=== PATIENT | male | born 1940 | race Caucasian/White ===

== ENCOUNTER 2020-03-27 07:40 | Outpatient (CLI) | payer MEDICARE, OTHER, SELFPAY ==
[2020-03-27 08:42] LABS: Alanine Aminotransferase 20 U/L (4-50); Alkaline Phosphatase 71 U/L (38-126); Aspartate Amino Transferase 24 U/L (17-59); Blood Urea Nitrogen 19 mg/dL (9-20); Carbon Dioxide 30 mmol/L (22-30); Chloride 104 mmol/L (98-107); Cholesterol 170 mg/dL (0-200); Estimated Glomerular Filt Rate 58; Glucose 99 mg/dL (75-110); HDL Direct 52 mg/dL; Potassium 4.2 mmol/L (3.4-5.0); Sodium 138 mmol/L (137-145); Triglycerides 97 mg/dL (<150)
[2020-03-27 08:53] LABS: LDL Cholesterol Direct 88 mg/dL
[2020-03-27 09:03] LABS: Hemoglobin A1C 5.7 % (<5.7)
[2020-03-27 09:16] LABS: Creatinine Urine 223.4 mg/dL
[2020-03-27 09:20] LABS: MALB Creatinine Ratio 19.2 mg/g (0-30)
== END 2020-03-27 07:41 | disposition home or self-care (01) ==
LOC: ANHLAB 07:43
PROVIDERS: PCP Internal Medicine; Visit Provider Nurse Practitioner
DX: R73.03 Prediabetes (principal); E78.2 Mixed hyperlipidemia
CPT/HCPCS: 36415; 80053; 80061; 82043; 83036

== ENCOUNTER 2020-06-24 08:48 | Outpatient (CLI) | payer MEDICARE, OTHER, SELFPAY ==
--- NOTE | ~2020-06-24 | XR_ITS ---
XR abdomen/kub 1V 06/24/2020 09:15 INDICATION: Flank pain TECHNIQUE: KUB COMPARISON: None FINDINGS: Bowel gas pattern is normal. There are cholecystectomy clips. There is no evidence of free air, mass, organomegaly, ascites or obstruction. No abnormal calculi are seen. The bones appear int act. Moderate lumbar spondylosis. Moderate osteoarthritis of the hips. Calcifications in the pelvis a re believed to be phleboliths. IMPRESSION: 1: No acute abdominal abnormality identified. Reviewed, dictated and finalized at location A.
== END 2020-06-24 08:49 | disposition home or self-care (01) ==
LOC: ANHIMG 08:58
PROVIDERS: Visit Provider Urology
DX: N20.0 Calculus of kidney (principal)
CPT/HCPCS: 74018

== ENCOUNTER 2020-07-25 12:23 | Outpatient (CLI) | payer MEDICARE, OTHER, SELFPAY ==
[2020-07-25 12:56] LABS: Hemoglobin A1C 5.7 % (<5.7)
[2020-07-25 12:57] LABS: Alanine Aminotransferase 23 U/L (4-50); Albumin Level 3.9 g/dL (3.5-5.1); Alkaline Phosphatase 62 U/L (38-126); Anion Gap 7 mmol/L (8-16); Aspartate Amino Transferase 23 U/L (17-59); Bilirubin,Total 0.8 mg/dL (0.2-1.3); Blood Urea Nitrogen 26 mg/dL (9-20); Calcium 9.5 mg/dL (8.4-10.2); Carbon Dioxide 35 mmol/L (22-30); Chloride 100 mmol/L (98-107); Cholesterol 148 mg/dL (0-200); Estimated Glomerular Filt Rate 49; Glucose 107 mg/dL (75-110); HDL Direct 46 mg/dL; Potassium 3.8 mmol/L (3.4-5.0); Sodium 142 mmol/L (137-145); Triglycerides 136 mg/dL (<150)
[2020-07-25 13:08] LABS: LDL Cholesterol Direct 73 mg/dL
== END 2020-07-25 12:24 | disposition home or self-care (01) ==
PROVIDERS: PCP Internal Medicine; Visit Provider Nurse Practitioner
DX: R73.03 Prediabetes (principal); E78.2 Mixed hyperlipidemia
CPT/HCPCS: 36415; 80053; 80061; 83036

== ENCOUNTER 2020-07-30 12:44 | Outpatient (CLI) | payer MEDICARE, OTHER, SELFPAY ==
--- NOTE | ~2020-07-30 | US_ITS ---
EXAMINATION: US retroperitoneal comp DATE: 07/30/2020 13:35 INDICATION: Uncontrolled hypertension TECHNIQUE: Multiple ultrasound grayscale images of the kidneys were obtained. COMPARISON: 09/07/2018 FINDINGS: The right kidney measures 9.2 x 5.4 x 5.3 cm. The left kidney measures 10.1 x 5.3 x 4.9 cm. The kidne ys demonstrate normal echogenicity. Again seen are persistent lobulations at both kidneys more prominent on the left. There is no hydronephrosis in either kidney. No stones identified. The bladde r is normal. IMPRESSION: 1. Normal variant persistent lobulations of both kidneys. No hydronephrosis. Reviewed, dictated and finalized at location B. IMPRESSION: 1. Normal variant persistent lobulations of both kidneys. No hydronephro sis.
== END 2020-07-30 12:45 | disposition home or self-care (01) ==
PROVIDERS: Referring Provider Urology
DX: I10 Essential (primary) hypertension (principal)
CPT/HCPCS: 76770

== ENCOUNTER 2020-09-12 10:31 | Outpatient (CLI) | payer MEDICARE, OTHER, SELFPAY ==
[2020-09-18 11:28] LABS: PRA 8.43 ng/mL/h (0.25-5.82)
== END 2020-09-12 10:32 | disposition home or self-care (01) ==
DX: I12.9 Hypertensive chronic kidney disease with stage 1 through stage 4 chronic kidney disease, or unspecified chronic kidney disease (principal); N18.2 Chronic kidney disease, stage 2 (mild)
CPT/HCPCS: 36415; 82088; 83970; 84244

== ENCOUNTER 2020-09-14 10:05 | Outpatient (CLI) | payer MEDICARE, OTHER, SELFPAY ==
[2020-09-18 19:50] LABS: Calculated Total (E+NE) 64 mcg/24 h (26-121); Dopamine, 24hr Urine 189 mcg/24 h (52-480); Norepinephrine, 24hr Urine 64 mcg/24 h (15-100)
== END 2020-09-14 10:06 | disposition home or self-care (01) ==
DX: I12.9 Hypertensive chronic kidney disease with stage 1 through stage 4 chronic kidney disease, or unspecified chronic kidney disease (principal); N18.2 Chronic kidney disease, stage 2 (mild)
CPT/HCPCS: 82384

== ENCOUNTER 2020-09-24 15:51 | Outpatient (CLI) | payer MEDICARE, OTHER, SELFPAY ==
--- NOTE | ~2020-09-24 | XR_ITS ---
EXAMINATION: XR chest 2V 09/24/2020 16:22 INDICATION: Cough for 3 weeks PROCEDURE: PA and lateral views of the chest COMPARISON: Comparison to multiple prior studies sequentially, with oldest reviewed study dated 09/04. FINDINGS: The lungs are clear. The cardiomediastinal silhouette is within normal limits. There are no pleural effusions. There is no pneumothorax suspected. IMPRESSION: 1: NO ACUTE CARDIOPULMONARY DISEASE. Reviewed, dictated and finalized at location A. ER'S ASSISTANT
[2020-09-24 16:57] LABS: Anion Gap 8 mmol/L (8-16); Blood Urea Nitrogen 21 mg/dL (9-20); Calcium 9.9 mg/dL (8.4-10.2); Carbon Dioxide 29 mmol/L (22-30); Chloride 101 mmol/L (98-107); Estimated Glomerular Filt Rate 58; Glucose 113 mg/dL (75-110); Potassium 4.1 mmol/L (3.4-5.0); Sodium 138 mmol/L (137-145)
== END 2020-09-24 15:52 | disposition home or self-care (01) ==
DX: R05 Cough (principal)
CPT/HCPCS: 36415; 71046; 80048

== ENCOUNTER 2020-12-23 08:48 | Outpatient (CLI) | payer MEDICARE, OTHER, SELFPAY ==
--- NOTE | ~2020-12-23 | XR_ITS ---
XR abdomen/kub 1V 12/23/2020 09:06 INDICATION: Renal stone TECHNIQUE: KUB COMPARISON: Comparison to multiple prior studies sequentially, with oldest reviewed study dated 10/21. FINDINGS: Bowel gas pattern is normal. There are cholecystectomy clips. There is no evidence of free air, mass, organomegaly, ascites or obstruction. No abnormal calculi are seen. The bones appear int act. Moderate lumbar spondylosis. IMPRESSION: 1: No acute abdominal abnormality identified. Reviewed, dictated and finalized at location A.
== END 2020-12-23 08:49 | disposition home or self-care (01) ==
LOC: ANHIMG 08:53
PROVIDERS: Visit Provider Urology
DX: N20.0 Calculus of kidney (principal)
CPT/HCPCS: 74018

== ENCOUNTER 2021-04-22 23:50 | Inpatient (IN) | payer MEDICARE, OTHER, SELFPAY ==
--- NOTE | ~2021-04-22 | XR_ITS ---
EXAMINATION: XR chest 1V portable INDICATION: Chest pain TECHNIQUE: Portable AP chest at 0006 hours COMPARISON: 09/24/2020 FINDINGS: The lungs are free of acute opacities. There is no pleural effusion or pneumothorax. The ca rdiomediastinal silhouette is normal. Mild to moderate osteoarthritis is noted in the shoulders. IMPRESSION: 1. No acute cardiopulmonary abnormality. Reviewed, dictated and finalized at location B.
[2021-04-22 23:50] VITALS: BP 137/94; PULSE 67; RESP 14; TEMP 36.6; O2SAT 99
[2021-04-22 23:59] VITALS: O2SAT 100
[2021-04-23] VITALS (25 sets, daily range): BP systolic 103–150; BP diastolic 54–97; PULSE 56–81; RESP 10–20; TEMP 36.4–36.8; O2SAT 94–100; BMI 33.2
--- NOTE | 2021-04-23 | ECG_ITS ---
Measurements Intervals [place] Rate: 78 P: 193 DC: 321 QRS: -59 QRSD: 151 T: 20 QT: 422 QTc: 482 Interpretive Statements SINUS RHYTHM WITH FIRST DEGREE AV BLOCK LEFT AXIS DEVIATION RIGHT BUNDLE BRANCH BLOCK BASELINE ARTIFACT- I, AVL, V1-V2 ABNORMAL ECG Electronically Signed On 04-23-2021 6:27:17 CDT by Chacho Preston D.O.
[2021-04-23 00:30] LABS: Basophils Absolute Auto 0.1 K/mm3 (0.0-0.1); Basophils Percent Auto 0.7 % (0.2-1.2); Eosinophils Absolute Auto 0.2 K/mm3 (0-0.3); Hematocrit 48.7 % (42.0-52.0); Hemoglobin 16.1 g/dL (14.0-18.0); Immature Granulocyte Absolute 0.04 K/mm3 (0.00-0.031); Immature Granulocyte Percent A 0.4 % (0-0.5); Lymphocytes Absolute Auto 1.53 K/mm3 (0.9-3.2); Lymphocytes Percent Auto 14.1 % (18.3-44.2); Mean Corpuscular HGB Conc 33.1 g/dl (32-36); Mean Corpuscular Hemoglobin 30.3 pg (26-34); Mean Corpuscular Volume 91.5 fl (80-100); Mean Platelet Volume 10.1 fl (7.4-10.4); Monocytes Absolute Auto 1.2 K/mm3 (0.1-0.6); Monocytes Percent Auto 11.1 % (2.6-8.5); Neutrophils Absolute Auto 7.8 K/mm3 (1.3-6.7); Neutrophils Percent Auto 71.7 % (45.5-73.1); Platelet Count Result 201 k/mm3 (150-375); Red Blood Count 5.32 M/mm3 (4.6-6.20); Red Cell Distribution Width 14.2 % (11.5-14.5); White Blood Count 10.8 K/mm3 (4.5-10.0)
[2021-04-23 00:47] LABS: Alanine Aminotransferase 25 U/L (4-50); Albumin Level 4.4 g/dL (3.5-5.1); Alkaline Phosphatase 63 U/L (38-126); Anion Gap 11 mmol/L (8-16); Aspartate Amino Transferase 33 U/L (17-59); Blood Urea Nitrogen 26 mg/dL (9-20); Calcium 9.8 mg/dL (8.4-10.2); Carbon Dioxide 24 mmol/L (22-30); Chloride 104 mmol/L (98-107); Estimated CRCL calculation 43 ml/min; Estimated Glomerular Filt Rate 45; Glucose 120 mg/dL (65-110); Potassium 3.7 mmol/L (3.4-5.0); Sodium 139 mmol/L (137-145)
[2021-04-23 00:54] LABS: NT Pro B Type Natriuretic Pept 1410 pg/mL (5-100)
[2021-04-23 00:57] LABS: Prothrombin Time 12.7 Seconds (11.1-14.7)
--- NOTE | 2021-04-23 01:01 | ED.CHESTPAIN ---
HPI - Chest Pain General Chief Complaint: Chest Pain Stated Complaint: Chest pain Time Seen by Provider: 04/22/21 23:50 Source: patient and family Mode of arrival: EMS Limitations: no limitations History of Present Illness HPI narrative: 80-year-old here with complaints of chest pain started prior to coming to the ER. Patient states that he mowed lawn for 3 hours came home with profuse sweating with some nausea and soon after he developed midsternal chest pain. He states he called 911 upon their arrival they gave him aspirin and nitro which eased the pain . He denies any previous history of coronary artery disease. He states that he never had stress test. complaint: chest pain Onset (ago): hour(s) (1) Timing of current episode: now resolved Onset: during exertion Pain location: substernal and epigastric Pain radiation: none Severity: severe Quality: tightness and heaviness Relieving factors: nitroglycerin Exacerbating factors: nothing Associated symptoms: nausea and vomiting Risk Factors Coronary artery disease risk factors: hyperlipidemia and hypertension Related Data Home Medications Medication Instructions Recorded Confirmed hydrocodone 5 mg-acetaminophen 325 1 tablet PO BID PRN tablet 04/22/20 mg tablet aspirin 81 mg tablet,delayed 81 mg PO DAILY 05/02/20 release fluticasone furoate 50 INHALATION 05/02/20 mcg/actuation blister powder for inhalation Allergies Allergy/AdvReac Type Severity Reaction Status Date / Time metformin Allergy Rash Verified 04/23/21 00:24 Review of Systems Review of Systems: All systems reviewed & are unremarkable except as noted in HPI and below Constitutional: Constitutional: Reports no additional constitutional complaints Cardiovascular: Cardiovascular: Reports as per HPI Respiratory: Respiratory: Reports no additional respiratory complaints Gastrointestinal: Gastrointestinal: Reports as per HPI Musculoskeletal: Musculoskeletal: Reports no additional musculoskeletal complaints [facility] Past Medical History Medical History (Updated 04/23/21 @ 01:16 by Zohaib Marcano MD) Prediabetes Family History Family History Mother Family history of cardiovascular disease Family history of diabetes mellitus in first degree relative Father Cerebrovascular accident Family history of heart disease in male family member before age 55 Other Diabetes mellitus Family history of malignant neoplasm Hypertension Social History Social History Smoking status: Never smoker Alcohol intake: never Gender identity (if verbalized by the patient): Male Exam Narrative: Exam Narrative: GENERAL: Well-appearing, well-nourished, and in no acute distress.very HEAD: Normocephalic, atraumatic. EYES: PERRLA and EOMI. NECK: Supple. CHEST: Clear to auscultation. No respiratory distress. HEART: Regular rate and rhythm. No murmur heard. Normal peripheral pulses. ABDOMEN: Soft, nontender, nondistended, normal active bowel sounds. EXTREMITIES: Normal range of motion. No edema. SKIN: Warm, dry, no rash. NEURO: No focal deficits. Alert and oriented x3. PSYCH: Normal mood and affect. Course Course Emergency Course: Still asymptomatic at this time. I informed him about his lab work, EKG. Agreed for admission. Discussed with Dr. Berumen with agreed to admit the patient. Vital Signs Vital signs: Vital Signs Temperature 36.6 C 04/22/21 23:50 Pulse Rate 67 04/22/21 23:50 Respiratory Rate 14 04/22/21 23:50 Blood Pressure 137/94 H 04/22/21 23:50 Pulse Oximetry 99 04/22/21 23:50 Temperature 36.6 C 04/22/21 23:50 Pulse Rate 67 04/22/21 23:50 Respiratory Rate 14 04/22/21 23:50 Blood Pressure 137/94 H 04/22/21 23:50 Pulse Oximetry 100 04/22/21 23:59 MDM - Chest Pain Lab Data Result diagrams: 04/23/21 00:24 04/23
[2021-04-23 01:07] LABS: Troponin I 0.164 ng/mL (0.000-0.034)
[2021-04-23] MEDS: NITROGLYCERIN SL 0.4 MG TABLET SUBLINGUAL (01:29)
[2021-04-23] MEDS: ENOXAPARIN 120 MG/0.8 ML SYRINGE 105 MG SUB-Q (01:29)
[2021-04-23] MEDS: NITROGLYCERIN OINTMENT 1 INCH DOSE TRANSDERM ×3 (02:14→12:17)
[2021-04-23] MEDS: SODIUM CHLORIDE 0.9% IV 1,000 ML 100 ML IV CONT (02:14)
--- NOTE | 2021-04-23 02:46 | PM.IMHP ---
H&P: HPI History of Present Illness Date/Time: 04/23/21 02:46 Chief Complaint: CHEST PAIN Narrative: THIS IS AN 80-YEAR-OLD MALE WITH PAST MEDICAL HISTORY SIGNIFICANT FOR HYPERTENSION. PATIENT PRESENTED TO THE EMERGENCY ROOM AFTER HE WAS OUT IN HIS YD MOWING THE LAWN AND HE EXPERIMENTED DIAPHORESIS CHEST PAIN SHORTNESS OF BREATH CHEST PAIN IS LOCALIZED TO THE RETROSTERNAL AREA NO NAUSEA NO VOMITING HAD A SOME LIGHTHEADEDNESS WELL. HE HAS BEEN IN HIS USUAL STATE OF HEALTH PRIOR TO THESE DENIES ANY FEVERS CHILLS RIGORS COUGH NO PND NO ORTHOPNEA NO LEG SWELLING NO CLAUDICATION. PRELIMINARY WORKUP WAS SIGNIFICANT FOR ELEVATED TROPONIN. HE RECEIVED A NITROGLYCERIN PATCH IN THE EMERGENCY ROOM AT THE TIME OF MY VISIT HE RATED HIS PAIN AT 3-4. Review of Systems Review of Systems: Narrative: CHEST PAIN Constitutional: Constitutional: Denies chills, Denies fatigue, Denies fever(s) and Denies weakness Eyes: Eyes: Denies change in vision ENT: Denies dysphagia, Denies nasal congestion, Denies nasal discharge, Denies nasal obstruction and Denies odynophagia Cardiovascular: Cardiovascular: Reports chest pain, Denies chest pain at rest, Denies chest pain with activity, Denies radiating jaw, neck or arm pain and Denies palpitations Respiratory: Respiratory: Denies cough Gastrointestinal: Gastrointestinal: Denies abdominal pain, Denies nausea and Denies vomiting Genitourinary: Genitourinary: Reports no additional male genitourinary complaints Musculoskeletal: Musculoskeletal: Reports no additional musculoskeletal complaints Integumentary/Breasts: Skin/Breast: Reports system reviewed and no additional complaints, except as docu Neurologic: Reports system reviewed and no additional complaints, except as documented Psychiatric: Psychiatric: Reports no additional psychiatric complaints Endocrine: Endocrine: Reports no additional endocrine complaints Hematologic/Lymphatic: Hematologic/Lymphatic: Reports no additional hematologic/lymphatic complaints Allergic/Immunologic: Allergic/Immunologic: Reports no additional allergic/immunologic complaints [facility] Past Medical History Medical History (Updated 04/23/21 @ 01:16 by Zohaib Marcano MD) Prediabetes Family History Family History Mother Family history of cardiovascular disease Family history of diabetes mellitus in first degree relative Father Cerebrovascular accident Family history of heart disease in male family member before age 55 Other Diabetes mellitus Family history of malignant neoplasm Hypertension Social History Social History Smoking status: Never smoker Alcohol intake: never Gender identity (if verbalized by the patient): Male Meds Home Medications and Allergies Home Medications Medication Instructions Recorded Confirmed Type hydrocodone 5 mg-acetaminophen 325 1 tablet PO BID PRN tablet 04/22/20 History mg tablet aspirin 81 mg tablet,delayed 81 mg PO DAILY 05/02/20 History release fluticasone furoate 50 INHALATION 05/02/20 History mcg/actuation blister powder for inhalation [id number] 3.5 4 drop EACH EAR Q8H #10 ml 05/02/20 Rx mg-10,000 unit/mL-1 % ear drops,susp hydralazine 50 mg tablet 50 mg PO TID #90 tablet 05/06/20 Rx Allergies Allergy/AdvReac Type Severity Reaction Status Date / Time metformin Allergy Rash Verified 04/23/21 00:24 Vital Signs Vital Signs - 24 hr 04/22/21 23:50 04/22/21 23:59 Temperature 97.9 F Pulse Rate 67 Respiratory Rate 14 Blood Pressure 137/94 H Pulse Oximetry 99 100 Exam Const: General: comfortable, no acute distress, well developed, alert and awake Nutritional Appearance: average body habitus Orientation/consciousness: patient oriented x3 HENMT: Head: normal to inspection, normocephalic and atraumatic Ears: hearing grossly norm
[2021-04-23] MEDS: HEPARIN SODIUM 5,000 UNITS/ML VIAL 4000 UNITS IV PUSH (04:04)
[2021-04-23] MEDS: HEPARIN SOD/D5W 100 UNITS/ML 25,000 UNITS/250 ML BAG 10 UNITS IV CONT (04:08)
--- NOTE | 2021-04-23 05:21 | ADMGEN ---
This patient, Enmanuel Vila, was admitted to IMU Room 205-02. Patient/family oriented to hospital policies and general routines including ID bracelet, bed and alarms, visiting hours, pain management, procedures, bathroom and other care routines, personal items, smoking policy, room service/diet, and visiting hours. Information on how to activate the Rapid Response Team has been discussed. Patient/Family are encouraged to report perceived risks to care and to ask questions if they do not understand what they are told or what they should do. Alfonzo MARTI approx [phone]
[2021-04-23] MEDS: ASPIRIN 81 MG ENTERIC TABLET PO (08:35)
--- NOTE | 2021-04-23 09:19 | PM.CNCAR ---
Assessment and Plan Additional Plan this is an 80-year-old gentleman with: No previous history of overt coronary artery disease presenting after an episode of chest pain as I described last evening. There is obvious troponin evidence of non ST elevation TN. In this setting angiography is of course indicated has been recommended. The patient is as I mentioned above going to discuss this with his when she arrives later in the day and come to some decision as to whether not they will be agreeable to this. In the meantime I am going to add a modest dose of metoprolol to the regimen that he is currently on. He should also be started on statin therapy. If he becomes agreeable to angiography earlier in the day we can get this on the schedule if he takes most of the day to make this decision it will likely happen tomorrow. Alternatively if they decline then obviously medical therapy will be undertaken Saroj Bernal MD LOCATED [facility]IN [facility] History of Present Illness History of Present Illness Consult date/time: 04/23/21 09:19 Consult reason: chest pain Reason For Visit: ACS Narrative: This is a pleasant 80-year-old man I am seeing at the request of the hospitalist because of chest pain and biomarker evidence that acute TN occurred yesterday. The patient has no prior history of heart problems and states he was having a very pleasant 80 yesterday felt very well and was doing some yd work. Earlier the day he played a round of golf and had no difficulty doing that. He decided to spent several hours in the evening after the heat of the day was subsided to get some yd work done. He did this tell about 9:00 p.m. he came in the house and started to clean up. As he was taking a shower he started to experience chest pain. He describes it as a dull retrosternal pressure-like pain that was associated with some diaphoresis. He recognized the symptoms as potentially serious so he took aspirin tablet and chewed it and laid down to rest for a while. He and his discussed the symptoms they were waxing and waning but after a couple of hours of this they decided to call 911 he was brought to the hospital by ambulance where he was evaluated in the emergency room. He was given some additional Nitrolingual tablets in the ambulance and least another 1 in the emergency room he says then with ultimate resolution of his symptoms. He has not had any of this pain since about 11:00 p.m. last evening. In the emergency room his ECG shows a sinus mechanism with first-degree AV block and bifascicular block including right bundle branch block and left posterior fascicular block. There was no acute current of injury that was obvious. Troponin levels were negative initially but have risen obviously up to over 11 indicating obvious evidence of a non ST elevation TN. He was treated with aspirin, anticoagulation and topical nitrates he has not been given a beta-tiffani. He is comfortable this morning and has no complaints otherwise. Had a long discussion with the patient about the obvious diagnosis of coronary artery disease this is a new diagnosis for this gentleman. I of course recommended arranging for proceeding with coronary angiography. The patient has a strong desire to discuss this with his was unfortunately not here yet today to see him. She will be here later this morning. The patient made it clear that his is generally against or looks very unfavorable E at aggressive procedures such as this and he is not sure that he will be agreeable after discussing this with his but I told him I would be happy to discuss it with him when she does arrive. Once again he is currently asymptomatic. Review of Systems Constitutional: Constitutional: Reports no additional constitutional complaints Eyes: Eyes: Reports no additional eye complaints ENT: Reports system reviewed and no additional complaints, except as documented Cardiovascular: Cardiovascular: Reports as per HPI
[2021-04-23] MEDS: METOPROLOL SUCCINATE EXT REL 25 MG TABCR PO (10:57)
[2021-04-23 10:58] LABS: Partial Thromboplastin Time 71.1 SECONDS (22.3-36.8)
[2021-04-23] MEDS: ROSUVASTATIN 10 MG TABLET PO (10:59)
--- NOTE | 2021-04-23 13:34 | WPDMODSED ---
Moderate Sedation Note-Pt Data Patient Data Diagnosis: non ST-elevation RI first-degree AV block bifascicular block Present Complaint: this is an 80-year-old man with hypertension but no previous known history of cardiac problems. He has had some ischemic chest pain yesterday following significant physical exertion. Troponin following admission has risen significantly indicative of non ST elevation RI. In the setting angiography has been recommended. As detailed above his ECG does demonstrate evidence conduction system disease. Procedure to be performed/Plan: Left heart catheterization Allergies Allergy/AdvReac Type Severity Reaction Status Date / Time metformin Allergy Rash Verified 04/23/21 00:24 Home Medications Medication Instructions Recorded Confirmed Type aspirin 81 mg tablet,delayed 81 mg PO DAILY 05/02/20 04/23/21 History release spironolacton-hydrochlorothiaz 25 tablet PO DAILY 04/23/21 04/23/21 History Current Medications: Active Medications Acetaminophen (Acetaminophen 325 Mg Tablet) 650 mg PO Q4H PRN PRN Reason: Mild Pain (1-3) or Fever Aspirin (Aspirin 81 Mg Enteric Tablet) 81 mg PO DAILY [facility] Last Admin: 04/23/21 08:35 Dose: 81 mg Documented by: Heparin Sodium (Porcine) (Heparin Sodium 5,000 Units/Ml Vial) 4,000 units IV PUSH PRN PRN PRN Reason: aPTT less than 55 seconds Heparin Sodium (Porcine) (Heparin Sodium 5,000 Units/Ml Vial) 3,500 units IV PUSH PRN PRN PRN Reason: aPTT 55 - 70 seconds Hydrochlorothiazide (Hydrochlorothiazide 25 Mg Tablet) [facility] Heparin Sodium/Dextrose (Heparin Sodium/D5w 100 Units/Ml) 25,000 units in 250 mls @ 10 mls/hr IV CONT .Q24H [facility]; Protocol Last Titration: 04/23/21 11:04 Dose: 1,000 units/hr, 10 mls/hr Documented by: Metoprolol Succinate (Metoprolol Succinate Ext Rel 25 Mg Tabcr) 25 mg PO QAM [facility] Last Admin: 04/23/21 10:57 Dose: 25 mg Documented by: Morphine Sulfate (Morphine Sulfate (*Crx) 4 Mg/Ml Inj) 4 mg IV PUSH Q2H PRN PRN Reason: Pain Rated 7-10 Nitroglycerin (Nitroglycerin Ointment 1 Inch Dose) 1 inch TRANSDERM Q6HR [facility] Last Admin: 04/23/21 12:17 Dose: 1 inch Documented by: Nitroglycerin (Nitroglycerin Sl 0.4 Mg Tablet) 0.4 mg SUBLINGUAL Q5MIN PRN PRN Reason: Chest Pain Last Admin: 04/23/21 01:29 Dose: 0.4 mg Documented by: Ondansetron HCl (Ondansetron Inj 4 Mg/2 Ml Vial) 4 mg IV PUSH Q4H PRN PRN Reason: Nausea Rosuvastatin Calcium (Rosuvastatin 10 Mg Tablet) 10 mg PO QAM [facility] Last Admin: 04/23/21 10:59 Dose: 10 mg Documented by: Spironolactone (Spironolactone 25 Mg Tablet) 25 mg PO QAM [facility] Sedation/Anesthesia: No previous sedation/anesthesia problems (including family history). [facility] Past Medical History Medical History (Updated 04/23/21 @ 01:16 by Zohaib Marcano MD) Prediabetes Family History Family History Mother Family history of cardiovascular disease Family history of diabetes mellitus in first degree relative Father Cerebrovascular accident Family history of heart disease in male family member before age 55 Other Diabetes mellitus Family history of malignant neoplasm Hypertension Social History Social History Smoking status: Never smoker Alcohol intake: never Substance use: never Gender identity (if verbalized by the patient): Male Spiritual care concerns: No Mod Sed Physical Exam Physical Exam Pre Procedural Exam: Normal: Neck, Throat, Airway, Lungs, Heart Size, Heart Rate, Heart Rhythm and Neuro Exam and Variation: Appearance ( pleasant obese man in no distress) and Extremities ( no edema pulses are diminished below the popliteals bilaterally) Hours since solid foods: 14 Hours since liquid intake: 14 Mallampati Classification: class II Internal Medicine - PN: Obj Da Vital Signs Vital Signs: Vital Signs - 24 hr 04/22/21 23:50 04/22/21 23:59
--- NOTE | 2021-04-23 13:40 | PC.NURSE ---
Pt to cath lab tech via stretcher.
--- NOTE | 2021-04-23 15:09 | ECG_ITS ---
Measurements Intervals [place] Rate: 52 P: MS: 0 QRS: 100 QRSD: 158 T: 114 QT: 510 QTc: 477 Interpretive Statements SINUS OR ECTOPIC ATRIAL BRADYCARDIA WITH FIRST DEGREE AV BLOCK RIGHT BUNDLE BRANCH BLOCK CANNOT RULE OUT SEPTAL INFARCT, AGE INDETERMINATE BASELINE ARTIFACT- V2-V3 ABNORMAL ECG Electronically Signed On 04-23-2021 19:40:47 CDT by Chacho Preston D.O.
--- NOTE | 2021-04-23 15:13 | WPDCARDPROC ---
Cardiac Cath Procedure Note Date of procedure:: 04/23/21 Performing physician:: Saroj Bernal MD Indication:: non ST-elevation GA Brief clinical history:: this is an 80-year-old man without previous history of overt coronary artery disease. He has longstanding hypertension and yesterday experienced significant chest pain following performing yd work and golfing earlier in the day. Came into the emergency room where his ECG shows a bifascicular block but no acute ST elevation. Troponin levels however have risen to 11 and this setting angiography has been recommended. Procedure Procedure performed:: Left ventriculography coronary angiography PCI(EMMIE) to proximal LAD Sedation/Medication given:: fentanyl 50 mg Versed 2 mg case start time 2:15 p.m. case end time 3:05 p.m. sedation provided by Rosalva Parisi RN, trained observer Access site:: right femoral artery Estimated blood loss:: 20-30 cc Procedure note:: patient was brought to the cardiac catheterization lab in the postabsorptive state where the right femoral triangle was prepared and draped in the usual fashion. Anesthesia was provided with 1% lidocaine infiltrated locally. Using the modified Seldinger technique the femoral artery was punctured and a 5 [place] vascular sheath was placed. After this left heart catheterization was carried out. a 5 [place] angled pigtail catheter was used to measure left-sided hemodynamics, pullback pressures across the aortic valve and inject the left ventriculogram in the QUINONES projection. Following this a 5 [place] FL4 catheter was used to engage inject the left coronary artery in multiple projections. After this a 5 [place] JR4 catheter was used to engage and inject the right coronary artery. Cineangiograms were then reviewed after which PCI of the proximal LAD was recommended and carried out as detailed below. Prior to PCI the 5 [place] sheath was changed out over a guidewire for a 6 [place] sheath and the patient was then systemically anticoagulated with bolus and infusion of Angiomax. He also received 180 mg of oral Brilinta prior to PCI. He has been receiving aspirin and did not receive any additional aspirin in the cardiac catheterization lab. Following PCI as described above in the procedure was terminated the sheath was sutured into position the patient was taken to the holding area for post PCI recovery and sheath removal. 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 Findings:: Hemodynamics: The central aortic pressure is 1 0 8 over 58 left ventricle 108 over 5 end-diastolic pressure 16 there is no gradient on pullback across the aortic valve. Left ventricle: The LV is of normal size. The mid anterior wall is moderately hypodynamic the remainder of the LV contracts well the global ejection fraction is 50-55%. Left main coronary artery is nicely patent the left anterior descending is a moderate caliber artery extending down to but not around the apex. The LAD has a high-grade 99% stenosis prior to the 1st septal perforating complex and after this there is a long area of 80-90% stenosis into the mid LAD. Distal to this the vessel is medium in caliber and free of significant lesions. The circumflex is a moderate caliber artery giving rise to the marginal branches the circumflex system has mild luminal irregularities but no flow-limiting disease is identified. Right coronary artery is large in caliber and dominant to the posterior circulation. The trunk of the right coronary artery has minimal luminal irregularities but no flow-limiting disease is seen. The midportion of the RPDA has a 50-60% stenosis. Intervention: The left coronary artery was engaged using a 6 [place] CLS 3.5 guiding catheter. I used a 0.014 dispatcher ship pilot 150 coronary guidewire to cross the very high-grade stenosis in the LAD and advance the wire into the distal portion of the artery. The vessel was
--- NOTE | 2021-04-23 15:54 | PM.IMPN ---
Progress Note: A&P Assessment and Plan (1) ACS (acute coronary syndrome): Code(s): I24.9 - Acute ischemic heart disease, unspecified Status: Acute Assessment and Plan: Trop climbed to 11 today. EKG showing Rt BBB, LAD and 1st degree AVB. LHC showing severe CAD with subtotal 99% stenosis of the proximal LAD followed by a longer area of 80-90% stenosis in the trunk of the LAD distal to this that was treated successfully using the 2 overlapping EMMIE with excellent results. EF 50-55%. Plan for medical management with Toprol XL, Cozaar, ASA, Brilinta, Crestor. Stop NTP. Appreciate Cardiology input. (2) NIKOLAY (acute kidney injury): Code(s): N17.9 - Acute kidney failure, unspecified Status: Acute Assessment and Plan: Cr 1.5 on admission. Patient to receive contrast today so will hold HCTZ and Spironolactone. IV fluids started. Follow closely (3) Type 2 diabetes mellitus without complication, without long-term current use of insulin: Code(s): E11.9 - Type 2 diabetes mellitus without complications Status: Acute Assessment and Plan: Diet controlled. The patient's blood glucose was reviewed on 04/23 Glucose remains well controlled. Start AccuCheks covering with sliding scale. Hypoglycemia protocol to be available as needed. (4) Essential (primary) hypertension: Code(s): I10 - Essential (primary) hypertension Status: Acute Assessment and Plan: BP reviewed on 04/23. Blood pressure remains well controlled. We stopped the HCTZ/Spirono due to NIKOLAY. Cozaar and Metoprolol added. Will continue current medications. (5) DVT prophylaxis: Code(s): Z29.9 - Encounter for prophylactic measures, unspecified Status: Acute Assessment and Plan: SCDs Subjective Date/time seen: 04/23/21 15:54 Interval history: 80yo male with DM and HTN here for chest pain. Patient was out mowing the lawn yesterday morning. he came in and showered. About 15 minutes after coming in while sitting, he developed diaphoresis and substernal, 6/10 chest pain. No radiation, sob but had nausea. EMS called and he received ASA and NTG SL. CP went down to 1-2/10. No further CP. Feels well. Exam Narrative: Exam Narrative: AF 98.3 126/74 58 17 99% 3L Gen - NARD Chest - CTA bilaterally, nml RR CV - RRR with distant S1/S2 Abd - Soft, NT/ND, Positive BS Ext - No pedal edema. Chronic right ankle surgical changes. 1+ DP bilateral Psych - Nml mood and affect Skin - Warm and dry Objective Data Vital Signs Vital Signs: Vital Signs - 24 hr 04/22/21 23:50 04/22/21 23:59 04/23/21 03:10 Temperature 97.9 F Pulse Rate 67 72 Respiratory Rate 14 14 Blood Pressure 137/94 H 111/54 L Pulse Oximetry 99 100 95 04/23/21 04:42 04/23/21 05:20 04/23/21 05:51 Temperature 97.8 F Pulse Rate 75 70 62 Respiratory Rate 12 12 Blood Pressure 120/66 122/68 Pulse Oximetry 98 98 04/23/21 06:00 04/23/21 08:00 04/23/21 10:00 Temperature 97.6 F Pulse Rate 59 L 62 64 Respiratory Rate 18 Blood Pressure 118/61 Pulse Oximetry 98 04/23/21 10:57 04/23/21 12:00 04/23/21 15:30 Temperature 98.3 F Pulse Rate 72 62 68 Respiratory Rate 18 14 Blood Pressure 103/58 L 121/70 Pulse Oximetry 98 100 04/23/21 15:45 Temperature Pulse Rate 58 L Respiratory Rate 17 Blood Pressure 126/74 Pulse Oximetry 99 Intake/Output Intake/Output: Intake & Output 04/20/21 04/21/21 04/22/21 04/23/21 23:59 23:59 23:59 23:59 Output Total 400 Balance -400 Meds/Results Medications: Active Medications Generic Name Dose Route Start Last Admin Trade Name Freq PRN Reason Stop Dose Admin Acetaminophen 650 mg 04/23/21 01:17 Acetaminophen 325 Mg Tablet PO Q4H PRN Mild Pain (1-3) or Fever Aspirin 81 mg 04/24/21 08:00 Aspirin 81 Mg Chewable Tablet PO DAILY@0800 [facility] Heparin Sodium (Porcine) 4,000 units 04/23/21 03:47
[2021-04-23] MEDS: ACETAMINOPHEN 325 MG TABLET 650 MG PO ×2 (18:06→22:28)
--- NOTE | 2021-04-23 19:00 | PC.NURSE ---
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
[2021-04-23] MEDS: SODIUM CHLORIDE 0.9% IV 1,000 ML 125 ML IV CONT (19:19)
--- NOTE | 2021-04-23 19:24 | SUR.PHASEII ---
182 Patient called to come off bed carter, Hematoma found and firm manual pressure applied, pressure held for 25 minutes. Femostop applied, Patient transported to IMU room 205-2, Balbina RN and manager shift RN at bedside.
[2021-04-23] MEDS: TICAGRELOR 90 MG TABLET PO (20:23)
[2021-04-24] VITALS (12 sets, daily range): BP systolic 119–132; BP diastolic 66–76; PULSE 56–88; RESP 15–20; TEMP 36.4–36.9; O2SAT 97–100
--- NOTE | 2021-04-24 05:11 | ECG_ITS ---
Measurements Intervals [place] Rate: 70 P: -71 MO: 300 QRS: 105 QRSD: 156 T: 123 QT: 456 QTc: 495 Interpretive Statements ECTOPIC ATRIAL RHYTHM WITH FIRST DEGREE AV BLOCK RIGHT AXIS DEVIATION RIGHT BUNDLE BRANCH BLOCK CANNOT RULE OUT SEPTAL INFARCT, AGE INDETERMINATE BASELINE WANDER- I, III, AVL, AVF ABNORMAL ECG Electronically Signed On 04-24-2021 8:21:58 CDT by Chacho Preston D.O.
[2021-04-24 05:34] LABS: Carbon Dioxide 25 mmol/L (22-30); Estimated CRCL calculation 53 ml/min; Estimated Glomerular Filt Rate 58; Glucose 94 mg/dL (65-110)
[2021-04-24 06:10] LABS: Albumin Level 3.6 g/dL (3.5-5.1); Anion Gap 9 mmol/L (8-16); Blood Urea Nitrogen 21 mg/dL (9-20); Calcium 8.7 mg/dL (8.4-10.2); Chloride 105 mmol/L (98-107); Phosphorus 2.9 mg/dL (2.5-4.5); Sodium 139 mmol/L (137-145)
[2021-04-24 08:17] LABS: Magnesium 1.9 mg/dL (1.6-2.3)
[2021-04-24 09:11] LABS: Hematocrit 44.9 % (42.0-52.0); Hemoglobin 14.8 g/dL (14.0-18.0); Mean Corpuscular Hemoglobin 30.3 pg (26-34); Mean Platelet Volume 10.1 fl (7.4-10.4); Platelet Count Result 186 k/mm3 (150-375); Red Blood Count 4.88 M/mm3 (4.6-6.20); White Blood Count 9.2 K/mm3 (4.5-10.0)
[2021-04-24] MEDS: ASPIRIN 81 MG CHEWABLE TABLET PO (09:36)
[2021-04-24] MEDS: TICAGRELOR 90 MG TABLET PO (09:36)
[2021-04-24] MEDS: ROSUVASTATIN 10 MG TABLET PO (09:36)
[2021-04-24] MEDS: LOSARTAN POTASSIUM 25 MG TABLET PO (09:36)
[2021-04-24] MEDS: METOPROLOL SUCCINATE EXT REL 25 MG TABCR PO (09:37)
[2021-04-24] MEDS: CLOPIDOGREL BISULFATE 300 MG TABLET PO (11:27)
--- NOTE | 2021-04-24 12:28 | PM.DS ---
DS: Admitting Diagnosis Admitting Diagnosis Admitting Diagnosis: Chest pain DS: Discharge Diagnosis Discharge Diagnosis (1) ACS (acute coronary syndrome): Code(s): I24.9 - Acute ischemic heart disease, unspecified Status: Acute Assessment and Plan: Patient presents with chest pain after working in the yard. Trop climbed to 11. EKG showing Rt BBB, LAD and 1st degree AVB. Consistent with NSTEMI. Patient given aspirin and other appropriate medications. Cardiology consulted. LHC showing severe CAD with subtotal 99% stenosis of the proximal LAD followed by a longer area of 80-90% stenosis in the trunk of the LAD distal to this that was treated successfully using the 2 overlapping EMMIE with excellent results. EF 50-55%. Plan for medical management with Toprol XL, Cozaar, ASA, Plavix and Crestor. (2) NIKOLAY (acute kidney injury): Code(s): N17.9 - Acute kidney failure, unspecified Status: Acute Assessment and Plan: Cr 1.5 on admission. We held HCTZ and Spironolactone. IV fluids started. he received contrast with the [facility]. Cr today better at 1.2. No plans to continue these diuretics at discharge. (3) Type 2 diabetes mellitus without complication, without long-term current use of insulin: Code(s): E11.9 - Type 2 diabetes mellitus without complications Status: Acute Assessment and Plan: Diet controlled. The patient's blood glucose was monitored with AccuCheks covering with sliding scale. Hypoglycemia protocol was available as needed. (4) Essential (primary) hypertension: Code(s): I10 - Essential (primary) hypertension Status: Acute Assessment and Plan: We stopped the HCTZ/Spironolactone due to NIKOLAY. Cozaar and Metoprolol added. BP monitored closely and remained well controlled. (5) CAD (coronary artery disease): Code(s): I25.10 - Atherosclerotic heart disease of [place] coronary artery without angina pectoris Status: Acute Assessment and Plan: As above. DS: Summary Hospital Course Reason for hospitalization: 80yo male with DM and HTN who presents with c/o chest pain. Please see H&P for details. Hospital Course: Please se above for details of hospital course. Status at Discharge Cognitive/behavioral status at discharge: stable Time Spent with Patient Time attestation: Total time spent providing and/or coordinating discharge services: 32 minutes Time spent: Greater than 30 minutes Exam Narrative: Exam Narrative: AF 97.6 121/71 61 20 97% ra Gen - NARD Chest - CTA bilaterally, nml RR CV - RRR, S1/S2. Abd - Soft, NT/ND, Positive BS Ext - No pedal edema. Right femoral groin site without hematoma or bruising. Psych - Nml mood and affect Skin - Warm and dry DS: Data Data Completed and Pending Labs on day of discharge: Labs from last 24 hours 04/24/21 04/24/21 04/24/21 08:53 04:29 04:29 WBC 9.2 RBC 4.88 Hgb 14.8 Hct 44.9 MCV 92.0 MCH 30.3 MCHC 33.0 RDW 14.0 Plt Count 186 MPV 10.1 Sodium 139 Potassium 4.0 Chloride 105 Carbon Dioxide 25 Anion Gap 9 BUN 21 H Creatinine 1.20 Estim Creat Clear Calc 53 Estimated GFR 58 L Glucose 94 Calcium 8.7 Phosphorus 2.9 Magnesium 1.9 Albumin 3.6 Discharge Plan Discharge Attending physician on discharge: Irbahima Mcmullen Consulting providers: Thiago Hummel Discharging Clinician: Ibrahima Mcmullen Anticipated Discharge Date/Time: 04/24/21 12:36 Patient Disposition: Home, Self-Care Activity: other - see discharge instructions Diet: heart healthy Wound Care Instructions: other - see discharge instructions Discharge Instructions: [facility] [address] [facility]
--- NOTE | 2021-04-24 13:25 | PM.PNCARD ---
Progress Note: A&P Assessment and Plan (1) CAD (coronary artery disease): Code(s): I25.10 - Atherosclerotic heart disease of [place] coronary artery without angina pectoris <SOTERO De La Paz - Last Filed: 04/24/21 13:37> Status: Acute <SOTERO De La Paz - Last Filed: 04/24/21 13:37> Assessment and Plan: No previous history of overt coronary artery disease presenting after an episode of chest pain as I described last evening. There is obvious troponin evidence of non ST elevation OR. In this setting angiography is of course indicated has been recommended. Coronary angiogram performed and revealed: 1) Severe coronary artery disease with subtotal 99% stenosis of the proximal LAD followed by a longer area of 80-90% stenosis in the trunk of the LAD distal to this. 2) [id number] stenosis in the midportion of the RPDA for which I would recommend medical treatment 3) mild LV systolic dysfunction with mid anterior hypokinesia resulting from the high-grade subtotal LAD stenosis and the non ST-elevation OR with which the patient has presented. Proximal LAD was treated successfully using the 2 overlapping Orsiro drug-eluting stents with an excellent anatomical result and no evidence of any angiographic complications. Today, he is free from chest pain. His R groin cath insertion site is free from bleeding, drainage, pain, hematoma. Does have some ecchymosis - apparently he developed some late bleeding last evening and required use of a fem stop. He has been started on medical therapy including ASA, Plavix (Brilinta not covered by insurance - cost prohibitive), metoprolol, losartan, statin. He was loaded with Plavix today and has been instructed to start his plavix at home tomorrow. <SOTERO De La Paz - Last Filed: 04/24/21 13:37> (2) Mixed hyperlipidemia: Code(s): E78.2 - Mixed hyperlipidemia <SOTERO De La Paz - Last Filed: 04/24/21 13:37> Status: Acute <SOTERO De La Paz - Last Filed: 04/24/21 13:37> Assessment and Plan: On statin <SOTERO De La Paz - Last Filed: 04/24/21 13:37> (3) Essential (primary) hypertension: Code(s): I10 - Essential (primary) hypertension <SOTERO De La Paz - Last Filed: 04/24/21 13:37> Status: Acute <SOTERO De La Paz - Last Filed: 04/24/21 13:37> Assessment and Plan: At goal. Continue BB, ARB <SOTERO De La Paz - Last Filed: 04/24/21 13:37> Additional Plan I HAVE SEEN AND EXAMINED THE PATIENT AND AGREE WITH THE ASSESSMENT AND PLAN OF THE NURSE PRACTITIONER. BRILINTA IS EXPENSIVE FOR THE PATIENT. WILL LOAD PATIENT WITH 300MG OF PLAVIX AND THEN STARTING TOMORROW TAKE PLAVIX 75 MG DAILY. CONTINUE ASA 81 MG DAILY. COUNSELLING DONE TO PATIENT REGARDING IMPORTANCE OF COMPLIANCE WITH DAPTY. <Hina Bean MD - Last Filed: 04/24/21 23:01> Subjective Date/time seen: 04/24/21 13:25 <SOTERO De La Paz - Last Filed: 04/24/21 13:37> Interval history: Cardiology follow up for chest pain Date of service 04/24/2021: Patient feels well today. Denies any chest pain. He's eager to go home. Reviewed new medications and importance of medication adherence. Instructed patient to monitor cath site and instructed him and his on checking site for increased bruising, drainage, bleeding, pain. They verbalized understanding of everything discussed. All questions answered to their satisfaction <SOTERO De La Paz - Last Filed: 04/24/21 13:37> Review of Systems Constitutional: Constitutional: Reports no additional constitutional complaints <SOTERO De La Paz - Last Filed: 04/24/21 13:37> Eyes: Eyes: Reports no additional eye complaints <SOTERO De La Paz - Last Filed: 04/24/21 13:37> ENT: Reports system reviewed and no additional complaints, except as documented <SOTERO De La Paz - Last Filed: 04/24/21 13:37> Cardiovascular: Cardiovas
== END 2021-04-24 14:15 | disposition home or self-care (01) | DRG 247 ==
LOC: ANHED 04-23 01:16 → ANHIMU 04-23 10:23
PROVIDERS: Nurse Practitioner; Specialist; Admitting Provider Internal Medicine; Emergency Provider Family Medicine; Visit Provider Internal Medicine
PROC: 4A023N7 Measurement of Cardiac Sampling and Pressure, Left Heart, Percutaneous Approach (ICD-10-PCS; CPT 93452; principal; 2021-04-23 13:00)
PROC: 027035Z Dilation of Coronary Artery, One Artery with Two Drug-eluting Intraluminal Devices, Percutaneous Approach (ICD-10-PCS; 2021-04-23 13:00)
DX: I21.4 Non-ST elevation (NSTEMI) myocardial infarction (principal); N17.9 Acute kidney failure, unspecified; E11.9 Type 2 diabetes mellitus without complications; I25.10 Atherosclerotic heart disease of native coronary artery without angina pectoris; I10 Essential (primary) hypertension; I44.0 Atrioventricular block, first degree; E66.9 Obesity, unspecified; Z68.33 Body mass index [BMI] 33.0-33.9, adult; E78.2 Mixed hyperlipidemia
CPT/HCPCS: 36415; 71045; 80053; 80069; 83735; 83880; 84484; 85025; 85027; 85610; 85730; 93005; 93458; 99285; A9270; C1725; C1769; C1874; C1887; C1894; C9600; J0461; J0583; J1644; J1650; J2250; J3010; J7030; J7040

== ENCOUNTER 2021-05-16 07:08 | Outpatient (CLI) | payer MEDICARE, OTHER, SELFPAY ==
[2021-05-16 08:25] LABS: Basophils Absolute Auto 0.1 K/mm3 (0.0-0.1); Basophils Percent Auto 1.1 % (0.2-1.2); Eosinophils Absolute Auto 0.3 K/mm3 (0-0.3); Eosinophils Percent Auto 4.4 % (0-4.4); Hematocrit 46.6 % (42.0-52.0); Hemoglobin 14.8 g/dL (14.0-18.0); Immature Granulocyte Absolute 0.03 K/mm3 (0.00-0.031); Immature Granulocyte Percent A 0.5 % (0-0.5); Lymphocytes Absolute Auto 1.17 K/mm3 (0.9-3.2); Lymphocytes Percent Auto 18.3 % (18.3-44.2); Mean Corpuscular HGB Conc 31.8 g/dl (32-36); Mean Corpuscular Hemoglobin 29.8 pg (26-34); Mean Platelet Volume 10.1 fl (7.4-10.4); Monocytes Absolute Auto 0.9 K/mm3 (0.1-0.6); Monocytes Percent Auto 14.5 % (2.6-8.5); Neutrophils Absolute Auto 3.9 K/mm3 (1.3-6.7); Neutrophils Percent Auto 61.2 % (45.5-73.1); Platelet Count Result 190 k/mm3 (150-375); Red Blood Count 4.96 M/mm3 (4.6-6.20); Red Cell Distribution Width 13.8 % (11.5-14.5); White Blood Count 6.4 K/mm3 (4.5-10.0)
[2021-05-16 09:40] LABS: Hemoglobin A1C 5.7 % (<5.7)
[2021-05-16 09:50] LABS: Alanine Aminotransferase 21 U/L (4-50); Alkaline Phosphatase 56 U/L (38-126); Anion Gap 6 mmol/L (8-16); Aspartate Amino Transferase 29 U/L (17-59); Bilirubin,Total 0.9 mg/dL (0.2-1.3); Blood Urea Nitrogen 17 mg/dL (9-20); Calcium 9.3 mg/dL (8.4-10.2); Carbon Dioxide 29 mmol/L (22-30); Chloride 108 mmol/L (98-107); Cholesterol 129 mg/dL (0-200); Estimated Glomerular Filt Rate 53; Glucose 84 mg/dL (65-110); HDL Direct 49 mg/dL; Potassium 3.8 mmol/L (3.4-5.0); Sodium 143 mmol/L (137-145); Triglycerides 99 mg/dL (<150)
[2021-05-16 10:02] LABS: LDL Cholesterol Direct 44 mg/dL
== END 2021-05-16 07:09 | disposition home or self-care (01) ==
PROVIDERS: Visit Provider Nurse Practitioner
DX: R73.01 Impaired fasting glucose (principal); Z79.02 Long term (current) use of antithrombotics/antiplatelets
CPT/HCPCS: 36415; 80053; 80061; 83036; 85025

== ENCOUNTER → 2021-07-09 13:42 | Outpatient (CLI) | payer SELFPAY ==
--- NOTE | ~2021-07-09 | XR_ITS ---
XR thoracic spine 3V DATE: 07/09/2021 14:19 INDICATION: Mid back pain TECHNIQUE: AP, lateral and swimmer views COMPARISON: None FINDINGS: There is diffuse osteopenia. There is dextroscoliosis of the thoracic spine. There is diffuse idiopathic skeletal hyperostosis of the thoracic spine. No fracture or dislocation or bone destruction of the thoracic spine is evident. The thoracic pedicle s are intact. No paraspinal soft tissue thickening. IMPRESSION: Diffuse osteopenia Diffuse idiopathic skeletal hyperostosis Dextroscoliosis of the thoracic spine Reviewed, dictated and finalized at location A.
== END ==
PROVIDERS: Visit Provider Chiropractor Rehabilitation
DX: M48.14 Ankylosing hyperostosis [Forestier], thoracic region (principal); M41.9 Scoliosis, unspecified
CPT/HCPCS: 72072

== ENCOUNTER 2021-08-20 07:15 | Outpatient (RCR) | payer MEDICARE, OTHER, SELFPAY ==
[2021-06-06 08:50] VITALS: BP 140/68; PULSE 57; RESP 16; TEMP 36.8; O2SAT 97
[2021-06-06 09:01] VITALS: PULSE 57
--- NOTE | 2021-07-11 14:15 | PCCPR ---
Addendum entered by Hayley Su RN 07/15/21 13:26: Ray called with update he is still in pain from his fall. He is under the care of a Chiropractor and believes it is helping. He will remain out through the rest of week and reevaluate on Wednesday if he can return. States his MD retired and does not have a PCP at this time. Original Note: pt cxl due to falling and hurting ankle and back; pt may return 07/16, but not likely.
--- NOTE | 2021-08-14 08:35 | PCCPR ---
Absent Ray left message not feeling well today.
== END 2021-09-01 13:44 | disposition home or self-care (01) ==
LOC: ANHCPREHAB 07:15
PROVIDERS: Visit Provider Nurse Practitioner
DX: Z95.5 Presence of coronary angioplasty implant and graft (principal); I25.2 Old myocardial infarction
CPT/HCPCS: 93798

== ENCOUNTER 2021-09-12 09:28 | Outpatient (CLI) | payer MEDICARE, OTHER, SELFPAY ==
--- NOTE | ~2021-09-12 | XR_ITS ---
EXAMINATION: XR abdomen/kub 1V INDICATION: Calculus of the kidney TECHNIQUE: Supine views of the abdomen were obtained on 2 radiographs. COMPARISON: 12/23/2020 FINDINGS: No definite urolithiasis is identified. There are phleboliths of the pelvis. A moderate vol ume of colonic stool is present. Surgical clips in the right upper quadrant are likely from prior cho lecystectomy. There is severe lumbar spondylosis. IMPRESSION: 1. No urolithiasis identified. Reviewed, dictated and finalized at location A. BUILDER
== END 2021-09-12 09:29 | disposition home or self-care (01) ==
PROVIDERS: Visit Provider Urology
DX: N20.0 Calculus of kidney (principal)
CPT/HCPCS: 74018

== ENCOUNTER 2022-02-12 07:13 | Outpatient (CLI) | payer MEDICARE, OTHER, SELFPAY ==
[2022-02-12 08:18] LABS: Alanine Aminotransferase 18 U/L (6-50); Albumin Level 3.9 g/dL (3.5-5.1); Alkaline Phosphatase 61 U/L (38-126); Anion Gap 4 mmol/L (8-16); Aspartate Amino Transferase 26 U/L (17-59); Bilirubin,Total 0.8 mg/dL (0.2-1.3); Blood Urea Nitrogen 23 mg/dL (9-20); Calcium 9.3 mg/dL (8.4-10.2); Carbon Dioxide 31 mmol/L (22-30); Chloride 108 mmol/L (98-107); Cholesterol 133 mg/dL (0-200); Estimated Glomerular Filt Rate 58; Glucose 91 mg/dL (65-110); HDL Direct 53 mg/dL; Potassium 4.3 mmol/L (3.4-5.0); Sodium 143 mmol/L (137-145); Triglycerides 70 mg/dL (<150)
[2022-02-12 08:23] LABS: Basophils Absolute Auto 0.1 K/mm3 (0.0-0.1); Basophils Percent Auto 1.2 % (0.2-1.2); Eosinophils Absolute Auto 0.2 K/mm3 (0-0.3); Eosinophils Percent Auto 2.3 % (0-4.4); Hematocrit 47.4 % (42.0-52.0); Hemoglobin 15.1 g/dL (14.0-18.0); Immature Granulocyte Absolute 0.03 K/mm3 (0.00-0.031); Immature Granulocyte Percent A 0.4 % (0-0.5); Lymphocytes Absolute Auto 1.34 K/mm3 (0.9-3.2); Lymphocytes Percent Auto 17.2 % (18.3-44.2); Mean Corpuscular HGB Conc 31.9 g/dl (32-36); Mean Corpuscular Hemoglobin 29.8 pg (26-34); Mean Corpuscular Volume 93.7 fl (80-100); Mean Platelet Volume 10.6 fl (7.4-10.4); Monocytes Absolute Auto 1.1 K/mm3 (0.1-0.6); Neutrophils Absolute Auto 5.1 K/mm3 (1.3-6.7); Neutrophils Percent Auto 64.9 % (45.5-73.1); Platelet Count Result 203 k/mm3 (150-375); Red Blood Count 5.06 M/mm3 (4.6-6.20); Red Cell Distribution Width 14.4 % (11.5-14.5); White Blood Count 7.8 K/mm3 (4.5-10.0)
[2022-02-12 08:29] LABS: LDL Cholesterol Direct 49 mg/dL
[2022-02-16 21:55] LABS: PSA, Free 0.33 ng/mL; PSA, Total 0.8 ng/mL (<=4.0)
== END 2022-02-12 07:14 | disposition home or self-care (01) ==
LOC: ANHLAB 07:20
PROVIDERS: Visit Provider Nurse Practitioner
DX: E78.5 Hyperlipidemia, unspecified (principal); Z13.9 Encounter for screening, unspecified; R97.20 Elevated prostate specific antigen [PSA]; I10 Essential (primary) hypertension; I25.10 Atherosclerotic heart disease of native coronary artery without angina pectoris; Z87.898 Personal history of other specified conditions; R73.01 Impaired fasting glucose
CPT/HCPCS: 36415; 80053; 80061; 84153; 84154; 84443; 85025

== ENCOUNTER → 2022-10-19 08:47 | Outpatient (CLI) | payer MEDICARE, SELFPAY ==
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
== END ==
PROVIDERS: PCP Family Medicine; Visit Provider Family Medicine
DX: I67.2 Cerebral atherosclerosis (principal); V89.2XXA Person injured in unspecified motor-vehicle accident, traffic, initial encounter
CPT/HCPCS: 70450

== ENCOUNTER 2022-12-05 18:44 | Emergency (ER) | payer MEDICARE, SELFPAY ==
--- NOTE | 2022-12-05 18:51 | ED.GENADULT ---
HPI - General Adult General Chief complaint: Upper Respiratory Infection Stated complaint: cough,chest congestion Time Seen by Provider: 12/05/22 18:53 Source: patient Mode of arrival: ambulatory Limitations: no limitations History of Present Illness HPI narrative: 82-year-old male patient presents to the [facility] with complaints of cold symptoms. Patient states his symptoms started on with diarrhea and some vomiting. Patient states that he called his doctor on Wednesday and his doctor prescribed him some amoxicillin but did not actually see him. Patient states he has been having a sore throat, coughing with phlegm production. Patient states he does have some chest pain but only when he coughs. Denies any shortness of breath at this time. Related Data Home Medications Medication Instructions Recorded Confirmed losartan 50 mg tablet 50 mg PO DAILY 09/09/22 12/05/22 aspirin 81 mg chewable tablet 81 mg PO DAILY 12/05/22 12/05/22 Allergies Allergy/AdvReac Type Severity Reaction Status Date / Time pantoprazole AdvReac Intermediate itching Verified 12/05/22 19:03 Review of Systems Review of Systems: CONSTITUTIONAL: Denies fever, chills, or sweats. EYES: Denies visual changes, redness, or discharge. ENT: Positive rhinorrhea, congestion, sore throat, denies otalgia. CARDIOVASCULAR: Denies chest pain, palpitations, or edema. RESPIRATORY: positive cough , deniesdyspnea. GASTROINTESTINAL: Denies abdominal pain, nausea, vomiting, or diarrhea. GENITOURINARY: Denies dysuria or hematuria. SKIN: Denies rash or itching. MUSCULOSKELETAL: Denies back pain, joint pain, or myalgia. NEUROLOGIC: Denies headache, numbness, or weakness. PSYCHIATRIC: Denies anxiety or depression. [facility] Past Medical History Medical History Essential (primary) hypertension Mixed hyperlipidemia Prediabetes Subarachnoid hemorrhage following injury with brief loss of consciousness but without open intracranial wound Type 2 diabetes mellitus without complication, without long-term current use of insulin Family History Family History Mother Family history of cardiovascular disease Family history of diabetes mellitus in first degree relative Diabetes mellitus Father Family history of heart disease in male family member before age 55 Cerebrovascular accident Other Family history of malignant neoplasm Hypertension Social History Social History Smoking status: Never smoker Second hand tobacco smoke exposure: No Alcohol intake: never Substance use: never Lack of Transportation: No Lack of Food: Never True Current Housing: I Have Housing Concerned About Future Housing: No Difficulty Paying Gas/Electric Bills: No Difficulty Paying for Meds: No Currently Unemployed: No Education: Trade/Vocational Certificate Gender identity (if verbalized by the patient): Male Spiritual care concerns: No Comments At the time of my signature I agree with nursing past medical history, surgical, social, and family history. There is no relevant family history pertinent to the presenting complaint. Exam Narrative: GENERAL: Well-appearing, well-nourished, and in no acute distress. HEAD: Normocephalic, atraumatic. EYES: PERRLA and EOMI. ENT: Nares with erythema and edema noted bilaterally, no rhinorrhea or epistaxis. Mucous membranes moist. posterior pharynx with no erythema, tonsillar drink, exudates or Or lesions present. NECK: Supple. No lymphadenopathy CHEST: Clear to auscultation. No respiratory stress. Patient able talk in clear complete sentences. HEART: Regular rate and rhythm. No murmur heard. Normal peripheral pulses. ABDOMEN: Soft, nontender, nondistended, normal active bowel sounds. EXTREMITIES: Normal range of motion. No edema. SKIN: Warm, dry, no rash. NEUR
[2022-12-05 19:06] VITALS: BP 146/76; PULSE 73; RESP 19; TEMP 36.4; O2SAT 100
--- NOTE | 2022-12-05 19:18 | ECG_ITS ---
Measurements Intervals [place] Rate: 71 P: -68 NM: 329 QRS: 60 QRSD: 168 T: -15 QT: 422 QTc: 459 Interpretive Statements ECTOPIC ATRIAL RHYTHM WITH FIRST DEGREE AV BLOCK RIGHT BUNDLE BRANCH BLOCK CANNOT RULE OUT SEPTAL INFARCT, AGE INDETERMINATE ABNORMAL ECG COMPARED TO ECG 04/24/2021 08:07:36 NO SIGNIFICANT CHANGES Electronically Signed On 12-06-2022 6:43:48 SECURITY SYSTEM ANALYST by Chacho Preston D.O.
== END 2022-12-05 19:30 | disposition home or self-care (01) ==
PROVIDERS: Emergency Provider Nurse Practitioner Family; PCP Family Medicine
DX: J06.9 Acute upper respiratory infection, unspecified (principal); E78.2 Mixed hyperlipidemia; I10 Essential (primary) hypertension; E11.9 Type 2 diabetes mellitus without complications; Z79.82 Long term (current) use of aspirin
CPT/HCPCS: 93005; 99213; G0463

== ENCOUNTER 2023-07-19 13:19 | Emergency (ER) | payer MEDICARE, SELFPAY ==
[2023-07-19 13:27] VITALS: BP 171/70; PULSE 63; RESP 20; TEMP 36.2; O2SAT 99
--- NOTE | 2023-07-19 13:42 | ED.SKABFB ---
HPI - Skin/Abscess/Foreign Bdy General Chief complaint: Skin/Abscess/Foreign Body Stated complaint: skin irritation (lt arm) Time Seen by Provider: 07/19/23 13:42 Source: patient, RN notes reviewed and old records reviewed Mode of arrival: ambulatory Limitations: no limitations History of Present Illness HPI narrative: 83 year old male presents to express care with complaints of redness swelling and some pustules to the dorsal aspect of his left forearm since Wednesday. Patient reports that he has been using imiquimod cream as ordered by his medical researcher and was on second series of use 10 days in when the left forearm became so irritated, red and itchy and with some discomfort and pustules noted with some yellowish fluid that he stopped using the medication. Patient reports that he is not able to get ahold of his medical researcher today and so he came her for treatment.. complaint: other (cellulitis) Onset (ago): day(s) (2) Location: LUE (forarm) Treatments prior to arrival: other (had been using Imiquimod 5% ointment) Related Data Home Medications Medication Instructions Recorded Confirmed losartan 50 mg tablet 50 mg PO DAILY 09/09/22 07/19/23 aspirin 81 mg chewable tablet 81 mg PO DAILY 12/05/22 07/19/23 imiquimod 5 % topical cream packet 1 applic topical DAILY 07/19/23 07/19/23 rosuvastatin 10 mg tablet 10 mg PO DAILY 07/19/23 07/19/23 Allergies Allergy/AdvReac Type Severity Reaction Status Date / Time pantoprazole AdvReac Mild itching Verified 07/19/23 13:22 Review of Systems Review of Systems: CONSTITUTIONAL: Denies fever, chills, or sweats. CARDIOVASCULAR: Denies chest pain, palpitations, or edema. RESPIRATORY: Denies cough or dyspnea. GASTROINTESTINAL: Denies abdominal pain, nausea, vomiting SKIN: Reports redness and swelling pain and itching left dorsal forearm Reports some pustules with some drainage on distal forearm area, MUSCULOSKELETAL: Denies myalgia. NEUROLOGIC: Denies headache, numbness All systems reviewed & are unremarkable except as noted in HPI and below PMFSH Past Medical History Medical History Essential (primary) hypertension Mixed hyperlipidemia Prediabetes Subarachnoid hemorrhage following injury with brief loss of consciousness but without open intracranial wound Type 2 diabetes mellitus without complication, without long-term current use of insulin Surgical History Surgical History (Updated 07/19/23 @ 14:49 by Tavia Navarrete NP) H/O shoulder surgery right History of ankle surgery right History of back surgery History of carpal tunnel surgery Hx of inguinal hernia surgery Family History Family History Mother Family history of cardiovascular disease Family history of diabetes mellitus in first degree relative Diabetes mellitus Father Family history of heart disease in male family member before age 55 Cerebrovascular accident Other Family history of malignant neoplasm Hypertension Social History Social History Smoking status: Never smoker Second hand tobacco smoke exposure: No Alcohol intake: never Substance use: never Lack of Transportation: No Lack of Food: Never True Current Housing: I Have Housing Concerned About Future Housing: No Difficulty Paying Gas/Electric Bills: No Difficulty Paying for Meds: No Currently Unemployed: No Education: Trade/Vocational Certificate Gender identity (if verbalized by the patient): Male Spiritual care concerns: No Comments At time of signature, agree with nursing past medical, surgical, social and family history. There is no relevant family history pertinent to the presenting complaint Exam Narrative: GENERAL: Well-appearing, well-nourished, and in no acute distress. HEAD: Normocephalic, atraumatic. EYES: PERRLA and EOMI. ENT
== END 2023-07-19 14:01 | disposition home or self-care (01) ==
PROVIDERS: Emergency Provider Registered Nurse; PCP Family Medicine
DX: L03.114 Cellulitis of left upper limb (principal); I10 Essential (primary) hypertension; E78.2 Mixed hyperlipidemia; E11.9 Type 2 diabetes mellitus without complications; Z79.82 Long term (current) use of aspirin
CPT/HCPCS: 99213; G0463

== ENCOUNTER 2023-07-26 12:17 | Outpatient (CLI) | payer MEDICARE, SELFPAY ==
--- NOTE | ~2023-07-26 | XR_ITS ---
Supine and upright views of the abdomen Clinical history: Abdominal pain Findings: Bowel gas pattern is nonspecific. No evidence for obstruction or free air. No abnormal mass lesion or calcification is seen. Cholecystectomy clips noted. There is degenerative change of the tal mbar spine with mild dextroscoliosis. Impression: Nonspecific bowel gas pattern. Reviewed, dictated and finalized at [facility]. Impression: Nonspecific bowel gas pattern.
== END 2023-07-26 12:18 | disposition home or self-care (01) ==
PROVIDERS: PCP Family Medicine; Visit Provider Urology
DX: N20.0 Calculus of kidney (principal)
CPT/HCPCS: 74018

== ENCOUNTER 2023-08-21 06:56 | Inpatient (IN) | payer MEDICARE, SELFPAY ==
[2023-08-21] VITALS (37 sets, daily range): BP systolic 127–185; BP diastolic 63–104; PULSE 44–77; RESP 12–18; TEMP 36.3–36.6; O2SAT 95–100; BMI 27.2
--- NOTE | ~2023-08-21 | US_ITS ---
EXAMINATION: US retroperitoneal duplex ltd DATE: 08/22/2023 17:16 INDICATION: Uncontrolled hypertension. TECHNIQUE: Multiple grayscale, color Doppler, and pulsed Doppler images of the kidneys and renal isacc katty were obtained. COMPARISON: CT abdomen and pelvis 08/11/2018 FINDINGS: The aorta peak systolic velocity is 92 cm/s. The right renal artery peak systolic velocity is 128 cm/ s in the proximal segment, 137 cm/s in the mid segment, and 106 cm/s in the distal segment. The left renal artery peak systolic velocity is 67 cm/s in the proximal segment, 64 cm/s in the mid segment, a nd 87 cm/s in the distal segment. IMPRESSION: 1. No Doppler evidence of renal artery stenosis. Reviewed, dictated and finalized at location E. R BUILDER LOADER
--- NOTE | ~2023-08-21 | MR_ITS ---
EXAMINATION: MR brain/brain stem wo/w con DATE: 08/21/2023 15:24 INDICATION: altered mental status TECHNIQUE: Magnetic resonance imaging (MRI) of the brain and brainstem was performed with and without intravenous contrast. Sequences included sagittal and axial T1-weighted SE, axial diffusion-weighted FS EPI ASSET, axial T2*-weighted GRE, axial T2-weighted FLAIR Propeller, and axial T2-weighted Prope ller. Postcontrast axial and coronal T1-weighted SE was obtained. Apparent diffusion coefficient (ADC ) maps were created. COMPARISON: MR brain 10/28/2012, CT brain 08/21/2023. FINDINGS: No abnormal restricted diffusion to suggest acute ischemic infarct. No MRI evidence of hemorrhage or extra-axial collection. No suspicious foci of susceptibility to suggest prior intraparenchymal hemorr shayna. Moderate patchy white matter hyperintensity, likely representing moderate small vessel ischemic disease. Mild generalized parenchymal volume loss. The basilar cisterns are patent. Flow voids are p reserved. Paranasal sinuses are within normal limits. Bilateral lens replacements. Globes and orbital contents are otherwise within normal limits. IMPRESSION: No acute intracranial process. Reviewed, dictated and finalized at location K. CIATE PROFESSOR OF GEOGRAPHY
--- NOTE | ~2023-08-21 | XR_ITS ---
EXAMINATION: XR chest 2V DATE: 08/21/2023 07:38 INDICATION: Chest pain. TECHNIQUE: Frontal and lateral views of the chest were obtained. COMPARISON: Chest single view 04/23/2021, CT abdomen and pelvis 08/27/2018 FINDINGS: There are mild airspace opacities in the mid and lower lung zones. No pleural effusion or p neumothorax. The heart size is normal. IMPRESSION: 1. Mild airspace opacities in the mid and lower lung zones, consistent with atelectasis versus pneumo magdy. Reviewed, dictated and finalized at location A. CHARGER IMPRESSION: 1. Mild airspace opacities in the mid and lower lung zones, consistent with ate lectasis versus pneumonia.
--- NOTE | ~2023-08-21 | CT_ITS ---
EXAMINATION: CT brain wo con DATE: 08/21/2023 10:52 INDICATION: Altered mental status. TECHNIQUE: Computed tomography (CT) of the head was performed without intravenous contrast. The mA wa s adjusted according to patient size. Iterative reconstruction technique was employed. The dose-lengt h product was 681.00 mGy-cm. COMPARISON: Head CT 10/19/2022 FINDINGS: There are scattered areas of low attenuation in the cerebral white matter. There is no intr acranial hemorrhage, acute infarction, or abnormal intracranial mass lesion. The ventricles are delilah l in size. There are likely changes of ocular lens replacement surgeries. The paranasal sinuses are c lear. The mastoid air cells are normal. IMPRESSION: 1. Stable extensive nonspecific cerebral white matter disease, which likely represents chronic small vessel ischemic disease. Reviewed, dictated and finalized at location A. INSTALLER IMPRESSION: 1. Stable extensive nonspecific cerebral white matter disease, which likely rep resents chronic small vessel ischemic disease.
--- NOTE | 2023-08-21 07:00 | ECG_ITS ---
Measurements Intervals [place] Rate: 81 P: OR: 0 QRS: 86 QRSD: 153 T: 11 QT: 457 QTc: 532 Interpretive Statements ECTOPIC ATRIAL RHYTHM WITH FRIST DEGREE AV BLOCK ATRIAL AND VENTRICULAR PREMATURE COMPLEXES VENTRICULAR PREMATURE COMPLEX RIGHT BUNDLE BRANCH BLOCK MINIMAL Q WAVES- INFERIOR LEADS BASELINE ARTIFACT- I, III, AVR, AVL, AVF, V2, V6 ABNORMAL ECG COMPARED TO ECG 12/05/2022 19:20:38 ATRIAL AND VENTRICULAR PREMATURE COMPLEXES NOW PRESENT Electronically Signed On 08-21-2023 7:47:39 MANAGER INFORMATION by Chacho Preston D.O.
--- NOTE | 2023-08-21 07:29 | ED.GENADULT ---
HPI - General Adult General Chief complaint: Altered Mental Status Stated complaint: AMS Time Seen by Provider: 08/21/23 06:59 History of Present Illness HPI narrative: Patient is an 83-year-old male who presents ER with reports of being disoriented this morning when he woke up. He was trying to the bathroom is feeling ?off.? reports he is flushed in the face when he is lying on the bed. He thinks he potentially had some chest discomfort but is unsure. He feels well at this time. He is unsure if he had dizziness. Currently he knows he is at a hospital in the month is August but he believes it is 2021 apparently is in no distress. Related Data Home Medications Medication Instructions Recorded Confirmed losartan 50 mg tablet 50 mg PO DAILY 09/09/22 08/21/23 aspirin 81 mg chewable tablet 81 mg PO DAILY 12/05/22 08/21/23 rosuvastatin 10 mg tablet 10 mg PO DAILY 07/19/23 08/21/23 multivitamin 1 tablet PO DAILY 08/21/23 08/21/23 Allergies Allergy/AdvReac Type Severity Reaction Status Date / Time pantoprazole AdvReac Mild itching Verified 07/21/23 09:43 Review of Systems Review of Systems: All systems reviewed & are unremarkable except as noted in HPI and below Constitutional: Constitutional: Denies chills and Denies fever(s) ENT: Reports dizziness, Denies nasal congestion and Denies sore throat Cardiovascular: Cardiovascular: Reports chest pain, Denies rapid heart rate and Denies radiating jaw, neck or arm pain Respiratory: Respiratory: Denies cough, Denies dyspnea and Denies wheezing Gastrointestinal: Gastrointestinal: Denies abdominal pain, Denies nausea and Denies vomiting Genitourinary: Genitourinary: Reports no additional male genitourinary complaints Musculoskeletal: Musculoskeletal: Reports no additional musculoskeletal complaints PMFSH Past Medical History Medical History (Updated 08/21/23 @ 17:55 by Andrzej Lund MD) Essential (primary) hypertension Mixed hyperlipidemia Subarachnoid hemorrhage following injury with brief loss of consciousness but without open intracranial wound Surgical History Surgical History (Updated 08/21/23 @ 14:17 by Shelley Arteaga APRN) H/O shoulder surgery right History of ankle surgery right History of back surgery History of carpal tunnel surgery Hx of inguinal hernia surgery S/P cholecystectomy Family History Family History Mother Family history of cardiovascular disease Family history of diabetes mellitus in first degree relative Diabetes mellitus Father Family history of heart disease in male family member before age 55 Cerebrovascular accident Other Family history of malignant neoplasm Hypertension Social History Social History Smoking status: Never smoker Second hand tobacco smoke exposure: No Alcohol intake: never Substance use: never Lack of Transportation: No Lack of Food: Never True Current Housing: I Have Housing Concerned About Future Housing: No Difficulty Paying Gas/Electric Bills: No Difficulty Paying for Meds: No Currently Unemployed: No Education: Trade/Vocational Certificate Difficulty w/ Childcare or Family Care: No Gender identity (if verbalized by the patient): Male Spiritual care concerns: No Exam Narrative: GENERAL: Well-appearing, well-nourished, and in no acute distress. HEAD: Normocephalic, atraumatic. ENT: Mucous membranes moist. TMs normal bilaterally. NECK: Supple. CHEST: Clear to auscultation. No respiratory distress. HEART: Regular rate and rhythm. Normal peripheral pulses. ABDOMEN: Soft, nontender, nondistended. EXTREMITIES: Normal range of motion. No edema. SKIN: Warm, dry, no rash. NEURO: Alert and oriented x3. PSYCH: Normal mood and affect. Course Vital Signs Vital signs: Vital Signs Temperature 97.8 F 08/21/23 06:56 Pulse Rate
[2023-08-21 07:31] LABS: Basophils Absolute Auto 0.1 K/mm3 (0.0-0.1); Basophils Percent Auto 1.1 % (0.2-1.2); Eosinophils Absolute Auto 0.2 K/mm3 (0-0.3); Eosinophils Percent Auto 3.7 % (0-4.4); Hematocrit 49.9 % (42.0-52.0); Immature Granulocyte Absolute 0.02 K/mm3 (0.00-0.031); Immature Granulocyte Percent A 0.3 % (0-0.5); Lymphocytes Absolute Auto 1.65 K/mm3 (0.9-3.2); Lymphocytes Percent Auto 26.6 % (18.3-44.2); Mean Corpuscular HGB Conc 32.1 g/dl (32-36); Mean Corpuscular Hemoglobin 30.4 pg (26-34); Mean Corpuscular Volume 94.9 fl (80-100); Mean Platelet Volume 11.1 fl (7.4-10.4); Monocytes Absolute Auto 0.9 K/mm3 (0.1-0.6); Monocytes Percent Auto 14.7 % (2.6-8.5); Neutrophils Absolute Auto 3.3 K/mm3 (1.3-6.7); Neutrophils Percent Auto 53.6 % (45.5-73.1); Platelet Count Result 164 k/mm3 (150-375); Red Blood Count 5.26 M/mm3 (4.6-6.20); Red Cell Distribution Width 14.2 % (11.5-14.5); White Blood Count 6.2 K/mm3 (4.5-10.0)
[2023-08-21 07:40] LABS: Alanine Aminotransferase 24 U/L (6-50); Albumin Level 4.1 g/dL (3.5-5.1); Alkaline Phosphatase 58 U/L (38-126); Anion Gap 7 mmol/L (8-16); Aspartate Amino Transferase 27 U/L (17-59); Bilirubin,Total 1.3 mg/dL (0.2-1.3); Blood Urea Nitrogen 18 mg/dL (9-20); Carbon Dioxide 28 mmol/L (22-30); Chloride 107 mmol/L (98-107); Estimated CRCL calculation 47 ml/min; Estimated Glomerular Filt Rate > 60; Glucose 95 mg/dL (65-110); Potassium 3.9 mmol/L (3.4-5.0); Sodium 142 mmol/L (137-145)
[2023-08-21 07:44] LABS: Prothrombin Time 13.7 Seconds (11.1-14.7)
[2023-08-21 07:45] LABS: Partial Thromboplastin Time 27.2 SECONDS (22.3-36.8)
[2023-08-21 07:51] LABS: Troponin I < 0.012 ng/mL (0.000-0.034)
[2023-08-21 08:06] LABS: Appearance Urine Clear (Clear); Bilirubin Urine Negative (Negative); Blood Urine Negative (Negative); Color Urine Yellow (Yellow); Glucose Urine UA Negative (Negative); Ketones Urine Negative (Negative); Leukocyte Esterase Ur Negative LEU/UL (Negative); Nitrate Urine Negative (Negative); Protein Urine Negative (Negative); Specific Grav Ur 1.007 (1.001-1.035); Urobilinogen Urine 0.2 mg/dL (<2.0); pH Urine 6.5 (5.0-9.0)
[2023-08-21 08:14] LABS: Add Urine Microscopic? NO
[2023-08-21] MEDS: MECLIZINE HCL 25 MG TABLET PO (08:58)
[2023-08-21 10:47] LABS: Troponin I < 0.012 ng/mL (0.000-0.034)
--- NOTE | 2023-08-21 13:04 | PM.IMHP ---
H&P: HPI History of Present Illness Date/Time: 08/21/23 13:04 Chief Complaint: This is an 83 year old male with significant past medical history of hypertension, hyperlipidemia, [place] with stent placement x2 who presented to the ED with reports of being disoriented and feeling off this morning when he woke up. states that he did not know where he was at and was very confused when he woke up, she noticed he was also unsteady on his feet. Patient did say he had a little chest discomfort this morning but has since went away. He does state that his blood pressure has not been well controlled. He states that he sleeps in a recliner at home and has never been worked up for sleep apnea. Workup in the hospital included a chest x-ray which showed mild airspace opacities in the mid and lower lung lungs sounds, consistent with atelectasis versus pneumonia. He also had a CT of the brain which showed stable extensive nonspecific cerebral white matter disease, which likely represents chronic small vessel ischemic disease. EKG shown first-degree AV block, right bundle branch block with multiple PACs and PVCs. Labs today revealed a white blood cell count of 6.2, hemoglobin 16.0, hematocrit 49.9, platelet count 164, PT 13.7, INR 1.0, sodium 142, potassium 3.9, chloride 107, carbon dioxide 28, BUN 18, creatinine 1.1, liver enzymes were normal, troponin negative x2. He also had a urinalysis done which was negative for any bacteria. While in ER he was given a dose of meclizine. On examination today patient is alert and oriented x4 sitting in a wheelchair with family at the bedside. He denies any fever, chills, lightheadedness, dizziness, visual changes, nausea, vomiting, diarrhea, abdominal pain/distention, shortness of breath or chest pain at this time. He does endorse a headache. I did a full neuro check on him and EOMI, PERRLA, speech is normal, facial features are normal, cranial nerves in tact, coordination is intact, he was able to do F-N-F test without any issues. He does not appear to have any neuro deficits at this time. He states that he has not been around any sick contacts or been ill recently. 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 Blood pressures are ranging 147/88-184/104, he is afebrile, he is currently on room air. He normally only takes Metoprolol and Losartan for his blood pressure. We will hold for now and allow for permissive hypertension for today. Plan is to get an MRI of the brain today to rule out any neurological component. I will also check an apnea link tonight and a renal US due to his uncontrolled hypertension. Review of Systems Review of Systems: All systems reviewed & are unremarkable except as noted in HPI and below Constitutional: Constitutional: Reports as per HPI and Reports no additional constitutional complaints Eyes: Eyes: Reports as per HPI and Reports no additional eye complaints ENT: Reports system reviewed and no additional complaints, except as documented and Reports as per HPI Comments: wears hearing aids Cardiovascular: Cardiovascular: Reports as per HPI, Reports no additional cardiovascular complaints, Denies pedal edema and Denies leg edema Respiratory: Respiratory: Reports as per HPI and Reports no additional respiratory complaints Gastrointestinal: Gastrointestinal: Reports as per HPI and Reports no additional gastrointestinal complaints Genitourinary: Genitourinary: Reports no additional male genitourinary complaints and Reports as per HPI Musculoskeletal: Musculoskeletal: Reports no additional musculoskeletal complaints and Reports as per HPI Integumentary/Breasts: Skin/Breast: Reports system reviewed and no additional complaints, except as docu and Reports as per HPI Neurologic: Reports system reviewed and no additional complaints, except as documented and Reports as per HPI Psychiatric: Psychiatric: Reports no additional psychiatric complaints and Reports as per H
--- NOTE | 2023-08-21 15:30 | ADMGEN ---
This patient, Enmanuel Vila, was admitted to 3 [facility] Surg Room 301-01. Patient/family oriented to hospital policies and general routines including ID bracelet, bed and alarms, visiting hours, pain management, procedures, bathroom and other care routines, personal items, smoking policy, room service/diet, and visiting hours. Information on how to activate the Rapid Response Team has been discussed. Patient/Family are encouraged to report perceived risks to care and to ask questions if they do not understand what they are told or what they should do.
[2023-08-21 17:37] LABS: Magnesium 2.1 mg/dL (1.6-2.3)
[2023-08-22] VITALS (9 sets, daily range): BP systolic 116–127; BP diastolic 49–92; PULSE 44–93; RESP 16–20; TEMP 36–36.7; O2SAT 95–99
[2023-08-22] MEDS: HYDROcodone/acetaminophen (*CRX) 5-325 MG TABLET 1 TAB PO ×2 (05:49→20:22)
[2023-08-22 08:22] LABS: Hematocrit 48.4 % (42.0-52.0); Hemoglobin 15.8 g/dL (14.0-18.0); Mean Corpuscular HGB Conc 32.6 g/dl (32-36); Mean Corpuscular Hemoglobin 30.6 pg (26-34); Mean Corpuscular Volume 93.6 fl (80-100); Mean Platelet Volume 10.6 fl (7.4-10.4); Platelet Count Result 172 k/mm3 (150-375); Red Blood Count 5.17 M/mm3 (4.6-6.20); White Blood Count 7.4 K/mm3 (4.5-10.0)
[2023-08-22 08:26] LABS: Alanine Aminotransferase 23 U/L (6-50); Albumin Level 3.9 g/dL (3.5-5.1); Alkaline Phosphatase 60 U/L (38-126); Anion Gap 11 mmol/L (8-16); Aspartate Amino Transferase 25 U/L (17-59); Bilirubin,Total 1.5 mg/dL (0.2-1.3); Blood Urea Nitrogen 18 mg/dL (9-20); Calcium 8.7 mg/dL (8.4-10.2); Carbon Dioxide 25 mmol/L (22-30); Chloride 104 mmol/L (98-107); Estimated CRCL calculation 47 ml/min; Estimated Glomerular Filt Rate > 60; Glucose 147 mg/dL (65-110); Potassium 3.8 mmol/L (3.4-5.0); Sodium 140 mmol/L (137-145)
--- NOTE | 2023-08-22 08:32 | P.PNIM_ITS ---
Progress Note: A&P Assessment and Plan (1) AMS (altered mental status): Code(s): R41.82 - Altered mental status, unspecified Status: Acute Assessment and Plan: 08/21/2023: * Patient woke up with confusion and disorientation this morning with some dizziness, lightheadedness, and unsteadiness * Currently alert oriented x4 and denies any lightheadedness only reporting a headache. * CT of the head revealed stable extensive nonspecific cerebral white matter disease, which likely represents chronic small vessel ischemic disease * Plan for an MRI of the brain today * Continue neuro checks * Patient was given 1 dose of meclizine while in the ED for the dizziness * Labs essentially unremarkable * Will check an ApneaLink tonight to assess for CHAGO, we will also get an ABG in the morning to assess for CO2 retention 08/22/23: * MRI of brain negative for any acute intracranial process * Apnea Link completed last night, however results are still pending. (2) Chest pain: Code(s): R07.9 - Chest pain, unspecified Status: Acute Assessment and Plan: 08/21/23: * EKG revealing 1st degree AV block, right bundle-branch block, with PACs and PVCs. No ischemia noted. * Troponin x2 negative * Patient denies chest pain at this time, we will continue to monitor. * Continuous telemetry monitoring * Will check a magnesium level, potassium 3.9 today 08/22/23: * Magnesium level 2.1, K+ 3.8 * Continue telemetry monitoring * HR 44 this morning with 1st degree AV block and RBB. Patient has not received his home medications. We will continue to hold his home blood pressure medications and obtain an Echo. (3) Essential (primary) hypertension: Code(s): I10 - Essential (primary) hypertension Status: Acute Assessment and Plan: 08/21/2023: * Blood pressure is currently ranging 149/68 to 184/104 * Patient normally takes losartan 50 mg and metoprolol extended release 50 mg daily, however he does state that his blood pressures have been more out of control lately. * We will check an ApneaLink on him tonight to check for CHAGO. * We will also get a renal ultrasound to rule out any stenosis. * Allow for permissive hypertension until after the MRI, will reassess tomorrow if blood pressure meds can be restarted 08/22/23: * Continue to hold blood pressure medications until after echo is obtained as blood pressure is well controlled and HR down to 44 this a.m. * Awaiting Apnea link results * Will get echo and renal US (4) Mixed hyperlipidemia: Code(s): E78.2 - Mixed hyperlipidemia Status: Acute Assessment and Plan: 08/21/2023: * Patient normally takes rosuvastatin 10 mg tab, we will restart this tonight 08/22/23: * No change to current treatment plan Time Spent With Patient Time with patient: Greater than 35 minutes Subjective Date/time seen: 08/22/23 08:32 Interval history: 08/21/23: This is an 83 year old male with significant past medical history of hypertension, hyperlipidemia, [place] with stent placement x2 who presented to the ED with reports of being disoriented and feeling off this morning when he woke up. states that he did not know where he was at and was very confused when he woke up, she noticed he was also unsteady on his feet. Patient did say he had a little chest discomfort this morning but has since went away. He does state that his blood pressure has not been well controlled. He states that he sleeps in a recliner at home and has never been worked up for sleep apnea. Workup in the hospital included a chest x-ray which sh
--- NOTE | 2023-08-22 08:32 | PM.IMPN ---
Progress Note: A&P Assessment and Plan (1) AMS (altered mental status): Code(s): R41.82 - Altered mental status, unspecified Status: Acute Assessment and Plan: 08/21/2023: Patient woke up with confusion and disorientation this morning with some dizziness, lightheadedness, and unsteadiness Currently alert oriented x4 and denies any lightheadedness only reporting a headache. CT of the head revealed stable extensive nonspecific cerebral white matter disease, which likely represents chronic small vessel ischemic disease Plan for an MRI of the brain today Continue neuro checks Patient was given 1 dose of meclizine while in the ED for the dizziness Labs essentially unremarkable Will check an ApneaLink tonight to assess for CHAGO, we will also get an ABG in the morning to assess for CO2 retention 08/22/23: MRI of brain negative for any acute intracranial process Apnea Link completed last night, however results are still pending. (2) Chest pain: Code(s): R07.9 - Chest pain, unspecified Status: Acute Assessment and Plan: 08/21/23: EKG revealing 1st degree AV block, right bundle-branch block, with PACs and PVCs. No ischemia noted. Troponin x2 negative Patient denies chest pain at this time, we will continue to monitor. Continuous telemetry monitoring Will check a magnesium level, potassium 3.9 today 08/22/23: Magnesium level 2.1, K+ 3.8 Continue telemetry monitoring HR 44 this morning with 1st degree AV block and RBB. Patient has not received his home medications. We will continue to hold his home blood pressure medications and obtain an Echo. (3) Essential (primary) hypertension: Code(s): I10 - Essential (primary) hypertension Status: Acute Assessment and Plan: 08/21/2023: Blood pressure is currently ranging 149/68 to 184/104 Patient normally takes losartan 50 mg and metoprolol extended release 50 mg daily, however he does state that his blood pressures have been more out of control lately. We will check an ApneaLink on him tonight to check for CHAGO. We will also get a renal ultrasound to rule out any stenosis. Allow for permissive hypertension until after the MRI, will reassess tomorrow if blood pressure meds can be restarted 08/22/23: Continue to hold blood pressure medications until after echo is obtained as blood pressure is well controlled and HR down to 44 this a.m. Awaiting Apnea link results Will get echo and renal US (4) Mixed hyperlipidemia: Code(s): E78.2 - Mixed hyperlipidemia Status: Acute Assessment and Plan: 08/21/2023: Patient normally takes rosuvastatin 10 mg tab, we will restart this tonight 08/22/23: No change to current treatment plan Time Spent With Patient Time with patient: Greater than 35 minutes Subjective Date/time seen: 08/22/23 08:32 Interval history: 08/21/23: This is an 83 year old male with significant past medical history of hypertension, hyperlipidemia, [place] with stent placement x2 who presented to the ED with reports of being disoriented and feeling off this morning when he woke up. states that he did not know where he was at and was very confused when he woke up, she noticed he was also unsteady on his feet. Patient did say he had a little chest discomfort this morning but has since went away. He does state that his blood pressure has not been well controlled. He states that he sleeps in a recliner at home and has never been worked up for sleep apnea. Workup in the hospital included a chest x-ray which showed mild airspace opacities in the mid and lower lung lungs sounds, consistent with atelectasis versus pneumonia.? He also had a CT of the brain which showed stable extensive nonspecific cerebral white matter disease, which likely represents chronic small vessel ischemic disease. EKG shown first-degree AV block, right bundle branch block with multiple PACs and PVCs.? Labs today revealed a white blood
--- NOTE | 2023-08-22 14:17 | PC.NURSE ---
Shelley Arteaga DYNAMITE PACKING MACHINE OPERATOR notified of patients heart rate on tele 44 at 1200 with long pr interval.
[2023-08-22 20:25] LABS: Troponin I < 0.012 ng/mL (0.000-0.034)
[2023-08-22 20:40] LABS: Hemoglobin A1C 5.4 % (<5.7)
[2023-08-23] VITALS (10 sets, daily range): BP systolic 127–167; BP diastolic 61–88; PULSE 51–90; RESP 16–18; TEMP 36.3; O2SAT 97–99
--- NOTE | 2023-08-23 | ECHO_ITS ---
Patient Info Name: Enmanuel Vila Age: 83 years : 1940 Gender: Male Ht: 70 in Wt: 189 lbs BSA: 2.07 m2 HR: 90 bpm BP: 127 / 88 mmHg Heart Rhythm: Sinus Rhythm Technical Quality: Fair Exam Date: 08/23/2023 12:07 PM Exam Location: Echo Lab Exam Room: 301 Patient Status: Inpatient Admit Date: 08/22/2023 Staff Ordering Physician: Shelley Arteaga APRN Net Front End Developer: Megan Magallanes RDCS Attending Provider: Bethany Espana DO Referring Physician: Chandler THOMPSON; Exam Type: CA echo dop color flow w con Study Info Indications - bradycardia Complete two-dimensional, color flow and Doppler transthoracic echocardiogram is performed with contrast to opacify the left ventricle and to improve the deliniation of the left ventricle endocardial borders. Contrast/Agitated Saline Contrast/Ag. Saline: Definity Amount: 2.00 ml Administered By: Megan Magallanes [facility] Existing IV Access: Yes IV Access Condition: patent with no signs of infiltration Summary 1. Definity contrast injected to improve study quality. 2. Left ventricular hypertrophy with preserved systolic function and grade 1 diastolic noncompliance. 3. Aortic valve sclerosis. 4. Abnormal septal motion related to left bundle branch block. 5. Mild mitral and tricuspid valve regurgitation. Left Ventricle Left ventricular systolic function is normal, estimated at 55-60%. There is moderate concentric increased left ventricular wall thickness. Left ventricular septal wall motion is abnormal with septal motion related to bundle branch block. The left ventricular diastolic function is grade I diastolic dysfunction. Right Ventricle Right ventricular chamber dimension is normal. Left Atria Left atrial chamber dimension is mildly enlarged. Right Atria Right atrial chamber dimension is not well visualized. Aortic Valve The aortic valve is trileaflet. There is mild aortic valve sclerosis. There is no aortic valve stenosis. Pulmonic Valve The pulmonic valve is not well visualized. Mitral Valve The mitral valve has normal leaflets. Tricuspid Valve The tricuspid valve leaflets are normal. Pericardium/Pleural The pericardium appears normal. Aorta The aortic root size at the sinus of Valsalva is normal. Left Ventricular Outflow Tract Name Value Normal LVOT 2D LVOT Diameter 2.11 cm LVOT Doppler LVOT Peak Gradient 4 mmHg LVOT Mean Gradient 2 mmHg LVOT VTI 23.33 cm LVOT VTI/AV VTI Ratio 0.97 LVOT Stroke Volume 81.74 ml LVOT CO 15.62 l/min LVOT CI 7.54 L/min/m2 Pulmonic Valve Name Value Normal RVOT Doppler RVOT Peak Gradient 2 mmHg PV Doppler
[2023-08-23 07:13] LABS: Hematocrit 48.4 % (42.0-52.0); Hemoglobin 15.5 g/dL (14.0-18.0); Mean Corpuscular Hemoglobin 29.9 pg (26-34); Mean Corpuscular Volume 93.3 fl (80-100); Mean Platelet Volume 11.1 fl (7.4-10.4); Platelet Count Result 182 k/mm3 (150-375); Red Blood Count 5.19 M/mm3 (4.6-6.20); Red Cell Distribution Width 14.3 % (11.5-14.5); White Blood Count 7.7 K/mm3 (4.5-10.0)
[2023-08-23 07:31] LABS: Alanine Aminotransferase 22 U/L (6-50); Alkaline Phosphatase 63 U/L (38-126); Anion Gap 9 mmol/L (8-16); Aspartate Amino Transferase 25 U/L (17-59); Bilirubin,Total 1.7 mg/dL (0.2-1.3); Blood Urea Nitrogen 16 mg/dL (9-20); Calcium 8.9 mg/dL (8.4-10.2); Carbon Dioxide 23 mmol/L (22-30); Chloride 105 mmol/L (98-107); Estimated CRCL calculation 51 ml/min; Estimated Glomerular Filt Rate > 60; Glucose 93 mg/dL (65-110); Potassium 3.8 mmol/L (3.4-5.0); Sodium 137 mmol/L (137-145)
--- NOTE | 2023-08-23 08:01 | P.PNIM_ITS ---
Progress Note: A&P Assessment and Plan (1) AMS (altered mental status): Code(s): R41.82 - Altered mental status, unspecified Status: Acute Assessment and Plan: 08/21/2023: * Patient woke up with confusion and disorientation this morning with some dizziness, lightheadedness, and unsteadiness * Currently alert oriented x4 and denies any lightheadedness only reporting a headache. * CT of the head revealed stable extensive nonspecific cerebral white matter disease, which likely represents chronic small vessel ischemic disease * Plan for an MRI of the brain today * Continue neuro checks * Patient was given 1 dose of meclizine while in the ED for the dizziness * Labs essentially unremarkable * Will check an ApneaLink tonight to assess for CHAGO, we will also get an ABG in the morning to assess for CO2 retention 08/22/23: * MRI of brain negative for any acute intracranial process * Apnea Link completed last night, however results are still pending. 08/23/23: * Still awaiting results of his apnea link * Patient is alert oriented x4 and denies any lightheadedness or dizziness or headache. * Will continue to monitor (2) Chest pain: Code(s): R07.9 - Chest pain, unspecified Status: Acute Assessment and Plan: 08/21/23: * EKG revealing 1st degree AV block, right bundle-branch block, with PACs and PVCs. No ischemia noted. * Troponin x2 negative * Patient denies chest pain at this time, we will continue to monitor. * Continuous telemetry monitoring * Will check a magnesium level, potassium 3.9 today 08/22/23: * Magnesium level 2.1, K+ 3.8 * Continue telemetry monitoring * HR 44 this morning with 1st degree AV block and RBB. Patient has not received his home medications. We will continue to hold his home blood pressure medications and obtain an Echo. 08/23/23: * Patient denies any chest pain * Heart rate now in the 80s to 90s. We have not restarted his home medication as of yet plan is for an echo today and a renal ultrasound (3) Essential (primary) hypertension: Code(s): I10 - Essential (primary) hypertension Status: Acute Assessment and Plan: 08/21/2023: * Blood pressure is currently ranging 149/68 to 184/104 * Patient normally takes losartan 50 mg and metoprolol extended release 50 mg daily, however he does state that his blood pressures have been more out of control lately. * We will check an ApneaLink on him tonight to check for CHAGO. * We will also get a renal ultrasound to rule out any stenosis. * Allow for permissive hypertension until after the MRI, will reassess tomorrow if blood pressure meds can be restarted 08/22/23: * Continue to hold blood pressure medications until after echo is obtained as blood pressure is well controlled and HR down to 44 this a.m. * Awaiting Apnea link results * Will get echo and renal US 08/23/23: * Continue to hold blood pressure medication until after the echo * Awaiting ApneaLink results * Plan for an echo and a renal ultrasound today (4) Mixed hyperlipidemia: Code(s): E78.2 - Mixed hyperlipidemia Status: Acute Assessment and Plan: 08/21/2023: * Patient normally takes rosuvastatin 10 mg tab, we will restart this tonight 08/22/23: * No change to current treatment plan Time Spent With Patient Time with patient: Greater than 35 minutes Subjective Date/time seen: 08/23/23 08:01 Interval history: 08/21/23: This is an 83 year old male with significant past medical history of hypertension, hyperlipidemia, [place] with s
--- NOTE | 2023-08-23 08:01 | PM.IMPN ---
Progress Note: A&P Assessment and Plan (1) AMS (altered mental status): Code(s): R41.82 - Altered mental status, unspecified Status: Acute Assessment and Plan: 08/21/2023: Patient woke up with confusion and disorientation this morning with some dizziness, lightheadedness, and unsteadiness Currently alert oriented x4 and denies any lightheadedness only reporting a headache. CT of the head revealed stable extensive nonspecific cerebral white matter disease, which likely represents chronic small vessel ischemic disease Plan for an MRI of the brain today Continue neuro checks Patient was given 1 dose of meclizine while in the ED for the dizziness Labs essentially unremarkable Will check an ApneaLink tonight to assess for CHAGO, we will also get an ABG in the morning to assess for CO2 retention 08/22/23: MRI of brain negative for any acute intracranial process Apnea Link completed last night, however results are still pending. 08/23/23: Still awaiting results of his apnea link Patient is alert oriented x4 and denies any lightheadedness or dizziness or headache. Will continue to monitor (2) Chest pain: Code(s): R07.9 - Chest pain, unspecified Status: Acute Assessment and Plan: 08/21/23: EKG revealing 1st degree AV block, right bundle-branch block, with PACs and PVCs. No ischemia noted. Troponin x2 negative Patient denies chest pain at this time, we will continue to monitor. Continuous telemetry monitoring Will check a magnesium level, potassium 3.9 today 08/22/23: Magnesium level 2.1, K+ 3.8 Continue telemetry monitoring HR 44 this morning with 1st degree AV block and RBB. Patient has not received his home medications. We will continue to hold his home blood pressure medications and obtain an Echo. 08/23/23: Patient denies any chest pain Heart rate now in the 80s to 90s. We have not restarted his home medication as of yet plan is for an echo today and a renal ultrasound (3) Essential (primary) hypertension: Code(s): I10 - Essential (primary) hypertension Status: Acute Assessment and Plan: 08/21/2023: Blood pressure is currently ranging 149/68 to 184/104 Patient normally takes losartan 50 mg and metoprolol extended release 50 mg daily, however he does state that his blood pressures have been more out of control lately. We will check an ApneaLink on him tonight to check for CHAGO. We will also get a renal ultrasound to rule out any stenosis. Allow for permissive hypertension until after the MRI, will reassess tomorrow if blood pressure meds can be restarted 08/22/23: Continue to hold blood pressure medications until after echo is obtained as blood pressure is well controlled and HR down to 44 this a.m. Awaiting Apnea link results Will get echo and renal US 08/23/23: Continue to hold blood pressure medication until after the echo Awaiting ApneaLink results Plan for an echo and a renal ultrasound today (4) Mixed hyperlipidemia: Code(s): E78.2 - Mixed hyperlipidemia Status: Acute Assessment and Plan: 08/21/2023: Patient normally takes rosuvastatin 10 mg tab, we will restart this tonight 08/22/23: No change to current treatment plan Time Spent With Patient Time with patient: Greater than 35 minutes Subjective Date/time seen: 08/23/23 08:01 Interval history: 08/21/23: This is an 83 year old male with significant past medical history of hypertension, hyperlipidemia, [place] with stent placement x2 who presented to the ED with reports of being disoriented and feeling off this morning when he woke up. states that he did not know where he was at and was very confused when he woke up, she noticed he was also unsteady on his feet. Patient did say he had a little chest discomfort this morning but has since went away. He does state that his blood pressure has not been well controlled. He states that he sleeps in a recliner at [facility]
[2023-08-23] MEDS: PERFLUTREN LIPID MICROSPHERES 1.5 ML VIAL DILUTED TO 10 ML TOTAL VOLUME IV PUSH (12:40)
--- NOTE | 2023-08-23 13:08 | IVDEFINITY ---
Prior to administration of IV Definity the patient was educated on the risks and benefits of the imaging enhancing agent including potential adverse side effects. The patient verbalized understanding. Allergies were verified. No exclusion criteria were identified and at least one of the following inclusion criteria were met: 1) physician request, 2) patient technically difficult to image (per the [place] [employer] guidelines of two or more segments not discernable within the apical view), or 3) questionable left ventricular function. ?
[2023-08-23] MEDS: HYDROcodone/acetaminophen (*CRX) 5-325 MG TABLET 1 TAB PO (20:29)
[2023-08-24] VITALS (8 sets, daily range): BP systolic 138–139; BP diastolic 78–83; PULSE 54–73; RESP 14–18; TEMP 35.8–35.9; O2SAT 98–100
--- NOTE | 2023-08-24 00:48 | PCRCNOTE ---
Apnea link ordered for tonight (08/23) not done. Found apnea link report from night of 08/21 screening for CHAGO. NO changes were made for the duplicate order. This RT assumes previous report did not make into patient's chart. Will scan in previous report.
[2023-08-24 06:38] LABS: Hematocrit 44.9 % (42.0-52.0); Hemoglobin 14.7 g/dL (14.0-18.0); Mean Corpuscular HGB Conc 32.7 g/dl (32-36); Mean Corpuscular Hemoglobin 30.5 pg (26-34); Mean Corpuscular Volume 93.2 fl (80-100); Mean Platelet Volume 10.6 fl (7.4-10.4); Platelet Count Result 161 k/mm3 (150-375); Red Blood Count 4.82 M/mm3 (4.6-6.20); Red Cell Distribution Width 13.9 % (11.5-14.5); White Blood Count 6.5 K/mm3 (4.5-10.0)
[2023-08-24 06:50] LABS: Alanine Aminotransferase 19 U/L (6-50); Albumin Level 3.4 g/dL (3.5-5.1); Alkaline Phosphatase 65 U/L (38-126); Anion Gap 8 mmol/L (8-16); Aspartate Amino Transferase 24 U/L (17-59); Bilirubin,Total 1.5 mg/dL (0.2-1.3); Blood Urea Nitrogen 16 mg/dL (9-20); Calcium 8.9 mg/dL (8.4-10.2); Carbon Dioxide 25 mmol/L (22-30); Chloride 105 mmol/L (98-107); Estimated CRCL calculation 51 ml/min; Estimated Glomerular Filt Rate > 60; Glucose 87 mg/dL (65-110); Potassium 3.9 mmol/L (3.4-5.0); Sodium 138 mmol/L (137-145)
[2023-08-24] MEDS: ENOXAPARIN 40 MG/0.4 ML SYRINGE SUB-Q (08:51)
--- NOTE | 2023-08-24 09:27 | PM.DS ---
DS: Admitting Diagnosis Discharge Date 08/24/23 Admitting Diagnosis AMS Chest pain Essential hypertension Mixed hyperlipidemia DS: Discharge Diagnosis Discharge Diagnosis (1) AMS (altered mental status): Code(s): R41.82 - Altered mental status, unspecified Status: Acute (2) Chest pain: Code(s): R07.9 - Chest pain, unspecified Status: Acute (3) Essential (primary) hypertension: Code(s): I10 - Essential (primary) hypertension Status: Acute (4) Mixed hyperlipidemia: Code(s): E78.2 - Mixed hyperlipidemia Status: Acute DS: Summary Hospital Course Reason for hospitalization: AMS Hospital Course: This is an 83 year old male who presented to the hospital on 08/21/23 with significant past medical history of hypertension, hyperlipidemia, [place] with stent placement x2 who presented to the ED with reports of being disoriented and feeling off this morning when he woke up. states that he did not know where he was at and was very confused when he woke up, she noticed he was also unsteady on his feet. Patient did say he had a little chest discomfort this morning but has since went away. He does state that his blood pressure has not been well controlled. He states that he sleeps in a recliner at home and has never been worked up for sleep apnea. Workup in the hospital included a chest x-ray which showed mild airspace opacities in the mid and lower lung lungs sounds, consistent with atelectasis versus pneumonia.? He also had a CT of the brain which showed stable extensive nonspecific cerebral white matter disease, which likely represents chronic small vessel ischemic disease. MRI of the brain was negative for any acute intracranial process. EKG shown first-degree AV block, right bundle branch block with multiple PACs and PVCs.? While in the hospital was ranging in the 40s to low 50s. We held all of his blood pressure medication including his metoprolol. Patient states that his primary recently increased his metoprolol to 50 mg daily about a month ago, however his shell trim tool setter is the 1 that prescribed this medication. We went ahead and got an echo on him which showed grade 1 diastolic dysfunction with normal RV function, ejection fraction 55-60%. He also had an ApneaLink done this admission which showed and AHI of 17.6, RI of 21.4, in [place] of 21.2 consistent with sleep apnea. He also had a renal ultrasound which was negative for any renal artery stenosis. Patient was restarted on his medication today with the exception of his metoprolol which I decreased back down to 25 mg considering his heart rate was in the 40s. Labs today essentially normal with normal liver and kidney function. Total bili was 1.5 today which is down from 1.7.Patient is stable for discharge. He will need to follow up with his primary care physician in 1 week to set up an outpatient sleep study for sleep apnea. He will also need to follow-up with his cardiology doctor about his metoprolol and to talk to him about his CHAGO that was diagnosed here in the hospital. Status at Discharge Cognitive/behavioral status at discharge: Alert and oriented x3 Functional status at discharge: independent ambulation Overall status at discharge: patient is progressing back to baseline Time Spent with Patient Time attestation: Total time spent providing and/or coordinating discharge services: Time spent: Greater than 30 minutes Exam Narrative: General: In no acute distress, well nourished Head: atraumatic, no encephalopathy Eyes: EOMI, PERRLA, sclera clear, wears glasses ENT: moist mucous membranes, nasal passages clear, wears hearing aids Neck: supple, no JVD, no adenopathy, trachea midline Cardiac: Normal S1 and S2. Irregular heart rate, No murmur, gallops or friction rubs, peripheral pulses intact. Respiratory: Lungs clear to auscultation, no adventitious lung sounds Gastrointestinal: soft, non-distended, non-tender, normoactive bowel sounds. G
[2023-08-24] MEDS: HYDROcodone/acetaminophen (*CRX) 5-325 MG TABLET 1 TAB PO (11:15)
[2023-08-24] MEDS: METOPROLOL SUCCINATE EXT REL 25 MG TABCR PO (11:16)
== END 2023-08-24 15:06 | disposition home or self-care (01) | DRG 69 ==
LOC: ANHED 07:19 → ANH3MEDSUR 11:21
PROVIDERS: Admitting Provider Student in an Organized Health Care Education/Training Program; Emergency Provider Emergency Medicine; PCP Family Medicine; Visit Provider Nurse Practitioner Acute Care
DX: I67.89 Other cerebrovascular disease (principal); I73.89 Other specified peripheral vascular diseases; I44.0 Atrioventricular block, first degree; E78.2 Mixed hyperlipidemia; G47.33 Obstructive sleep apnea (adult) (pediatric); I10 Essential (primary) hypertension; I25.2 Old myocardial infarction; R91.8 Other nonspecific abnormal finding of lung field; Z95.5 Presence of coronary angioplasty implant and graft; Z79.82 Long term (current) use of aspirin; Z90.49 Acquired absence of other specified parts of digestive tract
CPT/HCPCS: 36415; 70450; 70553; 71046; 80053; 81003; 83036; 83735; 84484; 85025; 85027; 85610; 85730; 93005; 93976; 94762; 97161; 97165; 99285; A9270; A9577; C8929; G0378; J1650; Q9957

== ENCOUNTER 2023-09-06 08:37 | Outpatient (CLI) | payer MEDICARE, SELFPAY ==
--- NOTE | 2023-09-16 10:26 | WPDSLEEPSTUD ---
Sleep Study Date of Study: 09/06/23 Ordering Provider: JUDE Gramajo Interpreting Physician: Tiffani Gallegos MD Sleep Study Type: Split Polysomnogram Height: 1.78 m Weight: 99.79 kg Body Mass Index: 31.5 Neck Circumference (inches): 16.5 [place]: 2 Reason for Sleep Study Excessive daytime sleepiness, waking during the night Sleep History Enmanuel Vila is an 83 -year-old man with longstanding history of waking up during the night and feeling sleepy during the day. He rarely awakens from sleep feeling short of breath. He rarely wakes at night with heartburn, belching or coughing.??He frequently snores, occasionally snores loudly enough that others complain. He never has trouble sleeping when he has a cold. He rarely wakes up gasping for breath during the night. He rarely has breathing problems at night. He never sweats excessively at night. He never notices his heart pounding or beating irregularly during the night. He frequently falls asleep during the day. He rarely falls asleep involuntarily, never falls asleep while driving. He never experiences loss of muscle tone with strong emotion. He never has daytime difficulty at work due to excessive sleepiness. He never feels paralyzed on waking or falling asleep. He occasionally experiences vivid dreams upon waking or falling asleep. He never feels afraid of going to sleep. He occasionally has nightmares. He frequently recalls his dreams. He occasionally has thoughts racing through his mind. He never feels sad or depressed. He never feels anxiety. He never notices parts of his body jerk. He never kicks during the night. He never feels crawling or aching feelings in his legs. He frequently feels leg pain at night. He never has morning jaw pain, never grinds his teeth at night. He frequently feels bothered by pain during the day, rarely awakened by pain during the night. He frequently wakes up feeling stiff in the morning, and he occasionally wakes feeling sore or achy. He frequently awakens with pain in his neck, spine, or joints. He has fatigue, memory problems and headaches. Normal bedtime is Between 10:30 p.m. and 11:30 p.m., falling asleep within 15-20 minutes, typically waking up 1-2 times at night for 10 minutes, goes to the bathroom and returns to sleep. These awakenings occur between 1:00 a.m. and 2:00 a.m.. Suleman returns to bed, wakes a few hours later, reports getting an average of 6 hours of sleep at night. He keeps the same schedule on weekends. He takes naps in the day, And a short nap lasting 10-15 minutes may be refreshing. he is drowsy for 1 hour after waking, feels better in the afternoon compared to other times a day. Habits:??Tobacco: Never smoked Caffeine: 3 cups of caffeine per day. Alcohol: none Recreational substances: none PMFSH Past Medical History Medical History BPH associated with nocturia CAD (coronary artery disease) Dyshidrotic eczema Essential (primary) hypertension Mixed hyperlipidemia Subarachnoid hemorrhage following injury with brief loss of consciousness but without open intracranial wound Surgical History Surgical History H/O shoulder surgery right History of ankle surgery right History of back surgery History of carpal tunnel surgery Hx of inguinal hernia surgery S/P cholecystectomy Family History Family History Mother Family history of cardiovascular disease Family history of diabetes mellitus in first degree relative Diabetes mellitus Father Family history of heart disease in male family member before age 55 Cerebrovascular accident Other Family history of malignant neoplasm Hypertension Social History Social History Smoking status: Never smoker Second hand tobacco smoke exposure: Ye
[2023-09-16 10:28] VITALS: BMI 31.5
== END 2023-09-07 05:52 | disposition home or self-care (01) ==
LOC: ANHCSM 08:40
PROVIDERS: PCP Family Medicine; Visit Provider Nurse Practitioner Family
DX: G47.33 Obstructive sleep apnea (adult) (pediatric) (principal); G47.9 Sleep disorder, unspecified; Z68.31 Body mass index [BMI] 31.0-31.9, adult
CPT/HCPCS: 95811

== ENCOUNTER 2023-09-10 10:30 | Observation (INO) | payer MEDICARE, SELFPAY ==
[2023-09-10] VITALS (21 sets, daily range): BP systolic 120–160; BP diastolic 46–100; PULSE 32–67; RESP 10–20; TEMP 36.1–36.5; O2SAT 96–100; BMI 31.1
--- NOTE | ~2023-09-10 | XR_ITS ---
XR chest 1V portable 09/10/2023 11:27 Indication: Chest pain. Hypotension. Procedure: AP portable chest Comparison: Comparison to multiple prior studies sequentially, with oldest reviewed study dated 04/15. Findings: Bilateral perihilar and basilar airspace disease. No pleural effusion or pneumothorax. No a cute osseous abnormality. Heart size normal. Impression: 1: Bilateral airspace disease of the mid and lower lungs which may represent mild edema or pneumonia. Reviewed, dictated and finalized at location B. R VEHICLE FIELD REPRESENTATIVE Impression: 1: Bilateral airspace disease of the mid and lower lungs which may represent mi ld edema or pneumonia.
--- NOTE | 2023-09-10 10:31 | ECG_ITS ---
Measurements Intervals [place] Rate: 41 P: [place]: 0 QRS: 79 QRSD: 145 T: 45 QT: 485 QTc: 403 Interpretive Statements SINUS RHYTHM WITH PROBABLE SECOND-DEGREE TYPE 1 AV BLOCK RIGHT BUNDLE BRANCH BLOCK Electronically Signed On 09-11-2023 13:00:52 VARIETY SAW OPERATOR by Manny Crooks M.D.
[2023-09-10 11:05] LABS: Basophils Absolute Auto 0.1 K/mm3 (0.0-0.1); Basophils Percent Auto 0.9 % (0.2-1.2); Eosinophils Absolute Auto 0.2 K/mm3 (0-0.3); Eosinophils Percent Auto 3.2 % (0-4.4); Hematocrit 48.2 % (42.0-52.0); Hemoglobin 15.7 g/dL (14.0-18.0); Immature Granulocyte Absolute 0.02 K/mm3 (0.00-0.031); Immature Granulocyte Percent A 0.3 % (0-0.5); Lymphocytes Absolute Auto 1.26 K/mm3 (0.9-3.2); Lymphocytes Percent Auto 18.4 % (18.3-44.2); Mean Corpuscular HGB Conc 32.6 g/dl (32-36); Mean Corpuscular Hemoglobin 30.3 pg (26-34); Mean Corpuscular Volume 92.9 fl (80-100); Mean Platelet Volume 10.5 fl (7.4-10.4); Monocytes Percent Auto 14.5 % (2.6-8.5); Neutrophils Absolute Auto 4.3 K/mm3 (1.3-6.7); Neutrophils Percent Auto 62.7 % (45.5-73.1); Platelet Count Result 194 k/mm3 (150-375); Red Blood Count 5.19 M/mm3 (4.6-6.20); Red Cell Distribution Width 14.1 % (11.5-14.5); White Blood Count 6.8 K/mm3 (4.5-10.0)
[2023-09-10 11:16] LABS: Prothrombin Time 13.3 Seconds (11.1-14.7)
[2023-09-10 11:17] LABS: Alanine Aminotransferase 26 U/L (6-50); Albumin Level 4.2 g/dL (3.5-5.1); Alkaline Phosphatase 57 U/L (38-126); Anion Gap 6 mmol/L (8-16); Aspartate Amino Transferase 39 U/L (17-59); Bilirubin,Total 1.3 mg/dL (0.2-1.3); Blood Urea Nitrogen 24 mg/dL (9-20); Calcium 9.3 mg/dL (8.4-10.2); Carbon Dioxide 27 mmol/L (22-30); Chloride 106 mmol/L (98-107); Estimated Glomerular Filt Rate > 60; Glucose 89 mg/dL (65-110); Lipase 174 U/L (23-300); Partial Thromboplastin Time 29.6 SECONDS (22.3-36.8); Potassium 4.5 mmol/L (3.4-5.0); Sodium 139 mmol/L (137-145)
[2023-09-10 11:28] LABS: Troponin I < 0.012 ng/mL (0.000-0.034)
[2023-09-10] MEDS: ASPIRIN 81 MG CHEWABLE TABLET 324 MG PO (12:01)
--- NOTE | 2023-09-10 12:06 | ED.ARRPALP ---
HPI - Arrhythmia/Palpitations General Chief Complaint: Arrhythmia/Palpitations Stated Complaint: low hr/cp Time Seen by Provider: 09/10/23 12:04 History of Present Illness HPI narrative: Patient is an 83-year-old male with history of HTN, subarachnoid hemorrhage, HLD here with low heart rate and bradycardia. patient notes he was recently hospitalized for low heart rates and some confusion. During that hospitalization he was told that he was overmedicated with metoprolol and decreased from 50 mg to 25 mg at discharge. He notes that he checks his heart rate every day, it it runs between the 50s and 60s recently. This morning he checked his heart rate and it was 33. He checked it again later and it was in the high 30s. He denied any lightheadedness or confusion at that time. Patient does note that this morning he was additionally experiencing some mild midsternal chest pain. The chest pain was nonradiating and not associated with any lightheadedness, diaphoresis, nausea. The chest pain is completely resolved at this time. He did receive aspirin prior to my evaluation per chest pain nursing protocol. He denies any cough, congestion, fever, chills, shortness of breath. Related Data Home Medications Medication Instructions Recorded Confirmed losartan 50 mg tablet 50 mg PO DAILY 09/09/22 08/31/23 aspirin 81 mg chewable tablet 81 mg PO DAILY 12/05/22 08/31/23 rosuvastatin 10 mg tablet 10 mg PO DAILY 07/19/23 08/31/23 multivitamin 1 tablet PO DAILY 08/21/23 08/31/23 Allergies Allergy/AdvReac Type Severity Reaction Status Date / Time pantoprazole AdvReac Mild itching Verified 09/08/23 09:55 Review of Systems Review of Systems: All systems reviewed & are unremarkable except as noted in HPI and below PMFSH Past Medical History Medical History Essential (primary) hypertension Mixed hyperlipidemia Subarachnoid hemorrhage following injury with brief loss of consciousness but without open intracranial wound Surgical History Surgical History H/O shoulder surgery right History of ankle surgery right History of back surgery History of carpal tunnel surgery Hx of inguinal hernia surgery S/P cholecystectomy Family History Family History (Reviewed 08/31/23 @ 14:34 by Jhon Patterson [facility]) Mother Family history of cardiovascular disease Family history of diabetes mellitus in first degree relative Diabetes mellitus Father Family history of heart disease in male family member before age 55 Cerebrovascular accident Other Family history of malignant neoplasm Hypertension Social History Social History (Reviewed 08/31/23 @ 14:34 by Jhon Patterson [facility]) Smoking status: Never smoker Second hand tobacco smoke exposure: No Alcohol intake: never Substance use: never Lack of Transportation: No Lack of Food: Never True Current Housing: I Have Housing Concerned About Future Housing: No Difficulty Paying Gas/Electric Bills: No Difficulty Paying for Meds: No Currently Unemployed: No Education: Trade/Vocational Certificate Difficulty w/ Childcare or Family Care: No Gender identity (if verbalized by the patient): Male Spiritual care concerns: No Exam Narrative: GENERAL: Well-appearing, well-nourished, and in no acute distress. HEAD: Normocephalic, atraumatic. EYES: PERRLA and EOMI. ENT: Nares clear. Mucous membranes moist. NECK: Supple. CHEST: Clear to auscultation. No respiratory distress. HEART: Bradycardia. Normal peripheral pulses. ABDOMEN: Soft, nontender, nondistended. EXTREMITIES: Normal range of motion. No edema. SKIN: Warm, dry, no rash. NEURO: No focal deficits. Alert and oriented x3. PSYCH: Normal mood and affect. Course Course Emergency Course: Chart review performed. Patient here with bradycardia. Appears to have had an office visit with his fami
[2023-09-10 12:56] LABS: Magnesium 2.2 mg/dL (1.6-2.3)
[2023-09-10 14:10] LABS: Troponin I < 0.012 ng/mL (0.000-0.034)
--- NOTE | 2023-09-10 14:25 | ECG_ITS ---
Measurements Intervals [place] Rate: 50 P: 266 [place]: 337 QRS: 76 QRSD: 149 T: 9 QT: 475 QTc: 436 Interpretive Statements SINUS bRADYCARDIA WITH FIRST DEGREE AV BLOCK RIGHT BUNDLE BRANCH BLOCK Electronically Signed On 09-11-2023 13:08:01 BAG SHAKER by Manny Crooks M.D.
[2023-09-10 14:53] LABS: Influenza A QL RT-PCR Negative (Negative); Influenza B QL RT-PCR Negative (Negative); RSV RNA, RT-PCR Negative (Negative); SARS-CoV-2 RNA PCR Negative (Negative)
[2023-09-10 17:06] LABS: Troponin I < 0.012 ng/mL (0.000-0.034)
--- NOTE | 2023-09-10 19:54 | PM.IMHP ---
H&P: HPI History of Present Illness Date/Time: 09/10/23 19:54 Chief Complaint: Chest Discomfort, Bradycardia Narrative: 83-year-old male presented here for chest pressure and bradycardia with past medical history of HTN, HLD, [place], CAD, cardiac stent placement x2, and sleep apnea. Patient presented here today due to chest discomfort that occurred sometime after he woke up this morning. Estimates that pain began around 7:30-8:00 a.m. initially on concerned, however he assessed his blood pressure and heart rate shortly after pain began. Heart rate 33, BP a baseline. Pain continued and patient recheck heart rate 40 minutes later, 33-37. Decided to seek treatment at the emergency department, took 81 mg of aspirin prior to leaving his home. Shortly after he took the aspirin the pain partially resolved. By the time he arrived to the emergency department at 10:30 a.m., pain completely resolved. He described the pain as midsternal and more of a discomfort verses sharp/stabbing. Pain was nonradiating and no associated shortness of breath, diaphoresis, nausea, vomiting, dizziness, or lightheadedness. Patient had recent admission for bradycardia on 08/21, metoprolol dose reduced. No other complaints at this time. Review of Systems Review of Systems: All systems reviewed & are unremarkable except as noted in HPI and below PMFSH Past Medical History Medical History (Updated 09/11/23 @ 00:59 by Ashley Dominguez APRN) BPH associated with nocturia CAD (coronary artery disease) Dyshidrotic eczema Essential (primary) hypertension Mixed hyperlipidemia Subarachnoid hemorrhage following injury with brief loss of consciousness but without open intracranial wound Surgical History Surgical History H/O shoulder surgery right History of ankle surgery right History of back surgery History of carpal tunnel surgery Hx of inguinal hernia surgery S/P cholecystectomy Family History Family History Mother Family history of cardiovascular disease Family history of diabetes mellitus in first degree relative Diabetes mellitus Father Family history of heart disease in male family member before age 55 Cerebrovascular accident Other Family history of malignant neoplasm Hypertension Social History Social History Smoking status: Never smoker Second hand tobacco smoke exposure: Yes Alcohol intake: former Substance use: never Lack of Transportation: No Lack of Food: Never True Current Housing: I Have Housing Concerned About Future Housing: No Difficulty Paying Gas/Electric Bills: No Difficulty Paying for Meds: No Currently Unemployed: No Education: Trade/Vocational Certificate Difficulty w/ Childcare or Family Care: No Gender identity (if verbalized by the patient): Male Spiritual care concerns: No Meds Home Medications and Allergies Home Medications Medication Instructions Recorded Confirmed Type losartan 50 mg tablet 50 mg PO DAILY 09/09/22 09/10/23 History aspirin 81 mg chewable tablet 81 mg PO DAILY 12/05/22 09/10/23 History rosuvastatin 10 mg tablet 10 mg PO DAILY 07/19/23 09/10/23 History multivitamin 1 tablet PO DAILY 08/21/23 09/10/23 History metoprolol succinate 25 mg 25 mg PO DAILY hypertension #30 08/24/23 09/10/23 Rx tablet,extended release 24 hr tabs triamcinolone acetonide 0.1 % 1 applic topical BID #80 grams 08/31/23 09/10/23 Rx topical cream Allergies Allergy/AdvReac Type Severity Reaction Status Date / Time pantoprazole AdvReac Mild itching Verified 09/08/23 09:55 Vital Signs Vital Signs - 24 hr 09/10/23 10:44 09/10/23 10:48 09/10/23 11:02 Temperature 97.7 F Pulse Rate 43 L 43 L 39 L Respiratory Rate 18 10 L 12 Blood Pressure 150/72 H 150/72 H 134/70 Pulse Oximetry 100 97 Oxygen Delivery Ro
[2023-09-11] VITALS (11 sets, daily range): BP systolic 137–151; BP diastolic 67–77; PULSE 50–71; RESP 15–20; TEMP 35.9–36.7; O2SAT 95–100
[2023-09-11 05:04] LABS: Hematocrit 45.2 % (42.0-52.0); Hemoglobin 14.7 g/dL (14.0-18.0); Mean Corpuscular HGB Conc 32.5 g/dl (32-36); Mean Corpuscular Hemoglobin 30.5 pg (26-34); Mean Corpuscular Volume 93.8 fl (80-100); Mean Platelet Volume 10.7 fl (7.4-10.4); Platelet Count Result 176 k/mm3 (150-375); Red Blood Count 4.82 M/mm3 (4.6-6.20); Red Cell Distribution Width 13.8 % (11.5-14.5); White Blood Count 6.8 K/mm3 (4.5-10.0)
[2023-09-11 05:20] LABS: Alanine Aminotransferase 23 U/L (6-50); Albumin Level 3.6 g/dL (3.5-5.1); Alkaline Phosphatase 65 U/L (38-126); Anion Gap 5 mmol/L (8-16); Aspartate Amino Transferase 25 U/L (17-59); Bilirubin,Total 1.1 mg/dL (0.2-1.3); Blood Urea Nitrogen 23 mg/dL (9-20); Calcium 8.6 mg/dL (8.4-10.2); Carbon Dioxide 25 mmol/L (22-30); Chloride 108 mmol/L (98-107); Estimated CRCL calculation 58 ml/min; Estimated Glomerular Filt Rate > 60; Glucose 90 mg/dL (65-110); Magnesium 2.1 mg/dL (1.6-2.3); Potassium 3.8 mmol/L (3.4-5.0); Sodium 138 mmol/L (137-145)
[2023-09-11] MEDS: ROSUVASTATIN 10 MG TABLET PO (08:59)
[2023-09-11] MEDS: ENOXAPARIN 40 MG/0.4 ML SYRINGE SUB-Q (08:59)
[2023-09-11] MEDS: LOSARTAN POTASSIUM 50 MG TABLET PO (08:59)
[2023-09-11] MEDS: MULTIVITAMINS THERAPEUTIC TAB (*BKC) 1 TABLET PO (09:00)
[2023-09-11] MEDS: ASPIRIN 81 MG CHEWABLE TABLET PO (09:00)
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
--- NOTE | 2023-09-11 10:55 | PM.IMPN ---
Progress Note: A&P Assessment and Plan (1) Chest pain: Qualifiers: Chest pain type: unspecified Qualified Code(s): R07.9 - Chest pain, unspecified Code(s): R07.9 - Chest pain, unspecified Status: Acute Assessment and Plan: No chest pain at present time. Patient troponin is negative. Cardiology consult noted. Will continue monitor patient (2) Bradycardia: Code(s): R00.1 - Bradycardia, unspecified Status: Acute Assessment and Plan: Cardiology consult noted. Will continue monitor heart rate closely. Metoprolol for. (3) Essential (primary) hypertension: Code(s): I10 - Essential (primary) hypertension Status: Acute Assessment and Plan: Will continue home losartan. Monitor blood pressure. Plan Home Meds/Chronic Conditions - eczema: Continue triamcinolone cream Diet: Regular GI Prophylaxis: Not indicated DVT Prophylaxis: SCDs, Enoxaparin Lines: pIV Code Status: Full Code Subjective Date/time seen: 09/11/23 10:55 Interval history: Patient was seen during the morning rounds today. Patient heart rate is slightly better. No chest pain or shortness of breath. No abdominal pain, nausea, no vomiting. Mood stable. Review of Systems Review of Systems: All systems reviewed & are unremarkable except as noted in HPI and below Exam Narrative: PHYSICAL EXAMINATION: GENERAL:? Alert, oriented, no acute distress MENTAL STATUS:?? affect appropriate to mood EYES:? Extraocular movements intact, no pallor EARS:? External ears appear normal, hearing grossly normal NOSE:? Normal and patent, no discharge MOUTH:? Mucous membranes moist, tongue normal NECK:? Supple, no JVD CHEST:? Good respiratory effort, clear to auscultation HEART:? Normal rate, regular rhythm, normal S1 and S2, no audible murmurs ABDOMEN:? Soft, nontender NEUROLOGICAL:? Alert, oriented, normal speech, no gross motor deficits MUSCULOSKELETAL:??No major deformity, no amputation EXTREMITIES:? No pedal edema, no clubbing, no cyanosis SKIN:?no rash on the exposed area, no? cyanosis PSYCHIATRIC:? Normal mood, appropriate affect Const: General: comfortable and no acute distress HENMT: Ears: TM's normal bilaterally Face/Nose/Sinus: Normal nares present Mouth: Yes moist mucous membranes Eyes: General: appearance normal, both eyes and all related structures Sclera: sclerae normal Pupils: Equal, round and reactive pupils present EOM: EOMs intact bilaterally Resp: Effort & Inspection: normal respiratory effort Auscultation: clear to auscultation bilaterally Cardio: Rate: bradycardic Rhythm: regular rhythm Other: S1-S2 present without murmur, rub, ectopy GI: Auscultation: normal bowel sounds Skin: General skin exam: normal color and no rashes or lesions noted Wounds: no wounds Neuro: Cranial nerves: Yes Equal, round and reactive pupils present Speech: normal speech Motor exam (neuro): 5/5 motor strength present throughout Sensory Exam: normal sensation Other: a/Ox4 Extrem: Other: Trace edema to bilateral lower extremities. Psych: Mental Status: mental status grossly normal Affect: normal affect Other: Good insight and judgment, pleasant. Objective Data Vital Signs Vital Signs: Vital Signs - 24 hr 09/10/23 11:02 09/10/23 12:04 09/10/23 12:17 Temperature Pulse Rate 39 L 36 L 35 L Respiratory Rate 12 12 16 Blood Pressure 134/70 122/64 133/58 L Pulse Oximetry 97 98 99 Oxygen Delivery 09/10/23 12:30 09/10/23 12:32 09/10/23 12:45 Temperature Pulse Rate 43 L 46 L 32 L Respiratory Rate 18 13 10 L Blood Pressure 147/74 H Pulse Oximetry 99 99 Oxygen Delivery 09/10/23 12:47 09/10/23 13:02 09/10/23 13:16 Temperature Pulse Rate 45 L 44 L 47 L Respiratory Rate 13 13 11 L Blood Pressure 120/46 L 121/52 L 123/76 Pulse Oximetry Oxygen Delivery 09/10/23 13:46 09/10/23 14:01 09/10/23 14:16 Erwin
--- NOTE | 2023-09-11 14:00 | PM.DS ---
DS: Admitting Diagnosis Discharge Date 09/11/2023 Admitting Diagnosis Chest pain DS: Discharge Diagnosis Discharge Diagnosis (1) Chest pain: Qualifiers: Chest pain type: unspecified Qualified Code(s): R07.9 - Chest pain, unspecified Code(s): R07.9 - Chest pain, unspecified Status: Acute Assessment and Plan: No chest pain at present time. Patient troponin is negative. Cardiology consult noted. Will continue monitor patient (2) Bradycardia: Code(s): R00.1 - Bradycardia, unspecified Status: Acute Assessment and Plan: Cardiology consult noted. Will continue monitor heart rate closely. Metoprolol for. (3) Essential (primary) hypertension: Code(s): I10 - Essential (primary) hypertension Status: Acute Assessment and Plan: Will continue home losartan. Monitor blood pressure. Plan Home Meds/Chronic Conditions - eczema: Continue triamcinolone cream Diet: Regular GI Prophylaxis: Not indicated DVT Prophylaxis: SCDs, Enoxaparin Lines: pIV Code Status: Full Code DS: Summary Hospital Course Reason for hospitalization: Chest pain Hospital Course: 83 years old male was admitted complained of any chest pain and having low pulse rate at home. Patient metoprolol was put on hold. Cardiology was consulted. Cardiology recommended patient to stay in the hospital for 1 more day. Patient refused to stay. Patient was discharged at his request. Patient will follow-up as an outpatient for event recorder. Patient advised not to take metoprolol at home. Patient advised to come back if he is not feeling better at home. Time Spent with Patient Time attestation: Total time spent providing and/or coordinating discharge services: Exam Narrative: PHYSICAL EXAMINATION: GENERAL:? Alert, oriented, no acute distress MENTAL STATUS:?? affect appropriate to mood EYES:? Extraocular movements intact, no pallor EARS:? External ears appear normal, hearing grossly normal NOSE:? Normal and patent, no discharge MOUTH:? Mucous membranes moist, tongue normal NECK:? Supple, no JVD CHEST:? Good respiratory effort, clear to auscultation HEART:? Normal rate, regular rhythm, normal S1 and S2, no audible murmurs ABDOMEN:? Soft, nontender NEUROLOGICAL:? Alert, oriented, normal speech, no gross motor deficits MUSCULOSKELETAL:??No major deformity, no amputation EXTREMITIES:? No pedal edema, no clubbing, no cyanosis SKIN:?no rash on the exposed area, no? cyanosis PSYCHIATRIC:? Normal mood, appropriate affect Const: General: comfortable and no acute distress HENMT: Ears: TM's normal bilaterally Face/Nose/Sinus: Normal nares present Mouth: Yes moist mucous membranes Eyes: General: appearance normal, both eyes and all related structures Sclera: sclerae normal Pupils: Equal, round and reactive pupils present EOM: EOMs intact bilaterally Resp: Effort & Inspection: normal respiratory effort Auscultation: clear to auscultation bilaterally Cardio: Rate: bradycardic Rhythm: regular rhythm Other: S1-S2 present without murmur, rub, ectopy GI: Auscultation: normal bowel sounds Skin: General skin exam: normal color and no rashes or lesions noted Wounds: no wounds Neuro: Cranial nerves: Yes Equal, round and reactive pupils present Speech: normal speech Motor exam (neuro): 5/5 motor strength present throughout Sensory Exam: normal sensation Other: a/Ox4 Extrem: Other: Trace edema to bilateral lower extremities. Psych: Mental Status: mental status grossly normal Affect: normal affect Other: Good insight and judgment, pleasant. DS: Data Data Completed and Pending Labs on day of discharge: Labs from last 24 hours 09/11/23 09/10/23 09/10/23 04:19 16:39 14:04 WBC 6.8 RBC 4.82 Hgb 14.7 Hct 45.2 MCV 93.8 MCH 30.5 MCHC 32.5 RDW 13.8 Plt Count 176 MPV 10.7 H Sodium 138 Potassium 3.8 Chlori
== END 2023-09-11 14:45 | disposition home or self-care (01) ==
LOC: ANHED 12:18 → ANHIMU 15:30
PROVIDERS: Emergency Medicine; Student in an Organized Health Care Education/Training Program; Admitting Provider Internal Medicine; Emergency Provider Student in an Organized Health Care Education/Training Program; PCP Family Medicine; Visit Provider Internal Medicine
DX: R07.9 Chest pain, unspecified (principal); R00.1 Bradycardia, unspecified; I10 Essential (primary) hypertension; R41.82 Altered mental status, unspecified; I44.0 Atrioventricular block, first degree; I45.10 Unspecified right bundle-branch block; I25.10 Atherosclerotic heart disease of native coronary artery without angina pectoris; Z95.5 Presence of coronary angioplasty implant and graft; Z20.822 Contact with and (suspected) exposure to COVID-19; L30.1 Dyshidrosis [pompholyx]; G47.30 Sleep apnea, unspecified; I25.2 Old myocardial infarction; N40.0 Benign prostatic hyperplasia without lower urinary tract symptoms; E78.2 Mixed hyperlipidemia; Z86.79 Personal history of other diseases of the circulatory system; Z79.82 Long term (current) use of aspirin; Z79.899 Other long term (current) drug therapy; Z82.49 Family history of ischemic heart disease and other diseases of the circulatory system
CPT/HCPCS: 36415; 71045; 80053; 83690; 83735; 84443; 84484; 85025; 85027; 85610; 85730; 87637; 93005; 94660; 96372; 99285; A9270; G0378; J1650

== ENCOUNTER 2023-09-12 15:13 | Emergency (ER) | payer MEDICARE, SELFPAY ==
--- NOTE | 2023-09-12 15:27 | ED.GENADULT ---
HPI - General Adult General Chief complaint: Wound/Laceration Stated complaint: blister on rt ankle Time Seen by Provider: 09/12/23 15:27 Source: patient Mode of arrival: ambulatory Limitations: no limitations History of Present Illness HPI narrative: 83-year-old male patient presents to the [facility] with complaints of wound on the right ankle for the past 2-3 days. Patient states he recently just got out of the hospital yesterday due to having issues with his pulse and his heart rate. Patient states they did take him off his metoprolol which is why his blood pressure is elevated today. Patient states he is not taking his blood pressure medicine yet today and was instructed to take it before bed. Patient states he noticed a blister to the right ankle on Wednesday did show them at the ER but they state that they did not think it looked bad and continue to monitor and follow up with his primary doctor. Patient states it is more painful today than it was couple of days ago. Patient does have issues with circulation to the lower extremities. Patient denies fevers, body aches or chills. Denies chest pain shortness of breath at this time. Related Data Home Medications Medication Instructions Recorded Confirmed losartan 50 mg tablet 50 mg PO DAILY 09/09/22 09/12/23 aspirin 81 mg chewable tablet 81 mg PO DAILY 12/05/22 09/12/23 rosuvastatin 10 mg tablet 10 mg PO DAILY 07/19/23 09/12/23 multivitamin 1 tablet PO DAILY 08/21/23 09/12/23 Allergies Allergy/AdvReac Type Severity Reaction Status Date / Time pantoprazole AdvReac Mild itching Verified 09/12/23 15:34 Review of Systems Review of Systems: CONSTITUTIONAL: Denies fever, chills, or sweats. EYES: Denies visual changes, redness, or discharge. ENT: Denies rhinorrhea, congestion, sore throat, or otalgia. CARDIOVASCULAR: Denies chest pain, palpitations, or edema. RESPIRATORY: denies cough or dyspnea. GASTROINTESTINAL: Denies abdominal pain, nausea, vomiting, or diarrhea. GENITOURINARY: Denies dysuria or hematuria. SKIN: Denies rash or itching. positive wound to right lower extremity around the ankle with blister. MUSCULOSKELETAL: Denies back pain, joint pain, or myalgia. NEUROLOGIC: Denies headache, numbness, or weakness. PSYCHIATRIC: Denies anxiety or depression. [facility] Past Medical History Medical History BPH associated with nocturia CAD (coronary artery disease) Dyshidrotic eczema Essential (primary) hypertension Mixed hyperlipidemia Subarachnoid hemorrhage following injury with brief loss of consciousness but without open intracranial wound Surgical History Surgical History H/O shoulder surgery right History of ankle surgery right History of back surgery History of carpal tunnel surgery Hx of inguinal hernia surgery S/P cholecystectomy Family History Family History Mother Family history of cardiovascular disease Family history of diabetes mellitus in first degree relative Diabetes mellitus Father Family history of heart disease in male family member before age 55 Cerebrovascular accident Other Family history of malignant neoplasm Hypertension Social History Social History Smoking status: Never smoker Second hand tobacco smoke exposure: Yes Alcohol intake: former Substance use: never Lack of Transportation: No Lack of Food: Never True Current Housing: I Have Housing Concerned About Future Housing: No Difficulty Paying Gas/Electric Bills: No Difficulty Paying for Meds: No Currently Unemployed: No Education: Trade/Vocational Certificate Difficulty w/ Childcare or Family Care: No Gender identity (if verbalized by the patient): Male Spiritual care concerns: No Comments At the time of my signatur
[2023-09-12 15:32] VITALS: BP 187/94; PULSE 60; RESP 18; TEMP 35.9; O2SAT 99
== END 2023-09-12 16:11 | disposition home or self-care (01) ==
PROVIDERS: Emergency Provider Nurse Practitioner Family; PCP Family Medicine
DX: L03.115 Cellulitis of right lower limb (principal); I25.10 Atherosclerotic heart disease of native coronary artery without angina pectoris; I10 Essential (primary) hypertension; E78.2 Mixed hyperlipidemia; N40.0 Benign prostatic hyperplasia without lower urinary tract symptoms; Z79.82 Long term (current) use of aspirin
CPT/HCPCS: 87070; 87205; 99213; G0463

== ENCOUNTER 2024-01-02 10:57 | Emergency (ER) | payer MEDICARE, SELFPAY ==
--- NOTE | 2024-01-02 11:08 | ED.SKABFB ---
HPI - Skin/Abscess/Foreign Bdy General Chief complaint: Skin/Abscess/Foreign Body Stated complaint: rt ankle redness and swelling Time Seen by Provider: 01/02/24 10:58 Source: patient Mode of arrival: ambulatory Limitations: no limitations History of Present Illness HPI narrative: Enmanuel is an 83-year-old male patient presenting to the clinic today with complaints of right medial ankle swelling, erythema, and redness. He reports that this started on Wednesday night. Has had history of cellulitis to the right ankle back in September and was treated with 2 rounds of cephalexin. He reports that this did take care the infection. Wound culture was obtained at his initial visit but did not have any growth of bacteria at that time. Patient also has history of venous stasis dermatitis/venous insufficiency. Yellow/clear fluid draining from the bottom of area of cellulitis near his new scar. He denies any fever, chills, or body aches. No recent injury to the right ankle. Related Data Home Medications Medication Instructions Recorded Confirmed losartan 50 mg tablet 50 mg PO DAILY 09/09/22 11/23/23 aspirin 81 mg chewable tablet 81 mg PO DAILY 12/05/22 11/23/23 rosuvastatin 10 mg tablet 10 mg PO DAILY 07/19/23 11/23/23 multivitamin 1 tablet PO DAILY 08/21/23 11/23/23 apixaban 5 mg tablet (Eliquis) mg PO 12/23/23 Allergies Allergy/AdvReac Type Severity Reaction Status Date / Time adhesive AdvReac Mild Itching Verified 12/23/23 08:43 pantoprazole AdvReac Mild itching Verified 12/23/23 08:43 Review of Systems Review of Systems: Pertinent positives per HPI. Patient denies any fever, chills, rash, headache, visual changes, dizziness, cough, runny nose, sore throat, shortness of breath, chest pain, palpitations, nausea, vomiting, diarrhea, constipation, abdominal pain, or any urinary issues. COUNT INCLUDES THE [facility] Past Medical History Medical History BPH associated with nocturia CAD (coronary artery disease) Dyshidrotic eczema Essential (primary) hypertension Mixed hyperlipidemia Subarachnoid hemorrhage following injury with brief loss of consciousness but without open intracranial wound Surgical History Surgical History H/O shoulder surgery right History of ankle surgery right History of back surgery History of carpal tunnel surgery Hx of inguinal hernia surgery S/P cholecystectomy Family History Family History Mother Family history of cardiovascular disease Family history of diabetes mellitus in first degree relative Diabetes mellitus Father Family history of heart disease in male family member before age 55 Cerebrovascular accident Other Family history of malignant neoplasm Hypertension Social History Social History Smoking status: Never smoker Second hand tobacco smoke exposure: Yes Alcohol intake: former Substance use: never Do You Feel Safe in your Home?: Yes Lack of Transportation: No Lack of Food: Never True Current Housing: I Have Housing Concerned About Future Housing: No Difficulty Paying Gas/Electric Bills: No Difficulty Paying for Meds: No Currently Unemployed: No Education: Trade/Vocational Certificate Difficulty w/ Childcare or Family Care: No Gender identity (if verbalized by the patient): Male Spiritual care concerns: No Comments At the time of my signature, I reviewed and agree with the nursing past medical, surgical, social, and family history. There is no relevant family history pertinent to the patient complaint. Exam Narrative: General: Well-developed, well nourished, in no apparent distress Head: Normocephalic, atraumatic. Cardio: Regular rate and rhythm, s1 and s2 normal, no murmur appreciated. Resp: Clear to auscultation bilat
[2024-01-02 11:09] VITALS: BP 152/68; PULSE 66; RESP 18; TEMP 36.4; O2SAT 100
== END 2024-01-02 11:35 | disposition home or self-care (01) ==
PROVIDERS: Emergency Provider Nurse Practitioner Family; PCP Family Medicine
DX: L03.115 Cellulitis of right lower limb (principal); N40.0 Benign prostatic hyperplasia without lower urinary tract symptoms; I25.10 Atherosclerotic heart disease of native coronary artery without angina pectoris; I10 Essential (primary) hypertension; E78.2 Mixed hyperlipidemia; Z79.82 Long term (current) use of aspirin
CPT/HCPCS: 87070; 87075; 87205; 99213; G0463

== ENCOUNTER 2024-02-03 07:14 | Outpatient (RCR) | payer MEDICARE, SELFPAY ==
[2023-11-23 10:48] VITALS: BMI 33.9
== END 2024-02-21 23:59 | disposition home or self-care (01) ==
LOC: ANHWOC 07:14
PROVIDERS: PCP Family Medicine; Visit Provider Family Medicine
DX: I87.2 Venous insufficiency (chronic) (peripheral) (principal); L03.90 Cellulitis, unspecified
CPT/HCPCS: 99212; 99213; A9270; G0463

== ENCOUNTER 2024-07-31 08:44 | Outpatient (CLI) | payer MEDICARE, SELFPAY ==
--- NOTE | ~2024-07-31 | XR_ITS ---
EXAMINATION: XR abdomen/kub 1V DATE: 07/31/2024 09:12 INDICATION: Calculus of kidney. TECHNIQUE: A supine view of the abdomen on 2 radiographs was obtained. COMPARISON: Abdomen radiographs 07/26/2023, CT abdomen and pelvis 08/27/2018 FINDINGS: There are no dilated loops of bowel. Surgical clips in the right upper quadrant are likely from cholecystectomy. There are two 4 mm stones in left kidney. There are phleboliths in the pelvis. IMPRESSION: 1. Left kidney stones. Reviewed, dictated and finalized at location B. IMPRESSION: 1. Left kidney stones.
== END 2024-07-31 08:45 | disposition home or self-care (01) ==
LOC: ANHIMG 08:53
PROVIDERS: PCP Family Medicine; Visit Provider Urology
DX: N20.0 Calculus of kidney (principal)
CPT/HCPCS: 74018

== ENCOUNTER 2024-08-17 07:27 | Outpatient (CLI) | payer MEDICARE, SELFPAY ==
[2024-08-17 08:14] LABS: Basophils Absolute Auto 0.1 K/mm3 (0.0-0.1); Basophils Percent Auto 1.5 % (0.2-1.2); Eosinophils Absolute Auto 0.3 K/mm3 (0-0.3); Eosinophils Percent Auto 4.7 % (0-4.4); Hematocrit 46.7 % (42.0-52.0); Immature Granulocyte Absolute 0.01 K/mm3 (0.00-0.031); Immature Granulocyte Percent A 0.2 % (0-0.5); Lymphocytes Percent Auto 21.8 % (18.3-44.2); Mean Corpuscular HGB Conc 32.1 g/dl (32-36); Mean Corpuscular Hemoglobin 30.9 pg (26-34); Mean Corpuscular Volume 96.1 fl (80-100); Mean Platelet Volume 10.8 fl (7.4-10.4); Monocytes Absolute Auto 0.9 K/mm3 (0.1-0.6); Monocytes Percent Auto 16.2 % (2.6-8.5); Neutrophils Absolute Auto 3.1 K/mm3 (1.3-6.7); Neutrophils Percent Auto 55.6 % (45.5-73.1); Platelet Count Result 170 k/mm3 (150-375); Red Blood Count 4.86 M/mm3 (4.6-6.20); Red Cell Distribution Width 13.5 % (11.5-14.5); White Blood Count 5.5 K/mm3 (4.5-10.0)
[2024-08-17 08:56] LABS: Alanine Aminotransferase 20 U/L (6-50); Albumin Level 4.1 g/dL (3.5-5.1); Alkaline Phosphatase 57 U/L (38-126); Anion Gap 6 mmol/L (4-12); Aspartate Amino Transferase 34 U/L (17-59); Bilirubin,Total 0.9 mg/dL (0.2-1.3); Blood Urea Nitrogen 26 mg/dL (9-20); Calcium 9.2 mg/dL (8.4-10.2); Carbon Dioxide 29 mmol/L (22-30); Chloride 106 mmol/L (98-107); Cholesterol 119 mg/dL (0-200); Estimated Glomerular Filt Rate > 60; Glucose 91 mg/dL (65-110); HDL Direct 62 mg/dL; Potassium 4.3 mmol/L (3.4-5.0); Sodium 141 mmol/L (137-145); Triglycerides 63 mg/dL (<150)
[2024-08-17 09:07] LABS: LDL Cholesterol Direct 35 mg/dL
[2024-08-17 13:26] LABS: Hemoglobin A1C 5.6 % (<5.7)
== END 2024-08-17 07:28 | disposition home or self-care (01) ==
PROVIDERS: PCP Family Medicine; Visit Provider Family Medicine
DX: E78.5 Hyperlipidemia, unspecified (principal); E11.9 Type 2 diabetes mellitus without complications
CPT/HCPCS: 36415; 80053; 80061; 83036; 85025

== ENCOUNTER 2024-11-28 09:12 | Outpatient (RCR) | payer MEDICARE, SELFPAY ==
[2024-11-28 10:08] VITALS: BMI 31.6
== END 2025-02-12 10:18 | disposition home or self-care (01) ==
LOC: ANHWOC 09:12
PROVIDERS: PCP Family Medicine; Visit Provider Nurse Practitioner Family
DX: S81.801A Unspecified open wound, right lower leg, initial encounter (principal)
CPT/HCPCS: 99213; G0463

== ENCOUNTER 2024-12-27 05:26 | Inpatient (IN) | payer MEDICARE, SELFPAY ==
[2024-12-27] VITALS (30 sets, daily range): BP systolic 102–173; BP diastolic 48–97; PULSE 56–119; RESP 12–20; TEMP 36.6; O2SAT 94–100
--- NOTE | 2024-12-27 | ECHO_ITS ---
Patient Info Name: Enmanuel Vila Age: 84 years : 1940 Gender: Male Ht: 70 in Wt: 224 lbs BSA: 2.27 m2 HR: 56 bpm BP: 119 / 55 mmHg Heart Rhythm: Sinus Rhythm Technical Quality: Fair Exam Date: 12/27/2024 3:10 PM Exam Location: Echo Lab Patient Status: Inpatient Admit Date: 12/27/2024 Staff Ordering Physician: Jaden Hassan MD (rex/gopi) Clerk Manager: Toyin Tello RDCS Attending Provider: Diego Rodarte MD Referring Physician: Mo POOL; Exam Type: CA echo doppler color flow Study Info Indications - Syncope Complete two-dimensional, color flow and Doppler transthoracic echocardiogram is performed. Summary 1. Complete two-dimensional, color flow and Doppler transthoracic echocardiogram is performed. 2. There is normal biventricular size and systolic function. 3. There are no significant valvular abnormalities. Left Ventricle The left ventricle is normal in size and systolic function. The left ventricular ejection fraction is visually estimated to be 60-65%. Grade 1 diastolic dysfunction is present suggestive of abnormal left ventricular relaxation. Right Ventricle The right ventricle is normal in size and systolic function. Left Atria The left atrium is moderately dilated. Right Atria The right atrium is mildly dilated. Atrial Septum The atrial septum is normal. Aortic Valve The aortic valve is trileaflet and sclerotic but opens well. There is mild aortic regurgitation. Pulmonic Valve The pulmonic valve is grossly normal. There is no color Doppler evidence of pulmonic valve regurgitation. Mitral Valve The mitral valve opens well. There is trace mitral regurgitation. Tricuspid Valve The tricuspid valve is grossly normal. There is trace tricuspid regurgitation. Pericardium/Pleural Pericardium is normal in appearance with no evidence for significant pericardial effusion. Inferior Vena Cava Normal inferior vena cava with >50% collapse upon inspiration consistent with normal right atrial pressure, 3 mmHg. Aorta The aortic root at the level of the sinus of Valsalva measures 3.6 cm in diameter. Left Ventricular Outflow Tract Name Value Normal LVOT 2D LVOT Diameter 2.4 cm LVOT Doppler LVOT Peak Gradient 3 mmHg LVOT Mean Gradient 2 mmHg LVOT VTI 23 cm LVOT VTI/AV VTI Ratio 0.8 LVOT Stroke Volume 106 ml LVOT CO 5.9 l/min LVOT CI 2.6 l/min/m2 Pulmonic Valve Name Value Normal RVOT Doppler RVOT Peak Gradient 2 mmHg PV Doppler PV Peak Gradient 3 mmHg Mitral Valve Name Value Normal MV Doppler MV [place] 261 cm/s2 MV PHT 77 ms MV Area (PHT) 2.9 cm2 4.0-5.0 MV Diastolic Function MV E Peak Velocity 69 cm/s MV A Peak Velocity 76 cm/s MV E/A 0.9 MV Decel Time 265 ms MV Annular TDI MV E/e' (Septal) 11.0 <=8.0 MV E/e' (Lateral) 8.9 <=8.0 MV E/e' (Average) 10.0 Tricuspid Valve Name Value Normal TV Regurgitation Doppler TR Peak Velocity 212 cm/s TR Peak Gradient 18 mmHg Estimated PAP/RSVP RA Pressure 3 mmHg <=5 PA Systolic Pressure 21 mmHg <36 RV Systolic Pressure 21 mmHg <36 Aortic Valve Name Value Normal AV Doppler AV Peak Velocity 120 cm/s AV Peak Gradient 6 mmHg AV Mean Gradient 3 mmHg AV VTI 29 cm AV Area (Cont Eq VTI) 3.7 cm2 >=3.0 AV Area (Cont Eq Jero) 3.6 cm2 AV Regurgitation 2D LVOT Area 4.7 cm2 Ventricles Name Value Normal LV Dimensions 2D/MM IVS Diastolic Thickness (2D) 1.2 cm 0.6-1.0 LVID Diastole (2D) 5.6 cm 4.2-5.8 LVIW Diastolic Thickness (2D) 0.8 cm 0.6-1.0 LVID Systole (2D) 3.6 cm 2.5-4.0 LVOT Diameter 2.4 cm LV Mass (2D Cubed) 223.11 g 88.00-224.00 LV Mass Index (2D Cubed) 98 g/m2 49-115 Relative Wall Thickness (2D) 0.29 LV Fractional Shortening/Ejection Fraction 2D/MM LV Fractional Shortening (2D) 36 % 25-43 LV EF (2D Teicholz) 64 % 52-72 LV Diastolic Volume (4C MOD) 184 ml LV EF (4C MOD) 51 % LV Diastolic Volume (2C MOD) 180 ml LV EF (2C MOD) 62 % LV Diastolic Volume (BP MOD) 186 ml 62-150 LV Diastolic Volume Index (BP MOD) 82 ml/m2 34-74 LV Systolic Volume (BP MOD) 81 ml 21-61 LV Systolic Volume Index (BP MOD) 36 ml/m2 11-31 LV EF (BP MOD) 57 % 52-72 LV Diastolic Length (4C) 10.0 cm LV Systolic Length (4C) 9.2 cm LV Stroke Volume (4C MOD) 94 ml Atria Name Value Normal LA Dimensions LA Volume (4C A-L) 90 ml LA Volume (BP A-L) 93 ml RA Dimensions RA Area (4C) 22.0 cm2 <=18.0 Report Signatures
--- NOTE | ~2024-12-27 | CT_ITS ---
EXAMINATION: CT cervical spine wo con DATE: 12/27/2024 06:07 INDICATION: Neck injury. TECHNIQUE: Computed tomography (CT) of the cervical spine was performed without intravenous contrast. Automated exposure control and iterative reconstruction technique were employed. The dose-length pro duct was 462.81 mGy-cm. COMPARISON: None FINDINGS: Alignment is normal. There is mild chronic anterior wedging of T3 vertebral body. There is severely decreased disc height from C2-C3 through T2-T3 with interbody fusion at C6-C7. The following disc levels are specifically discussed: C2-C3: There is moderate bilateral uncovertebral joint osteoarthritis. There is severe bilateral face t joint osteoarthritis. There is mild left neural foraminal stenosis. There is mild central canal tommy nosis. C3-C4: There is severe bilateral uncovertebral joint osteoarthritis. There is severe bilateral facet joint osteoarthritis. There is mild right and moderate left neural foraminal stenosis. There is mild central canal stenosis. C4-C5: There is severe bilateral uncovertebral joint osteoarthritis. There is severe bilateral facet joint osteoarthritis. There is mild bilateral neural foraminal stenosis. There is mild central canal stenosis. C5-C6: There is severe bilateral uncovertebral joint osteoarthritis. There is mild right and moderate left facet joint osteoarthritis. There is mild bilateral neural foraminal stenosis. There is mild ce ntral canal stenosis. C6-C7: There is moderate bilateral uncovertebral joint hypertrophy. There is severe right and mild le ft facet joint osteoarthritis. There is mild bilateral neural foraminal stenosis. There is mild centr al canal stenosis. C7-T1: There is severe bilateral uncovertebral joint osteoarthritis. There is severe bilateral facet joint osteoarthritis. There is mild left neural foraminal stenosis. There is mild central canal steno sis. IMPRESSION: 1. No fracture. 2. Severe cervical spondylosis. Reviewed, dictated and finalized at location A.
--- NOTE | ~2024-12-27 | CT_ITS ---
EXAMINATION: CT brain wo con DATE: 12/27/2024 06:06 INDICATION: Head injury. Fall. TECHNIQUE: Computed tomography (CT) of the head was performed without intravenous contrast. The mA wa s adjusted according to patient size. Iterative reconstruction technique was employed. The dose-lengt h product was 756.67 mGy-cm. COMPARISON: Head CT 08/21/2023 FINDINGS: There are scattered areas of low attenuation in the cerebral white matter. There is old lac unar infarct in the right caudate nucleus. There is an old infarct in the left occipital lobe. There is no intracranial hemorrhage, acute infarction, or abnormal intracranial mass lesion. The ventricles are normal in size. There are likely changes of ocular lens replacement surgeries. There is mild muc osal thickening in the paranasal sinuses. The mastoid air cells are normal. IMPRESSION: 1. 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 2. Stable extensive nonspecific cerebral white matter disease, which likely represents chronic small vessel ischemic disease. Reviewed, dictated and finalized at location A. IMPRESSION: 1. 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 2. Stable extensive nonspecific cerebral white matter disease, which likely rep resents chronic small vessel ischemic disease.
--- NOTE | ~2024-12-27 | CT_ITS ---
EXAMINATION: CT chest abdomen pelvis w con DATE: 12/27/2024 07:25 INDICATION: Leukocytosis. TECHNIQUE: Computed tomography (CT) of the chest, abdomen, and pelvis was performed with 100 mL Omnip aque 350 intravenous contrast. Automated exposure control and iterative reconstruction technique were employed. The dose-length product was 981.29 mGy-cm. COMPARISON: CT abdomen and pelvis 08/27/2018 FINDINGS: CHEST CT: The lungs demonstrate mild atelectasis. A calcified left lung nodule and calcified left hilar lymph n odes are consistent with old granulomatous disease. No pleural effusion. Cardiomegaly is noted. No pe ricardial effusion. There are coronary artery calcifications. There is a small sliding hiatal hernia. There is mild chronic anterior wedging of multiple thoracic vertebral bodies. There are bridging end plate osteophytes at multiple levels in the spine, consistent with diffuse idiopathic skeletal hypero stosis (DISH). ABDOMEN/PELVIS CT: The liver is normal. There are changes of cholecystectomy. The spleen, pancreas, and adrenal glands a re normal. There is cortical thinning of the kidneys. There are 2 stones in left kidney measuring up to 5 mm. The prostate is mildly enlarged. There is diverticulosis of the colon without evidence of di verticulitis. The appendix is normal. There are no pathologically enlarged lymph nodes. There is an u mbilical hernia containing fat. There is no free intraperitoneal fluid. There is severe lumbar spondy losis. IMPRESSION: 1. Small sliding hiatal hernia. 2. Umbilical hernia containing fat. Reviewed, dictated and finalized at location A.
--- NOTE | ~2024-12-27 | XR_ITS ---
EXAMINATION: XR chest 1V portable DATE: 12/27/2024 05:58 INDICATION: Chest pain. Fall. TECHNIQUE: A single frontal view of the chest was obtained. COMPARISON: Chest single view 09/10/2023, CT abdomen and pelvis 08/27/2018 FINDINGS: There are mild airspace opacities in the lower lung zones. No pleural effusion or pneumotho rax. Cardiomegaly is noted. Calcified left hilar lymph nodes are consistent with old granulomatous di sease. There is an old healed right rib fracture. IMPRESSION: 1. Mild airspace opacities in the lower lung zones, consistent with atelectasis versus pneumonia. 2. Cardiomegaly. Reviewed, dictated and finalized at location A.
--- NOTE | ~2024-12-27 | US_ITS ---
EXAMINATION: US venous doppler LE RT DATE: 12/28/2024 14:26 INDICATION: Right lower limb swelling TECHNIQUE: Grayscale ultrasound images without and with compression and Doppler ultrasound images of the right lower extremity veins were obtained. COMPARISON: None. FINDINGS: The visualized portions of right common femoral vein, profunda (deep) femoral vein, femoral vein, pop liteal vein, peroneal trunk, posterior tibial veins, peroneal veins and greater saphenous vein outflo w are patent. IMPRESSION: 1. No deep venous thrombosis in the right lower limb. Reviewed, dictated and finalized at location B.
--- NOTE | 2024-12-27 05:33 | ECG_ITS ---
Test Date: 2024-12-27 05:33:39 Measurements Intervals [place] Rate: 71 P: -68 NE: 337 QRS: 64 QRSD: 142 T: 11 QT: 412 QTc: 450 Interpretive Statements SINUS RHYTHM WITH FIRST DEGREE AV BLOCK RIGHT BUNDLE BRANCH BLOCK [120+ ms QRS DURATION, UPRIGHT V1, 40+ ms S IN I/aVL/V4/V5/V6] No previous ECG available for comparison Electronically Signed On 12-27-2024 12:55:56 CDT by Jaden Hasasn M.D.
--- NOTE | 2024-12-27 05:36 | ED_ITS ---
HPI - Chest Pain General Chief Complaint: Chest Pain Stated Complaint: chest pain Time Seen by Provider: 12/27/24 05:39 Source: patient, family and RN notes reviewed Mode of arrival: EMS Limitations: other (Hard of hearing but can understand when spoken to slowly) History of Present Illness HPI narrative: Patient presents after sustaining a fall. He states that he remembers the fall but believes he lost consciousness after that. Unknown how long he laid on the ground as there was initial report that he fell at 0100 but reports that he called out at 0100. Patient did not hit his head. It was also intially reported that he laid on the ground for awhile and EMS had to be called to help him up but they state he was able to get himself up. He takes Elliquis for history of 2 stents (AL 3 years ago) placed by drugless doctor Dr Coles who has told him he may need a pacemaker in the future. EMS reported that during transport he didn't go unresponsive but he did stare off and not respond briefly and during these episodes he was noted to be bradycardic in the 40s. Patient does believe he lost consciousness during these episodes. . He has had a touch of a dry cough lately for which she has been taking Robitussin and Nina-[place]. He was short of breath earlier but not now. He does wear CPAP at night. Reports fevers and chills with shaking (rigors?) last night. Recently had cellulitis. It was intiially reported that patient had complained of chest pain. Not related to the fall but patient states pain currently 2/10 in severity. No nausea or vomiting. Cardiac risk factors HTN: + HLD: No DM: No Obese: Yes Smoker: No Personal history AL/TIA/CVA: Yes Fam Hx AL in first degree relative <65yo: No Related Data Home Medications ?Medication ?Instructions ?Recorded ?Confirmed ?Last Taken ?Type losartan 50 mg tablet 50 mg PO DAILY 09/09/22 12/27/24 12/26/24 History aspirin 81 mg chewable tablet 81 mg PO DAILY 12/05/22 12/27/24 12/26/24 History rosuvastatin 10 mg tablet 10 mg PO DAILY 07/19/23 12/27/24 12/26/24 History multivitamin 1 tablet PO DAILY 08/21/23 12/27/24 12/26/24 History apixaban 5 mg tablet (Eliquis) 5 mg PO HS 12/23/23 12/27/24 12/26/24 History Allergies Allergy/AdvReac Type Severity Reaction Status Date / Time adhesive AdvReac Mild Itching Verified 11/21/24 13:20 pantoprazole AdvReac Mild itching Verified 11/21/24 13:20 [facility] Past Medical History Medical History (Updated 12/27/24 @ 08:18 by Martina Hinkle MD) Hard of hearing 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 CHAGO on CPAP Subarachnoid hemorrhage following injury with brief loss of consciousness but without open intracranial wound CAD (coronary artery disease) Dyshidrotic eczema Essential (primary) hypertension Mixed hyperlipidemia BPH associated with nocturia Surgical History Surgical History H/O heart artery stent x2, Dr Coles History of back surgery Hx of inguinal hernia surgery History of ankle surgery right History of carpal tunnel surgery H/O shoulder surgery right S/P cholecystectomy Family History Family History Mother Family history of cardiovascular disease Family history of diabetes mellitus in first degree relative Diabetes mellitus Father Family history of heart disease in male family member before age 55 Cerebrovascular accident Other Family history of malignant neoplasm Hypertension Social History Social History (Updated 12/27/24 @ 10:14 by Martina Hinkle MD) Smoking status: Never smoker Second hand tobacco smoke exposure: Yes Alcohol intake: former Substance use: never Do You Feel Safe in your Home?: Yes Lack of Transportation: No Lack of Food: Never True Current Housing: I Have Housing Concerned About Future Housing: No Difficulty Paying Gas/Electric Bills: No Difficulty Paying for Meds: No Currently Unemployed: No Education: Trade/Vocational Certificate Difficulty w/ Childcare or Family Care: No Living arrangements: with family Gender identity (if verbalized by the patient): Male Spiritual care concerns: No Exam 2 Narrative: GENERAL: Well-appearing, well-nourished, and in no acute distress. HEAD: Normocephalic, atraumatic. EYES: Non injected, non icteric ENT: Nares clear, no rhinorrhea or epistaxis. NECK: Supple. CHEST: Speaking in full sentences. No respiratory distress. HEART: Regular rate and rhythm. . ABDOMEN: Soft, nondistended. EXTREMITIES: Normal range of motion. 1+ bilateral lower extremity edema. SKIN: Warm, dry, no rash. NEURO: No focal deficits. Alert and oriented x3. PSYCH: Normal mood and affect. Course Vital Signs Vital signs: Vital Signs Temperature 98 F 12/27/24 05:27 Pulse Rate 78 12/27/24 05:27 Respiratory Rate 15 12/27/24 05:27 Pulse Oximetry 100 12/27/24 05:27 Temperature 98 F 12/27/24 05:27 Pulse Rate 68 12/27/24 08:46 Respiratory Rate 15 12/27/24 08:46 Blood Pressure 115/62 12/27/24 08:46 Pulse Oximetry 99 12/27/24 08:46 MDM - Chest Pain MDM Narrative Medical decision making narrative: Patient presents after a fall. Details unclear but patient denies losing consciousness preceding the fall but possibly after. Reportedly bradycardic intermittently en route with EMS during which he also lost consciousness. In the emergency department they are afebrile with vital signs within normal limits. HEART SCORE History 2 highly suspicious 1 moderately suspicious 0 slightly suspicious History score [address] depression/elevation not due to LBBB, LVH, or digoxin [address] depression but LBBB, LVH, nonspecific repolarization changes 0 normal ECG score 0 Age 2 >/= 65 1 45-64 0 <45 Age score 2 Risk factors (HTN, hypercholesterolemia, DM, obesity with BMI >30, current smoker or cessation </=3mo), positive fam hx with parent or sibling with CVD before age 65, atherosclerotic disease (prior AL, PCI/CABG, CVA/TIA, or peripheral arterial disease) 2 >/= 3 risk factors or history of atherosclerotic dz 1 - 1-2 risk factors 0 no known risk factors Risk factor score 2 (HTN, obese, personal history AL ) Initial Troponin 2 >3 times normal limit 1 1-3 times normal limit 0 less than or equal to normal limit Troponin score 1 (1.88x upper limit of normal) . Patient has an elevated troponin, previously markedly higher but then with interval normal troponins. Total HEART Score 5. Creatinine slightly elevated from previous. 500cc bolus ordered for NIKOLAY. 3 hour troponin and aspirin already ordered. Patient has a marked leukocytosis as well as a thrombocytopenia. Given the degree of leukocytosis greater than 20 of unclear etiology, will proceed with obtaining CT imaging. Given the cardiomegaly and elevated BNP, there is concern for heart failure. Viral swab negative. Patient to be admitted for NSTEMI. No identifiable source of infection thus far. DIscussed with production finisher hospitalist Dr Rodarte. IMU. Full code status per discussion with patient and . Differential Diagnosis Differential diagnosis: Likely stable angina, unstable angina pectoris, atypical chest pain, st elevation myocardial infarction, chest pain, biliary colic and other (considered fracture; intracranial hemorrhage; infection (PNA, UTI, acute viral syndrome); rhabdomyolysis; heart failure) Lab Data Attestation: I reviewed the patient's lab results. 12/27/24 05:37 12/27/24 05:37 Labs: Lab Results 12/27/24 12/27/24 12/27/24 Range/Units 05:37 06:27 07:47 WBC 23.2 H (4.5-10.0) K/mm3 RBC 5.11 (4.6-6.20) M/mm3 Hgb 15.9 (14.0-18.0) g/dL Hct 47.5 (42.0-52.0) % MCV 93.0 (80-100) fl MCH 31.1 (26-34) pg MCHC 33.5 (32-36) g/dl RDW 14.0 (11.5-14.5) % Plt Count 137 L (150-375) k/mm3 MPV 10.6 H (7.4-10.4) fl Immature Gran % (Auto) Cylindrical Mixer Neut % (Auto) Cylindrical Mixer Lymph % (Auto) Cylindrical Mixer [place] % (Auto) Cylindrical Mixer Eos % (Auto) Cylindrical Mixer Baso % (Auto) Cylindrical Mixer Lymph # (Auto) Cylindrical Mixer [place] # (Auto) Cylindrical Mixer Eos # (Auto) Cylindrical Mixer Baso # (Auto) Cylindrical Mixer Abs Immat Gran (auto) Cylindrical Mixer Absolute Neuts (auto) Cylindrical Mixer Absolute Nucleated RBC Cylindrical Mixer Total Counted 100 Neutrophils % (Manual) 87 H (46-73) % Band Neutrophils % 8 H (0-6) % Lymphocytes % (Manual) 0 L (18-44) % Monocytes % (Manual) 5 (3-9) % Nucleated RBC % Cylindrical Mixer Abs Neuts (Manual) 22.04 H (1.3-6.7) K/mm3 Abs Lymphs (Manual) 0.00 L (1.1-4.5) K/mm3 Abs Monocytes (Manual) 1.16 H (0.1-0.90) K/mm3 Platelet Estimate Decreased (Adequate) Schistocytes None seen PT 15.9 H (11.1-14.7) Seconds INR 1.2 APTT 28.1 (22.3-36.8) Seconds Sodium 136 L (137-145) mmol/L Potassium 4.4 (3.4-5.0) mmol/L Chloride 105 (98-107) mmol/L Carbon Dioxide 25 (22-30) mmol/L Anion Gap 6 (4-12) mmol/L BUN 33 H (9-20) mg/dL Creatinine 1.36 H (0.7-1.3) mg/dL Estim Creat Clear Calc 43 ml/min Estimated GFR 50 L (59 - ) Glucose 122 H (65-110) mg/dL Lactic Acid (0.7-2.0) mmol/L Calcium 8.8 (8.4-10.2) mg/dL Magnesium 1.9 (1.6-2.3) mg/dL Total Bilirubin 2.2 H (0.2-1.3) mg/dL AST 24 (17-59) U/L ALT 40 (6-50) U/L Alkaline Phosphatase 62 (38-126) U/L Total Creatine Kinase 57 (55-170) U/L Troponin I 0.064 H* (0.000-0.034) ng/mL NT-Pro-B Natriuret Pep 3560 H (19.9-100) pg/mL Total Protein 6.0 L (6.3-8.2) g/dL Albumin 3.5 (3.5-5.1) g/dL Lipase 107 (23-300) U/L Urine Color Dark yellow (Yellow) Urine Appearance Clear (Clear) Urine pH 6.5 (5.0-9.0) Ur Specific [place] > 1.045 H (1.001-1.035) Urine Protein 1+ H (Negative) mg/dL Urine Glucose (UA) Negative (Negative) mg/dL Urine Ketones Trace H (Negative) mg/dL Ur Blood (Man) Negative (Negative) Urine Nitrate Negative (Negative) Urine Bilirubin Negative (Negative) Urine Urobilinogen 1.0 (<2.0) mg/dL Leukocyte Esterase Rfl Negative (Negative) CRISTOPHER/UL Urine RBC 3-5 H (0-2) /hpf Urine WBC 0-5 (0-3) /hpf Ur Squamous Epith Cells None seen (Few) /hpf Urine Bacteria None seen /hpf Urine Casts 0-2 Influenza A (RT-PCR) Negative (Negative) Influenza B (RT-PCR) Negative (Negative) RSV (RT-PCR) Negative (Negative) SARS-CoV-2 RNA (RT-PCR) Negative (Negative) 12/27/24 Range/Units 08:08 WBC (4.5-10.0) K/mm3 RBC (4.6-6.20) M/mm3 Hgb (14.0-18.0) g/dL Hct (42.0-52.0) % MCV (80-100) fl MCH (26-34) pg MCHC (32-36) g/dl RDW (11.5-14.5) % Plt Count (150-375) k/mm3 MPV (7.4-10.4) fl Immature Gran % (Auto) Neut % (Auto) Lymph % (Auto) [place] % (Auto) Eos % (Auto) Baso % (Auto) Lymph # (Auto) [place] # (Auto) Eos # (Auto) Baso # (Auto) Abs Immat Gran (auto) Absolute Neuts (auto) Absolute Nucleated RBC Total Counted Neutrophils % (Manual) (46-73) % Band Neutrophils % (0-6) % Lymphocytes % (Manual) (18-44) % Monocytes % (Manual) (3-9) % Nucleated RBC % Abs Neuts (Manual) (1.3-6.7) K/mm3 Abs Lymphs (Manual) (1.1-4.5) K/mm3 Abs Monocytes (Manual) (0.1-0.90) K/mm3 Platelet Estimate (Adequate) Schistocytes PT (11.1-14.7) Seconds INR APTT (22.3-36.8) Seconds Sodium (137-145) mmol/L Potassium (3.4-5.0) mmol/L Chloride (98-107) mmol/L Carbon Dioxide (22-30) mmol/L Anion Gap (4-12) mmol/L BUN (9-20) mg/dL Creatinine (0.7-1.3) mg/dL Estim Creat Clear Calc ml/min Estimated GFR (59 - ) Glucose (65-110) mg/dL Lactic Acid 1.2 (0.7-2.0) mmol/L Calcium (8.4-10.2) mg/dL Magnesium (1.6-2.3) mg/dL Total Bilirubin (0.2-1.3) mg/dL AST (17-59) U/L ALT (6-50) U/L Alkaline Phosphatase (38-126) U/L Total Creatine Kinase (55-170) U/L Troponin I 0.060 H* (0.000-0.034) ng/mL NT-Pro-B Natriuret Pep (19.9-100) pg/mL Total Protein (6.3-8.2) g/dL Albumin (3.5-5.1) g/dL Lipase (23-300) U/L Urine Color (Yellow) Urine Appearance (Clear) Urine pH (5.0-9.0) Ur Specific [place] (1.001-1.035) Urine Protein (Negative) mg/dL Urine Glucose (UA) (Negative) mg/dL Urine Ketones (Negative) mg/dL Ur Blood (Man) (Negative) Urine Nitrate (Negative) Urine Bilirubin (Negative) Urine Urobilinogen (<2.0) mg/dL Leukocyte Esterase Rfl (Negative) CRISTOPHER/UL Urine RBC (0-2) /hpf Urine WBC (0-3) /hpf Ur Squamous Epith Cells (Few) /hpf Urine Bacteria /hpf Urine Casts Influenza A (RT-PCR) (Negative) Influenza B (RT-PCR) (Negative) RSV (RT-PCR) (Negative) SARS-CoV-2 RNA (RT-PCR) (Negative) Imaging Data Attestation: I personally reviewed and interpreted this imaging study as follows: My impression: Cardiomegaly on my independent interpretation of chest x-ray Radiologist's impression: Impressions Chest X-Ray 12/27/24 06:00 IMPRESSION: 1. Mild airspace opacities in the lower lung zones, consistent with atelectasis versus pneumonia. 2. Cardiomegaly. Head CT 12/27/24 06:11 IMPRESSION: 1. 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 2. Stable extensive nonspecific cerebral white matter disease, which likely represents chronic small vessel ischemic disease. Cervical Spine CT 12/27/24 06:16 IMPRESSION: 1. No fracture. 2. Severe cervical spondylosis. Chest/Abdomen/Pelvis CT 12/27/24 07:30 IMPRESSION: 1. Small sliding hiatal hernia. 2. Umbilical hernia containing fat. ECG Data EKG #1: Attestation: I personally reviewed and interpreted this ECG as follows: ECG completion date: 12/27/24 ECG completion time: 05:33 Prior ECG tracings: available for review (EKG from 08/21/2023 showed atrial fibrillation; EKG from 09/10/2023 was atrial fibrillation with slow ventricular response; RBBB present in both) Interpretation: Sinus rhythm at a rate of 71 beats per minute. There are P-waves that preceded QRS complexes with regularity but with significant [place] interval, 337 milliseconds. Consistent with first-degree AV block. QRS 142. QT/QTC 412/435. RBBB given QRS greater [id number]; RSR' M-shaped pattern in V1-V3; wide, slurred S wave in lateral leads (I, aVL, V5-6). QRS complexes are also regular. NOT afib. Discharge Plan Discharge Clinical Impression: Fall, Chest pain, NIKOLAY (acute kidney injury), Non-ST elevation AL (NSTEMI), RBBB, Leukocytosis, Thrombocytopenia, Cervical spondylosis, Heart failure, Sliding hiatal hernia, Umbilical hernia, Microscopic hematuria Patient Disposition: Still a Patient Condition: Stable
[2024-12-27 05:46] LABS: Hematocrit 47.5 % (42.0-52.0); Hemoglobin 15.9 g/dL (14.0-18.0); Mean Corpuscular HGB Conc 33.5 g/dl (32-36); Mean Corpuscular Hemoglobin 31.1 pg (26-34); Mean Platelet Volume 10.6 fl (7.4-10.4); Platelet Count Result 137 k/mm3 (150-375); Red Blood Count 5.11 M/mm3 (4.6-6.20); White Blood Count 23.2 K/mm3 (4.5-10.0)
[2024-12-27 05:55] LABS: Lipase 107 U/L (23-300)
[2024-12-27 05:57] LABS: INR 1.2; Prothrombin Time 15.9 Seconds (11.1-14.7)
[2024-12-27 05:58] LABS: Partial Thromboplastin Time 28.1 Seconds (22.3-36.8)
[2024-12-27 06:05] LABS: Creatine Kinase 57 U/L (55-170)
[2024-12-27 06:09] LABS: Troponin I 0.064 ng/mL (0.000-0.034)
[2024-12-27 06:14] LABS: NT Pro B Type Natriuretic Pept 3560 pg/mL (19.9-100)
--- OUTSIDE RECORDS SUMMARY | 2024-12-27 06:15 | XMS_ITS | Clinical Summary ---
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 Gender Identity Not on file Sexual Orientation Not on file Plan of Treatment Health Maintenance Due Date Last Done Comments Hepatitis C Virus (HCV) Screening 1940 T[birth year]P Immunization 1940 Zoster Immunization (2 of 3) 12/05/2014 10/10/2014 Respiratory Syncytial Virus (RSV) Immunization (Adult) (1 - 1-dose 75+ series) 2015 Influenza Immunization (#1) 06/04/202401/2020, 08/02/2019, 07/28/2018, Additional history exists SARS-COV-2 Immunization ( season) 2024 DTaP/Tdap/Td Immunization Discontinued 07/18/2001 Pneumococcal Immunization (50+ years) Completed 09/04/2015, 08/17/2014 Hepatitis B Immunization Aged Out No longer eligible based on patient's age to complete this topic Meningococcal Immunization (ACWY) Aged Out No longer eligible based on patient's age to complete this topic Rotavirus Immunization Aged Out No lo nger eligible based on patient's age to complete this topic
--- OUTSIDE RECORDS SUMMARY | 2024-12-27 06:15 | XMS_ITS | Clinical Summary ---
Author Organization [email or web address] Address [address] [place] [address] Care Team Providers Care Bull Wheel Worker Name Role Phone Rafi Montes MD Primary Care Provider [phone] Source Comments [email or web address],non-owned Affiliates and Associated Physician Practices is amultiple site organization consisting of ambulatory clinics and hospital sitesin [place], [place], [place] and [place]. This disclosure is being madepursuant to the Care Everywhere program and may not contain all information available regarding this patient. Last updated 18.[email or web address] Allergies Active Allergy Reactions Criticality Noted Date Comments Povidone Iodine Rash Medium 09/01/2022 Medications * Be aware that medications may not be up to date on this document. Alwaysverify current medications with the patient. Medication Sig Dispensed Refills Start Date End Date Status acetaminophen (Tylenol) 500 MG capsule Take 1 (one) capsule by mouth every 4 hours as needed for Fever or Pain 100 capsule 09/02/2022 Active metoprolol succinate XL 24hr (Toprol XL) 25 MG tablet Take 1 (one) tablet by mouth daily before breakfast 30 tablet 09/03/2022 Active Active Problems Problem Noted Date Diagnosed Date Subarachnoid bleed 09/01/2022 Dislocation of ulnohumeral joint 06/21/2012 Other fracture of unspecifie d lower leg, initial encounter for open fracture type I or II 06/21/2012 Immunizations Name Administration Dates Next Due TDAP (7yrs+) 09/01/2022 Family History Relation Name Status Comments Father Mother Social History Tobacco Use Types Packs/Day Years Used Date Smoking Tobacco: Never Smokeless Tobacco: Never Alcohol Use Standard Drinks/Week Comments Yes 0.8 (1 standard drink = 0.6 oz p ure alcohol) AUDIT-C Answer Date Recorded Q1: How often do you have a drink containing alcohol? Never 09/02/2022 Q2: How many drinks containi ng alcohol do you have on a typical day when you are drinking? Patient does not drink Q3: How often do you have si x or more drinks on one occasion? Never 09/02/2022 Sex and Gender Information Value Date Recorded Sex Assigned at Not on file Gender Identity Not on file Sexual Orientation Not on file Last Filed Vital Signs Vital Sign Reading Time Taken Comments Blood Pressure 183/87 09/02/2022 3:00 PM JAVA WEB USER INTERFACE DEVELOPER Pulse 58 09/02/2022 4:00 PM JAVA WEB USER INTERFACE DEVELOPER Temperature 37.1 C (98.8 F) 09/02/2022 8:00 AM JAVA WEB USER INTERFACE DEVELOPER Respiratory Rate 16 09/02/2022 4:00 PM JAVA WEB USER INTERFACE DEVELOPER Oxygen Saturation 95% 09/02/2022 4:00 PM JAVA WEB USER INTERFACE DEVELOPER Inhaled Oxygen Concentration - - Weight 93 kg (205 lb) 09/01/2022 4:44 PM JAVA WEB USER INTERFACE DEVELOPER Height 177.8 cm (5' 10 ) 09/01/2022 4:44 PM JAVA WEB USER INTERFACE DEVELOPER Body Mass Index 29.41 09/01/2022 4:44 PM JAVA WEB USER INTERFACE DEVELOPER Plan of Treatment Health Maintenance Due Date Last Done Comments MEDICARE AWV 12 MONTHS 1940 PNEUMOCOCCAL VACCINE 50+ (1 of 1 - PCV) 1990 ZOSTER VACCINE (1 of 2) 1990 Respiratory Syncytial Virus (RSV) Vaccine Pt: or over 60 yrs (1 - 1-dose 75+ series) 2015 COVID-19 VACCINE ( season) 2024 07/24/2021, 12/03/2020, 11/05/2020 INFLUENZA VACCINE (#1) 2024 2, 08/22/2021, 06/07/2020, Additional history exists DEPRESSION SCREENING 10/04/2024 DTAP/TDAP/TD VACCINES (2 - Td or Tdap) 09/01/2032 09/01/2022 HEPATITIS B VACCINE Aged Out No longe r eligible based on patient's age to complete this topic HIB VACCINE Aged Out No longer eligi ble based on patient's age to complete this topic HPV VACCINE Aged Out No longer eligi ble based on patient's age to complete this topic MENINGOCOCCAL (Group B) VACCINE SHARED DECISION-MAKING Aged Out No longer eligible based on patient's age to complete this topic MENINGOCOCCAL GROUPS A/C/Y/W VACCINE Aged Out No longer eligible based on patient's age to complete this topic Advance Directives * Full Code (Latest Code Status on File) Date Activated Date Inactivated Comments 09/01/2022 7:41 PM 09/02/2022 5:36 PM Care Teams Bull Wheel Worker Relationship Specialty Start Date End Date Rafi Montes MD [address] [place] [id number] PCP - General 08/31/12
--- OUTSIDE RECORDS SUMMARY | 2024-12-27 06:15 | XMS_ITS | Referral Summary ---
Author Organization [place] [address] Address [address] [facility] [address] [place] [address] Care Team Providers Care Supervisor Home Restoration Service Name Role Phone Saroj Cunningham MD Primary Care Provider [phone] Encounters Date Type Department Care Team Description 11/30/2024 Telephone [facility] Cardiology [address] [place] [address] [address] [place] [address] Saroj Bernal MD pacemaker implantation 11/27/[address] [place] [address] Saroj Bernal MD Med Refill 10/16/2024 9:30 AM LIFE MANAGEMENT TEACHER Office Visit [address] [place] [address] Saroj Bernal MD History of coronary artery stent placement (Primary Dx); 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; Second degree AV block, Mobitz type I; Paroxysmal atrial fibrillation (HCC) 10/10/2024 Telephone [facility] Cardiology [address] [place] [address] [address] [place] [address] Saroj Bernal MD Med Refill from Last 3 Months Allergies Active Allergy Reactions Criticality Noted Date Comments Povidone-Iodine Rash Medium 09/01/2022 Thimerosal Rash Medium 11/11/2022 Medications aspirin 81 mg chewable tablet Take 1 tablet (81 mg total) by mouth daily 07/26/[address] (PROTONIX) 20 mg EC tablet Take 1 tablet (20 mg total) by mouth daily 1 Active HYDROcodone-jeramy taminophen (NORCO) 7.5-325 mg per tablet Indications: Chronic Pain 1 tablet daily as needed for pain 0 Active metoprolol XL (TOPROL-XL) 25 mg extended release tablet Take 2 tablets (50 mg total) by mouth daily 180 tablet 3 3 Active Additional Information Patient not taking.Reported on 10/16/2024 imiquimod (ALDARA) 5 % cream Apply 1 packet topically nightly 3 Active cephalexin (KEFLEX) 500 mg capsule Take 1 capsule (500 mg total) by mouth daily 3 Active apixaban (ELIQUIS) 5 mg tablet Take 1 tablet (5 mg total) by mouth 2 (two) times a day 180 tablet 1 5 Active losartan (COZAAR) 50 mg tablet Take 1 tablet (50 mg total) by mouth daily 90 tablet 3 5 Active rosuvastatin (CRESTOR) 10 mg tablet Take 1 tablet (10 mg total) by mouth daily 90 tablet 3 5 Active Active Problems Problem Noted Date Diagnosed Date Paroxysmal atrial fibrillation 02/17/2024 Other thrombophilia 02/17/2024 Second degree AV block, Mobitz type I 11/18/2023 Coronary artery disease invo lving hughes coronary artery of hughes heart without angina pectoris 08/12/2021 History of coronary artery stent placement 08/12 Social History Tobacco Use Types Packs/Day Years Used Date Smoking Tobacco: Never Smokeless Tobacco: Never Tobacco Cessation:Counseling Given: Not Answered Sex and Gender Information Value Date Recorded Sex Assigned at Not on file Legal Sex Male 3:21 AM LIFE MANAGEMENT TEACHER Gender Identity Not on file Sexual Orientation Not on file Last Filed Vital Signs Vital Sign Reading Time Taken Comments Blood Pressure 144/66 10/16/2024 9:19 AM LIFE MANAGEMENT TEACHER Pulse 60 10/16/2024 9:19 AM LIFE MANAGEMENT TEACHER Temperature - - Respiratory Rate - - Oxygen Saturation 94% 02/17/2024 8:25 AM CDT Inhaled Oxygen Concentration - - Weight 102.3 kg (225 lb 9.6 oz) 10/16/2024 9:19 AM LIFE MANAGEMENT TEACHER Height 177.8 cm (5' 10 ) 10/16/2024 9:19 AM LIFE MANAGEMENT TEACHER Body Mass Index 32.37 10/16/2024 9:19 AM LIFE MANAGEMENT TEACHER Plan of Treatment Not on file Insurance MEDICARE MEDICARE [facility] MEDICARE SUPPLEMENT Care Teams Supervisor Home Restoration Service Relationship Specialty Start Date End Date Saroj Cunningham MD PCP - General Family Medicine 02/11/23
--- OUTSIDE RECORDS SUMMARY | 2024-12-27 06:15 | XMS_ITS | Clinical Summary ---
Author Organization [facility] Address [address] [place] [address] Care Team Providers Care Offset Machine Operator Name Role Phone Saroj Cunningham MD Primary Care Provider [phone] Allergies Active Allergy Reactions Criticality Noted Date Comments Thimerosal (Thiomersal) Rash Low 11/11/2022 Thimerosal Rash Medium 11/11/2022 Medications metoprolol succinate ER 25 MG 24 hr tabletIndications: Hypertension, unspecified type,Hx of non-ST elevation myocardial infarction (NSTEMI) Take 1 tablet (25 mg total) by mouth every morning. 90 tablet 1 04/28/20 21 Active Additional Information Patient not taking.Reported on 11/12/2023 rosuvastatin 10 MG tabletIndications: Coronary artery disease due to calcified coronary lesion Take 1 tablet (10 mg total) by mouth every morning. 90 tablet 1 04/28/20 21 Active clopidogrel 75 MG tabletIndications: Antiplatelet or antithrombotic long-term use,Hx of non-ST elevation myocardial infarction (NSTEMI) Take 1 tablet (75 mg total) by mouth daily. 90 tablet 1 04/28/20 21 Active Additional Information Patient not taking.Reported on 11/11/2022 acetaminophen (TYLENOL) 500 MG tablet Take 1 tablet (500 mg total) by mouth every 6 (six) hours as needed for Pain. Active pantoprazole EC (PROTONIX) 20 MG tabletIndications: Antiplatelet or antithrombotic long-term use,Gastroesophage al reflux disease, unspecified whether esophagitis present TAKE 1 TABLET BY MOUTH EVERY DAY 90 tablet 1 07/27/20 22 Active losartan (COZAAR) 50 MG tabletIndications: Hypertension, unspecified type,Hx of non-ST elevation myocardial infarction (NSTEMI) TAKE 1 TABLET BY MOUTH EVERY DAY 90 tablet 07/21/20 Active cephALEXin (KEFLEX) 500 MG capsule take 1 capsule by mouth every 12 hours for 7 days 09/12/20 Active doxycycline monohydrate 100 MG capsule Take 1 capsule (100 mg total) by mouth 2 (two) times daily. 10/26/19 Active imiquimod (ALDARA) 5 % cream 07/05/20 Active triamcinolone (KENALOG) 0.1 % cream Apply topically 2 (two) times daily. 09/30/20 Active zolpidem (AMBIEN) 10 MG tablet 09/03/20 Active metoprolol succinate ER (TOPROL-XL) 50 MG 24 hr tablet Take 1 tablet (50 mg total) by mouth daily. 06/18/20 Active rivaroxaban (XARELTO) 20 MG Tab tablet Take 1 tablet (20 mg total) by mouth daily. 02/17/20 Active Active Problems Problem Noted Date Diagnosed Date Stage 3b chronic kidney disease 01/26/2022 Coronary artery disease invo lving nikolai coronary artery of nikolai heart without angina pectoris 08/12/2021 Hx of non-ST elevation myocardial infarction (NS [place]ARDO) 04/28/2021 History of coronary artery stent placement 04/28 Antiplatelet or antithrombotic long-term use Arthritis of left knee 08/26/2020 Inflamed seborrheic keratosis 08/26/2020 Elevated PSA 07/30/2020 Stage 2 chronic kidney disease 07/30/2020 Medial meniscus, posterior horn derangement, lef t 07/15/2020 Primary osteoarthritis of left knee 07/15/2020 Gastroesophageal reflux disease without esophagi tis 07/01/2020 Chronic pain syndrome 05/22/2020 BMI 34.0-34.9,adult 05/22/2020 Irregular heart beat 05/22/2020 1st degree AV block 05/22/2020 Noise-induced hearing loss of both ears 05/08/20 Essential hypertension Resolved Problems Problem Noted Date Diagnosed Date Resolved Date Hospital discharge follow-up 04/28/2021 05/05/2021 Pes anserine bursitis 07/15/20202019 Heart palpitations 07/08/2020 0 Severe uncontrolled hypertension 07/08/2020 01/26/2022 Atrial fibrillation, unspeci fied type ([facility]) 07/08/2020 08/22/2020 Need for zoster vaccine 05/22/202006/04 HTN (hypertension) 05/08/2020 0 Other acute kidney failure 05/08/2020 0 05/22/2020 Non-recurrent acute suppurat harry otitis media of right ear 05/08/2020 05/22/2020 Dislocation of ulnohumeral joint 06/21/2012 07/30/2020 Other fracture of unspecifie d lower leg, initial encounter for open fracture type I or II 06/21/2012 07/30/2020 Atrial fibrillation ([facility]) 01/26/2022 Immunizations Name Administration Dates Next Due Fluzone High Dose - >Age 65 (Prefilled Syringe) 07/29/2022,08/22/2021,08/02/2019,2017,07/28/2017,06/04/2017,07/07/2016,1 11/05/2014,07/04/2014 Influenza Adult (Generic) 06/07/2020 PFIZER COVID-19 (ORIGINAL FORMULATION, PURPLE CAP) mRNA, LNP-S, PF, 30 MCG/0.3 ML DOSE 07/24/2021 Pneumococcal (Pneumovax 23) 08/17/2014 Pneumococcal (Prevnar 13) 09/04/2015 Td 07/18/2001 Tdap (Generic) 09/01/2022 Zoster (Zostavax) 24422 Unt/0.65Ml 10/10/2014 Family History Medical History Relation Comments Cancer Brother 1 Artery block Father Heart failure Mother Breast Cancer Neg Hx Colon Cancer Neg Hx Prostate Cancer Neg Hx Relation Status Comments Brother 1 (Age 83) Brother 2 Alive Father (Age 73) Mother (Age 83) Social History Tobacco Use Types Packs/Day Years Used Date Smoking Tobacco: Never Smokeless Tobacco: Never Tobacco Cessation:Counseling Given: No Comments:Never Smoked Alcohol Use Standard Drinks/Week Comments Yes 0 (1 standard drink = 0.6 oz pur e alcohol) 1-2 drinks a week AUDIT-C Answer Date Recorded Q1: How often do you have a drink containing alc ohol? 2-4 times a month 07/23/2020 Average Number of Drinks Not on file 020 Frequency of Binge Drinking Not on file 07/05 PHQ-2 Answer Date Recorded Patient Health Questionnaire-2 Score 0 11/12/2023 Sex and Gender Information Value Date Recorded Sex Assigned at Male 11/13/2024 12:28 PM ADULT MINISTRIES DIRECTOR Legal Sex Male 4:21 PM CDT Gender Identity Not on file Sexual Orientation Not on file Last Filed Vital Signs Vital Sign Reading Time Taken Comments Blood Pressure 105/63 05/15/2024 8:51 AM CDT Pulse 64 05/15/2024 8:51 AM CDT Temperature 36.6 C (97.8 F) 11/12/2023 8:04 AM ADULT MINISTRIES DIRECTOR Respiratory Rate 22 07/29/2022 9:16 AM CDT Oxygen Saturation 98% 07/29/2022 9:16 AM CDT Inhaled Oxygen Concentration - - Weight 100.7 kg (222 lb) 05/15/2024 8:51 AM CDT Height 177.8 cm (5' 10 ) 05/15/2024 8:51 AM CDT Body Mass Index 31.85 05/15/2024 8:51 AM CDT Plan of Treatment Health Maintenance Due Date Last Done Comments ASCVD LDL 1940 ASCVD Statin 1940 Annual Medicare Wellness Visit 2005 Zoster Vaccines (1 of 2) 12/05/2014 10/10/2014 RSV Immunization or 60+ Years (1 - 1-dose 75+ series) 2015 COVID-19 Vaccine ( season) 2024 07/24/2021, 12/03/2020, 11/05/2020 Influenza Adult (#1) 2024 07/29/2022, 08/22/2021, 06/07/2020, Additional history exists PHQ-2 (Physician [place]) 10/04/2024 11/12/2023 DTaP, Tdap and Td Vaccines (2 - Td or Tdap) 09/01/2032 09/01/2022, 07/18/2001 Pneumococcal Vaccine: 65+ Years Completed 09/04/2015, 08/17/2014 Meningococcal B Vaccine Aged Out No l onger eligible based on patient's age to complete this topic Meningococcal Vaccine Aged Out No marilu arlene eligible based on patient's age to complete this topic RSV Immunizations Under 20 Months Aged Out No longer eligible based on patient's age to complete this topic Insurance MEDICARE [facility] Care Teams Offset Machine Operator Relationship Specialty Start Date End Date Saroj Cunningham MD [address] [facility] [address] [address] PCP - General FAMILY PRACTICE 06/30/23
--- OUTSIDE RECORDS SUMMARY | 2024-12-27 06:15 | XMS_ITS | Clinical Summary ---
Author Organization [facility] [address] [place] [address] Care Team Providers Care Information Technology Officer Name Role Phone Saroj Cunningham MD Primary Care Provider [phone] Allergies Active Allergy Reactions Criticality Noted Date Comments Povidone-Iodine Rash Medium 09/01/2022 Thimerosal Rash Medium 11/11/2022 Medications aspirin 81 mg chewable tablet Take 1 tablet (81 mg total) by mouth daily [address] (PROTONIX) 20 mg [...] total) by mouth daily 90 tablet 3 Active Active Problems Problem Noted Date Diagnosed Date Paroxysmal atrial fibrillation 02/17/2024 Other thrombophilia 02/17/2024 Second degree AV block, Mobitz type I 11/18/2023 Coronary artery disease invo lving council coronary artery of council heart without angina pectoris 08/12/2021 History of coronary artery stent placement 08/12 Encounters Date Type Department Care Team Description 11/30/2024 Telephone [facility] Cardiology [address] [place] [address] [address] [place] [phone] Saroj Bernal MD pacemaker implantation 11/27/[address] [place] [phone] Saroj Bernal MD Med Refill 10/16/2024 9:30 AM BRICK LAYER Office Visit [address] [place] [phone] Saroj Bernal MD History of coronary artery stent placement (Primary Dx); Coronary artery disease involving council coronary artery of council heart without angina pectoris; Second degree AV block, Mobitz type I; Paroxysmal atrial fibrillation (HCC) 10/10/[address] [place] [phone] Saroj Bernal MD Med Refill from Last 3 Months Surgical History Surgery Date Site/Laterality Comments CHOLECYSTECTOMY 10/04/2017 - 10/03/2018 BACK SURGERY CORONARY ANGIOPLASTY Medical History Medical History Date Comments Chronic kidney disease Enlarged prostate Bladder infection Cataract Heart attack (HCC) Hypertension Hyperlipidemia Family History Medical History Relation Name Comments Heart disease Father Diabetes Mother Heart attack Mother Relation Name Status Comments Father (Age 73) Mother (Age 83) Social History Tobacco Use Types Packs/Day Years Used Date Smoking Tobacco: Never Smokeless Tobacco: Never Tobacco Cessation:Counseling Given: Not Answered Sex and Gender Information Value Date Recorded Sex Assigned at Not on file Legal Sex Male 3:21 AM BRICK LAYER Gender Identity Not on file Sexual Orientation Not on file Obstetrics History Last Filed Vital Signs Vital Sign Reading Time Taken Comments Blood Pressure 144/66 10/16/2024 9:19 AM BRICK LAYER Pulse 60 10/16/2024 9:19 AM BRICK LAYER Temperature - - Respiratory Rate - - Oxygen Saturation 94% 02/17/2024 8:25 AM CDT Inhaled Oxygen Concentration - - Weight 102.3 kg (225 lb 9.6 oz) 10/16/2024 9:19 AM BRICK LAYER Height 177.8 cm (5' 10 ) 10/16/2024 9:19 AM BRICK LAYER Body Mass Index 32.37 10/16/2024 9:19 AM BRICK LAYER Plan of Treatment Health Maintenance Due Date Last Done Comments Depression Screening 1940 Fall Risk Assessment 1940 Hepatitis B Screening 1958 Well Visit 65+ 2005 Zoster Vaccine (2 of 3) 12/05/2014 10/10/2014 Covid-19 Vaccine (2023-2 5 season) 2024 07/24/2021, 12/03/2020, 11/05/2020 Influenza Vaccine (#1) 2024 , 08/02/2019, 07/28/2018, Additional history exists DTaP/Tdap/Td Vaccine (2 - Td or Tdap) 09/01/2032 09/01/2022, 07/18/2001 Pneumococcal vaccine 65+ Completed 09/04/2015, 08/04 Insurance MEDICARE MEDICARE [facility] MEDICARE SUPPLEMENT Care Teams Information Technology Officer Relationship Specialty Start Date End Date Saroj Cunningham MD PCP - General Family Medicine 02/11/23
[2024-12-27] MEDS: ASPIRIN 81 MG CHEWABLE TABLET 324 MG PO (06:22)
[2024-12-27] MEDS: SODIUM CHLORIDE 0.9% IV 500 ML 999 ML IV CONT (06:23)
[2024-12-27 06:55] LABS: Band Neutrophils Percent 8 % (0-6); Lymphocytes Percent Manual 0 % (18-44); Monocytes Absolute Manual 1.16 K/mm3 (0.1-0.90); Monocytes Percent Manual 5 % (3-9); Neutrophils Absolute Manual 22.04 K/mm3 (1.3-6.7); Neutrophils Percent Manual 87 % (46-73); Platelet Estimate Decreased (Adequate); Schistocytes None Seen; Total Cells Counted 100
[2024-12-27 07:08] LABS: Influenza A QL RT-PCR Negative (Negative); Influenza B QL RT-PCR Negative (Negative); RSV RNA, RT-PCR Negative (Negative); SARS-CoV-2 RNA PCR Negative (Negative)
[2024-12-27 08:01] LABS: Add Urine Microscopic? YES; Appearance Urine Clear (Clear); Bacteria Urine None Seen /hpf; Bilirubin Urine Negative (Negative); Blood Urine Negative (Negative); Color Urine Dark Yellow (Yellow); Glucose Urine UA Negative (Negative); Ketones Urine Trace mg/dL (Negative); Leukocyte Esterase Ur Negative LEU/UL (Negative); Nitrate Urine Negative (Negative); Non Pathogenic Casts 0-2; Protein Urine 1+ mg/dL (Negative); Specific Grav Ur > 1.045 (1.001-1.035); Squamous Epithelial Cell Urine None Seen /hpf (Few); WBC Urine 0-5 /hpf (0-3); pH Urine 6.5 (5.0-9.0)
--- NOTE | 2024-12-27 08:03 | ECG_ITS ---
Test Date: 2024-12-27 08:08:07 Measurements Intervals [place] Rate: 59 P: 0 [place]: 0 QRS: 67 QRSD: 149 T: 8 QT: 429 QTc: 426 Interpretive Statements SINUS BRADYCARDIA WITH FIRST DEGREE AV BLOCK RIGHT BUNDLE BRANCH BLOCK [120+ ms QRS DURATION, UPRIGHT V1, 40+ ms S IN I/aVL/V4/V5/V6] Compared to ECG 12/27/2024 05:33:39 NO SIGNIFICANT CHANGES Electronically Signed On 12-27-2024 12:59:10 CDT by Jaden Hassan M.D.
[2024-12-27 08:27] LABS: Lactic Acid Reflex 1.2 mmol/L (0.7-2.0)
--- NOTE | 2024-12-27 08:34 | PC.NURSE ---
pt left a message for this RN wanting to let know the pt took his prescribed prednisone this AM
--- NOTE | 2024-12-27 08:42 | PC.NURSE ---
breakfast tray ordered at this time
--- NOTE | 2024-12-27 11:35 | ECG_ITS ---
Test Date: 2024-12-27 11:43:28 Measurements Intervals [place] Rate: 64 P: 266 [place]: 305 QRS: 63 QRSD: 159 T: 14 QT: 442 QTc: 456 Interpretive Statements SINUS RHYTHM WITH FIRST DEGREE AV BLOCK RIGHT BUNDLE BRANCH BLOCK [120+ ms QRS DURATION, UPRIGHT V1, 40+ ms S IN I/aVL/V4/V5/V6] Compared to ECG 12/27/2024 08:08:07 NO SIGNIFICANT CHANGES Electronically Signed On 12-27-2024 13:03:50 CDT by Jaden Hassan M.D.
[2024-12-27 13:33] LABS: Alanine Aminotransferase 19 U/L (6-50); Albumin Level 3.7 g/dL (3.5-5.1); Alkaline Phosphatase 31 U/L (38-126); Anion Gap 11 mmol/L (4-12); Aspartate Amino Transferase 23 U/L (17-59); Bilirubin,Total 0.6 mg/dL (0.2-1.3); Blood Urea Nitrogen 27 mg/dL (9-20); Calcium 9.3 mg/dL (8.4-10.2); Carbon Dioxide 22 mmol/L (22-30); Chloride 109 mmol/L (98-107); Estimated CRCL calculation 54 ml/min; Estimated Glomerular Filt Rate > 60; Glucose 93 mg/dL (65-110); Magnesium 2.3 mg/dL (1.6-2.3); Potassium 5.1 mmol/L (3.4-5.0); Sodium 142 mmol/L (137-145)
--- NOTE | 2024-12-27 14:01 | PM.CNCAR ---
Assessment and Plan Assessment and plan (1) Elevated troponin level: Code(s): R79.89 - Other specified abnormal findings of blood chemistry Status: Acute Plan 1. Possibly syncopal episode 2. Elevated troponins. Flat, not in a pattern consistent with an ACS 3. Leukocytosis with WBC of 23 4. CAD s/p prior PCI 5. Paroxysmal atrial fibrillation 6. Intermittent Wenckebach PLAN: -EKGs and telemetry with first-degree AV block, but no high grade blocks noted thus far. Follows with Dr. Bernal and was found to have Mobitz Type 1 in the past, and discussions were had about possibly needing a pacemaker in the future. At this time, please continue to monitor on telemetry. If no significant arrhythmias found during hospitalization, likely will need event monitor at time of discharge. Would hold his Eliquis for the time being in case he is found with any significant bradyarrhythmias necessitating inpatient pacemaker. -Avoid AV yevgeniy blocking agents. -Obtain echocardiogram. -His leukocytosis of 23 needs to be further worked up and infection needs to be ruled out. -Continue ASA and statin. History of Present Illness History of Present Illness Consult date/time: 12/27/24 14:01 Requesting physician: Martina Hinkle MD Consult reason: Other (Elevated troponin) Reason For Visit: CP; NSTEMI; reported episodes bradychardia and Narrative: Enmanuel is an 84 year old male with CAD s/p prior PCI, paroxysmal atrial fibrillation, intermittent Wenckebach who presented to [facility] after a fall, possible syncopal episode. Patient is extremely hard of hearing, which makes it difficult to obtain history. at bedside who provides additional history. Had a fall early this morning and patient thinks he may have lost consciousness. EMS reported that during transport, he didn't go unresponsive but did stare off and not respond briefly, noted to be bradycardic in the 40s. Reports he had some mild chest pain during these episode. reports he is unsteady on his feet today, which is new. Workup shows EKGs with RBBB, first-degree AV block. WBC 23. Troponins are flat at 0.064, 0.060, 0.060. NT pro BNP elevated at 3560. TSH level normal. Review of Systems Review of Systems: All systems reviewed & are unremarkable except as noted in HPI and below (HPI) PMFSH Past Medical History Medical History Hard of hearing 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 CHAGO on CPAP Subarachnoid hemorrhage following injury with brief loss of consciousness but without open intracranial wound CAD (coronary artery disease) Dyshidrotic eczema Essential (primary) hypertension Mixed hyperlipidemia BPH associated with nocturia Surgical History Surgical History H/O heart artery stent x2, Dr Coles History of back surgery Hx of inguinal hernia surgery History of ankle surgery right History of carpal tunnel surgery H/O shoulder surgery right S/P cholecystectomy Family History Family History Mother Family history of cardiovascular disease Family history of diabetes mellitus in first degree relative Diabetes mellitus Father Family history of heart disease in male family member before age 55 Cerebrovascular accident Other Family history of malignant neoplasm Hypertension Social History Social History Smoking status: Never smoker Second hand tobacco smoke exposure: Yes Alcohol intake: former Substance use: never Do You Feel Safe in your Home?: Yes Lack of Transportation: No Lack of Food: Never True Current Housing: I Have Housing Concerned About Future Housing: No Difficulty Paying Gas/Electric Bills: No Difficulty Paying for Meds: No Currently Unemployed: No Education: Trade/Vocational Certificate Difficulty w/ Childcare or Family Care: No Living arrangements: with family Gender identity (if verbalized by the patient): Male Spiritual care concerns: No Meds Home Medications and Allergies Home Medications ?Medication ?Instructions ?Recorded ?Confirmed ?Type losartan 50 mg tablet 50 mg PO DAILY 09/09/22 12/27/24 History aspirin 81 mg chewable tablet 81 mg PO DAILY 12/05/22 12/27/24 History rosuvastatin 10 mg tablet 10 mg PO DAILY 07/19/23 12/27/24 History multivitamin 1 tablet PO DAILY 08/21/23 12/27/24 History CPAP #1 ea 09/20/23 12/27/24 Rx apixaban 5 mg tablet (Eliquis) 5 mg PO HS 12/23/23 12/27/24 History ketoconazole 2 % topical cream 1 applic topical BID #60 grams 08/23/24 12/27/24 Rx mupirocin 2 % topical ointment 1 applic topical BID #50 grams 11/21/24 12/27/24 Rx Allergies Allergy/AdvReac Type Severity Reaction Status Date / Time adhesive AdvReac Mild Itching Verified 11/21/24 13:20 pantoprazole AdvReac Mild itching Verified 11/21/24 13:20 Vital Signs Vital Signs - 24 hr 12/27/24 05:27 12/27/24 05:33 12/27/24 05:34 Temperature 36.6 C Pulse Rate 78 71 75 Respiratory Rate 15 18 12 Blood Pressure 132/72 131/72 Pulse Oximetry 100 100 12/27/24 05:46 12/27/24 06:18 12/27/24 06:31 Temperature Pulse Rate 77 76 68 Respiratory Rate 14 16 12 Blood Pressure 130/67 112/60 125/69 Pulse Oximetry 98 97 12/27/24 06:36 12/27/24 06:36 12/27/24 06:38 Temperature Pulse Rate 65 66 75 Respiratory Rate 19 Blood Pressure 128/64 127/64 122/64 Pulse Oximetry 12/27/24 06:38 12/27/24 06:46 12/27/24 07:01 Temperature Pulse Rate 73 69 71 Respiratory Rate 15 18 18 Blood Pressure 122/86 121/50 L 112/51 L Pulse Oximetry 96 97 12/27/24 07:43 12/27/24 07:46 12/27/24 08:00 Temperature Pulse Rate 71 76 65 Respiratory Rate 12 20 Blood Pressure 128/55 L 108/97 H Pulse Oximetry 97 98 12/27/24 08:01 12/27/24 08:16 12/27/24 08:31 Temperature Pulse Rate 63 63 63 Respiratory Rate 15 17 19 Blood Pressure 104/57 L 117/58 L 119/61 Pulse Oximetry 95 98 96 12/27/24 08:46 12/27/24 09:16 12/27/24 09:31 Temperature Pulse Rate 68 70 65 Respiratory Rate 15 14 17 Blood Pressure 115/62 102/55 L 104/48 L Pulse Oximetry 99 95 12/27/24 09:46 12/27/24 10:01 12/27/24 10:46 Temperature Pulse Rate 73 65 64 Respiratory Rate 12 14 16 Blood Pressure 117/73 118/67 114/53 L Pulse Oximetry 97 95 95 03/26/25 11:01 12/27/24 11:31 12/27/24 12:01 Temperature Pulse Rate 64 67 60 Respiratory Rate 16 16 17 Blood Pressure 113/59 L 110/64 105/55 L Pulse Oximetry 94 97 12/27/24 13:56 Temperature Pulse Rate 56 L Respiratory Rate 18 Blood Pressure 119/55 L Pulse Oximetry 96 Exam Const: General: no acute distress Eyes: General: appearance normal, both eyes and all related structures Sclera: sclerae normal Resp: Effort & Inspection: normal respiratory effort Auscultation: clear to auscultation bilaterally Cardio: Rate: regular rate Rhythm: regular rhythm Heart sounds: no murmurs Skin: General skin exam: normal color Neuro: Speech: normal speech Psych: Mental Status: mental status grossly normal Affect: normal affect Results Labs and Meds 12/27/24 05:37 12/27/24 05:37 Lab results: Cardiac Enzymes 12/27/24 12/27/24 12/27/24 Range/Units 05:37 08:08 11:14 AST 23 (17-59) U/L Troponin I 0.064 H* 0.060 H* 0.060 H* (0.000-0.034) ng/mL Coagulation 12/27/24 Range/Units 05:37 PT 15.9 H (11.1-14.7) Seconds APTT 28.1 (22.3-36.8) Seconds CBC 12/27/24 Range/Units 05:37 WBC 23.2 H (4.5-10.0) K/mm3 RBC 5.11 (4.6-6.20) M/mm3 Hgb 15.9 (14.0-18.0) g/dL Hct 47.5 (42.0-52.0) % Plt Count 137 L (150-375) k/mm3 Lymph # (Auto) Director Of Anesthesia Services Pickett # (Auto) Director Of Anesthesia Services Eos # (Auto) Director Of Anesthesia Services Baso # (Auto) Director Of Anesthesia Services Comprehensive Metabolic Panel 12/27/24 Range/Units 05:37 Sodium 142 (137-145) mmol/L Potassium 5.1 H (3.4-5.0) mmol/L Chloride 109 H (98-107) mmol/L Carbon Dioxide 22 (22-30) mmol/L BUN 27 H (9-20) mg/dL Creatinine 1.08 (0.7-1.3) mg/dL Glucose 93 (65-110) mg/dL Calcium 9.3 (8.4-10.2) mg/dL AST 23 (17-59) U/L ALT 19 (6-50) U/L Alkaline Phosphatase 31 L (38-126) U/L Total Protein 6.0 L (6.3-8.2) g/dL Albumin 3.7 (3.5-5.1) g/dL Intake and Output 12/26/24 12/27/24 12/27/24 23:59 07:59 15:59 Intake Total 500 Balance 500 Intake: IV 500 Sodium Chloride 0.9% IV 500 ml 500 @ 999 mls/hr IV CONT .Q31M [facility] Rx#:[id number] Patient Weight 12/27/24 23:59 Weight 102 kg
--- NOTE | 2024-12-27 16:41 | ADMGEN ---
This patient, Enmanuel Vila, was admitted to IMU Room 202-. Patient/family oriented to hospital policies and general routines including ID bracelet, bed and alarms, visiting hours, pain management, procedures, bathroom and other care routines, personal items, smoking policy, room service/diet, and visiting hours. Information on how to activate the Rapid Response Team has been discussed. Patient/Family are encouraged to report perceived risks to care and to ask questions if they do not understand what they are told or what they should do.
--- NOTE | 2024-12-27 23:08 | PM.IMHP ---
H&P: HPI History of Present Illness Date/Time: 12/27/24 23:08 Chief Complaint: Fall, Bradycardia, Syncope Narrative: 84-year-old male with a past medical history of coronary artery disease, eczema, HTN, HLD, BPH, myocardial infarction, hard of hearing, CHAGO on CPAP, subarachnoid hemorrhage following injury presents here for further evaluation after a syncopal event leading to a ground level fall with bradycardia discovered. The patient presents here from home via EMS for further evaluation after he sustained a ground level fall around 1:00 a.m. last night. HPI obtained through chart review, patient report, and the patient's 's report. He reports he was getting up in the middle night to move to his chair. He was nearly seated when he had a syncopal episode. He denies any presyncopal prodrome. The patient does not believe he hit his head but he does report a loss of consciousness of an unknown duration. Post fall he denies neck pain, dizziness, palpitations, chest pain, shortness a breath, or lightheadedness. He does report he had subjective fever, chills, and shaking (suspected to be rigors?) that developed last night. He reports intermittent dry cough recently which he has treated with Robitussin and Nina-Spring. The patient was able to call out to his after the fall and he was able to get himself into his chair. Initial concern the patient was lying on the floor through the night. He currently follows with Gabe CASTELLANOS for his cardiac care. He has previously been told he will likely need a pacemaker in the future. Of note, EMS reported that the patient would stare off and briefly not respond when he be came bradycardic in the 40s. He did not lose consciousness or go unresponsive with the bradycardia. Initial VS at presentation: 98? F, HR 78, R 15, 132/72, and 100% on RA. ED workup showed: WBC 23.2, no anemia, INR 1.2, potassium 5.1, creatinine 1.08 and GFR >60, lactic 1.2, initial troponin 0.064, BNP 3560, TSH 1.610, UA showed no indicators of infection, viral PCR negative. CXR showed mild airspace opacities in the lower lung zones consistent with atelectasis versus pneumonia, cardiomegaly. 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 C-spine CT showed no fracture and severe cervical spondylosis. CT of the chest/abdomen/pelvis showed a small sliding hiatal hernia and umbilical hernia containing fat. Review of Systems Review of Systems: All systems reviewed & are unremarkable except as noted in HPI and below PMFSH Past Medical History Medical History Essential (primary) hypertension Mixed hyperlipidemia 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 Gastroesophageal reflux disease Hard of hearing 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 CHAGO on CPAP Subarachnoid hemorrhage following injury with brief loss of consciousness but without open intracranial wound CAD (coronary artery disease) Dyshidrotic eczema BPH associated with nocturia Surgical History Surgical History History of appendectomy H/O heart artery stent x2, Dr Coles History of back surgery Hx of inguinal hernia surgery History of ankle surgery right History of carpal tunnel surgery H/O shoulder surgery right S/P cholecystectomy Family History Family History Mother Family history of cardiovascular disease Family history of diabetes mellitus in first degree relative Diabetes mellitus Father Family history of heart disease in male family member before age 55 Cerebrovascular accident Other Family history of malignant neoplasm Hypertension Social History Social History Smoking status: Never smoker Second hand tobacco smoke exposure: Yes Alcohol intake: never Substance use: never Substance use type: does not use Do You Feel Safe in your Home?: Yes Lack of Transportation: No Lack of Food: Never True Current Housing: I Have Housing Concerned About Future Housing: No Difficulty Paying Gas/Electric Bills: No Difficulty Paying for Meds: No Currently Unemployed: No Education: Trade/Vocational Certificate Difficulty w/ Childcare or Family Care: No Living arrangements: with family Gender identity (if verbalized by the patient): Male Spiritual care concerns: No Meds Home Medications and Allergies Home Medications ?Medication ?Instructions ?Recorded ?Confirmed ?Type losartan 50 mg tablet 50 mg PO DAILY 09/09/22 12/27/24 History aspirin 81 mg chewable tablet 81 mg PO DAILY 12/05/22 12/27/24 History rosuvastatin 10 mg tablet 10 mg PO DAILY 07/19/23 12/27/24 History multivitamin 1 tablet PO DAILY 08/21/23 12/27/24 History CPAP #1 ea 09/20/23 12/27/24 Rx apixaban 5 mg tablet (Eliquis) 5 mg PO HS 12/23/23 12/27/24 History ketoconazole 2 % topical cream 1 applic topical BID #60 grams 08/23/24 12/27/24 Rx mupirocin 2 % topical ointment 1 applic topical BID #50 grams 11/21/24 12/27/24 Rx Allergies Allergy/AdvReac Type Severity Reaction Status Date / Time adhesive AdvReac Mild Itching Verified 12/27/24 16:50 pantoprazole AdvReac Mild itching Verified 12/27/24 16:50 Vital Signs Vital Signs - 24 hr 12/27/24 05:27 12/27/24 05:33 12/27/24 05:34 Temperature 98 F Pulse Rate 78 71 75 Respiratory Rate 15 18 12 Blood Pressure 132/72 131/72 Pulse Oximetry 100 100 Oxygen Delivery 12/27/24 05:46 12/27/24 06:18 12/27/24 06:31 Temperature Pulse Rate 77 76 68 Respiratory Rate 14 16 12 Blood Pressure 130/67 112/60 125/69 Pulse Oximetry 98 97 Oxygen Delivery 12/27/24 06:36 12/27/24 06:36 12/27/24 06:38 Temperature Pulse Rate 65 66 75 Respiratory Rate 19 Blood Pressure 128/64 127/64 122/64 Pulse Oximetry Oxygen Delivery 12/27/24 06:38 12/27/24 06:46 12/27/24 07:01 Temperature Pulse Rate 73 69 71 Respiratory Rate 15 18 18 Blood Pressure 122/86 121/50 L 112/51 L Pulse Oximetry 96 97 Oxygen Delivery 12/27/24 07:43 12/27/24 07:46 12/27/24 08:00 Temperature Pulse Rate 71 76 65 Respiratory Rate 12 20 Blood Pressure 128/55 L 108/97 H Pulse Oximetry 97 98 Oxygen Delivery 12/27/24 08:01 12/27/24 08:16 12/27/24 08:31 Temperature Pulse Rate 63 63 63 Respiratory Rate 15 17 19 Blood Pressure 104/57 L 117/58 L 119/61 Pulse Oximetry 95 98 96 Oxygen Delivery 12/27/24 08:46 12/27/24 09:16 12/27/24 09:31 Temperature Pulse Rate 68 70 65 Respiratory Rate 15 14 17 Blood Pressure 115/62 102/55 L 104/48 L Pulse Oximetry 99 95 Oxygen Delivery 12/27/24 09:46 12/27/24 10:01 12/27/24 10:46 Temperature Pulse Rate 73 65 64 Respiratory Rate 12 14 16 Blood Pressure 117/73 118/67 114/53 L Pulse Oximetry 97 95 95 Oxygen Delivery 12/27/24 11:01 12/27/24 11:31 12/27/24 12:01 Temperature Pulse Rate 64 67 60 Respiratory Rate 16 16 17 Blood Pressure 113/59 L 110/64 105/55 L Pulse Oximetry 94 97 Oxygen Delivery 12/27/24 13:56 12/27/24 17:00 12/27/24 18:00 Temperature 97.8 F Pulse Rate 56 L 119 H 63 Respiratory Rate 18 16 Blood Pressure 119/55 L 152/82 H Pulse Oximetry 96 100 Oxygen Delivery 12/27/24 18:23 12/27/24 20:00 12/27/24 20:00 Temperature 97.8 F Pulse Rate 64 71 Respiratory Rate 16 16 Blood Pressure 173/76 H Pulse Oximetry 97 97 Oxygen Delivery Room Air Room Air 12/27/24 20:00 12/27/24 22:00 12/27/24 22:00 Temperature Pulse Rate 71 65 66 Respiratory Rate Blood Pressure Pulse Oximetry 99 Oxygen Delivery CPAP Exam Const: General: comfortable and no acute distress Other: , male, nontoxic appearance HENMT: Face/Nose/Sinus: Normal nares present Mouth: Yes moist mucous membranes Eyes: General: appearance normal, both eyes and all related structures Sclera: sclerae normal Pupils: Equal, round and reactive pupils present EOM: EOMs intact bilaterally Resp: Effort & Inspection: normal respiratory effort Auscultation: clear to auscultation bilaterally Cardio: Rate: bradycardic Rhythm: abnormal rhythm Other: No murmur or rub. GI: Other: Abdomen soft, nondistended, nontender. Skin: General skin exam: normal color and no rashes or lesions noted Wounds: no wounds Neuro: Speech: normal speech Motor exam (neuro): 5/5 motor strength present throughout Sensory Exam: normal sensation Other: A&O x4, however patient is significantly hard of hearing making exam somewhat difficult. Extrem: Other: Trace edema to the right lower extremity compared to the left lower extremity, per patient's this is his baseline due to recurrent cellulitis on the right side. Psych: Mental Status: mental status grossly normal Affect: normal affect Other: Fair insight and judgment, pleasant. H&P: Results Labs Labs: Short CBC 12/27/24 Range/Units 05:37 WBC 23.2 H (4.5-10.0) K/mm3 Hgb 15.9 (14.0-18.0) g/dL Hct 47.5 (42.0-52.0) % Plt Count 137 L (150-375) k/mm3 BMP 12/27/24 05:37 Sodium 142 Potassium 5.1 H Chloride 109 H Carbon Dioxide 22 BUN 27 H Creatinine 1.08 Glucose 93 Calcium 9.3 Cardiac Enzymes 12/27/24 12/27/24 12/27/24 Range/Units 05:37 08:08 11:14 Total Creatine Kinase 57 (55-170) U/L Troponin I 0.064 H* 0.060 H* 0.060 H* (0.000-0.034) ng/mL Liver Function 12/27/24 Range/Units 05:37 Total Bilirubin 0.6 (0.2-1.3) mg/dL AST 23 (17-59) U/L ALT 19 (6-50) U/L Alkaline Phosphatase 31 L (38-126) U/L Albumin 3.7 (3.5-5.1) g/dL Urine 12/27/24 Range/Units 07:47 Urine Color Dark yellow (Yellow) Urine Appearance Clear (Clear) Urine pH 6.5 (5.0-9.0) Ur Specific [place] > 1.045 H (1.001-1.035) Urine Protein 1+ H (Negative) mg/dL Urine Glucose (UA) Negative (Negative) mg/dL Assessment and Plan Assessment and plan (1) Bradycardia: Code(s): R00.1 - Bradycardia, unspecified Status: Acute Assessment and Plan: - syncope felt to correlate with bradycardic episodes, witnessed by EMS - EKG, initial: Sinus rhythm with first-degree AV block, right bundle branch block. - EKG with repeated x2, no significant changes when compared to initial EKG done on 12/27 - cardiology consulted, Mo CASTELLANOS provided the following recs: Review of EKGs and telemetry show first-degree AV block, no high-grade block noted. Previously found to have a Mobitz type 1 in the past. Continued telemetry monitoring. If no significant arrhythmias during hospitalization, will likely need of monitoring at discharge. Hold Eliquis in the event patient develops significant bradyarrhythmias necessitating pacemaker Avoid AV yevgeniy blocking agents Check echo Continue ASA and statin - telemetry monitoring and admission to IMU (2) Elevated troponin level: Code(s): R79.89 - Other specified abnormal findings of blood chemistry Status: Acute Assessment and Plan: - EKGs above - CXR concerning for pneumonia, see below - troponin: 0.064 -> 0.060 -> 0.060 - cardiologists reviewed patient's case. Elevated troponin - flat, not in a pattern consistent with ACS - monitor for chest pain (3) Pneumonia: Qualifiers: Pneumonia type: due to unspecified organism Laterality: bilateral Lung location: lower lobe of lung Qualified Code(s): J18.9 - Pneumonia, unspecified organism Code(s): J18.9 - Pneumonia, unspecified organism Status: Acute Assessment and Plan: - did not meet SIRS criteria, leukocytosis of 23.2 only. Lactic 1.2. Blood cultures obtained in the ED on 12/27, follow. - CXR: 1. Mild airspace opacities in the lower lung zones, consistent with atelectasis versus pneumonia. 2. Cardiomegaly. - pneumonia not appreciated as well on CT, however patient having symptoms (fever, chills, and cough) that is consistent with pneumonia. + leukocytosis of 23.2. - started on doxycycline and ceftriaxone on 12/28 - check MRSA PCR and sputum culture if obtainable - Viral PCR negative - supportive care - no supplemental oxygen requirement (4) Hypertension: Qualifiers: Hypertension type: primary hypertension Qualified Code(s): I10 - Essential (primary) hypertension Code(s): I10 - Essential (primary) hypertension Status: Acute Assessment and Plan: - chronic, currently 172/80 - continue home medications: Losartan 50 mg daily - monitor (5) Obstructive sleep apnea: Code(s): G47.33 - Obstructive sleep apnea (adult) (pediatric) Status: Acute Assessment and Plan: - continue home CPAP Plan Potassium 5.1, repeat in a.m. No interventions at this time. Diet: Heart healthy GI Prophylaxis: Not currently indicated DVT Prophylaxis: Eliquis on hold, SCDs Lines: Peripheral Code Status: Full code Quality VTE Prophylaxis VTE prophylaxis: mechanical ordered Hospitalist MIPS Advance Care Plan I have confirmed that the patient's Advanced Care Plan is present, code status is documented, or surrogate decision maker is listed in patient medical record.: Yes Medication Reconciliation I have utilized all available resources to obtain, update and review the patients current medications (includes all prescriptions, OTC, herbals, cannabis, and nutritional supplements).: Yes
[2024-12-28] VITALS (11 sets, daily range): BP systolic 141–172; BP diastolic 60–80; PULSE 62–74; RESP 16–20; TEMP 36.3–36.8; O2SAT 95–100
[2024-12-28] MEDS: DOXYCYCLINE HYCLATE 100 MG TABLET PO ×2 (02:15→13:19)
[2024-12-28 03:39] LABS: MRSA (PCR) NOT DETECTED (NOT DETECTE)
[2024-12-28] MEDS: MULTIVITAMINS THERAPEUTIC TAB (*BKC) 1 TABLET PO (08:49)
[2024-12-28] MEDS: ASPIRIN 81 MG CHEWABLE TABLET PO (08:49)
[2024-12-28] MEDS: LOSARTAN POTASSIUM 50 MG TABLET PO (08:49)
[2024-12-28] MEDS: guaiFENesin 12 HR 600 MG TABCR PO (08:49)
[2024-12-28] MEDS: ROSUVASTATIN 10 MG TABLET PO (08:49)
[2024-12-28 08:58] LABS: Basophils Percent Auto 0.3 % (0.2-1.2); Eosinophils Percent Auto 0.3 % (0-4.4); Hemoglobin 14.9 g/dL (14.0-18.0); Immature Granulocyte Absolute 0.06 K/mm3 (0.00-0.031); Immature Granulocyte Percent A 0.5 % (0-0.5); Immature Platelet Fraction Pct 4.7 % (0.9-11.2); Lymphocytes Absolute Auto 1.06 K/mm3 (0.9-3.2); Lymphocytes Percent Auto 8.3 % (18.3-44.2); Mean Corpuscular HGB Conc 33.1 g/dl (32-36); Mean Corpuscular Hemoglobin 30.8 pg (26-34); Mean Corpuscular Volume 93.2 fl (80-100); Mean Platelet Volume 10.6 fl (7.4-10.4); Monocytes Absolute Auto 1.4 K/mm3 (0.1-0.6); Monocytes Percent Auto 10.7 % (2.6-8.5); Neutrophils Absolute Auto 10.2 K/mm3 (1.3-6.7); Neutrophils Percent Auto 79.9 % (45.5-73.1); Platelet Count Result 110 k/mm3 (150-375); Red Blood Count 4.83 M/mm3 (4.6-6.20); Red Cell Distribution Width 14.3 % (11.5-14.5); White Blood Count 12.8 K/mm3 (4.5-10.0)
[2024-12-28 09:20] LABS: Alanine Aminotransferase 29 U/L (6-50); Albumin Level 2.9 g/dL (3.5-5.1); Alkaline Phosphatase 53 U/L (38-126); Anion Gap 3 mmol/L (4-12); Aspartate Amino Transferase 23 U/L (17-59); Bilirubin,Total 1.4 mg/dL (0.2-1.3); Blood Urea Nitrogen 26 mg/dL (9-20); Calcium 8.6 mg/dL (8.4-10.2); Carbon Dioxide 27 mmol/L (22-30); Chloride 105 mmol/L (98-107); Estimated CRCL calculation 52 ml/min; Estimated Glomerular Filt Rate > 60; Glucose 122 mg/dL (65-110); Potassium 4.6 mmol/L (3.4-5.0); Sodium 135 mmol/L (137-145)
[2024-12-28 09:52] LABS: Band Neutrophils Percent 2 % (0-6); Lymphocytes Absolute Manual 1.02 K/mm3 (1.1-4.5); Lymphocytes Percent Manual 8 % (18-44); Monocytes Absolute Manual 0.76 K/mm3 (0.1-0.90); Monocytes Percent Manual 6 % (3-9); Neutrophils Percent Manual 84 % (46-73); Platelet Estimate Decreased (Adequate); Schistocytes None Seen
--- NOTE | 2024-12-28 10:17 | P.PNIM_ITS ---
Progress Note: A&P Assessment and Plan (1) Bradycardia: Code(s): R00.1 - Bradycardia, unspecified Status: Acute Assessment and Plan: - EKG, initial: Sinus rhythm with first-degree AV block, right bundle branch block. - EKG with repeated x2, no significant changes when compared to initial EKG done on 12/27 - Review of EKGs and telemetry show first-degree AV block, no high-grade block noted. Previously Mobitz type 1 in the past. - Continued telemetry monitoring. - Hold Eliquis in the event patient develops significant bradyarrhythmias necessitating pacemaker - Avoid AV yevgeniy blocking agents - Pending echo - Continue ASA and statin - Cardiology consulted, Mo CASTELLANOS provided the following recs: (2) Elevated troponin level: Code(s): R79.89 - Other specified abnormal findings of blood chemistry Status: Acute Assessment and Plan: - EKGs above - CXR concerning for pneumonia, see below - troponin: 0.064 -> 0.060 -> 0.060 - cardiologists reviewed patient's case. Elevated troponin - flat, not in a pattern consistent with ACS - monitor for chest pain (3) Pneumonia: Qualifiers: Pneumonia type: due to unspecified organism Laterality: bilateral Lung location: lower lobe of lung Qualified Code(s): J18.9 - Pneumonia, unspecified organism Code(s): J18.9 - Pneumonia, unspecified organism Status: Acute Assessment and Plan: - did not meet SIRS criteria, leukocytosis of 23.2 only. Lactic 1.2. Blood cultures obtained in the ED on 12/27, follow. - CXR: 1. Mild airspace opacities in the lower lung zones, consistent with atel ectasis versus pneumonia. 2. Cardiomegaly. - pneumonia not appreciated as well on CT, however patient having symptoms (fever, chills, and cough) that is consistent with pneumonia. + leukocytosis of 23.2. - started on doxycycline and ceftriaxone on 12/28 - check MRSA PCR and sputum culture if obtainable - Viral PCR negative - supportive care - no supplemental oxygen requirement (4) Hypertension: Qualifiers: Hypertension type: primary hypertension Qualified Code(s): I10 - Essential (primary) hypertension Code(s): I10 - Essential (primary) hypertension Status: Acute Assessment and Plan: - chronic, currently 141/68 - continue home medications: Losartan 50 mg daily - monitor (5) Obstructive sleep apnea: Code(s): G47.33 - Obstructive sleep apnea (adult) (pediatric) Status: Acute Assessment and Plan: - continue home CPAP Plan Potassium 4.6, monitor Diet: Heart healthy GI Prophylaxis: Not currently indicated DVT Prophylaxis: Eliquis on hold, SCDs Lines: Peripheral Code Status: Full code Subjective Date/time seen: 12/28/24 10:17 Interval history: 84-year-old male with a past medical history of coronary artery disease, eczema, HTN, HLD, BPH, myocardial infarction, hard of hearing, [place] on CPAP, subarachnoid hemorrhage following injury presents here for further evaluation after a syncopal event leading to a ground level fall with bradycardia discovered. 12/28/2024 Patient is sitting comfortable at bedside. Denies any chest pain, shortness of breath, n/v, or abdominal pain. Cardiology consulted and pending recommendations. Echo results pending at this time as well. Need for pacemaker to be determined. Review of Systems Review of Systems: All systems reviewed & are unremarkable except as noted in HPI and below Exam Const: General: comfortable and no acute distress Other: , male, nontoxic appearance HENMT: Face/Nose/Sinus: Normal nares present Mouth: Yes moist mucous membranes Eyes: General: appearance normal, both eyes and all related structures Sclera: sclerae normal Pupils: Equal, round and reactive pupils present EOM: EOMs intact bilaterally Resp: Effort & Inspection: normal respiratory effort Auscultation: clear to auscultation bilaterally Cardio: Rate: regular rate Rhythm: abnormal rhythm Other: No murmur or rub. GI: Other: Abdomen soft, nondistended, nontender. Skin: General skin exam: normal color and no rashes or lesions noted Wounds: no wounds Neuro: Cranial nerves: Yes Equal, round and reactive pupils present Speech: normal speech Motor exam (neuro): 5/5 motor strength present throughout Sensory Exam: normal sensation Other: A&O x4, however patient is significantly hard of hearing making exam somewhat difficult. Extrem: Other: Trace edema to the right lower extremity compared to the left lower extremity, per patient's this is his baseline due to recurrent cellulitis on the right side. Psych: Mental Status: mental status grossly normal Affect: normal affect Other: Fair insight and judgment, pleasant. Objective Data Vital Signs Vital Signs: Vital Signs - 24 hr 12/27/24 10:46 12/27/24 11:01 12/27/24 11:31 Temperature Pulse Rate 64 64 67 Respiratory Rate 16 16 16 Blood Pressure 114/53 L 113/59 L 110/64 Pulse Oximetry 95 94 97 Oxygen Delivery 12/27/24 12:01 12/27/24 13:56 12/27/24 17:00 Temperature 97.8 F Pulse Rate 60 56 L 119 H Respiratory Rate 17 18 16 Blood Pressure 105/55 L 119/55 L 152/82 H Pulse Oximetry 96 100 Oxygen Delivery 12/27/24 18:00 12/27/24 18:23 12/27/24 20:00 Temperature 97.8 F Pulse Rate 63 64 Respiratory Rate 16 Blood Pressure 173/76 H Pulse Oximetry 97 Oxygen Delivery Room Air 12/27/24 20:00 12/27/24 20:00 12/27/24 22:00 Temperature Pulse Rate 71 71 65 Respiratory Rate 16 Blood Pressure Pulse Oximetry 97 Oxygen Delivery Room Air 12/27/24 22:00 12/28/24 00:00 12/28/24 00:00 Temperature 97.8 F Pulse Rate 66 68 64 Respiratory Rate 16 16 Blood Pressure 172/80 H Pulse Oximetry 99 100 100 Oxygen Delivery CPAP CPAP 12/28/24 00:00 12/28/24 02:00 12/28/24 03:37 Temperature Pulse Rate 64 64 62 Respiratory Rate 16 Blood Pressure Pulse Oximetry 100 Oxygen Delivery CPAP 12/28/24 03:37 12/28/24 03:39 12/28/24 06:00 Temperature 97.8 F Pulse Rate 62 66 64 Respiratory Rate 16 Blood Pressure 157/68 H Pulse Oximetry 97 Oxygen Delivery 12/28/24 08:00 Temperature 97.3 F L Pulse Rate 64 Respiratory Rate 20 Blood Pressure 141/68 H Pulse Oximetry 99 Oxygen Delivery Intake/Output Intake/Output: Intake & Output 12/25/24 12/26/24 12/27/24 12/28/24 23:59 23:59 23:59 23:59 Intake Total 1040 770 Output Total 200 Balance 1040 570 Meds/Results Medications: Active Medications Generic Name Dose Route Start Last Admin Trade Name Freq PRN Reason Stop Dose Admin Acetaminophen 650 mg 12/27/24 07:47 Acetaminophen 325 Mg Tablet PO Q4H PRN Mild Pain (1-3) or Fever Albuterol/Ipratropium 3 ml 12/28/24 00:34 Ipratropium 0.5 Mg/Albuterol Sulfate 2.5 Mg Ampul.Neb 3 Ml INHALATION Q6HRT PRN Shortness Of Breath Or Wheezing Aspirin 81 mg 12/28/24 09:00 12/28/24 08:49 Aspirin 81 Mg Chewable Tablet PO 81 mg DAILY [facility] Administration Benzonatate 100 mg 12/28/24 00:34 Benzonatate 100 Mg Capsule PO TID PRN Cough Doxycycline Hyclate 100 mg 12/28/24 02:00 12/28/24 02:15 Doxycycline Hyclate 100 Mg Tablet PO 100 mg Q12H [facility] Administration Guaifenesin 600 mg 12/28/24 09:00 12/28/24 08:49 Guaifenesin 12 Hr 600 Mg Tabcr PO 600 mg Q12HR AND[facility] Administration Ceftriaxone Sodium 1 gm in 50 mls @ 100 mls/hr 12/28/24 01:00 12/28/24 02:45 Rocephin 1 Gm/Ns 50 Ml IVPB Infused Q24H [facility] Infusion Losartan Potassium 50 mg 12/28/24 09:00 12/28/24 08:49 Losartan Potassium 50 Mg Tablet PO 50 mg DAILY [facility] Administration Miconazole Nitrate 1 applic 12/28/24 09:00 Miconazole Nitrate 2% Cream 30 Gm Tube TOPICAL Q12HR [facility] Miscellaneous Information 0 each 12/28/24 00:01 Mupirocin & Ketoconazole Add Site Of Application XX 01/27/25 00:00 CLARIFY [facility] Multivitamins Therapeutic 1 tablet 12/28/24 09:00 12/28/24 08:49 Multivitamins Therapeutic Tab (*Bkc) PO 1 tablet DAILY [facility] Administration Mupirocin 1 applic 12/28/24 09:00 Mupirocin 2% Oint 22 Gm Tube TOPICAL Q12HR [facility] Ondansetron HCl 4 mg 12/27/24 07:47 Ondansetron Inj 4 Mg/2 Ml Vial IV PUSH Q4H PRN Nausea Perflutren Lipid Microsphere 0 ml 12/27/24 14:12 Perflutren Lipid Microspheres 1.5 Ml Vial Diluted To 10 Ml Total Volume IV PUSH 12/30/24 14:12 ONCE PRN adequate visualization Protocol Rosuvastatin Calcium 10 mg 12/28/24 09:00 12/28/24 08:49 Rosuvastatin 10 Mg Tablet PO 10 mg DAILY [facility] Administration Radiology Results: ITS Impressions Chest X-Ray 12/27/24 06:00 IMPRESSION: 1. Mild airspace opacities in the lower lung zones, consistent with atelectasis versus pneumonia. 2. Cardiomegaly. Head CT 12/27/24 06:11 IMPRESSION: 1. 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 2. Stable extensive nonspecific cerebral white matter disease, which likely represents chronic small vessel ischemic disease. Cervical Spine CT 12/27/24 06:16 IMPRESSION: 1. No fracture. 2. Severe cervical spondylosis. Chest/Abdomen/Pelvis CT 12/27/24 07:30 IMPRESSION: 1. Small sliding hiatal hernia. 2. Umbilical hernia containing fat. Labs Labs: Laboratory Results - last 24 hr 12/27/24 12/27/24 12/28/24 05:37 11:14 02:16 WBC RBC Hgb Hct MCV MCH MCHC RDW Plt Count MPV Immature Gran % (Auto) Neut % (Auto) Lymph % (Auto) [place] % (Auto) Eos % (Auto) Baso % (Auto) Lymph # (Auto) [place] # (Auto) Eos # (Auto) Baso # (Auto) Abs Immat Gran (auto) Absolute Neuts (auto) Absolute Nucleated RBC Neutrophils % (Manual) Band Neutrophils % Lymphocytes % (Manual) Monocytes % (Manual) Nucleated RBC % Abs Neuts (Manual) Abs Lymphs (Manual) Abs Monocytes (Manual) Platelet Estimate % Immature Plt Fraction Schistocytes Sodium 142 Potassium 5.1 H Chloride 109 H Carbon Dioxide 22 Anion Gap 11 BUN 27 H Creatinine 1.08 Estim Creat Clear Calc 54 Estimated GFR > 60 Glucose 93 Calcium 9.3 Magnesium 2.3 Total Bilirubin 0.6 AST 23 ALT 19 Alkaline Phosphatase 31 L Troponin I 0.060 H* Total Protein Albumin 3.7 TSH 1.610 Nasal MRSA (PCR) Not detected 12/28/24 08:33 WBC 12.8 H RBC 4.83 Hgb 14.9 Hct 45.0 MCV 93.2 MCH 30.8 MCHC 33.1 RDW 14.3 Plt Count 110 L MPV 10.6 H Immature Gran % (Auto) 0.5 Neut % (Auto) 79.9 H Lymph % (Auto) 8.3 L [place] % (Auto) 10.7 H Eos % (Auto) 0.3 Baso % (Auto) 0.3 Lymph # (Auto) 1.06 [place] # (Auto) 1.4 H Eos # (Auto) 0.0 Baso # (Auto) 0.0 Abs Immat Gran (auto) 0.06 H Absolute Neuts (auto) 10.2 H Absolute Nucleated RBC 0.000 Neutrophils % (Manual) 84 H Band Neutrophils % 2 Lymphocytes % (Manual) 8 L Monocytes % (Manual) 6 Nucleated RBC % 0.0 Abs Neuts (Manual) 11.00 H Abs Lymphs (Manual) 1.02 L Abs Monocytes (Manual) 0.76 Platelet Estimate Decreased % Immature Plt Fraction 4.7 Schistocytes None seen Sodium 135 L Potassium 4.6 Chloride 105 Carbon Dioxide 27 Anion Gap 3 L BUN 26 H Creatinine 1.11 Estim Creat Clear Calc 52 Estimated GFR > 60 Glucose 122 H Calcium 8.6 Magnesium Total Bilirubin 1.4 H AST 23 ALT 29 Alkaline Phosphatase 53 Troponin I Total Protein 5.0 L Albumin 2.9 L TSH Nasal MRSA (PCR) Quality VTE Prophylaxis VTE prophylaxis: mechanical ordered
--- NOTE | 2024-12-28 10:24 | PM.PNCARD ---
Progress Note: A&P Assessment and Plan (1) Syncope: Code(s): R55 - Syncope and collapse Status: Acute Plan 84-year-old man with CAD status post PCI, paroxysmal atrial fibrillation, and intermittent Wenckebach presented with syncopal event. Syncope -previously had not had any episodes -intermittent Wenckebach is rare on telemetry -he does not appear to be experiencing any symptoms from this at this time -recommend outpatient 30 day MCT and follow-up with Dr. Bernal for consideration for permanent pacemaker implantation for longer-term monitor loop recorder Paroxysmal atrial fibrillation -can resume Eliquis which should be 5 mg p.o. b.i.d. Troponin elevation -his clinical course is not consistent with acute coronary syndrome CAD status post PCI -on aspirin 81 mg p.o. daily Hyperlipidemia -continue rosuvastatin 10 mg every evening Can be discharged from cardiac perspective Subjective Date/time seen: 12/28/24 10:24 Interval history: No episodes of lightheadedness or presyncope. Denies chest discomfort shortness of breath. Review of Systems Cardiovascular: Cardiovascular: Reports as per HPI Respiratory: Respiratory: Reports as per HPI Exam Const: General: comfortable HENMT: Mouth: Yes moist mucous membranes Eyes: EOM: EOMs intact bilaterally Neck: Neck: no JVD Resp: Effort & Inspection: normal respiratory effort Auscultation: clear to auscultation bilaterally Cardio: Rate: regular rate Rhythm: regular rhythm Neuro: Speech: normal speech Extrem: General: no pedal edema Other: Right medial malleolus and above the ankle wound Objective Data Vital Signs Vital Signs: Vital Signs - 24 hr 12/27/24 10:46 12/27/24 11:01 12/27/24 11:31 Temperature Pulse Rate 64 64 67 Respiratory Rate 16 16 16 Blood Pressure 114/53 L 113/59 L 110/64 Pulse Oximetry 95 94 97 Oxygen Delivery 12/27/24 12:01 12/27/24 13:56 12/27/24 17:00 Temperature 36.6 C Pulse Rate 60 56 L 119 H Respiratory Rate 17 18 16 Blood Pressure 105/55 L 119/55 L 152/82 H Pulse Oximetry 96 100 Oxygen Delivery 12/27/24 18:00 12/27/24 18:23 12/27/24 20:00 Temperature 36.6 C Pulse Rate 63 64 Respiratory Rate 16 Blood Pressure 173/76 H Pulse Oximetry 97 Oxygen Delivery Room Air 12/27/24 20:00 12/27/24 20:00 12/27/24 22:00 Temperature Pulse Rate 71 71 65 Respiratory Rate 16 Blood Pressure Pulse Oximetry 97 Oxygen Delivery Room Air 12/27/24 22:00 12/28/24 00:00 12/28/24 00:00 Temperature 36.6 C Pulse Rate 66 68 64 Respiratory Rate 16 16 Blood Pressure 172/80 H Pulse Oximetry 99 100 100 Oxygen Delivery CPAP CPAP 12/28/24 00:00 12/28/24 02:00 12/28/24 03:37 Temperature Pulse Rate 64 64 62 Respiratory Rate 16 Blood Pressure Pulse Oximetry 100 Oxygen Delivery CPAP 12/28/24 03:37 12/28/24 03:39 12/28/24 06:00 Temperature 36.6 C Pulse Rate 62 66 64 Respiratory Rate 16 Blood Pressure 157/68 H Pulse Oximetry 97 Oxygen Delivery 12/28/24 08:00 Temperature 36.3 C L Pulse Rate 64 Respiratory Rate 20 Blood Pressure 141/68 H Pulse Oximetry 99 Oxygen Delivery Intake/Output Intake/Output: Intake & Output 12/25/24 12/26/24 12/27/24 12/28/24 23:59 23:59 23:59 23:59 Intake Total 1040 770 Output Total 200 Balance 1040 570 Meds/Results Medications: Active Medications Generic Name Dose Route Start Last Admin Trade Name Freq PRN Reason Stop Dose Admin Acetaminophen 650 mg 12/27/24 07:47 Acetaminophen 325 Mg Tablet PO Q4H PRN Mild Pain (1-3) or Fever Albuterol/Ipratropium 3 ml 12/28/24 00:34 Ipratropium 0.5 Mg/Albuterol Sulfate 2.5 Mg Ampul.Neb 3 Ml INHALATION Q6HRT PRN Shortness Of Breath Or Wheezing Aspirin 81 mg 12/28/24 09:00 12/28/24 08:49 Aspirin 81 Mg Chewable Tablet PO 81 mg DAILY [facility] Administration Benzonatate 100 mg 12/28/24 00:34 Benzonatate 100 Mg Capsule PO TID PRN Cough Doxycycline Hyclate 100 mg 12/28/24 02:00 12/28/24 02:15 Doxycycline Hyclate 100 Mg Tablet PO 100 mg Q12H ANDRE[facility] Administration Guaifenesin 600 mg 12/28/24 09:00 12/28/24 08:49 Guaifenesin 12 Hr 600 Mg Tabcr PO 600 mg Q12HR [facility] Administration Ceftriaxone Sodium 1 gm in 50 mls @ 100 mls/hr 12/28/24 01:00 12/28/24 02:45 Rocephin 1 Gm/Ns 50 Ml IVPB Infused Q24H [facility] Infusion Losartan Potassium 50 mg 12/28/24 09:00 12/28/24 08:49 Losartan Potassium 50 Mg Tablet PO 50 mg DAILY [facility] Administration Miconazole Nitrate 1 applic 12/28/24 09:00 Miconazole Nitrate 2% Cream 30 Gm Tube TOPICAL Q12HR [facility] Miscellaneous Information 0 each 12/28/24 00:01 Mupirocin & Ketoconazole Add Site Of Application XX 01/27/25 00:00 [facility] Multivitamins Therapeutic 1 tablet 12/28/24 09:00 12/28/24 08:49 Multivitamins Therapeutic Tab (*Bkc) PO 1 tablet DAILY [facility] Administration Mupirocin 1 applic 12/28/24 09:00 Mupirocin 2% Oint 22 Gm Tube TOPICAL Q12HR [facility] Ondansetron HCl 4 mg 12/27/24 07:47 Ondansetron Inj 4 Mg/2 Ml Vial IV PUSH Q4H PRN Nausea Perflutren Lipid Microsphere 0 ml 12/27/24 14:12 Perflutren Lipid Microspheres 1.5 Ml Vial Diluted To 10 Ml Total Volume IV PUSH 12/30/24 14:12 ONCE PRN adequate visualization Protocol Rosuvastatin Calcium 10 mg 12/28/24 09:00 12/28/24 08:49 Rosuvastatin 10 Mg Tablet PO 10 mg DAILY [facility] Administration Radiology Results: ITS Impressions Chest X-Ray 12/27/24 06:00 IMPRESSION: 1. Mild airspace opacities in the lower lung zones, consistent with atelectasis versus pneumonia. 2. Cardiomegaly. Head CT 12/27/24 06:11 IMPRESSION: 1. 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 2. Stable extensive nonspecific cerebral white matter disease, which likely represents chronic small vessel ischemic disease. Cervical Spine CT 12/27/24 06:16 IMPRESSION: 1. No fracture. 2. Severe cervical spondylosis. Chest/Abdomen/Pelvis CT 12/27/24 07:30 IMPRESSION: 1. Small sliding hiatal hernia. 2. Umbilical hernia containing fat. Labs Labs: Laboratory Results - last 24 hr 12/27/24 12/27/24 12/28/24 05:37 11:14 02:16 WBC RBC Hgb Hct MCV MCH MCHC RDW Plt Count MPV Immature Gran % (Auto) Neut % (Auto) Lymph % (Auto) [place] % (Auto) Eos % (Auto) Baso % (Auto) Lymph # (Auto) [place] # (Auto) Eos # (Auto) Baso # (Auto) Abs Immat Gran (auto) Absolute Neuts (auto) Absolute Nucleated RBC Neutrophils % (Manual) Band Neutrophils % Lymphocytes % (Manual) Monocytes % (Manual) Nucleated RBC % Abs Neuts (Manual) Abs Lymphs (Manual) Abs Monocytes (Manual) Platelet Estimate % Immature Plt Fraction Schistocytes Sodium 142 Potassium 5.1 H Chloride 109 H Carbon Dioxide 22 Anion Gap 11 BUN 27 H Creatinine 1.08 Estim Creat Clear Calc 54 Estimated GFR > 60 Glucose 93 Calcium 9.3 Magnesium 2.3 Total Bilirubin 0.6 AST 23 ALT 19 Alkaline Phosphatase 31 L Troponin I 0.060 H* Total Protein Albumin 3.7 TSH 1.610 Nasal MRSA (PCR) Not detected 12/28/24 08:33 WBC 12.8 H RBC 4.83 Hgb 14.9 Hct 45.0 MCV 93.2 MCH 30.8 MCHC 33.1 RDW 14.3 Plt Count 110 L MPV 10.6 H Immature Gran % (Auto) 0.5 Neut % (Auto) 79.9 H Lymph % (Auto) 8.3 L [place] % (Auto) 10.7 H Eos % (Auto) 0.3 Baso % (Auto) 0.3 Lymph # (Auto) 1.06 [place] # (Auto) 1.4 H Eos # (Auto) 0.0 Baso # (Auto) 0.0 Abs Immat Gran (auto) 0.06 H Absolute Neuts (auto) 10.2 H Absolute Nucleated RBC 0.000 Neutrophils % (Manual) 84 H Band Neutrophils % 2 Lymphocytes % (Manual) 8 L Monocytes % (Manual) 6 Nucleated RBC % 0.0 Abs Neuts (Manual) 11.00 H Abs Lymphs (Manual) 1.02 L Abs Monocytes (Manual) 0.76 Platelet Estimate Decreased % Immature Plt Fraction 4.7 Schistocytes None seen Sodium 135 L Potassium 4.6 Chloride 105 Carbon Dioxide 27 Anion Gap 3 L BUN 26 H Creatinine 1.11 Estim Creat Clear Calc 52 Estimated GFR > 60 Glucose 122 H Calcium 8.6 Magnesium Total Bilirubin 1.4 H AST 23 ALT 29 Alkaline Phosphatase 53 Troponin I Total Protein 5.0 L Albumin 2.9 L TSH Nasal MRSA (PCR)
--- NOTE | 2024-12-28 11:09 | P.DS_ITS ---
DS: Admitting Diagnosis Discharge Date 12/28/2024 Admitting Diagnosis Syncope DS: Discharge Diagnosis Discharge Diagnosis (1) Bradycardia: Code(s): R00.1 - Bradycardia, unspecified Status: Acute (2) Elevated troponin level: Code(s): R79.89 - Other specified abnormal findings of blood chemistry Status: Acute (3) Pneumonia: Qualifiers: Pneumonia type: due to unspecified organism Laterality: bilateral Lung location: lower lobe of lung Qualified Code(s): J18.9 - Pneumonia, unspecified organism Code(s): J18.9 - Pneumonia, unspecified organism Status: Acute (4) Hypertension: Qualifiers: Hypertension type: primary hypertension Qualified Code(s): I10 - Essential (primary) hypertension Code(s): I10 - Essential (primary) hypertension Status: Acute (5) Obstructive sleep apnea: Code(s): G47.33 - Obstructive sleep apnea (adult) (pediatric) Status: Acute DS: Summary Hospital Course Reason for hospitalization: Syncope Hospital Course: 84-year-old male with a past medical history of coronary artery disease, eczema, HTN, HLD, BPH, myocardial infarction, hard of hearing, CHAGO on CPAP, subarachnoid hemorrhage following injury presents here for further evaluation after a syncopal event leading to a ground level fall with bradycardia discovered. The patient presents here from home via EMS for further evaluation after he sustained a ground level fall around 1:00 a.m. last night. HPI obtained through chart review, patient report, and the patient's 's report. He reports he was getting up in the middle night to move to his chair. He was nearly seated when he had a syncopal episode. He denies any presyncopal prodrome. The patient does not believe he hit his head but he does report a loss of consciousness of an unknown duration. Post fall he denies neck pain, dizziness, palpitations, chest pain, shortness a breath, or lightheadedness. He does report he had subjective fever, chills, and shaking (suspected to be rigors?) that developed last night. He reports intermittent dry cough recently which he has treated with Robitussin and [place]. The patient was able to call out to his after the fall and he was able to get himself into his chair. Initial concern the patient was lying on the floor through the night. He currently follows with Gabe CASTELLANOS for his cardiac care. He has previously been told he will likely need a pacemaker in the future. Of note, EMS reported that the patient would stare off and briefly not respond when he be came bradycardic in the 40s. He did not lose consciousness or go unresponsive with the bradycardia. Initial VS at presentation: 98? F, HR 78, R 15, 132/72, and 100% on RA. ED workup showed: WBC 23.2, no anemia, INR 1.2, potassium 5.1, creatinine 1.08 and GFR >60, lactic 1.2, initial troponin 0.064, BNP 3560, TSH 1.610, UA showed no indicators of infection, viral PCR negative. CXR showed mild airspace opacities in the lower lung zones consistent with atelectasis versus pneumonia, cardiomegaly. 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 C- spine CT showed no fracture and severe cervical spondylosis. CT of the chest/abdomen/pelvis showed a small sliding hiatal hernia and umbilical hernia containing fat. Cardiology was consulted and agreed that elevated troponins not consistent with ACS given clinical course. Patient reported no further episodes of chest pain, syncope, shortness of breath, or dizziness. Cardiology recommends outpatient 30 day MCT with followup with Dr. Bernal for consideration for permanent pacemaker implantation for longer-term monitor loop recorder. Patient is otherwise stable and has had a stable hospital course with no further intervention necessary. Patient and family made aware of plan and are comfortable with discharge. Plan to D/C home at this time. Time Spent with Patient Time attestation: Total time spent providing and/or coordinating discharge services: Exam Const: Other: , male, nontoxic appearance Cardio: Other: No murmur or rub. GI: Other: Abdomen soft, nondistended, nontender. Neuro: Other: A&O x4, however patient is significantly hard of hearing making exam somewhat difficult. Extrem: Other: Trace edema to the right lower extremity compared to the left lower extremity, per patient's this is his baseline due to recurrent cellulitis on the right side. Psych: Other: Fair insight and judgment, pleasant. DS: Data Data Completed and Pending Labs on day of discharge: Labs from last 24 hours 12/28/24 12/28/24 12/27/24 08:33 02:16 11:14 WBC 12.8 H RBC 4.83 Hgb 14.9 Hct 45.0 MCV 93.2 MCH 30.8 MCHC 33.1 RDW 14.3 Plt Count 110 L MPV 10.6 H Immature Gran % (Auto) 0.5 Neut % (Auto) 79.9 H Lymph % (Auto) 8.3 L [place] % (Auto) 10.7 H Eos % (Auto) 0.3 Baso % (Auto) 0.3 Lymph # (Auto) 1.06 [place] # (Auto) 1.4 H Eos # (Auto) 0.0 Baso # (Auto) 0.0 Abs Immat Gran (auto) 0.06 H Absolute Neuts (auto) 10.2 H Absolute Nucleated RBC 0.000 Neutrophils % (Manual) 84 H Band Neutrophils % 2 Lymphocytes % (Manual) 8 L Monocytes % (Manual) 6 Nucleated RBC % 0.0 Abs Neuts (Manual) 11.00 H Abs Lymphs (Manual) 1.02 L Abs Monocytes (Manual) 0.76 Platelet Estimate Decreased % Immature Plt Fraction 4.7 Schistocytes None seen Sodium 135 L Potassium 4.6 Chloride 105 Carbon Dioxide 27 Anion Gap 3 L BUN 26 H Creatinine 1.11 Estim Creat Clear Calc 52 Estimated GFR > 60 Glucose 122 H Calcium 8.6 Magnesium Total Bilirubin 1.4 H AST 23 ALT 29 Alkaline Phosphatase 53 Troponin I 0.060 H* Total Protein 5.0 L Albumin 2.9 L TSH Nasal MRSA (PCR) Not detected 12/27/24 05:37 WBC RBC Hgb Hct MCV MCH MCHC RDW Plt Count MPV Immature Gran % (Auto) Neut % (Auto) Lymph % (Auto) [place] % (Auto) Eos % (Auto) Baso % (Auto) Lymph # (Auto) [place] # (Auto) Eos # (Auto) Baso # (Auto) Abs Immat Gran (auto) Absolute Neuts (auto) Absolute Nucleated RBC Neutrophils % (Manual) Band Neutrophils % Lymphocytes % (Manual) Monocytes % (Manual) Nucleated RBC % Abs Neuts (Manual) Abs Lymphs (Manual) Abs Monocytes (Manual) Platelet Estimate % Immature Plt Fraction Schistocytes Sodium 142 Potassium 5.1 H Chloride 109 H Carbon Dioxide 22 Anion Gap 11 BUN 27 H Creatinine 1.08 Estim Creat Clear Calc 54 Estimated GFR > 60 Glucose 93 Calcium 9.3 Magnesium 2.3 Total Bilirubin 0.6 AST 23 ALT 19 Alkaline Phosphatase 31 L Troponin I Total Protein Albumin 3.7 TSH 1.610 Nasal MRSA (PCR) Preliminary micro results at discharge 12/27/24 07:56 Blood Culture - Preliminary Blood 12/27/24 08:08 Blood Culture - Preliminary Blood Discharge Plan Discharge Attending physician on discharge: Vishal Perez Consulting providers: Jaden Hassan Discharging Clinician: Vishal Perez Anticipated Discharge Date/Time: 12/28/24 11:01 Patient Disposition: Home, Self-Care Activity: as tolerated Diet: as tolerated Discharge Instructions: Take medications as prescribed Monitor blood pressures Encouraged to continue with yearly vaccinations Return to the emergency department if he developed sudden shortness of breath, chest pain, nausea, vomiting, upset stomach or intractable diarrhea Return to the emergency department if you develop fever greater than 101.5 Follow-up with the primary care physician within 1-2 [address] up with Dr. Bernal's office as soon as possible. You will be ordered a continuous cardiac cath technologist to wear for 30 days. Thank you for [facility] for your healthcare needs Patient Instructions: Antibiotic Form Patient Language: Serbian Stand Alone Forms: General Discharge Information Follow-up/Referrals: Saroj Bernal MD [Physician] - Discharge Medications: Continued aspirin 81 mg Tablet,Chewable 81 mg PO DAILY rosuvastatin 10 mg tablet 10 mg PO DAILY losartan 50 mg tablet 50 mg PO DAILY Eliquis 5 mg tablet 5 mg PO HS mupirocin 2 % ointment 1 applic topical BID Qty: 50 2RF ketoconazole 2 % cream 1 applic topical BID Qty: 60 1RF multivitamin Tablet 1 tablet PO DAILY (DME) CPAP See Rx Instructions .Route .MEDSUPPLY Qty: 1 0RF Rx Instructions: medium ResMed AirTouch F20 full face mask and heated humidity with pressure of 11 cm H2) Other Ambulatory Orders: CA cardiac event monitor (Routine) Timeframe: 1 Month Location: Determined by Patient Ordered By: Vishal Perez Date of admission: 12/27/24 09:59 Primary Care Provider: Saroj Cunningham Admitting Provider: Diego Rodarte Attending physician on admission: Vishal Perez Condition: Stable
== END 2024-12-28 15:41 | disposition home or self-care (01) | DRG 308 ==
LOC: ANHED 06:13 → ANHIMU 08:27
PROVIDERS: Internal Medicine; Student in an Organized Health Care Education/Training Program; Admitting Provider General Practice; Emergency Provider Student in an Organized Health Care Education/Training Program; PCP Family Medicine; Visit Provider Physician Assistant
DX: R00.1 Bradycardia, unspecified (principal); J18.9 Pneumonia, unspecified organism; N17.9 Acute kidney failure, unspecified; R55 Syncope and collapse; I44.1 Atrioventricular block, second degree; I11.0 Hypertensive heart disease with heart failure; I50.9 Heart failure, unspecified; G47.33 Obstructive sleep apnea (adult) (pediatric); I25.10 Atherosclerotic heart disease of native coronary artery without angina pectoris; I48.0 Paroxysmal atrial fibrillation; K21.9 Gastro-esophageal reflux disease without esophagitis; E78.2 Mixed hyperlipidemia; I87.2 Venous insufficiency (chronic) (peripheral); N40.1 Benign prostatic hyperplasia with lower urinary tract symptoms; R35.1 Nocturia; L30.1 Dyshidrosis [pompholyx]; W18.30XA Fall on same level, unspecified, initial encounter; D69.6 Thrombocytopenia, unspecified; E78.5 Hyperlipidemia, unspecified; M47.812 Spondylosis without myelopathy or radiculopathy, cervical region; K44.9 Diaphragmatic hernia without obstruction or gangrene; K42.9 Umbilical hernia without obstruction or gangrene; L30.9 Dermatitis, unspecified; Z79.01 Long term (current) use of anticoagulants; Z95.5 Presence of coronary angioplasty implant and graft; Z90.49 Acquired absence of other specified parts of digestive tract; Z98.42 Cataract extraction status, left eye; Z98.41 Cataract extraction status, right eye; I25.2 Old myocardial infarction
CPT/HCPCS: 36415; 70450; 71045; 71260; 72125; 74177; 80053; 81001; 82550; 83605; 83690; 83735; 83880; 84443; 84484; 85025; 85055; 85610; 85730; 87040; 87637; 87641; 93005; 93306; 93971; 96361; 96374; 99285; A9270; G0378; J0696; J7040; Q9967

== ENCOUNTER 2024-12-31 08:59 | Inpatient (IN) | payer MEDICARE, SELFPAY ==
[2024-12-31] VITALS (14 sets, daily range): BP systolic 114–167; BP diastolic 44–95; PULSE 55–74; RESP 14–20; TEMP 36.4–37; O2SAT 85–100; BMI 31.8
--- NOTE | ~2024-12-31 | CT_ITS ---
CLINICAL INDICATION: Swelling and pain. COMPARISON: None. TECHNIQUE: Computed tomography (CT) of the right lower extremity was performed with intravenous contr ast. The dose-length product was 2053.91 mGy-cm. Examination was not requested as a CTA, as such, evaluation of the arterial system is limited (secondary to bolus timing). Examination was not requested as a venogram, as such, evaluation of the venous system is limited (sec ondary to bolus timing). FINDINGS/OBSERVATIONS: No acute fracture. No rim-enhancing fluid collection Degenerative osseous disease present. Fixation hardware within the distal tibia. Multiple nonpathologically enlarged or morphologically suspicious lymph nodes within the right groin. IMPRESSION: Limited evaluation of the right lower extremity, as detailed above Reviewed, dictated and finalized at location A.
--- NOTE | ~2024-12-31 | XR_ITS ---
CHEST RADIOGRAPH CLINICAL HISTORY: pacemaker insertion . COMPARISON: 12/31/2024 TECHNIQUE: Single portable view of the chest. FINDINGS Interval placement of a pacemaker via left subclavian access. The generator projects over the left an terior lateral chest wall and the leads project over the atria and ventricle. The remainder of the cardiomediastinal silhouette is enlarged, but otherwise unremarkable. The left lung is fully inflated. Prior fracture deformity within the right lateral chest wall. The lungs are clear. IMPRESSION: Interval placement of a left sided pacemaker, with its leads projecting over the atrium and ventricle , without pneumothorax or periimplantation hematoma. Reviewed, dictated and finalized at location A. IMPRESSION: Interval placement of a left sided pacemaker, with its leads projecting over th e atrium and ventricle, without pneumothorax or periimplantation hematoma.
--- NOTE | ~2024-12-31 | XR_ITS ---
CHEST RADIOGRAPH CLINICAL HISTORY: cardiac issues . COMPARISON: 12/27/2024 TECHNIQUE: Single portable view of the chest. FINDINGS The cardiomediastinal silhouette is unremarkable. The lungs are clear, unchanged from prior. IMPRESSION: No focal infiltrate or effusion. Reviewed, dictated and finalized at location A.
--- NOTE | ~2024-12-31 | XR_ITS ---
XR chest 2V 01/03/2025 14:51 Indication: Status post recent pacemaker insertion Procedure: AP view of the chest Comparison: Comparison to multiple prior studies sequentially, with oldest reviewed study dated 05/2023. Findings: Pacemaker leads are stable. No focal air space disease, pulmonary edema, pleural effusion o r suspected pneumothorax. Stable cardiomediastinal silhouette. There is a healed right seventh rib fr acture. Impression: 1: No acute cardiopulmonary disease. Reviewed, dictated and finalized at location A. Impression: 1: No acute cardiopulmonary disease.
--- OUTSIDE RECORDS SUMMARY | 2024-12-31 09:02 | XMS_ITS | Clinical Summary ---
Author Organization [facility] Address [address] [place] [address] Care Team Providers Care Flower Maker Name Role Phone Saroj Cunningham MD Primary Care Provider [phone] Allergies Active Allergy Reactions Criticality Noted Date [...] disease 01/26/2022 Coronary artery disease invo lving teller coronary artery of teller heart without angina pectoris 08/12/2021 Hx of [...] 07/08/2020 01/26/2022 Atrial fibrillation, unspeci fied type ([facility]) 07/08/2020 08/22/2020 Need for zoster vaccine 05/22/202006/04 HTN (hypertension) 05/08/2020 0 Other acute kidney failure 05/08/2020 0 05/22/2020 Non-recurrent acute suppurat harry otitis media of right ear 05/08/2020 05/22/2020 Dislocation of ulnohumeral joint 06/21/2012 07/30/2020 Other fracture of unspecifie d lower leg, initial encounter for open fracture type I or II 06/21/2012 07/30/2020 Atrial fibrillation ([facility]) 01/26/2022 Immunizations Name Administration Dates Next Due Fluzone High Dose - >Age 65 (Prefilled Syringe) 07/29/2022,08/22/2021,08/02/2019,2017,07/28/2017,06/04/2017,07/07/2016,1 11/05/2014,07/04/2014 Influenza Adult (Generic) 06/07/2020 PFIZER COVID-19 (ORIGINAL FORMULATION, PURPLE CAP) mRNA, LNP-S, PF, 30 MCG/0.3 ML DOSE 07/24/2021 Pneumococcal (Pneumovax 23) 08/17/2014 Pneumococcal (Prevnar 13) 09/04/2015 Td 07/18/2001 Tdap (Generic) 09/01/2022 Zoster (Zostavax) 01872 Unt/0.65Ml 10/10/2014 Family History Medical History Relation [...] Sex Assigned at Male 11/13/2024 12:28 PM MARKETING RESEARCH INTERN Legal Sex Male 4:21 PM CDT Gender Identity Not on file Sexual Orientation Not on file Last Filed Vital Signs Vital Sign Reading Time Taken Comments Blood Pressure 105/63 05/15/2024 8:51 AM CDT Pulse 64 05/15/2024 8:51 AM CDT Temperature 36.6 C (97.8 F) 11/12/2023 8:04 AM MARKETING RESEARCH INTERN Respiratory Rate 22 07/29/2022 9:16 AM CDT [...] 08/22/2021, 06/07/2020, Additional history exists PHQ-2 (Physician [place]) 10/04/2024 11/12/2023 DTaP, Tdap and Td Vaccines [...] age to complete this topic Insurance MEDICARE [facility] Care Teams Flower Maker Relationship Specialty Start Date End Date Saroj Cunningham MD [id number] [facility] [address] [address] PCP - General FAMILY PRACTICE 06/30/23
--- OUTSIDE RECORDS SUMMARY | 2024-12-31 09:02 | XMS_ITS | Clinical Summary ---
Author Organization [facility] Address [address] [place] [address] Care Team Providers Care Instrument And Electrical Technician Name Role Phone Rafi Montes MD Primary Care Provider [phone] Source Comments [facility],non-owned Affiliates and Associated Physician Practices is amultiple site organization consisting of ambulatory clinics and hospital sitesin [place], [place], [place]. This disclosure is being madepursuant to the Care Everywhere program and may not contain all information available regarding this patient. Last updated 18.[facility] Allergies Active Allergy Reactions Criticality Noted Date [...] Comments Blood Pressure 183/87 09/02/2022 3:00 PM HOOP RIVETER Pulse 58 09/02/2022 4:00 PM HOOP RIVETER Temperature 37.1 C (98.8 F) 09/02/2022 8:00 AM HOOP RIVETER Respiratory Rate 16 09/02/2022 4:00 PM HOOP RIVETER Oxygen Saturation 95% 09/02/2022 4:00 PM HOOP RIVETER Inhaled Oxygen Concentration - - Weight 93 kg (205 lb) 09/01/2022 4:44 PM HOOP RIVETER Height 177.8 cm (5' 10 ) 09/01/2022 4:44 PM HOOP RIVETER Body Mass Index 29.41 09/01/2022 4:44 PM HOOP RIVETER Plan of Treatment Health Maintenance Due Date [...] 7:41 PM 09/02/2022 5:36 PM Care Teams Instrument And Electrical Technician Relationship Specialty Start Date End Date Rafi Montes MD [address] [place] [id number] PCP - General 08/31/12
--- OUTSIDE RECORDS SUMMARY | 2024-12-31 09:02 | XMS_ITS | Referral Summary ---
Author Organization [facility] [address] Address [address] [place] [address] [address] [place] [address] Care Team Providers Care Flatbed Press Operator Name Role Phone Saroj Cunningham MD Primary Care Provider [phone] Encounters Date Type Department Care Team Description 12/28/2024 2:30 PM CDT Ancillary Procedure [facility] Cardiology [address] [place] [address] [address] [place] [phone] NSTEMI (non-ST elevated myocardial infarction) (HCC) 12/27/2024 Orders Only [facility] Health Information Management [address] [place], [place] [id number] Jaden Hassan MD 11/30/2024 Telephone [facility] Cardiology [address] [place] [address] [address] [place] [phone] Saroj Bernal MD pacemaker implantation 11/27/[address] [phone] Saroj Bernal MD Med Refill 10/16/2024 9:30 AM FIVE PIECE EXPANSION MAKER HAND Office Visit [place] [address] [place] [phone] Saroj Bernal MD History of coronary artery stent placement (Primary Dx); Coronary artery disease involving cantwell coronary artery of cantwell heart without angina pectoris; Second degree AV block, Mobitz type I; Paroxysmal atrial fibrillation (HCC) 10/10/2024 Telephone [facility] Cardiology [address] [place] [address] [address] [place] [phone] Saroj Bernal MD Med Refill from Last [...] I 11/18/2023 Coronary artery disease invo lving cantwell coronary artery of cantwell heart without angina pectoris 08/12/2021 History of coronary artery stent placement 08/12 Social History Tobacco Use Types Packs/Day Years Used Date Smoking Tobacco: Never Smokeless Tobacco: Never Tobacco Cessation:Counseling Given: Not Answered Sex and Gender Information Value Date Recorded Sex Assigned at Not on file Legal Sex Male 3:21 AM FIVE PIECE EXPANSION MAKER HAND Gender Identity Not on file Sexual Orientation Not on file Last Filed Vital Signs Vital Sign Reading Time Taken Comments Blood Pressure 144/66 10/16/2024 9:19 AM FIVE PIECE EXPANSION MAKER HAND Pulse 60 10/16/2024 9:19 AM FIVE PIECE EXPANSION MAKER HAND Temperature - - Respiratory Rate - - Oxygen Saturation 94% 02/17/2024 8:25 AM CDT Inhaled Oxygen Concentration - - Weight 102.3 kg (225 lb 9.6 oz) 10/16/2024 9:19 AM FIVE PIECE EXPANSION MAKER HAND Height 177.8 cm (5' 10 ) 10/16/2024 9:19 AM FIVE PIECE EXPANSION MAKER HAND Body Mass Index 32.37 10/16/2024 9:19 AM FIVE PIECE EXPANSION MAKER HAND Plan of Treatment Not on file Procedures Procedure Name Priority Date/Time Associated Diagnosis Comments CARDIOLOGY DOCUMENT SCAN 12/27/2024 from Last 3 Months Results * Cardiology Document Scan (12/27/2024) Anatomical Region Laterality Modality Other [facility] Guanako Hassan MD CV CARDIAC SERVICES PRO CEDURES Final Result from Last 3 Months Insurance MEDICARE MEDICARE [facility] MEDICARE SUPPLEMENT Care Teams Flatbed Press Operator Relationship Specialty Start Date End Date Saroj Cunningham MD PCP - General Family Medicine 02/11/23
--- OUTSIDE RECORDS SUMMARY | 2024-12-31 09:02 | XMS_ITS | Clinical Summary ---
Author Organization [facility] Address [address] [place] [address] Phone Care Team Providers Care Correspondence Transcriber Name Role Phone Unavailable Primary Care Provider Unavailabl e Social History Tobacco Use Types Packs/Day Years Used Date Smoking Tobacco: Never Assessed Sex and Gender Information Value Date Recorded Sex Assigned at Not on file Legal Sex Male 8:18 AM ELEVATOR DISPATCHER Gender Identity Not on file Sexual Orientation [...]
--- OUTSIDE RECORDS SUMMARY | 2024-12-31 09:02 | XMS_ITS | Clinical Summary ---
Author Organization [facility] [address] Address [address] [place] [address] Care Team Providers Care Principal Engineer Name Role Phone Saroj Cunningham MD Primary Care Provider [phone] Allergies Active Allergy Reactions Criticality Noted Date [...] I 11/18/2023 Coronary artery disease invo lving [place] coronary artery of [place] heart without angina pectoris 08/12/2021 History of coronary artery stent placement 08/12 Encounters Date Type Department Care Team Description 12/28/2024 2:30 PM CDT Ancillary Procedure [facility] Cardiology [address] [place] [address] [address] [place] [phone] NSTEMI (non-ST elevated myocardial infarction) ([facility]) 12/27/2024 Orders Only [facility] Health Information Management [address] [place] [id number] Jaden Hassan MD 11/30/2024 Telephone [facility] Cardiology [address] [place] [address] [place] [phone] Saroj Bernal MD pacemaker implantation 11/27/2024 Telephone [place] [address] [place] [phone] Saroj Bernal MD Med Refill 10/16/2024 9:30 AM CHEESE COOK Office Visit [facility] Cardiology [address] [place] [address] [place] [phone] Saroj Bernal MD History of coronary artery stent placement (Primary Dx); Coronary artery disease involving [place] coronary artery of [place] heart without angina pectoris; Second degree AV block, Mobitz type I; Paroxysmal atrial fibrillation (HCC) 10/10/2024 Telephone [facility] Cardiology [address] [place] [address] [address] [place] [phone] Saroj Bernal MD Med Refill from Last [...] on file Legal Sex Male 3:21 AM CHEESE COOK Gender Identity Not on file Sexual Orientation Not on file Obstetrics History Last Filed Vital Signs Vital Sign Reading Time Taken Comments Blood Pressure 144/66 10/16/2024 9:19 AM CHEESE COOK Pulse 60 10/16/2024 9:19 AM CHEESE COOK Temperature - - Respiratory Rate - - Oxygen Saturation 94% 02/17/2024 8:25 AM CDT Inhaled Oxygen Concentration - - Weight 102.3 kg (225 lb 9.6 oz) 10/16/2024 9:19 AM CHEESE COOK Height 177.8 cm (5' 10 ) 10/16/2024 9:19 AM CHEESE COOK Body Mass Index 32.37 10/16/2024 9:19 AM CHEESE COOK Plan of Treatment Health Maintenance Due Date [...] 07/18/2001 Pneumococcal vaccine 65+ Completed 09/04/2015, 08/04 Procedures Procedure Name Priority Date/Time Associated Diagnosis Comments CARDIOLOGY DOCUMENT SCAN 12/27/2024 from Last 3 Months Results * Cardiology Document Scan (12/27/2024) Anatomical Region Laterality Modality Other [facility] Guanako Hassan MD CV CARDIAC SERVICES PRO CEDURES Final Result from Last 3 Months Insurance MEDICARE MEDICARE [facility] MEDICARE SUPPLEMENT Care Teams Principal Engineer Relationship Specialty Start Date End Date Saroj Cunningham MD PCP - General Family Medicine 02/11/23
--- OUTSIDE RECORDS SUMMARY | 2024-12-31 09:02 | XMS_ITS | Encounter Summary ---
Author Organization [facility] Address [address] [place] [address] Care Team Providers Care Metal Container Maker Name Role Phone Saroj Cunningham MD Primary Care Provider [phone] Encounter Details Date Type Department Care Team (Late st Contact Info) Description 12/27/2024 Orders Only [facility] Health Information Management [address] [place] [address] Jaden Hassan MD [address] [place] [phone] Social History Tobacco Use Types Packs/Day Years Used Date Smoking Tobacco: Never Smokeless Tobacco: Never Sex and Gender Information Value Date Recorded Sex Assigned at Not on file Legal Sex Male 3:21 AM PATIENT FINANCIAL ADVOCATE Gender Identity Not on file Sexual Orientation Not on file documented as of this encounter Plan of Treatment Not on file documented as of this encounter Procedures Procedure Name Priority Date/Time Associated Diagnosis Comments CARDIOLOGY DOCUMENT SCAN 12/27/2024 documented in this encounter Results * Cardiology Document Scan (12/27/2024) Anatomical Region Laterality Modality Other Jaden Hassan MD CV CARDIAC SERVICES PRO CEDURES Final Result documented in this encounter Visit Diagnoses Not on filedocumented in this encounter Care Teams Metal Container Maker Relationship Specialty Start Date End Date Saroj Cunningham MD PCP - General Family Medicine 02/11/23 documented as of this encounter
--- NOTE | 2024-12-31 09:09 | ECG_ITS ---
Test Date: 2024-12-31 09:12:26 Measurements Intervals [place] Rate: 63 P: 267 [place]: 316 QRS: 60 QRSD: 161 T: 5 QT: 421 QTc: 431 Interpretive Statements ECTOPIC ATRIAL RHYTHM WITH FIRST DEGREE AV BLOCK RIGHT BUNDLE BRANCH BLOCK [120+ ms QRS DURATION, UPRIGHT V1, 40+ ms S IN I/aVL/V4/V5/V6] ABNORMAL ECG Electronically Signed On 01-01-2025 06:47:01 CDT by Efren Martinez M.D.
[2024-12-31 09:24] LABS: Basophils Absolute Auto 0.1 K/mm3 (0.0-0.1); Basophils Percent Auto 0.6 % (0.2-1.2); Eosinophils Absolute Auto 0.2 K/mm3 (0-0.3); Eosinophils Percent Auto 1.7 % (0-4.4); Hematocrit 46.3 % (42.0-52.0); Hemoglobin 15.1 g/dL (14.0-18.0); Immature Granulocyte Absolute 0.05 K/mm3 (0.00-0.031); Immature Granulocyte Percent A 0.5 % (0-0.5); Lymphocytes Absolute Auto 1.47 K/mm3 (0.9-3.2); Lymphocytes Percent Auto 13.5 % (18.3-44.2); Mean Corpuscular HGB Conc 32.6 g/dl (32-36); Mean Corpuscular Hemoglobin 30.2 pg (26-34); Mean Corpuscular Volume 92.6 fl (80-100); Mean Platelet Volume 9.8 fl (7.4-10.4); Monocytes Absolute Auto 1.2 K/mm3 (0.1-0.6); Monocytes Percent Auto 10.7 % (2.6-8.5); Platelet Count Result 162 k/mm3 (150-375); Red Cell Distribution Width 13.8 % (11.5-14.5); White Blood Count 10.9 K/mm3 (4.5-10.0)
[2024-12-31 09:34] LABS: Alanine Aminotransferase 34 U/L (6-50); Albumin Level 3.5 g/dL (3.5-5.1); Alkaline Phosphatase 53 U/L (38-126); Anion Gap 6 mmol/L (4-12); Aspartate Amino Transferase 24 U/L (17-59); Bilirubin,Total 1.1 mg/dL (0.2-1.3); Blood Urea Nitrogen 19 mg/dL (9-20); Calcium 9.5 mg/dL (8.4-10.2); Carbon Dioxide 29 mmol/L (22-30); Chloride 105 mmol/L (98-107); Estimated Glomerular Filt Rate > 60; Glucose 94 mg/dL (65-110); Lipase 160 U/L (23-300); Potassium 4.1 mmol/L (3.4-5.0); Sodium 140 mmol/L (137-145)
[2024-12-31 09:39] LABS: Prothrombin Time 14.1 Seconds (11.1-14.7)
[2024-12-31 09:40] LABS: Partial Thromboplastin Time 29.7 Seconds (22.3-36.8)
[2024-12-31 09:44] LABS: Troponin I 0.015 ng/mL (0.000-0.034)
--- OUTSIDE RECORDS SUMMARY | 2024-12-31 10:10 | XMS_ITS | Encounter Summary ---
Author Organization [facility] Healthcare Address [address] [place] [address] Care Team Providers Care Bobbin Hauler Name Role Phone Saroj Cunningham MD Primary Care Provider [phone] Encounter Details Date Type Department Care Team (Late st Contact Info) Description 12/27/2024 Orders Only [facility] [place] Information Management [address] [place] [address] Jaden Hassan MD [address] [place] [phone] Social History Tobacco Use Types Packs/Day Years Used Date Smoking Tobacco: Never Smokeless Tobacco: Never Sex and Gender Information Value Date Recorded Sex Assigned at Not on file Legal Sex Male 3:21 AM TANK TESTER Gender Identity Not on file Sexual Orientation [...] on filedocumented in this encounter Care Teams Bobbin Hauler Relationship Specialty Start Date End Date Saroj Cunningham MD PCP - General Family Medicine 02/11/23 documented as of this encounter
--- OUTSIDE RECORDS SUMMARY | 2024-12-31 10:10 | XMS_ITS | Referral Summary ---
Author Organization [facility] [address] [place] [address] [address] [place] [address] Care Team Providers Care Product Promoter Retail Pet Name Role Phone Saroj Cunningham MD Primary Care Provider [phone] Encounters Date Type Department Care Team Description 12/28/2024 2:30 PM CDT Ancillary Procedure [facility] [address] [place] [address] [address] [place] [phone] NSTEMI (non-ST elevated myocardial infarction) (HCC) 12/27/2024 Orders Only [facility] Health Information Management [address] [place], [place] [id number] Jaden Hassan MD 11/30/2024 Telephone [facility] [address] [place] [address] [address] [place] [phone] Saroj Bernal MD pacemaker implantation 11/27/[address] [phone] Saroj Bernal MD Med Refill 10/16/2024 9:30 AM HEAD BATCHER Office Visit [facility] [address] [place] [phone] Saroj Bernal MD History of coronary artery stent placement (Primary Dx); Coronary artery disease involving [place] coronary artery of [place] heart without angina pectoris; Second degree AV block, Mobitz type I; Paroxysmal atrial fibrillation (HCC) 10/10/2024 Telephone [facility] [address] [place] [address] [address] [place] [phone] Saroj Bernal MD Med Refill from Last [...] I 11/18/2023 Coronary artery disease invo lving [place] coronary artery of [place] heart without angina pectoris 08/12/2021 History of coronary artery stent placement 08/12 Social History Tobacco Use Types Packs/Day Years Used Date Smoking Tobacco: Never Smokeless Tobacco: Never Tobacco Cessation:Counseling Given: Not Answered Sex and Gender Information Value Date Recorded Sex Assigned at Not on file Legal Sex Male 3:21 AM HEAD BATCHER Gender Identity Not on file Sexual Orientation Not on file Last Filed Vital Signs Vital Sign Reading Time Taken Comments Blood Pressure 144/66 10/16/2024 9:19 AM HEAD BATCHER Pulse 60 10/16/2024 9:19 AM HEAD BATCHER Temperature - - Respiratory Rate - - Oxygen Saturation 94% 02/17/2024 8:25 AM CDT Inhaled Oxygen Concentration - - Weight 102.3 kg (225 lb 9.6 oz) 10/16/2024 9:19 AM HEAD BATCHER Height 177.8 cm (5' 10 ) 10/16/2024 9:19 AM HEAD BATCHER Body Mass Index 32.37 10/16/2024 9:19 AM HEAD BATCHER Plan of Treatment Not on file Procedures Procedure Name Priority Date/Time Associated Diagnosis Comments CARDIOLOGY DOCUMENT SCAN 12/27/2024 from Last 3 Months Results * Cardiology Document Scan (12/27/2024) Anatomical Region Laterality Modality Other [facility] Guanako Hassan MD CV CARDIAC SERVICES PRO CEDURES Final Result from Last 3 Months Insurance MEDICARE [facility] Address: [facility] [address] [place] [address] MEDICARE [facility] MEDICARE SUPPLEMENT Care Teams Product Promoter Retail Pet Relationship Specialty Start Date End Date Saroj Cunningham MD PCP - General Family Medicine 02/11/23
--- OUTSIDE RECORDS SUMMARY | 2024-12-31 10:10 | XMS_ITS | Clinical Summary ---
Author Organization [facility] Address [address] [place] [address] Care Team Providers Care Computer Bookkeeper Name Role Phone Rafi Montes MD Primary Care Provider [phone] Source Comments [facility],non-owned Affiliates and Associated Physician Practices is amultiple site organization consisting of ambulatory clinics and hospital sitesin [place], [place], [place] and [place]. This disclosure is being madepursuant to the Care Everywhere program and may not contain all information available regarding this patient. Last updated 18.[facility] Allergies Active Allergy Reactions Criticality Noted Date [...] Comments Blood Pressure 183/87 09/02/2022 3:00 PM DICTAPHONE TRANSCRIBER Pulse 58 09/02/2022 4:00 PM DICTAPHONE TRANSCRIBER Temperature 37.1 C (98.8 F) 09/02/2022 8:00 AM DICTAPHONE TRANSCRIBER Respiratory Rate 16 09/02/2022 4:00 PM DICTAPHONE TRANSCRIBER Oxygen Saturation 95% 09/02/2022 4:00 PM DICTAPHONE TRANSCRIBER Inhaled Oxygen Concentration - - Weight 93 kg (205 lb) 09/01/2022 4:44 PM DICTAPHONE TRANSCRIBER Height 177.8 cm (5' 10 ) 09/01/2022 4:44 PM DICTAPHONE TRANSCRIBER Body Mass Index 29.41 09/01/2022 4:44 PM DICTAPHONE TRANSCRIBER Plan of Treatment Health Maintenance Due Date [...] 7:41 PM 09/02/2022 5:36 PM Care Teams Computer Bookkeeper Relationship Specialty Start Date End Date Rafi Montes MD [address] [place] [phone] PCP - General 08/31/12
--- OUTSIDE RECORDS SUMMARY | 2024-12-31 10:10 | XMS_ITS | Clinical Summary ---
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
--- OUTSIDE RECORDS SUMMARY | 2024-12-31 10:10 | XMS_ITS | Clinical Summary ---
Author Organization [facility] Address [address] [place] [address] Care Team Providers Care Wafer Polisher Name Role Phone Saroj Cunningham MD Primary Care Provider [phone] Allergies Active Allergy Reactions Criticality Noted Date [...] disease 01/26/2022 Coronary artery disease invo lving [place] coronary artery of [place] heart without angina pectoris 08/12/2021 Hx of [...] 07/08/2020 01/26/2022 Atrial fibrillation, unspeci fied type ([facility]) 07/08/2020 08/22/2020 Need for zoster vaccine 05/22/202006/04 HTN (hypertension) 05/08/2020 0 Other acute kidney failure 05/08/2020 0 05/22/2020 Non-recurrent acute suppurat harry otitis media of right ear 05/08/2020 05/22/2020 Dislocation of ulnohumeral joint 06/21/2012 07/30/2020 Other fracture of unspecifie d lower leg, initial encounter for open fracture type I or II 06/21/2012 07/30/2020 Atrial fibrillation ([facility]) 01/26/2022 Immunizations Name Administration Dates Next Due Fluzone High Dose - >Age 65 (Prefilled Syringe) 07/29/2022,08/22/2021,08/02/2019,2017,07/28/2017,06/04/2017,07/07/2016,1 11/05/2014,07/04/2014 Influenza Adult (Generic) 06/07/2020 PFIZER COVID-19 (ORIGINAL FORMULATION, PURPLE CAP) mRNA, LNP-S, PF, 30 MCG/0.3 ML DOSE 07/24/2021 Pneumococcal (Pneumovax 23) 08/17/2014 Pneumococcal (Prevnar 13) 09/04/2015 Td 07/18/2001 Tdap (Generic) 09/01/2022 Zoster (Zostavax) [address]70 Unt/0.65Ml 10/10/2014 Family History Medical History Relation [...] Sex Assigned at Male 11/13/2024 12:28 PM CORPORATE MEETING PLANNER Legal Sex Male 4:21 PM CDT Gender Identity Not on file Sexual Orientation Not on file Last Filed Vital Signs Vital Sign Reading Time Taken Comments Blood Pressure 105/63 05/15/2024 8:51 AM CDT Pulse 64 05/15/2024 8:51 AM CDT Temperature 36.6 C (97.8 F) 11/12/2023 8:04 AM CORPORATE MEETING PLANNER Respiratory Rate 22 07/29/2022 9:16 AM CDT [...] 08/22/2021, 06/07/2020, Additional history exists PHQ-2 (Physician [place]) 10/04/2024 11/12/2023 DTaP, Tdap and Td Vaccines [...] age to complete this topic Insurance MEDICARE [facility] Care Teams Wafer Polisher Relationship Specialty Start Date End Date Saroj Cunningham MD [id number] [facility] [address] [address] PCP - General FAMILY PRACTICE 06/30/23
--- OUTSIDE RECORDS SUMMARY | 2024-12-31 10:10 | XMS_ITS | Clinical Summary ---
Author Organization [facility] [address] Address [address] [place] [address] Care Team Providers Care School Leader Name Role Phone Saroj Cunningham MD Primary Care Provider [phone] Allergies Active Allergy Reactions Criticality Noted Date [...] I 11/18/2023 Coronary artery disease invo lving [place] coronary artery of [place] heart without angina pectoris 08/12/2021 History of coronary artery stent placement 08/12 Encounters Date Type Department Care Team Description 12/28/2024 2:30 PM CDT Ancillary Procedure [facility] Card[facility] [address] [place] [address] [address] [place] [phone] NSTEMI (non-ST elevated myocardial infarction) ([facility]) 12/27/2024 Orders Only [facility] Health Information Management [address] [place] [address] Jaden Hassan MD 11/30/2024 Telephone [facility] [address] [place] [address] [place] [phone] Saroj Bernal MD pacemaker implantation 11/27/2024 Telephone [place] [address] [place] [phone] Saroj Bernal MD Med Refill 10/16/2024 9:30 AM KNEE BOLTER Office Visit [facility] [address] [place] [address] [place] [phone] Saroj Bernal MD History of coronary artery stent placement (Primary Dx); Coronary artery disease involving [place] coronary artery of [place] heart without angina pectoris; Second degree AV block, Mobitz type I; Paroxysmal atrial fibrillation (HCC) 10/10/2024 Telephone [facility] [address] [place] [address] [address] [place] [phone] Saroj Bernal MD Med Refill from Last [...] on file Legal Sex Male 3:21 AM KNEE BOLTER Gender Identity Not on file Sexual Orientation Not on file Obstetrics History Last Filed Vital Signs Vital Sign Reading Time Taken Comments Blood Pressure 144/66 10/16/2024 9:19 AM KNEE BOLTER Pulse 60 10/16/2024 9:19 AM KNEE BOLTER Temperature - - Respiratory Rate - - Oxygen Saturation 94% 02/17/2024 8:25 AM CDT Inhaled Oxygen Concentration - - Weight 102.3 kg (225 lb 9.6 oz) 10/16/2024 9:19 AM KNEE BOLTER Height 177.8 cm (5' 10 ) 10/16/2024 9:19 AM KNEE BOLTER Body Mass Index 32.37 10/16/2024 9:19 AM KNEE BOLTER Plan of Treatment Health Maintenance Due Date [...] from Last 3 Months Insurance MEDICARE MEDICARE [facility] MEDICARE SUPPLEMENT Care Teams School Leader Relationship Specialty Start Date End Date Saroj Cunningham MD PCP - General Family Medicine 02/11/23
--- NOTE | 2024-12-31 10:56 | ED_ITS ---
HPI - Arrhythmia/Palpitations General Chief Complaint: Recheck/Abnormal Lab/Rx Stated Complaint: sent by Dr. 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 patient presents to the emergency department after being called by instructional manager Dr. Metzger to come to the ER for sinus pause of 10-11 seconds that was witnessed on Holter monitor last night. patient was just admitted to the hospital and discharged 2 days ago after an admission for syncopal episode likely cardiac in origin with a bradycardic episode triggering this. he was told at that admission that he might need a pacemaker. Patient presently denies any complaints, denies any chest pain, shortness a breath, nausea, vomiting, abdominal pain, back pain. He is slightly disgruntled that he was discharged previously without getting the pacemaker during his last hospital visit but is here today to be evaluated for this. Related Data Home Medications ?Medication ?Instructions ?Recorded ?Confirmed ?Last Taken ?Type losartan 50 mg tablet 50 mg PO DAILY 09/09/22 12/31/24 12/26/24 History aspirin 81 mg chewable tablet 81 mg PO DAILY 12/05/22 12/31/24 12/26/24 History rosuvastatin 10 mg tablet 10 mg PO DAILY 07/19/23 12/31/24 12/26/24 History multivitamin 1 tablet PO DAILY 08/21/23 12/31/24 12/26/24 History apixaban 5 mg tablet (Eliquis) 5 mg PO HS 12/23/23 12/31/24 12/26/24 History Allergies Allergy/AdvReac Type Severity Reaction Status Date / Time adhesive AdvReac Mild Itching Verified 12/31/24 09:01 pantoprazole AdvReac Mild itching Verified 12/31/24 09:01 Review of Systems 2 Review of Systems: as reviewed above in HPI [facility] Past Medical History Medical History Essential (primary) hypertension Mixed hyperlipidemia 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 Gastroesophageal reflux disease Hard of hearing 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 [place] on CPAP Subarachnoid hemorrhage following injury with brief loss of consciousness but without open intracranial wound CAD (coronary artery disease) Dyshidrotic eczema BPH associated with nocturia Surgical History Surgical History History of appendectomy H/O heart artery stent x2, Dr Coles History of back surgery Hx of inguinal hernia surgery History of ankle surgery right History of carpal tunnel surgery H/O shoulder surgery right S/P cholecystectomy Family History Family History Mother Family history of cardiovascular disease Family history of diabetes mellitus in first degree relative Diabetes mellitus Father Family history of heart disease in male family member before age 55 Cerebrovascular accident Other Family history of malignant neoplasm Hypertension Social History Social History Smoking status: Never smoker Second hand tobacco smoke exposure: Yes Alcohol intake: never Substance use: never Substance use type: does not use Do You Feel Safe in your Home?: Yes Lack of Transportation: No Lack of Food: Never True Current Housing: I Have Housing Concerned About Future Housing: No Difficulty Paying Gas/Electric Bills: No Difficulty Paying for Meds: No Currently Unemployed: No Education: Trade/Vocational Certificate Difficulty w/ Childcare or Family Care: No Living arrangements: with family Gender identity (if verbalized by the patient): Male Spiritual care concerns: No Exam 2 Narrative: GENERAL: elderly, very hard of hearing but not any acute distress, well- appearing HEAD: [Normocephalic, atraumatic.] EYES: [PERRLA and EOMI.] ENT: Nares clear, no rhinorrhea or epistaxis. Mucous membranes moist. NECK: Supple. CHEST: [Clear to auscultation. No respiratory distress.] HEART: [Regular rate and rhythm]. No murmur heard. [Normal peripheral pulses.] ABDOMEN: [Soft, nondistended], [nontender], [No rigidity or guarding] EXTREMITIES: Normal range of motion. right lower extremity previous cellulitis improving per report documentation, mild warmth to touch, no significant erythema SKIN: Warm, dry, no rash. NEURO: [No focal deficits]. Alert and oriented [x3.] PSYCH: [Normal mood and affect.] Course Vital Signs Vital signs: Vital Signs Pulse Rate 57 L 12/31/24 09:17 Blood Pressure 114/95 H 12/31/24 09:17 Pulse Oximetry 85 L 12/31/24 09:17 Temperature 36.6 C 12/31/24 09:30 Pulse Rate 60 12/31/24 09:30 Respiratory Rate 20 12/31/24 09:30 Blood Pressure 167/77 H 12/31/24 09:30 Pulse Oximetry 100 12/31/24 09:30 Oxygen Delivery Room Air 12/31/24 09:30 MDM - Arrhythmia/Palpitations MDM Narrative Medical decision making narrative: 84-year-old male presenting to the ER for evaluation of a prolonged sinus pause that occurred last night on his home monitor. patient has significant cardiac history including coronary disease status post PCI, paroxysmal AFib on Eliquis, intermittent Wenckebach and prolonged first-degree AV block. patient presently is asymptomatic but was just discharged from the hospital after admission with observation for cardiac syncope and noted to be bradycardic. He was told he might need a pacemaker and today was called by his instructional manager Dr. Martinez who recommended going to the hospital for pacemaker evaluation. patient is not any acute distress, vital signs are stable at this time. No blood pressure concerns, heart rate in the 50s to 60s with a first-degree AV block. No tachypnea, fever or hypoxia. I called and spoke to Dr. Martinez who informed me of the telemetry findings from last night and plan to admit him for evaluation by himself and Dr. Robison for pacemaker likely tomorrow. patient was informed of this plan. Cardiac workup was ordered your including troponin, EKG, chest x-ray and laboratory assessments. These were independently reviewed and largely unremarkable. Troponin is negative at this time, EKG services keep [place] interval [address] segment changes. X-ray without any acute concerning findings. Spoke to the hospitalist Dr. Rodarte and informed them that Cardiology would like him admitted to the IMU under the hospitalist team for evaluation. Patient was accepted to an IMU bed at this time. Medical Records Attestation: I reviewed the patient's medical records. Lab Data Attestation: I reviewed the patient's lab results. 12/31/24 09:16 12/31/24 09:16 Labs: Lab Results 12/31/24 Range/Units 09:16 WBC 10.9 H (4.5-10.0) K/mm3 RBC 5.00 (4.6-6.20) M/mm3 Hgb 15.1 (14.0-18.0) g/dL Hct 46.3 (42.0-52.0) % MCV 92.6 (80-100) fl MCH 30.2 (26-34) pg MCHC 32.6 (32-36) g/dl RDW 13.8 (11.5-14.5) % Plt Count 162 (150-375) k/mm3 MPV 9.8 (7.4-10.4) fl Immature Gran % (Auto) 0.5 (0-0.5) % Neut % (Auto) 73.0 (45.5-73.1) % Lymph % (Auto) 13.5 L (18.3-44.2) % Spencer % (Auto) 10.7 H (2.6-8.5) % Eos % (Auto) 1.7 (0-4.4) % Baso % (Auto) 0.6 (0.2-1.2) % Lymph # (Auto) 1.47 (0.9-3.2) K/mm3 Spencer # (Auto) 1.2 H (0.1-0.6) K/mm3 Eos # (Auto) 0.2 (0-0.3) K/mm3 Baso # (Auto) 0.1 (0.0-0.1) K/mm3 Abs Immat Gran (auto) 0.05 H (0.00-0.031) K/mm3 Absolute Neuts (auto) 8.0 H (1.3-6.7) K/mm3 Absolute Nucleated RBC 0.000 (0.0-0.012) K/mm3 Nucleated RBC % 0.0 (0.0-0.2) % PT 14.1 (11.1-14.7) Seconds INR 1.0 APTT 29.7 (22.3-36.8) Seconds Sodium 140 (137-145) mmol/L Potassium 4.1 (3.4-5.0) mmol/L Chloride 105 (98-107) mmol/L Carbon Dioxide 29 (22-30) mmol/L Anion Gap 6 (4-12) mmol/L BUN 19 (9-20) mg/dL Creatinine 1.12 (0.7-1.3) mg/dL Estim Creat Clear Calc Not Reportable Estimated GFR > 60 (59 - ) Glucose 94 (65-110) mg/dL Calcium 9.5 (8.4-10.2) mg/dL Total Bilirubin 1.1 (0.2-1.3) mg/dL AST 24 (17-59) U/L ALT 34 (6-50) U/L Alkaline Phosphatase 53 (38-126) U/L Troponin I 0.015 (0.000-0.034) ng/mL Total Protein 7.0 (6.3-8.2) g/dL Albumin 3.5 (3.5-5.1) g/dL Lipase 160 (23-300) U/L Imaging Data Attestation: I personally reviewed and interpreted this imaging study as follows: My impression: Impressions Chest X-Ray 12/31/24 09:21 IMPRESSION: No focal infiltrate or effusion. Discharge Plan Discharge Clinical Impression: Bradycardia, Sinus pause Patient Disposition: Still a Patient Condition: Stable Patient Language: Romanian Prescriptions: No Action aspirin 81 mg Tablet,Chewable 81 mg PO DAILY rosuvastatin 10 mg tablet 10 mg PO DAILY losartan 50 mg tablet 50 mg PO DAILY Eliquis 5 mg tablet 5 mg PO HS mupirocin 2 % ointment 1 applic topical BID Qty: 50 2RF ketoconazole 2 % cream 1 applic topical BID Qty: 60 1RF cephalexin 500 mg capsule 500 mg PO Q8H Qty: 21 1RF multivitamin Tablet 1 tablet PO DAILY (DME) CPAP See Rx Instructions .Route .MEDSUPPLY Qty: 1 0RF Rx Instructions: medium ResMed AirTouch F20 full face mask and heated humidity with pressure of 11 cm H2) Follow-up/Referrals: Saroj Cunningham MD [Primary Care Provider] - Time of Disposition: 11:03
--- NOTE | 2024-12-31 11:51 | ADMGEN ---
This patient, Enmanuel Vila, was admitted to IMU Room 232-01. Patient/family oriented to hospital policies and general routines including ID bracelet, bed and alarms, visiting hours, pain management, procedures, bathroom and other care routines, personal items, smoking policy, room service/diet, and visiting hours. Information on how to activate the Rapid Response Team has been discussed. Patient/Family are encouraged to report perceived risks to care and to ask questions if they do not understand what they are told or what they should do.
--- NOTE | 2024-12-31 12:15 | PM.IMHP ---
H&P: HPI History of Present Illness Date/Time: 12/31/24 13:00 Chief Complaint: Dysrhythmia on event monitor. Narrative: This is an 84-year-old male with history of coronary artery disease status post drug-eluting stent to the LAD x2, paroxysmal atrial fibrillation on apixaban, Mobitz type 1 second-degree AV block, hypertension, hyperlipidemia, obstructive sleep apnea on CPAP, benign prostatic hyperplasia, and recurrent right lower extremity cellulitis who presented to the emergency department at the direction of Dr. Martinez for evaluation of a dysrhythmia noted on his event monitor overnight. He was admitted to the hospital last week with syncope concerning for cardiac dysrhythmia and he has been wearing the event monitor for several days following his discharge. Today he received a phone call instructing him to go to the ED as he had a 10 to 11 second sinus pause sometime last night. He must a been asleep at that time as he had no symptoms. At the time my evaluation he is resting comfortably and has no complaints. He denies dizziness, fever, chills, sweats, chest pain, shortness of breath, nausea, vomiting, diarrhea, dysuria, and sweats. Of note, he is currently on oral antibiotics for right lower extremity cellulitis. In the ED: Pulse was 57 on arrival with a blood pressure of 114/85 and an SpO2 of 85% on room air. WBC count was a bit high at 10.9 but the remainder of his CBC and CMP were really unremarkable. Chest x-ray showed no focal infiltrate or effusion. EKG has not yet been scanned into the computer and I was unable to located at the time of this dictation. He is being admitted in this setting for close monitoring, cardiology consultation for probable pacemaker implantation, and IV antibiotics for cellulitis. Review of Systems Review of Systems: 12 systems were reviewed and are negative except for as per HPI. 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 Subarachnoid hemorrhage following injury with brief loss of consciousness but without open intracranial wound Dyshidrotic eczema Surgical History Surgical History History of inguinal hernia repair History of bilateral cataract extraction History of arthroscopy of right shoulder History of orthopedic surgery right ankle, elbow, forearm History of cholecystectomy History of coronary artery stent placement drug-eluting stent to the LAD x2 History of appendectomy History of back surgery History of carpal tunnel surgery Family History Family History Mother Family history of cardiovascular disease Family history of diabetes mellitus in first degree relative Diabetes mellitus Father Family history of heart disease in male family member before age 55 Cerebrovascular accident Other Family history of malignant neoplasm Hypertension Social History Social History Social History: Surrogate medical decision maker: Ellie Julito, spouse ([phone]). Code status: Full code. Smoking status: Never smoker Second hand tobacco smoke exposure: Yes Alcohol intake: never Substance use: never Substance use type: does not use Do You Feel Safe in your Home?: Yes Lack of Transportation: No Lack of Food: Never True Current Housing: I Have Housing Concerned About Future Housing: No Difficulty Paying Gas/Electric Bills: No Difficulty Paying for Meds: No Currently Unemployed: No Education: Trade/Vocational Certificate Difficulty w/ Childcare or Family Care: No Living arrangements: with family Additional living arrangements comments: Lives with spouse in [place]. Occupation/Education: retired Spiritual care concerns: No Meds Home Medications and Allergies Home Medications ?Medication ?Instructions ?Recorded ?Confirmed ?Type losartan 50 mg tablet 50 mg PO DAILY 09/09/22 12/31/24 History aspirin 81 mg chewable tablet 81 mg PO DAILY 12/05/22 12/31/24 History rosuvastatin 10 mg tablet 10 mg PO DAILY 07/19/23 12/31/24 History multivitamin 1 tablet PO DAILY 08/21/23 12/31/24 History CPAP #1 ea 09/20/23 12/31/24 Rx apixaban 5 mg tablet (Eliquis) 5 mg PO HS 12/23/23 12/31/24 History ketoconazole 2 % topical cream 1 applic topical BID #60 grams 08/23/24 12/31/24 Rx mupirocin 2 % topical ointment 1 applic topical BID #50 grams 11/21/24 12/31/24 Rx cephalexin 500 mg capsule 500 mg PO Q8H #21 caps 12/29/24 12/31/24 Rx Allergies Allergy/AdvReac Type Severity Reaction Status Date / Time adhesive AdvReac Mild Itching Verified 12/31/24 09:01 pantoprazole AdvReac Mild itching Verified 12/31/24 09:01 Vital Signs Vital Signs - 24 hr 12/31/24 09:17 12/31/24 09:21 12/31/24 09:30 Temperature 97.9 F Pulse Rate 57 L 60 Respiratory Rate 16 20 Blood Pressure 114/95 H 167/77 H Pulse Oximetry 85 L 100 100 Oxygen Delivery Room Air 12/31/24 10:58 12/31/24 12:00 Temperature 97.6 F Pulse Rate 58 L 56 L Respiratory Rate 18 14 Blood Pressure 133/68 162/73 H Pulse Oximetry 98 100 Oxygen Delivery Exam Narrative: General: Well-developed gentleman sitting up in bed in no acute distress. He is a good spirits. Weight: 97.7 kg. BMI: 31.8. HEENT: PERRL, EOMI. Sclera anicteric. Oral mucosa moist. Neck: Supple. Respiratory: Lungs are clear to auscultation bilaterally. Cardiovascular: Bradycardic with normal S1-S2. Gastrointestinal: Abdomen is soft, nontender, and nondistended with positive bowel sounds. Skin: Warm and dry. Chronic hyperpigmentation of the right lower leg with overlying warm, erythematous skin with evidence of lymphangitic streaking of the right upper inner thigh. Extremities: No cyanosis or clubbing. Mild right ankle edema. Neurological: Alert. Cranial nerves 2-12 are grossly intact. No gross focal deficits to casual conversation. Psychiatric: Pleasant and cooperative with normal mood and affect. Judgment and insight intact. H&P: Results Labs Labs: Short CBC 12/31/24 Range/Units 09:16 WBC 10.9 H (4.5-10.0) K/mm3 Hgb 15.1 (14.0-18.0) g/dL Hct 46.3 (42.0-52.0) % Plt Count 162 (150-375) k/mm3 [facility] 12/31/24 09:16 Sodium 140 Potassium 4.1 Chloride 105 Carbon Dioxide 29 BUN 19 Creatinine 1.12 Glucose 94 Calcium 9.5 Cardiac Enzymes 12/31/24 Range/Units 09:16 Troponin I 0.015 (0.000-0.034) ng/mL Liver Function 12/31/24 Range/Units 09:16 Total Bilirubin 1.1 (0.2-1.3) mg/dL AST 24 (17-59) U/L ALT 34 (6-50) U/L Alkaline Phosphatase 53 (38-126) U/L Albumin 3.5 (3.5-5.1) g/dL Imaging Chest X-Ray 12/31/24 09:21 IMPRESSION: No focal infiltrate or effusion. 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) use of anticoagulants Status: Acute (6) Coronary artery disease: Code(s): I25.10 - Atherosclerotic heart disease of [place] coronary artery without angina pectoris Status: Acute (7) Hypertension: Qualifiers: Hypertension type: primary hypertension Qualified Code(s): I10 - Essential (primary) hypertension Code(s): I10 - Essential (primary) hypertension Status: Acute (8) Obstructive sleep apnea on CPAP: Code(s): G47.33 - Obstructive sleep apnea (adult) (pediatric) Status: Acute Plan The patient presented to the emergency department for evaluation of a 10 to 11 second sinus pause noted on an event monitor last night as detailed in HPI. Labs, imaging, EKG, and all reports were personally reviewed. He was recently in the hospital for syncopal episode which was suspected to be due to cardiac dysrhythmia and that is the reason he has been wearing the event monitor. Recent echocardiogram showed a normal ejection fraction with grade 1 diastolic dysfunction and recent TSH was within normal limits. He was presumably asleep at the time and did not have any symptoms. As this has been an ongoing problem for the patient despite being on a all AV yevgeniy blockers, he will likely need a permanent pacemaker implanted. Cardiology has been consulted. He has been started on cefazolin for cellulitis of the right lower legs. Blood pressures are reasonable and will be monitored. No acute issues with regards to coronary artery disease and he has no complaints of chest pain. CPAP will be provided for the patient to use while hospitalized. His medications will be reviewed and resumed as appropriate. Findings and treatment plan were discussed with the patient. Questions were solicited and answered to satisfaction. The patient's medical management will be taken over by the hospitalist team in a.m. Quality VTE Prophylaxis VTE prophylaxis: mechanical ordered If No VTE Prophylaxis Answer both mechanical and pharmacologic: Reason no pharmacologic proph: medical contraindication (possible procedure tomorrow) Hospitalist MIPS Advance Care Plan I have confirmed that the patient's Advanced Care Plan is present, code status is documented, or surrogate decision maker is listed in patient medical record.: Yes Medication Reconciliation I have utilized all available resources to obtain, update and review the patients current medications (includes all prescriptions, OTC, herbals, cannabis, and nutritional supplements).: Yes
--- NOTE | 2024-12-31 13:20 | P.CONCA_ITS ---
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) use of anticoagulants Status: Acute (4) PAF (paroxysmal atrial fibrillation): Code(s): I48.0 - Paroxysmal atrial fibrillation Status: Acute (5) Cellulitis: Code(s): L03.90 - Cellulitis, unspecified Status: Acute (6) Heart block: Code(s): I45.9 - Conduction disorder, unspecified Status: Acute (7) History of syncope: Code(s): Z87.898 - Personal history of other specified conditions Status: Acute Plan This patient has a history of syncope with significant conduction system disease including a 1st degree AV block, right bundle-branch block, intermittent type 1 second-degree AV block and now over a 10 second pause noted on outpatient telemetry monitoring. At this point is my recommendation the patient undergo pacemaker implantation. Will hold his Eliquis. Obviously will discuss this with Dr. Bernal who will ultimately make this decision. He does have cellulitis also involving his right lower extremity. White blood cell count is down and he is on antibiotics. His right lower extremity though is red warm and swollen and would recommend IV antibiotics for 24-48 hours before pacemaker implantation. In the meantime, he will remain on telemetry monitoring. Other medications will will be continued including losartan for hypertension, rosuvastatin for hyperlipidemia and CAD and aspirin for CAD. His beta-tiffani has already been held following most recent hospitalization for syncope History of Present Illness History of Present Illness Consult date/time: 12/31/24 13:20 Requesting physician: Grzegorz Meza MD Consult reason: Other (Bradycardia, sinus pause, syncope) Reason For Visit: Symptomatic Bradycardia/Sinus Pause on Holter Narrative: Date of service 12/31/2024 Requesting provider: Dr. Cuellar Reason for consultation: Bradycardia, sinus pause, bradycardic and recent syncope. History patient is an 84-year-old male who has conduction system disease. He has history of paroxysmal atrial fibrillation, CAD. He follows with Dr. Bernal as an outpatient. Patient was recently here a couple of days ago due to syncopal episodes. Patient was discharged home with a total intra monitor. Life time telemetry monitoring revealed 10-11 second pause with sinus bradycardia with heart rates in the 40s. I called the patient this morning and he otherwise felt fine but he was instructed to come the hospital for further evaluation and consideration of pacemaker implantation given the significant conduction system disease, sinus arrest in the setting of a patient who has had syncopal episodes. He also has been dealing with cellulitis involving right lower leg. He denies any chest pain, unusual shortness breath, paroxysmal nocturnal dyspnea, orthopnea, palpitations. Does have some swelling around the cellulitis. Review of Systems 2 Review of Systems: All systems reviewed & are unremarkable except as noted in HPI and below Constitutional: Constitutional: Denies body ache(s) Eyes: Eyes: Denies blurry vision ENT: Denies Normal hearing present Cardiovascular: Cardiovascular: Denies chest pain, Reports pedal edema and Reports leg edema Respiratory: Respiratory: Denies hemoptysis Gastrointestinal: Gastrointestinal: Denies abdominal pain Genitourinary: Genitourinary: Denies hematuria Musculoskeletal: Musculoskeletal: Denies arthralgias Integumentary/Breasts: Skin/Breast: Reports erythema Neurologic: Denies Abnormal speech present Psychiatric: Psychiatric: Denies confusion Endocrine: Endocrine: Denies fatigue Hematologic/Lymphatic: Hematologic/Lymphatic: Denies easy bleeding Allergic/Immunologic: Allergic/Immunologic: Denies GI upset with certain foods PMFSH Past Medical History Medical History (Updated 12/31/24 @ 13:28 by Efren Martinez MD) PAF (paroxysmal atrial fibrillation) Essential (primary) hypertension Mixed hyperlipidemia 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 Gastroesophageal reflux disease Hard of hearing 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 [place]AGO on CPAP Subarachnoid hemorrhage following injury with brief loss of consciousness but without open intracranial wound CAD (coronary artery disease) Dyshidrotic eczema BPH associated with nocturia Surgical History Surgical History History of appendectomy H/O heart artery stent x2, Dr Coles History of back surgery Hx of inguinal hernia surgery History of ankle surgery right History of carpal tunnel surgery H/O shoulder surgery right S/P cholecystectomy Family History Family History Mother Family history of cardiovascular disease Family history of diabetes mellitus in first degree relative Diabetes mellitus Father Family history of heart disease in male family member before age 55 Cerebrovascular accident Other Family history of malignant neoplasm Hypertension Social History Social History Smoking status: Never smoker Second hand tobacco smoke exposure: Yes Alcohol intake: never Substance use: never Substance use type: does not use Do You Feel Safe in your Home?: Yes Lack of Transportation: No Lack of Food: Never True Current Housing: I Have Housing Concerned About Future Housing: No Difficulty Paying Gas/Electric Bills: No Difficulty Paying for Meds: No Currently Unemployed: No Education: Trade/Vocational Certificate Difficulty w/ Childcare or Family Care: No Living arrangements: with family Gender identity (if verbalized by the patient): Male Spiritual care concerns: No Meds Home Medications and Allergies Home Medications ?Medication ?Instructions ?Recorded ?Confirmed ?Type losartan 50 mg tablet 50 mg PO DAILY 09/09/22 12/31/24 History aspirin 81 mg chewable tablet 81 mg PO DAILY 12/05/22 12/31/24 History rosuvastatin 10 mg tablet 10 mg PO DAILY 07/19/23 12/31/24 History multivitamin 1 tablet PO DAILY 08/21/23 12/31/24 History CPAP #1 ea 09/20/23 12/31/24 Rx apixaban 5 mg tablet (Eliquis) 5 mg PO HS 12/23/23 12/31/24 History ketoconazole 2 % topical cream 1 applic topical BID #60 grams 08/23/24 12/31/24 Rx mupirocin 2 % topical ointment 1 applic topical BID #50 grams 11/21/24 12/31/24 Rx cephalexin 500 mg capsule 500 mg PO Q8H #21 caps 12/29/24 12/31/24 Rx Allergies Allergy/AdvReac Type Severity Reaction Status Date / Time adhesive AdvReac Mild Itching Verified 12/31/24 09:01 pantoprazole AdvReac Mild itching Verified 12/31/24 09:01 Vital Signs Vital Signs - 24 hr 12/31/24 09:17 12/31/24 09:21 12/31/24 09:30 Temperature 36.6 C Pulse Rate 57 L 60 Respiratory Rate 16 20 Blood Pressure 114/95 H 167/77 H Pulse Oximetry 85 L 100 100 Oxygen Delivery Room Air 12/31/24 10:58 12/31/24 12:00 Temperature 36.4 C Pulse Rate 58 L 56 L Respiratory Rate 18 14 Blood Pressure 133/68 162/73 H Pulse Oximetry 98 100 Oxygen Delivery Exam 2 Narrative: Awake alert oriented and appears to be in no acute distress. Appears stated age Const: General: comfortable and no acute distress HENMT: Face/Nose/Sinus: Normal nares present Mouth: Yes moist mucous membranes Eyes: Sclera: sclerae normal Neck: Neck: supple and no JVD Chest: Other: No reproducible chest wall pain to palpation Resp: Effort & Inspection: normal respiratory effort Auscultation: clear to auscultation bilaterally Cardio: Rate: bradycardic Rhythm: regular rhythm Heart sounds: Murmur heart sound present GI: Inspection: non-distended GI Palp: Yes Soft to palpation A uscultation: normal bowel sounds Skin: General skin exam: erythema Other: Right leg is warm red and swollen Neuro: Speech: normal speech Sensory Exam: normal sensation Extrem: General: edema Other: Mild right leg edema around cellulitis Psych: Mental Status: mental status grossly normal Affect: normal affect Results Labs and Meds 12/31/24 09:16 12/31/24 09:16 Lab results: Cardiac Enzymes 12/31/24 Range/Units 09:16 AST 24 (17-59) U/L Troponin I 0.015 (0.000-0.034) ng/mL Coagulation 12/31/24 Range/Units 09:16 PT 14.1 (11.1-14.7) Seconds APTT 29.7 (22.3-36.8) Seconds CBC 12/31/24 Range/Units 09:16 WBC 10.9 H (4.5-10.0) K/mm3 RBC 5.00 (4.6-6.20) M/mm3 Hgb 15.1 (14.0-18.0) g/dL Hct 46.3 (42.0-52.0) % Plt Count 162 (150-375) k/mm3 Lymph # (Auto) 1.47 (0.9-3.2) K/mm3 Brown # (Auto) 1.2 H (0.1-0.6) K/mm3 Eos # (Auto) 0.2 (0-0.3) K/mm3 Baso # (Auto) 0.1 (0.0-0.1) K/mm3 Comprehensive Metabolic Panel 12/31/24 Range/Units 09:16 Sodium 140 (137-145) mmol/L Potassium 4.1 (3.4-5.0) mmol/L Chloride 105 (98-107) mmol/L Carbon Dioxide 29 (22-30) mmol/L BUN 19 (9-20) mg/dL Creatinine 1.12 (0.7-1.3) mg/dL Glucose 94 (65-110) mg/dL Calcium 9.5 (8.4-10.2) mg/dL AST 24 (17-59) U/L ALT 34 (6-50) U/L Alkaline Phosphatase 53 (38-126) U/L Total Protein 7.0 (6.3-8.2) g/dL Albumin 3.5 (3.5-5.1) g/dL Patient Weight 12/31/24 23:59 Weight 97.7 kg Echocardiogram:2. There is normal biventricular size and systolic function. 3. There are no significant valvular abnormalities. EKG personally viewed intubated service showing sinus rhythm first-degree AV block, right bundle-branch block
[2024-12-31] MEDS: polyethylene glycoL 3350 17 GM POWD.PACK PO (14:47)
[2024-12-31] MEDS: LOSARTAN POTASSIUM 50 MG TABLET PO (14:47)
[2024-12-31] MEDS: MULTIVITAMINS THERAPEUTIC TAB (*BKC) 1 TABLET PO (14:47)
[2024-12-31] MEDS: ceFAZolin 1 GM/NS 50 ML 1 GM/50 ML BAG IVPB (20:46)
--- NOTE | 2024-12-31 22:07 | PC.NURSE ---
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 Patient verbalizes some chest pressure, but reiterates that it is not chest pain. A&O x 4. Debra ORTIZ made aware with orders to contact Cardiology.
--- NOTE | 2024-12-31 22:10 | PC.NURSE ---
Call placed to cardiology exchange for Dr. Martinez.
--- NOTE | 2024-12-31 22:12 | ECG_ITS ---
Test Date: 2025-01-01 08:57:58 Measurements Intervals [place] Rate: 58 P: -87 MN: 300 QRS: 69 QRSD: 158 T: -3 QT: 461 QTc: 454 Interpretive Statements ECTOPIC ATRIAL BRADYCARDIA WITH FIRST DEGREE AV BLOCK RIGHT BUNDLE BRANCH BLOCK [120+ ms QRS DURATION, UPRIGHT V1, 40+ ms S IN I/aVL/V4/V5/V6] ABNORMAL ECG Electronically Signed On 01-01-2025 14:01:55 CDT by Efren Martinez M.D.
--- NOTE | 2024-12-31 22:30 | PC.NURSE ---
Dr. Martinez returned called to this nurse. updated on patient's current status. with no new orders. states that this is an ongoing problem for this patient.
--- NOTE | 2024-12-31 22:37 | PC.NURSE ---
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 Patient states that he is fine. No syncopal episode noted.
[2025-01-01] VITALS (17 sets, daily range): BP systolic 114–176; BP diastolic 63–76; PULSE 47–74; RESP 16–18; TEMP 36.4–36.8; O2SAT 97–100
[2025-01-01] MEDS: HYDROcodone/acetaminophen (*CRX) 5-325 MG TABLET 1 TAB PO (02:18)
[2025-01-01 04:57] LABS: Prothrombin Time 13.4 Seconds (11.1-14.7)
[2025-01-01 04:58] LABS: Partial Thromboplastin Time 29.1 Seconds (22.3-36.8)
[2025-01-01 05:04] LABS: Anion Gap 4 mmol/L (4-12); Blood Urea Nitrogen 16 mg/dL (9-20); Calcium 8.9 mg/dL (8.4-10.2); Carbon Dioxide 29 mmol/L (22-30); Chloride 106 mmol/L (98-107); Estimated CRCL calculation 55 ml/min; Estimated Glomerular Filt Rate > 60; Glucose 97 mg/dL (65-110); Magnesium 1.9 mg/dL (1.6-2.3); Sodium 139 mmol/L (137-145)
[2025-01-01] MEDS: ceFAZolin 1 GM/NS 50 ML 1 GM/50 ML BAG IVPB ×3 (05:18→21:27)
--- NOTE | 2025-01-01 08:12 | PM.IMPN ---
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 He was recently in the hospital for syncopal episode which was suspected to be due to cardiac dysrhythmia and that is the reason he has been wearing the event monitor. -He was presumably asleep at the time and did not have any symptoms. - Recent echocardiogram showed a normal ejection fraction with grade 1 diastolic dysfunction - TSH was within normal limits. - Cardiology has been consulted and following -Waiting for dR Gabe bergeron - He has been started on cefazolin for cellulitis of the right lower legs - monitor VS, temp, bp - BC collected and prelim negative -no complaints of chest pain-monitor - CPAP Time Spent With Patient Time with patient: 25 - 35 minutes Subjective Date/time seen: 01/01/25 08:12 Interval history: This is an 84-year-old male with history of coronary artery disease status post drug-eluting stent to the LAD x2, paroxysmal atrial fibrillation on apixaban, Mobitz type 1 second-degree AV block, hypertension, hyperlipidemia, obstructive sleep apnea on CPAP, benign prostatic hyperplasia, and recurrent right lower extremity cellulitis admitted per DR Martinez instructions for evaluation of a dysrhythmia noted on his event monitor overnight. Pt is seen and examined. Dr Martinez saw pt this am. recommendation the patient undergo pacemaker implantation. Holding Etece, waiting for DR Bernal for eval. Pt reports no chest pain, no abd pain, no n/v/d. Up in the chair. Family at the bedside, updated on plan of care. Pads in place to chest in case of external pacing is needed Review of Systems Review of Systems: All systems reviewed & are unremarkable except as noted in HPI and below Exam Narrative: General: Well-developed He is a good spirits. up in a chair. Weight: 97.7 kg. BMI: 31.8. HEENT: PERRL, EOMI. Sclera anicteric. Oral mucosa moist. Neck: Supple. Respiratory: Lungs are clear to auscultation bilaterally. Cardiovascular: Bradycardic with normal S1-S2. Gastrointestinal: Abdomen is soft, nontender, and nondistended with positive bowel sounds. Skin: Warm and dry. Chronic hyperpigmentation of the right lower leg with overlying warm, erythematous skin with evidence of lymphangitic streaking of the right upper inner thigh. Extremities: No cyanosis or clubbing. Mild right ankle edema. Neurological: Alert. Cranial nerves 2-12 are grossly intact. No gross focal deficits to casual conversation. Psychiatric: Pleasant and cooperative with normal mood and affect. Judgment and insight intact. Const: General: comfortable Objective Data Vital Signs Vital Signs: Vital Signs - 24 hr 12/31/24 09:10 12/31/24 09:17 12/31/24 09:21 Temperature 97.6 F Pulse Rate 55 L 57 L Respiratory Rate 16 16 Blood Pressure 114/95 H Pulse Oximetry 100 85 L 100 Oxygen Delivery 12/31/24 09:30 12/31/24 10:58 12/31/24 12:00 Temperature 97.9 F 97.6 F Pulse Rate 60 58 L 56 L Respiratory Rate 20 18 14 Blood Pressure 167/77 H 133/68 162/73 H Pulse Oximetry 100 98 100 Oxygen Delivery Room Air 12/31/24 12:00 12/31/24 12:00 12/31/24 14:00 Temperature Pulse Rate 57 L 59 L Respiratory Rate Blood Pressure Pulse Oximetry Oxygen Delivery Room Air 12/31/24 16:00 12/31/24 16:00 12/31/24 16:00 Temperature 97.8 F Pulse Rate 59 L 59 L Respiratory Rate 20 Blood Pressure 162/65 H Pulse Oximetry 98 Oxygen Delivery Room Air 12/31/24 18:00 12/31/24 20:00 12/31/24 20:00 Temperature Pulse Rate 74 67 Respiratory Rate Blood Pressure Pulse Oximetry Oxygen Delivery Room Air 12/31/24 20:01 12/31/24 22:00 12/31/24 22:08 Temperature 98.1 F 98.6 F Pulse Rate 67 63 65 Respiratory Rate 18 20 Blood Pressure 153/66 H 151/49 H Pulse Oximetry 96 100 Oxygen Delivery 12/31/24 23:49 01/01/25 00:00 01/01/25 00:00 Temperature 98.1 F Pulse Rate 60 61 Respiratory Rate 20 Blood Pressure 144/44 H Pulse Oximetry 99 Oxygen Delivery Room Air 01/01/25 02:00 01/01/25 03:47 01/01/25 04:00 Temperature 98.2 F Pulse Rate 63 60 Respiratory Rate 18 Blood Pressure 158/65 H Pulse Oximetry 97 Oxygen Delivery Room Air 01/01/25 04:00 01/01/25 06:00 Temperature Pulse Rate 61 55 L Respiratory Rate Blood Pressure Pulse Oximetry Oxygen Delivery Intake/Output Intake/Output: Intake & Output 12/29/24 12/30/24 12/31/24 01/01/25 23:59 23:59 23:59 23:59 Intake Total 730 600 Balance 730 600 Meds/Results Medications: Active Medications Generic Name Dose Route Start Last Admin Trade Name Freq PRN Reason Stop Dose Admin Acetaminophen 650 mg 12/31/24 12:16 Acetaminophen 325 Mg Tablet PO Q4H PRN Mild Pain (1-3) or Fever Hydrocodone Bitart/Acetaminophen 1 tab 12/31/24 12:16 01/01/25 02:18 Hydrocodone/Acetaminophen (*Crx) 5-325 Mg Tablet PO 1 tab Q4H PRN Administration Moderate Pain (4-6) Cefazolin Sodium 1 gm in 50 mls @ 100 mls/hr 12/31/24 20:00 01/01/25 05:48 Ancef 1 Gm/Ns 50 Ml IVPB Infused Q8HR ANDREA Infusion Losartan Potassium 50 mg 01/01/25 09:00 Losartan Potassium 50 Mg Tablet PO DAILY ANDREA Multivitamins Therapeutic 1 tablet 12/31/24 12:20 12/31/24 14:47 Multivitamins Therapeutic Tab (*Bkc) PO 1 tablet DAILY [facility] Administration Ondansetron HCl 4 mg 12/31/24 12:16 Ondansetron Inj 4 Mg/2 Ml Vial IV PUSH Q6H PRN Nausea And Vomiting Rosuvastatin Calcium 10 mg 01/01/25 09:00 Rosuvastatin 10 Mg Tablet PO DAILY [facility] Radiology Results: ITS Impressions Chest X-Ray 12/31/24 09:21 IMPRESSION: No focal infiltrate or effusion. Labs Labs: Laboratory Results - last 24 hr 12/31/24 01/01/25 09:16 04:31 WBC 10.9 H RBC 5.00 Hgb 15.1 Hct 46.3 MCV 92.6 MCH 30.2 MCHC 32.6 RDW 13.8 Plt Count 162 MPV 9.8 Immature Gran % (Auto) 0.5 Neut % (Auto) 73.0 Lymph % (Auto) 13.5 L Emanuel % (Auto) 10.7 H Eos % (Auto) 1.7 Baso % (Auto) 0.6 Lymph # (Auto) 1.47 Emanuel # (Auto) 1.2 H Eos # (Auto) 0.2 Baso # (Auto) 0.1 Abs Immat Gran (auto) 0.05 H Absolute Neuts (auto) 8.0 H Absolute Nucleated RBC 0.000 Nucleated RBC % 0.0 PT 14.1 13.4 INR 1.0 1.0 APTT 29.7 29.1 Sodium 140 139 Potassium 4.1 4.0 Chloride 105 106 Carbon Dioxide 29 29 Anion Gap 6 4 BUN 19 16 Creatinine 1.12 1.01 Estim Creat Clear Calc Not Reportable 55 Estimated GFR > 60 > 60 Glucose 94 97 Calcium 9.5 8.9 Magnesium 1.9 Total Bilirubin 1.1 AST 24 ALT 34 Alkaline Phosphatase 53 Troponin I 0.015 Total Protein 7.0 Albumin 3.5 Lipase 160 Quality VTE Prophylaxis VTE prophylaxis: mechanical ordered
[2025-01-01] MEDS: LOSARTAN POTASSIUM 50 MG TABLET PO (08:39)
[2025-01-01] MEDS: ROSUVASTATIN 10 MG TABLET PO (08:39)
[2025-01-01] MEDS: MULTIVITAMINS THERAPEUTIC TAB (*BKC) 1 TABLET PO (08:39)
--- NOTE | 2025-01-01 12:46 | PM.PNCARD ---
Progress Note: A&P Assessment and Plan (1) Heart block: Code(s): I45.9 - Conduction disorder, unspecified Status: Acute (2) PAF (paroxysmal atrial fibrillation): Code(s): I48.0 - Paroxysmal atrial fibrillation Status: Acute (3) Sinus pause: Code(s): I45.5 - Other specified heart block Status: Acute (4) Bradycardia: Code(s): R00.1 - Bradycardia, unspecified Status: Acute Plan 84-year-old man with CAD status post PCI, paroxysmal atrial fibrillation, and intermittent Wenckebach was asked to present to the emergency room given 10 second pause on 30 day event monitor that was followed by sinus bradycardia Sinus pause -would recommend permanent pacemaker implantation Sinus rhythm with third-degree AV block -these are intermittently noted on telemetry -recommend permanent pacemaker implantation especially in light of his previous syncopal episode -will need left-sided IV access in anticipation for left venogram if necessary for pacemaker implantation Paroxysmal atrial fibrillation -hold Eliquis in anticipation for permanent pacemaker implantation -keep NPO past midnight Subjective Date/time seen: 01/01/25 12:46 Interval history: No complaints. Overall we discussed the indications for permanent pacemaker. In light of the new evidence, patient agreed to proceed with permanent pacemaker implantation Review of Systems Cardiovascular: Cardiovascular: Reports as per HPI Respiratory: Respiratory: Reports as per HPI Exam Const: General: comfortable HENMT: Mouth: Yes moist mucous membranes Eyes: EOM: EOMs intact bilaterally Neck: Neck: no JVD Resp: Effort & Inspection: normal respiratory effort Auscultation: clear to auscultation bilaterally Cardio: Rate: bradycardic Rhythm: abnormal rhythm Neuro: Speech: normal speech Extrem: General: no pedal edema Other: Right medial malleolus region erythematous suggestive of cellulitis Objective Data Vital Signs Vital Signs: Vital Signs - 24 hr 12/31/24 14:00 12/31/24 16:00 12/31/24 16:00 Temperature Pulse Rate 59 L 59 L Respiratory Rate Blood Pressure Pulse Oximetry Oxygen Delivery Room Air 12/31/24 16:00 12/31/24 18:00 12/31/24 20:00 Temperature 36.6 C Pulse Rate 59 L 74 Respiratory Rate 20 Blood Pressure 162/65 H Pulse Oximetry 98 Oxygen Delivery Room Air 12/31/24 20:00 12/31/24 20:01 12/31/24 22:00 Temperature 36.7 C Pulse Rate 67 67 63 Respiratory Rate 18 Blood Pressure 153/66 H Pulse Oximetry 96 Oxygen Delivery 12/31/24 22:08 12/31/24 23:49 01/01/25 00:00 Temperature 37.0 C 36.7 C Pulse Rate 65 60 Respiratory Rate 20 20 Blood Pressure 151/49 H 144/44 H Pulse Oximetry 100 99 Oxygen Delivery Room Air 01/01/25 00:00 01/01/25 02:00 01/01/25 03:47 Temperature 36.8 C Pulse Rate 61 63 60 Respiratory Rate 18 Blood Pressure 158/65 H Pulse Oximetry 97 Oxygen Delivery 01/01/25 04:00 01/01/25 04:00 01/01/25 06:00 Temperature Pulse Rate 61 55 L Respiratory Rate Blood Pressure Pulse Oximetry Oxygen Delivery Room Air 01/01/25 08:00 01/01/25 08:00 01/01/25 10:00 Temperature 36.6 C Pulse Rate 61 61 62 Respiratory Rate 16 Blood Pressure 133/76 Pulse Oximetry 99 Oxygen Delivery 01/01/25 11:51 Temperature 36.4 C Pulse Rate 63 Respiratory Rate 18 Blood Pressure 117/68 Pulse Oximetry 100 Oxygen Delivery Intake/Output Intake/Output: Intake & Output 12/29/24 12/30/24 12/31/24 01/01/25 23:59 23:59 23:59 23:59 Intake Total 730 840 Balance 730 840 Meds/Results Medications: Active Medications Generic Name Dose Route Start Last Admin Trade Name Freq PRN Reason Stop Dose Admin Acetaminophen 650 mg 12/31/24 12:16 Acetaminophen 325 Mg Tablet PO Q4H PRN Mild Pain (1-3) or Fever Hydrocodone Bitart/Acetaminophen 1 tab 12/31/24 12:16 01/01/25 02:18 Hydrocodone/Acetaminophen (*Crx) 5-325 Mg Tablet PO 1 tab Q4H PRN Administration Moderate Pain (4-6) Cefazolin Sodium 1 gm in 50 mls @ 100 mls/hr 12/31/24 20:00 01/01/25 05:48 Ancef 1 Gm/Ns 50 Ml IVPB Infused Q8HR ANDREA Infusion Losartan Potassium 50 mg 01/01/25 09:00 01/01/25 08:39 Losartan Potassium 50 Mg Tablet PO 50 mg DAILY ANDREA Administration Multivitamins Therapeutic 1 tablet 12/31/24 12:20 01/01/25 08:39 Multivitamins Therapeutic Tab (*Bkc) PO 1 tablet DAILY ANDREA Administration Ondansetron HCl 4 mg 12/31/24 12:16 Ondansetron Inj 4 Mg/2 Ml Vial IV PUSH Q6H PRN Nausea And Vomiting Rosuvastatin Calcium 10 mg 01/01/25 09:00 01/01/25 08:39 Rosuvastatin 10 Mg Tablet PO 10 mg DAILY ANDREA Administration Radiology Results: ITS Impressions Chest X-Ray 12/31/24 09:21 IMPRESSION: No focal infiltrate or effusion. Labs Labs: Laboratory Results - last 24 hr 01/01/25 04:31 PT 13.4 INR 1.0 APTT 29.1 Sodium 139 Potassium 4.0 Chloride 106 Carbon Dioxide 29 Anion Gap 4 BUN 16 Creatinine 1.01 Estim Creat Clear Calc 55 Estimated GFR > 60 Glucose 97 Calcium 8.9 Magnesium 1.9
[2025-01-01] MEDS: polyethylene glycoL 3350 17 GM POWD.PACK PO (13:58)
--- NOTE | 2025-01-01 16:30 | PCRCNOTE ---
I asked patient if he wears a cpap at home and him and his said yes he does. They said that he did not bring his home unit in. I told them that he can use one of our CPAP's while he is here in the hospital, he said no that he did not want to do that and assured me that he would be fine without it. I told them that if they changed their mind to just have the nurse call us and we could bring one of ours down.
[2025-01-02] VITALS (23 sets, daily range): BP systolic 109–152; BP diastolic 61–85; PULSE 57–75; RESP 12–22; TEMP 36.3–37.1; O2SAT 94–100
[2025-01-02 06:09] LABS: Hematocrit 44.2 % (42.0-52.0); Mean Corpuscular HGB Conc 33.9 g/dl (32-36); Mean Corpuscular Hemoglobin 31.6 pg (26-34); Mean Corpuscular Volume 93.1 fl (80-100); Mean Platelet Volume 9.8 fl (7.4-10.4); Platelet Count Result 166 k/mm3 (150-375); Red Blood Count 4.75 M/mm3 (4.6-6.20); Red Cell Distribution Width 13.7 % (11.5-14.5); White Blood Count 9.5 K/mm3 (4.5-10.0)
[2025-01-02 06:19] LABS: Anion Gap 4 mmol/L (4-12); Blood Urea Nitrogen 15 mg/dL (9-20); Calcium 8.7 mg/dL (8.4-10.2); Carbon Dioxide 26 mmol/L (22-30); Chloride 107 mmol/L (98-107); Estimated CRCL calculation 56 ml/min; Estimated Glomerular Filt Rate > 60; Glucose 103 mg/dL (65-110); Potassium 4.3 mmol/L (3.4-5.0); Sodium 137 mmol/L (137-145)
[2025-01-02] MEDS: ceFAZolin 1 GM/NS 50 ML 1 GM/50 ML BAG IVPB ×2 (06:46→20:32)
[2025-01-02] MEDS: LOSARTAN POTASSIUM 50 MG TABLET PO (08:47)
[2025-01-02] MEDS: ROSUVASTATIN 10 MG TABLET PO (08:47)
[2025-01-02] MEDS: MULTIVITAMINS THERAPEUTIC TAB (*BKC) 1 TABLET PO (08:47)
[2025-01-02] MEDS: HYDROcodone/acetaminophen (*CRX) 5-325 MG TABLET 1 TAB PO ×2 (08:49→20:31)
--- NOTE | 2025-01-02 09:10 | P.PNIM_ITS ---
Progress Note: A&P Assessment and Plan (1) Sinus pause: Code(s): I45.5 - Other specified heart block Status: Acute Assessment and Plan: * 10-11 second pause on event monitor at home * Telemetry reading showing intermittent Wenckebach/3rd degree heart block * Cardiology consulted * Keep in IMU for closer monitoring * NPO for procedure * Plan for PPM today at 1300 (2) Bradycardia: Code(s): R00.1 - Bradycardia, unspecified Status: Acute Assessment and Plan: see above plan of care (3) Paroxysmal atrial fibrillation: Code(s): I48.0 - Paroxysmal atrial fibrillation Status: Acute Assessment and Plan: * Hold Eliquis for PPM later today (4) Coronary artery disease: Code(s): I25.10 - Atherosclerotic heart disease of [place] coronary artery without angina pectoris Status: Acute Assessment and Plan: * Continue rosuvastatin and aspirin (5) Hypertension: Qualifiers: Hypertension type: primary hypertension Qualified Code(s): I10 - Essential (primary) hypertension Code(s): I10 - Essential (primary) hypertension Status: Acute Assessment and Plan: * Blood pressure ranging 124/61 to 176/73 * Continue losartan (6) Obstructive sleep apnea on CPAP: Code(s): G47.33 - Obstructive sleep apnea (adult) (pediatric) Status: Acute Assessment and Plan: * Continue home CPAP (7) Stasis dermatitis of both legs: Code(s): I87.2 - Venous insufficiency (chronic) (peripheral) Status: Acute Assessment and Plan: * Currently on cefazolin for potential cellulitis versus PVD * Patient states he has been treated for cellulitis in his RLE at least 3x recently * Will get imaging tomorrow * Will need vascular workup on outpatient basis Time Spent With Patient Time with patient: 25 - 35 minutes Subjective Date/time seen: 01/02/25 09:10 Interval history: Interval summary: This is an 84-year-old male with significant past medical history of coronary artery disease status post stent placement x2 in the LAD, paroxysmal atrial fibrillation on Eliquis, Mobitz type 1 second-degree AV block, hypertension, hyperlipidemia, obstructive sleep apnea on CPAP, BPH who presented to the hospital with dysrhythmia noted on his event monitor overnight. He had a 10-11 second sinus pause overnight. Workup in the hospital included a chest CT which was negative. Initial labs showed a white blood cell count of 10.9, troponin 0.015 otherwise unremarkable. EKG showed ectopic atrial bradycardia with first- degree AV block, right bundle branch block with a rate of 58. On monitor overnight, he was noted to have third degree AV block and sinus pauses. Eliquis was placed on hold and Cardiology consulted for PPM. Subjective: Patient denies any fever, chills, nausea, vomiting, diarrhea, abdominal pain, chest pain, shortness of breath. He reports pain and swelling to his RLE. Currently being treated as cellulitis. He does have notable peripheral vascular disease and after reviewing the EMR he has had these changes for greater than 2 years. He was noted to have venous insufficiency and claudication in previous documentation. Patient states this is the 3rd time he has been on antibiotics for cellulitis in his RLE. He had dopplers done last admission which was negative for DVT. No imaging to review in EMR. Review of Systems Review of Systems: 12 systems were reviewed and are negativ e except for as per HPI. All systems reviewed & are unremarkable except as noted in HPI and below Exam Narrative: General: In no acute distress, well nourished Head: atraumatic, no encephalopathy Eyes: PERRLA, sclera clear ENT: moist mucous membranes, nasal passages clear, [place] Neck: supple, no JVD, no adenopathy, trachea midline Cardiac: Normal S1 and S2. No murmur, gallops or friction rubs, peripheral pulses intact. Respiratory: Lungs clear to auscultation, no adventitious lung sounds, currently on room air Gastrointestinal: soft, non-distended, non-tender, normoactive bowel sounds. : voiding without difficulty. Extremities: moves all extremities well,mild edema RLE Skin: peripheral vascular changes to BLE, contact dermatitis mid sternal Neuro: Alert and oriented x4, cranial nerves intact, no neuro deficits. Psych: normal mood, normal affect, interactive Objective Data Vital Signs Vital Signs: Vital Signs - 24 hr 01/01/25 10:00 01/01/25 11:51 01/01/25 12:00 Temperature 97.6 F Pulse Rate 62 63 57 L Respiratory Rate 18 Blood Pressure 117/68 Pulse Oximetry 100 Oxygen Delivery 01/01/25 14:00 01/01/25 16:00 01/01/25 16:22 Temperature 98.1 F Pulse Rate 47 L 74 50 L Respiratory Rate 18 Blood Pressure 114/69 Pulse Oximetry 99 Oxygen Delivery 01/01/25 18:00 01/01/25 20:00 01/01/25 20:00 Temperature 97.8 F Pulse Rate 60 62 64 Respiratory Rate 18 Blood Pressure 130/63 Pulse Oximetry 97 Oxygen Delivery 01/01/25 20:00 01/01/25 22:00 01/01/25 23:22 Temperature Pulse Rate 59 L Respiratory Rate Blood Pressure Pulse Oximetry 99 Oxygen Delivery Room Air Room Air 01/01/25 23:37 01/02/25 00:00 01/02/25 00:00 Temperature 97.9 F Pulse Rate 67 58 L Respiratory Rate 18 Blood Pressure 176/73 H Pulse Oximetry 100 Oxygen Delivery Room Air 01/02/25 02:00 01/02/25 03:34 01/02/25 04:00 Temperature 98.7 F Pulse Rate 58 L 66 Respiratory Rate 18 Blood Pressure 124/61 Pulse Oximetry 94 Oxygen Delivery Room Air 01/02/25 04:00 01/02/25 06:00 01/02/25 08:00 Temperature 97.7 F Pulse Rate 59 L 57 L 62 Respiratory Rate 22 H Blood Pressure 142/75 H Pulse Oximetry 98 Oxygen Delivery Intake/Output Intake/Output: Intake & Output 12/30/24 12/31/24 01/01/25 01/02/25 23:59 23:59 23:59 23:59 Intake Total 730 940 350 Output Total 300 201 Balance 730 640 149 Meds/Results Medications: Active Medications Generic Name Dose Route Start Last Admin Trade Name Freq PRN Reason Stop Dose Admin Acetaminophen 650 mg 12/31/24 12:16 Acetaminophen 325 Mg Tablet PO Q4H PRN Mild Pain (1-3) or Fever Hydrocodone Bitart/Acetaminophen 1 tab 12/31/24 12:16 01/02/25 08:49 Hydrocodone/Acetaminophen (*Crx) 5-325 Mg Tablet PO 1 tab Q4H PRN Administration Moderate Pain (4-6) Cefazolin Sodium 1 gm in 50 mls @ 100 mls/hr 12/31/24 20:00 01/02/25 08:44 Ancef 1 Gm/Ns 50 Ml IVPB Infused Q8HR ANDREA Infusion Losartan Potassium 50 mg 01/01/25 09:00 01/02/25 08:47 Losartan Potassium 50 Mg Tablet PO 50 mg DAILY ANDREA Administration Multivitamins Therapeutic 1 tablet 12/31/24 12:20 01/02/25 08:47 Multivitamins Therapeutic Tab (*Bkc) PO 1 tablet DAILY ANDREA Administration Ondansetron HCl 4 mg 12/31/24 12:16 Ondansetron Inj 4 Mg/2 Ml Vial IV PUSH Q6H PRN Nausea And Vomiting Polyethylene Glycol 17 gm 01/01/25 13:35 01/01/25 13:58 Polyethylene Glycol 3350 17 Gm Powd.Pack PO 17 gm QAM PRN Administration Constipation Rosuvastatin Calcium 10 mg 01/01/25 09:00 01/02/25 08:47 Rosuvastatin 10 Mg Tablet PO 10 mg DAILY ANDREA Administration Radiology Results: ITS Impressions Chest X-Ray 12/31/24 09:21 IMPRESSION: No focal infiltrate or effusion. Labs Labs: Laboratory Results - last 24 hr 01/02/25 06:04 WBC 9.5 RBC 4.75 Hgb 15.0 Hct 44.2 MCV 93.1 MCH 31.6 MCHC 33.9 RDW 13.7 Plt Count 166 MPV 9.8 Sodium 137 Potassium 4.3 Chloride 107 Carbon Dioxide 26 Anion Gap 4 BUN 15 Creatinine 1.00 Estim Creat Clear Calc 56 Estimated GFR > 60 Glucose 103 Calcium 8.7 Quality VTE Prophylaxis VTE prophylaxis: mechanical ordered
--- NOTE | 2025-01-02 12:54 | PC.NURSE ---
Pt to clinical lab scientist for pacemaker. Family at bedside.
--- NOTE | 2025-01-02 14:33 | ECG_ITS ---
Test Date: 2025-01-02 14:48:23 Measurements Intervals [place] Rate: 76 P: 130 IA: 191 QRS: -63 QRSD: 202 T: 101 QT: 512 QTc: 578 Interpretive Statements ELECTRONIC ATRIAL PACEMAKER ELECTRONIC VENTRICULAR PACEMAKER BASELINE ARTIFACT- I, II, AVR, V4-V6 NO FURTHER INTERPRETATION IS POSSIBLE ATYPICAL ECG Compared to ECG 01/01/2025 08:57:58 ELECTRONIC PACEMAKER NOW PRESENT Electronically Signed On 01-02-2025 14:52:47 CDT by Chacho Preston D.O.
--- NOTE | 2025-01-02 14:34 | P.PCNCC_ITS ---
Cardiac Cath Procedure Note Date of procedure:: 01/02/25 Performing physician:: Saroj Bernal MD Indication:: Syncope with high-grade AV block Brief clinical history:: This is an 84-year-old man experiencing syncopal episodes. Outpatient monitor demonstrated evidence of significant pauses up to 10 seconds because of a complete heart block. He was brought into the hospital and schedule for pacemaker implantation in this setting. 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 His conduction system disease has obviously progressed as described above. Procedure Procedure performed:: Implantation of permanent dual-chamber pacemaker Sedation/Medication given:: Fentanyl 25 mg, Versed 2 Case start time 1:37 p.m. Case end time 2:29 p.m. Sedation provided by Gina Romero RN, trained observer Access site:: Left subclavian vein Estimated blood loss:: Minimal Procedure note:: Patient was brought to the cardiac catheterization lab in the postabsorptive state chest wall was prepped and draped in the usual sterile fashion. Anesthesia was provided with 20 cc of lidocaine infiltrated inferior to the clavicle. An incision was then made about 1 in below the clavicle from the mid clavicular line to the deltopectoral groove. Sharp and blunt dissection was used to separate the subcutaneous tissue to the level of the prepectoral fascia. Electrocautery was used to provide cutaneous hemostasis. Blunt dissection was then used to create a pacemaker pocket inferior to the incision along the fascial plane. The pocket was then packed with antibiotic soaked 4 x 4. Attention was then turned to venous access. Using 2 6 [place] shaves sheaths and the provided access needles and guidewires the left subclavian vein was punctured twice using the modified Seldinger technique unfolded tires wire was were advanced to the level of the right atrium. The 6 [place] safe sheaths were then used to advance the pacemaker leads described below into the venous circulation to the level of the right atrium. The Safe sheath were peeled away. Attention was turned to positioning the ventricular lead. The stylet removed from the lead and a 3 cc syringe was used to perform in a J-tip on the stylet. This lead was then steered through right ventricle out to the pulmonary artery position. This lead was then positioned into the RV apex using a straight stylet. Fixation screw was deployed appropriate pacing and sensing performs was demonstrated. Following this attention was turned to positioning the atrial lead. The straight stylet was removed from this lead and a preformed atrial J stylet was used to position this into the right atrial appendage. Once again the fixation screw was deployed upon withdrawal of the stylet the lead tip was fixed into position. The analyzer was again used to demonstrate pacing and sensing performance which was appropriate. A 10 pole stimulus both leads showed no evidence of extracardiac stimulation. There was venous tortuosity and some redundancy superior to the right atrium. I tried to advance and retract the atrial lead a couple of times as following original implant there was excessive slack with the lead extending down near the tricuspid valve annulus. The lead was eventually positioned in satisfactory position and with recheck with the analyzer with continuing good lead performance. Following this leads were secured to the base of pocket using the suture sleeve and 2-0 silk ties. The pocket was then irrigated with antibiotic infused saline after removal of the retained sponge. The pacemaker generator was then connected to the leads using the torque wrench and the entire assembly was placed into the newly created pocket. This was then closed in layers using 3-0 Vicryl interrupted fashion for the subcutaneous tissue and 4-0 Vicryl in a running subcuticular fashion for the skin. The incision was then cleansed and an Aquacel dressing was applied. The left arm placed in an immobilizer the postop chest x-ray ECG antibiotics were ordered. Procedure was well tolerated and uncomplicated. Findings:: The patient received Biotronik dual-chamber pacemaker model Amvia Edge [id number]. Serial number [id number]. The device is programmed in the DDD/CLS mode lower rate limit 60 upper rate limit 130. Av delay 200/170 milliseconds. The atrial lead is a Biotronik screw-in bipolar lead model Solia S [id number]. Serial number [id number]. P-waves are sensed at 6.0 mV atrial threshold 0.7 volts at 0.4 milliseconds impedance 566 Ohms. Ventricular lead is a Biotronik screw-in bipolar lead model Solia S 60 [id number]. Serial number [id number]. R-waves are sensed at 10.8 mV threshold 0.5 volts at 0.4 milliseconds impedance 801 Ohms. Conclusion:: Successful uncomplicated implantation of permanent Biotronik dual-chamber pacing system for treatment of syncope with complete heart block in this 84-year-old man Saroj Bernal MD FACC
--- NOTE | 2025-01-02 15:45 | PC.NURSE ---
On 01/02/25, the student, [Holly Kohler ], provided care and completed [facility] documentation on this patient. I have reviewed the student's documentation and agree with the findings.
--- NOTE | 2025-01-02 16:14 | PC.NURSE ---
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 Family at bedside
[2025-01-02] MEDS: SODIUM CHLORIDE 0.9% IV 1,000 ML 50 ML IV CONT (16:31)
[2025-01-02] MEDS: HYDROCORTISONE 1% 30 GM CREAM 1 APPLIC TOPICAL (19:15)
[2025-01-02] MEDS: MELATONIN 5 MG TABLET PO (20:36)
[2025-01-03] VITALS (12 sets, daily range): BP systolic 107–128; BP diastolic 60–70; PULSE 63–81; RESP 16–20; TEMP 36.4–36.9; O2SAT 91–97
[2025-01-03] MEDS: WATER FOR IRRIGATION, STERILE 1,000 ML BOTTLE 1000 ML (03:08)
[2025-01-03 04:49] LABS: Hematocrit 45.6 % (42.0-52.0); Hemoglobin 14.9 g/dL (14.0-18.0); Mean Corpuscular HGB Conc 32.7 g/dl (32-36); Mean Corpuscular Hemoglobin 30.3 pg (26-34); Mean Corpuscular Volume 92.7 fl (80-100); Mean Platelet Volume 9.6 fl (7.4-10.4); Platelet Count Result 184 k/mm3 (150-375); Red Blood Count 4.92 M/mm3 (4.6-6.20); Red Cell Distribution Width 13.6 % (11.5-14.5); White Blood Count 9.7 K/mm3 (4.5-10.0)
[2025-01-03 05:00] LABS: Anion Gap 7 mmol/L (4-12); Blood Urea Nitrogen 20 mg/dL (9-20); Calcium 8.6 mg/dL (8.4-10.2); Carbon Dioxide 23 mmol/L (22-30); Chloride 106 mmol/L (98-107); Estimated CRCL calculation 56 ml/min; Estimated Glomerular Filt Rate > 60; Glucose 103 mg/dL (65-110); Potassium 4.5 mmol/L (3.4-5.0); Sodium 136 mmol/L (137-145)
[2025-01-03] MEDS: ceFAZolin 1 GM/NS 50 ML 1 GM/50 ML BAG IVPB (05:45)
[2025-01-03] MEDS: HYDROcodone/acetaminophen (*CRX) 5-325 MG TABLET 1 TAB PO (05:46)
[2025-01-03] MEDS: HYDROCORTISONE 1% 30 GM CREAM 1 APPLIC TOPICAL (08:19)
[2025-01-03] MEDS: ROSUVASTATIN 10 MG TABLET PO (08:19)
[2025-01-03] MEDS: MULTIVITAMINS THERAPEUTIC TAB (*BKC) 1 TABLET PO (08:19)
[2025-01-03] MEDS: LOSARTAN POTASSIUM 50 MG TABLET PO (08:19)
--- NOTE | 2025-01-03 09:41 | P.PNCA_ITS ---
Progress Note: A&P Assessment and Plan (1) Heart block: Code(s): I45.9 - Conduction disorder, unspecified Status: Acute (2) PAF (paroxysmal atrial fibrillation): Code(s): I48.0 - Paroxysmal atrial fibrillation Status: Acute (3) Sinus pause: Code(s): I45.5 - Other specified heart block Status: Acute (4) Bradycardia: Code(s): R00.1 - Bradycardia, unspecified Status: Acute Plan 84-year-old man with CAD status post PCI, paroxysmal atrial fibrillation, and intermittent Wenckebach was asked to present to the emergency room given 10 second pause on 30 day event monitor that was followed by sinus bradycardia ASSESSMENT: Sinus pause Sinus rhythm with third-degree AV block Paroxysmal atrial fibrillation PLAN: -S/ permanent pacemaker placement 01/02. -If the CXR today is normal, he can be discharged home from a cardiac standpoint. -Patient to hold his Eliquis for 1 week until his device wound check appointment. Discussed this with patient and his , who expressed un derstanding. Recommendations and plan discussed with Hospitalist. Subjective Date/time seen: 01/03/25 09:41 Interval history: Reason for visit: S/p PPM Reports feeling well today. Device site looks good. Review of Systems Cardiovascular: Cardiovascular: Reports as per HPI Exam Const: General: comfortable and no acute distress Eyes: General: appearance normal, both eyes and all related structures Scl era: sclerae normal Resp: Effort & Inspection: normal respiratory effort Cardio: Rate: regular rate Rhythm: regular rhythm Other: Device site with dressing in place, no bleeding or hematoma Neuro: Speech: normal speech Psych: Mental Status: mental status grossly normal Affect: normal affect Objective Data Vital Signs Vital Signs: Vital Signs - 24 hr 01/02/25 10:00 01/02/25 11:51 01/02/25 12:00 Temperature 36.8 C Pulse Rate 66 61 65 Respiratory Rate 18 Blood Pressure 109/62 Pulse Oximetry 97 Oxygen Delivery 01/02/25 15:00 01/02/25 15:15 01/02/25 15:31 Temperature Pulse Rate 60 67 67 Respiratory Rate 15 17 14 Blood Pressure 139/80 141/81 H 143/79 H Pulse Oximetry 99 99 99 Oxygen Delivery Room Air Room Air Room Air 01/02/25 15:45 01/02/25 16:00 01/02/25 16:00 Temperature Pulse Rate 75 68 65 Respiratory Rate 19 12 Blood Pressure 132/85 120/84 Pulse Oximetry 98 98 Oxygen Delivery Room Air Room Air 01/02/25 16:10 01/02/25 16:15 01/02/25 18:00 Temperature 36.3 C L Pulse Rate 68 68 65 Respiratory Rate 14 14 Blood Pressure 127/64 Pulse Oximetry 100 100 Oxygen Delivery Room Air 01/02/25 19:00 01/02/25 19:41 01/02/25 20:00 Temperature 36.4 C L 36.4 C Pulse Rate 70 65 Respiratory Rate 16 16 Blood Pressure 152/68 H 152/66 H Pulse Oximetry 100 98 Oxygen Delivery Room Air 01/02/25 20:00 01/02/25 22:00 01/02/25 22:32 Temperature Pulse Rate 69 73 68 Respiratory Rate Blood Pressure Pulse Oximetry 96 Oxygen Delivery 01/02/25 23:51 01/03/25 00:00 01/03/25 00:00 Temperature 36.4 C Pulse Rate 65 65 69 Respiratory Rate 16 16 Blood Pressure 138/66 Pulse Oximetry 95 95 Oxygen Delivery Room Air 01/03/25 02:00 01/03/25 03:05 01/03/25 04:00 Temperature Pulse Rate 67 64 Respiratory Rate Blood Pressure Pulse Oximetry Oxygen Delivery Room Air 01/03/25 04:46 01/03/25 06:00 01/03/25 08:10 Temperature 36.4 C 36.7 C Pulse Rate 69 70 69 Respiratory Rate 16 18 Blood Pressure 128/70 107/60 Pulse Oximetry 91 92 Oxygen Delivery Intake/Output Intake/Output: Intake & Output 12/31/24 01/01/25 01/02/25 01/03/25 23:59 23:59 23:59 23:59 Intake Total 730 497 695 5630 Output Total 300 701 200 Balance 730 640 -61 1070 Meds/Results Medications: Active Medications Generic Name Dose Route Start Last Admin Trade Name Freq PRN Reason Stop Dose Admin Acetaminophen 650 mg 12/31/24 12:16 Acetaminophen 325 Mg Tablet PO Q4H PRN Mild Pain (1-3) or Fever Hydrocodone Bitart/Acetaminophen 1 tab 12/31/24 12:16 01/03/25 05:46 Hydrocodone/Acetaminophen (*Crx) 5-325 Mg Tablet PO 1 tab Q4H PRN Administration Moderate Pain (4-6) Hydrocortisone 1 applic 01/02/25 21:00 01/03/25 08:19 Hydrocortisone 1% 30 Gm Cream TOPICAL 1 applic Q12HR ANDREA Administration Losartan Potassium 50 mg 01/01/25 09:00 01/03/25 08:19 Losartan Potassium 50 Mg Tablet PO 50 mg DAILY ANDREA Administration Melatonin 5 mg 01/02/25 21:00 01/02/25 20:36 Melatonin 5 Mg Tablet PO 5 mg HS ANDREA Administration Multivitamins Therapeutic 1 tablet 12/31/24 12:20 01/03/25 08:19 Multivitamins Therapeutic Tab (*Bkc) PO 1 tablet DAILY ANDREA Administration Ondansetron HCl 4 mg 12/31/24 12:16 Ondansetron Inj 4 Mg/2 Ml Vial IV PUSH Q6H PRN Nausea And Vomiting Polyethylene Glycol 17 gm 01/01/25 13:35 01/01/25 13:58 Polyethylene Glycol 3350 17 Gm Powd.Pack PO 17 gm QAM PRN Administration Constipation Rosuvastatin Calcium 10 mg 01/01/25 09:00 01/03/25 08:19 Rosuvastatin 10 Mg Tablet PO 10 mg DAILY ANDREA Administration Radiology Results: ITS Impressions Chest X-Ray 01/02/25 15:51 IMPRESSION: Interval placement of a left sided pacemaker, with its leads projecting over the atrium and ventricle, without pneumothorax or periimplantation hematoma. Labs Labs: Laboratory Results - last 24 hr 01/03/25 04:36 WBC 9.7 RBC 4.92 Hgb 14.9 Hct 45.6 MCV 92.7 MCH 30.3 MCHC 32.7 RDW 13.6 Plt Count 184 MPV 9.6 Sodium 136 L Potassium 4.5 Chloride 106 Carbon Dioxide 23 Anion Gap 7 BUN 20 Creatinine 1.02 Estim Creat Clear Calc 56 Estimated GFR > 60 Glucose 103 Calcium 8.6
--- NOTE | 2025-01-03 16:32 | P.DS_ITS ---
DS: Admitting Diagnosis Discharge Date 01/03/25 Admitting Diagnosis sinus pause bradycardia cellulitis of right lower extremity paroxysmal atrial fibrillation chronic anticoagulation coronary artery disease hypertension obstructive sleep apnea on CPAP DS: Discharge Diagnosis Discharge Diagnosis (1) Sinus pause: Code(s): I45.5 - Other specified heart block Status: Acute (2) Bradycardia: Code(s): R00.1 - Bradycardia, unspecified Status: Acute (3) Paroxysmal atrial fibrillation: Code(s): I48.0 - Paroxysmal atrial fibrillation Status: Acute (4) Coronary artery disease: Code(s): I25.10 - Atherosclerotic heart disease of [place] coronary artery without angina pectoris Status: Acute Assessment and Plan: * Continue rosuvastatin and aspirin (5) Hypertension: Qualifiers: Hypertension type: primary hypertension Qualified Code(s): I10 - Essential (primary) hypertension Code(s): I10 - Essential (primary) hypertension Status: Acute (6) Obstructive sleep apnea on CPAP: Code(s): G47.33 - Obstructive sleep apnea (adult) (pediatric) Status: Acute (7) Stasis dermatitis of both legs: Code(s): I87.2 - Venous insufficiency (chronic) (peripheral) Status: Acute DS: Summary Hospital Course Reason for hospitalization: sinus pause bradycardia cellulitis of right lower extremity paroxysmal atrial fibrillation chronic anticoagulation coronary artery disease hypertension obstructive sleep apnea on CPAP Hospital Course: This is an 84-year-old male with significant past medical history of coronary artery disease status post stent placement x2 in the LAD, paroxysmal atrial fibrillation on Eliquis, Mobitz type 1 second-degree AV block, hypertension, hyperlipidemia, obstructive sleep apnea on CPAP, BPH who presented to the hospital with dysrhythmia noted on his event monitor overnight. He had a 10-11 second sinus pause overnight. Workup in the hospital included a chest CT which was negative. Initial labs showed a white blood cell count of 10.9, troponin 0.015 otherwise unremarkable. EKG showed ectopic atrial bradycardia with first- degree AV block, right bundle branch block with a rate of 58. On monitor overnight, he was noted to have third degree AV block and sinus pauses. Eliquis was placed on hold and Cardiology consulted for PPM. patient had a implantation of permanent dual-chamber pacemaker performed on 01/02/[address] Bernal. He was placed in arm immobilizer and dressing is in place. He did not have any events overnight and was cleared by Cardiology to be discharged today. he will need to follow up with Cardiology in 1 week. Cellulitis of right lower extremity was ruled out. We went ahead and got a CT of his right lower extremity which was negative for any kind of cellulitis changes. I discussed with the patient and his that this is looking more like peripheral vascular disease which needs to be followed up with a vascular surgeon for further testing. It looks like he has had history of peripheral vascular disease with claudication dating back for at least the past 2 years in our record. I told him that his swelling and pain is likely due to this and not necessarily cellulitis even though he has been treated 3 times As a cellulitis. He will need to follow up with his primary care doctor before going to a vascular surgeon for referral. Final diagnosis: peripheral vascular disease, syncope with high grade AV block, third-degree AV block, sinus pause Status at Discharge Cognitive/behavioral status at discharge: Alert and oriented x3 Functional status at discharge: independent ambulation Overall status at discharge: patient is progressing back to baseline Time Spent with Patient Time attestation: Total time spent providing and/or coordinating discharge services: Time spent: Greater than 30 minutes Exam Narrative: General: In no acute distress, well nourished Cardiac: Normal S1 and S2. No murmur, gallops or friction rubs, peripheral pulses intact. Respiratory: Lungs clear to auscultation, no adventitious lung sounds, currently on room air Gastrointestinal: soft, non-distended, non-tender, normoactive bowel sounds. : voiding without difficulty. Extremities: moves all extremities well,mild edema RLE Skin: left chest wall incision with covered dressing, contact dermatitis mid sternal Neuro: Alert and oriented x4 DS: Data Data Completed and Pending Completed studies during hospitalization: lower extremity CT chest x-ray x2 Pending studies at discharge: none Labs on day of discharge: Labs from last 24 hours 01/03/25 04:36 WBC 9.7 RBC 4.92 Hgb 14.9 Hct 45.6 MCV 92.7 MCH 30.3 MCHC 32.7 RDW 13.6 Plt Count 184 MPV 9.6 Sodium 136 L Potassium 4.5 Chloride 106 Carbon Dioxide 23 Anion Gap 7 BUN 20 Creatinine 1.02 Estim Creat Clear Calc 56 Estimated GFR > 60 Glucose 103 Calcium 8.6 Procedures/Treatments: dual-chamber pacemaker placement Discharge Plan Discharge Attending physician on discharge: Luisito Domingo Consulting providers: Efren Martinez Discharging Clinician: Shelley Arteaga Anticipated Discharge Date/Time: 01/03/25 15:52 Patient Disposition: Home, Self-Care Activity: as tolerated Diet: as tolerated and heart healthy Discharge Instructions: * Follow up with cardiology in 1 weeks. * Hold Eliquis until you follow up with Relay Adjuster in 1 week * You have peripheral vascular disease and will need to follow up with Vascular surgeon Dr. Dm Duval[facility] [address] [facility], [place] [address] Manan Rollins- Vascular surgeon [address] [facility] [address] [facility] [id number] [facility] [address] [address] [address] [place] [id number] DISCHARGE INSTRUCTIONS - POST PACEMAKER Activity 1. No driving until you are seen in the office for your incision check. 2. No lifting, pushing or pulling more than 5 pounds with affected arm for 1 MONTH 3. No lifting affected arm above shoulder height for 1 MONTH 4. Wear immobilizer/sling only if you are unable to remember the above activity restrictions. Recommend that it be worn at night. 5. You may shower AFTER you are seen for incision check, but no tub baths, swimming pool or hot tub for 1MONTH Wound Care 1. Do not attempt to remove the Aquacel dressing. Leave dressing undisturbed until incision check at the office visit. Keep dressing dry. 2. When you are able to shower AFTER you are seen for your incision check in the office do not rub or scrub the incision. Pat dry after shower. NO lotions, powders, creams or ointments are to be applied to the incision 3. A small amount of tenderness, puffiness and bruising around the site is normal. Call if any significant pain, drainage, swelling, or redness around the site *For any other questions please call the office at [phone]. Office hours are 8AM 4:30PM Wednesday through Wednesday. Patient Instructions: Heart Block (DC), Pacemaker (DC) Patient Language: Czech Stand Alone Forms: General Discharge Information Follow-up/Referrals: Efren Martinez MD [Physician] - 1 Week Saroj Cunningham MD [Primary Care Provider] - 1 Week Discharge Medications: Continued aspirin 81 mg Tablet,Chewable 81 mg PO DAILY rosuvastatin 10 mg tablet 10 mg PO DAILY losartan 50 mg tablet 50 mg PO DAILY mupirocin 2 % ointment 1 applic topical BID Qty: 50 2RF ketoconazole 2 % cream 1 applic topical BID Qty: 60 1RF multivitamin Tablet 1 tablet PO DAILY (DME) CPAP See Rx Instructions .Route .MEDSUPPLY Qty: 1 0RF Rx Instructions: medium ResMed AirTouch F20 full face mask and heated humidity with pressure of 11 cm H2) Held Eliquis 5 mg tablet 5 mg PO HS Hold Instructions: Resume on 01/10/25. until after device wound check appointment Discontinued cephalexin 500 mg capsule 500 mg PO Q8H Qty: 21 1RF Date of admission: 12/31/24 12:21 Primary Care Provider: Saroj Cunningham Admitting Provider: Diego Rodarte Attending physician on admission: Shelley Arteaga Condition: Improved Quality VTE Prophylaxis VTE prophylaxis: mechanical ordered Hospitalist MIPS Heart Failure (Exclusion) Patient has history of Heart Transplant or Left Ventricular Assistive Device?: No IF YES, STOP HERE Heart Failure (Qualifier) Patient has current or prior documentation of LVEF less than or equal to 40%, or mod/servere depressed LVSF?: No IF NO, STOP HERE
== END 2025-01-03 17:16 | disposition home or self-care (01) | DRG 243 ==
LOC: ANHED 11:03 → ANHIMU 11:34
PROVIDERS: Nurse Practitioner; Physician Assistant; Specialist; Student in an Organized Health Care Education/Training Program; Admitting Provider General Practice; Emergency Provider Student in an Organized Health Care Education/Training Program; PCP Family Medicine; Visit Provider Nurse Practitioner Acute Care
PROC: 0JH606Z Insertion of Pacemaker, Dual Chamber into Chest Subcutaneous Tissue and Fascia, Open Approach (ICD-10-PCS; CPT 33208; principal; 2025-01-02 13:00)
DX: I49.5 Sick sinus syndrome (principal); I44.2 Atrioventricular block, complete; I48.0 Paroxysmal atrial fibrillation; I73.9 Peripheral vascular disease, unspecified; I25.10 Atherosclerotic heart disease of native coronary artery without angina pectoris; G47.33 Obstructive sleep apnea (adult) (pediatric); I87.2 Venous insufficiency (chronic) (peripheral); N40.0 Benign prostatic hyperplasia without lower urinary tract symptoms; I10 Essential (primary) hypertension; K21.9 Gastro-esophageal reflux disease without esophagitis; E78.5 Hyperlipidemia, unspecified; Z79.01 Long term (current) use of anticoagulants; Z95.5 Presence of coronary angioplasty implant and graft; I25.2 Old myocardial infarction; Z90.49 Acquired absence of other specified parts of digestive tract
CPT/HCPCS: 33208; 36415; 71045; 71046; 73701; 80048; 80053; 83690; 83735; 84484; 85025; 85027; 85610; 85730; 93005; 99285; A9270; C1779; C1785; G0378; J0690; J2003; J2250; J3010; J7030; J7040; Q9967

== ENCOUNTER 2025-01-11 11:28 | Inpatient (IN) | payer MEDICARE, SELFPAY ==
[2025-01-11] VITALS (8 sets, daily range): BP systolic 141–183; BP diastolic 54–97; PULSE 72–85; RESP 14–20; TEMP 36.5–36.6; O2SAT 12–100; BMI 32.2; BMI 36.6
--- NOTE | ~2025-01-11 | XR_ITS ---
EXAMINATION: XR ankle RT min 3V DATE: 01/11/2025 13:05 INDICATION: Cellulitis at the right ankle TECHNIQUE: Anteroposterior, oblique and lateral views of the right ankle were obtained. COMPARISON: None. FINDINGS: Solid fusion across the distal right tibia and fibula with residual screw fragment extending from med ial collateral across the distal tibia. There are suture anchors at the medial malleolus. No acute fr acture. 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 Joint spaces in the midfoot are relatively preserved. No erosions to suggest osteomyelitis. Diffuse soft tissue swelling about the lower leg, ankle and over the dorsum of the foot. IMPRESSION: 1. Chronic postoperative changes at the right ankle with solid osseous fusion across the distal tibia and fibula. No acute osseous abnormality. 2. 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 Reviewed, dictated and finalized at location B. IMPRESSION: 1. Chronic postoperative changes at the right ankle with solid osseous fusion a cross the distal tibia and fibula. No acute osseous abnormality. 2. 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
--- NOTE | ~2025-01-11 | US_ITS ---
EXAMINATION: US venous doppler LE RT DATE: 01/11/2025 12:24 INDICATION: Right lower limb pain, swelling and erythema. TECHNIQUE: Grayscale ultrasound images without and with compression and Doppler ultrasound images of the right lower extremity veins were obtained. COMPARISON: None. FINDINGS: The visualized portions of right common femoral vein, profunda (deep) femoral vein, femoral vein, pop liteal vein, peroneal trunk, posterior tibial veins, peroneal veins, gastrocnemius vein and greater s aphenous vein outflow are patent. IMPRESSION: 1. No deep venous thrombosis in the right lower limb. Reviewed, dictated and finalized at location B.
--- NOTE | ~2025-01-11 | US_ITS ---
ULTRASOUND ANKLE BRACHIAL INDEX Ordering provider: Shelley Arteaga APRN History: . swelling and pain to right lower extremity . Comparison: None. FINDINGS: Right brachial systolic blood pressure: 139 mmHg Left brachial systolic blood pressure: 125 mmHg Right ankle systolic blood pressure: 96 mmHg Left ankle systolic blood pressure: 164 mmHg Right ankle/arm index (AYDEE): 0.69 Left ankle/arm index (AYDEE): 1.18 Note regarding AYDEE: --Normal= 1.0 or slightly greater. --Claudication (moderate stenosis or occlusive state)= 0.6 to 0.9. --Rest pain (severe occlusive states)= 0.5 or less. IMPRESSION: Moderate stenosis in the right side. Reviewed, dictated and finalized at location A.
--- NOTE | 2025-01-11 11:43 | ECG_ITS ---
Test Date: 2025-01-11 13:06:44 Measurements Intervals [place] Rate: 73 P: 123 FL: 209 QRS: -56 QRSD: 190 T: 110 QT: 492 QTc: 543 Interpretive Statements ELECTRONIC ATRIAL PACEMAKER ELECTRONIC VENTRICULAR PACEMAKER BASELINE ARTIFACT- I, II, III, AVR, AVL A,VF, V1-V6 NO FURTHER INTERPRETATION IS POSSIBLE ATYPICAL ECG Compared to ECG 01/02/2025 14:48:23 No significant changes Electronically Signed On 01-11-2025 13:49:56 CDT by Chacho Preston D.O.
[2025-01-11] MEDS: SODIUM CHLORIDE 0.9% IV 3,000 ML 999 ML IV CONT (12:04)
[2025-01-11 12:13] LABS: Basophils Absolute Auto 0.1 K/mm3 (0.0-0.1); Basophils Percent Auto 0.7 % (0.2-1.2); Eosinophils Absolute Auto 0.2 K/mm3 (0-0.3); Eosinophils Percent Auto 3.3 % (0-4.4); Hematocrit 43.6 % (42.0-52.0); Hemoglobin 13.9 g/dL (14.0-18.0); Immature Granulocyte Absolute 0.02 K/mm3 (0.00-0.031); Immature Granulocyte Percent A 0.3 % (0-0.5); Lymphocytes Absolute Auto 1.31 K/mm3 (0.9-3.2); Lymphocytes Percent Auto 18.8 % (18.3-44.2); Mean Corpuscular HGB Conc 31.9 g/dl (32-36); Mean Corpuscular Hemoglobin 29.9 pg (26-34); Mean Corpuscular Volume 93.8 fl (80-100); Mean Platelet Volume 9.6 fl (7.4-10.4); Monocytes Percent Auto 14.9 % (2.6-8.5); Neutrophils Absolute Auto 4.3 K/mm3 (1.3-6.7); Platelet Count Result 221 k/mm3 (150-375); Red Blood Count 4.65 M/mm3 (4.6-6.20); Red Cell Distribution Width 13.4 % (11.5-14.5)
--- OUTSIDE RECORDS SUMMARY | 2025-01-11 12:36 | XMS_ITS | Clinical Summary ---
Author Organization [facility] [address] Address [address] [place] [address] Care Team Providers Care Certified Social Workers In Health Care Name Role Phone Saroj Cunningham MD Primary Care Provider [phone] Allergies Active Allergy Reactions Criticality Noted Date Comments Povidone-Iodine Rash Medium 09/01/2022 Thimerosal Rash Medium 11/11/2022 Medications aspirin 81 mg chewable tablet Take 1 tablet (81 mg total) by mouth daily 1 Active apixaban (ELIQUIS) 5 mg tablet Take 1 tablet (5 mg total) by mouth 2 (two) times a day 180 tablet 1 5 Active Additional Information Patient not taking.Reported on 01/11/2025 losartan (COZAAR) 50 mg tablet Take 1 tablet (50 mg total) by mouth daily 90 tablet 3 5 Active rosuvastatin (CRESTOR) 10 mg tablet Take 1 tablet (10 mg total) by mouth daily 90 tablet 3 5 Active multivitamin tabletIndicati ons:Vitamin Deficiency Prevention Take 1 tablet by mouth licensing coordinator before breakfast Active pantoprazole DR (PROTONIX) 20 mg EC tablet Take 1 tablet (20 mg total) by mouth daily 1 01/12/20 25 Discontin ued(Thera py completed ) HYDROcodone-ac etaminophen (NORCO) 7.5-325 mg per tablet Indications: Chronic Pain 1 tablet daily as needed for pain 0 01/12/20 25 Discontin ued(Thera py completed ) metoprolol XL (TOPROL-XL) 25 mg extended release tablet Take 2 tablets (50 mg total) by mouth daily 180 tablet 3 3 01/12/20 25 Discontin ued(Thera py completed ) imiquimod (ALDARA) 5 % cream Apply 1 packet topically nightly 3 01/12/20 25 Discontin ued(Thera py completed ) cephalexin (KEFLEX) 500 mg capsule Take 1 capsule (500 mg total) by mouth daily 3 01/12/20 25 Discontin ued(Thera py completed ) Active Problems Problem Noted Date Diagnosed Date Cardiac pacemaker in situ 01/02/2025 Overview (01/02/2025): Biotronik Amvia Edge Dual Pacemaker. Dx; Second Degree HB, Syncope. DOI 01/02/2025-Gabe. Bi[employer]ronik remote monitoring. Third degree AV block 12/31/2024 Paroxysmal atrial fibrillation 02/17/2024 Other thrombophilia 02/17/2024 Second degree AV block, Mobitz type I 11/18/2023 Coronary artery disease invo lving [place] coronary artery of [place] heart without angina pectoris 08/12/2021 History of coronary artery stent placement 08/12 Encounters Date Type Department Care Team Description 01/11/2025 9:00 AM CDT Office Visit [facility] Cardiology [address] [place] [address] [place] [phone] Namrata Jordan NP Third degree AV block (HCC) (Primary Dx); Cardiac pacemaker in situ; Paroxysmal atrial fibrillation (HCC); Chronic anticoagulation; PVD (peripheral vascular disease) 01/09/2025 9:00 AM CDT Ancillary Procedure [facility] Cardiology [address] [place] [address] [place] [phone] H/O syncope (Primary Dx); Cardiac pacemaker in situ; Second degree AV block, Mobitz type I 01/08/2025 Orders Only [facility] Cardiology [address] [place] [address] [address] [place] [address] Efren Martinez MD 01/02/2025 Orders Only [facility] [address] [place] [address] Sarjo Bernal MD 01/02/2025 Orders Only [facility] Cardiology [address] [facility] [address], [place] [address] Saroj Bernal MD Cardiac pacemaker in situ (Primary Dx); Second degree AV block, Mobitz type I 01/02/2025 Orders Only [facility] Cardiology [address] [place] [address] [place] [phone] Jaden Hassan MD 12/28/2024 2:30 PM CDT Ancillary Procedure [place] [address] [place] [phone] NSTEMI (non-ST elevated myocardial infarction) (HCC) 12/27/2024 Orders Only [facility] Health Information Management [address] [place] [address] Jaden Hassan MD 11/30/2024 Telephone [place] [address] [place] [phone] Saroj Bernal MD pacemaker implantation 11/27/2024 Telephone [place] [address] [place] [phone] Saorj Bernal MD Med Refill 10/16/2024 9:30 AM UNISAW OPERATOR Office Visit [facility] Cardiology [address] [place] [address] [place] [phone] Saroj Bernal MD History of coronary artery stent placement (Primary Dx); Coronary artery disease involving [place] coronary artery of [place] heart without angina pectoris; Second degree AV block, Mobitz type I; Paroxysmal atrial fibrillation (HCC) from Last 3 Months Surgical History Surgery [...] on file Legal Sex Male 3:21 AM UNISAW OPERATOR Gender Identity Not on file Sexual Orientation Not on file Obstetrics History Last Filed Vital Signs Vital Sign Reading Time Taken Comments Blood Pressure 120/64 01/11/2025 9:02 AM CDT Pulse 62 01/11/2025 9:02 AM CDT Temperature - - Respiratory Rate - - Oxygen Saturation 96% 01/11/2025 9:02 AM CDT Inhaled Oxygen Concentration - - Weight 99.3 kg (219 lb) 01/11/2025 9:02 AM CDT Height 177.8 cm (5' 10 ) 01/11/2025 9:02 AM CDT Body Mass Index 31.42 01/11/2025 9:02 AM CDT Plan of Treatment Health Maintenance Due Date Last Done Comments Depression Screening 1940 Fall Risk Assessment 1940 Hepatitis B Screening 1958 Well Visit 65+ 2005 Zoster Vaccine (2 of 3) 12/05/2014 10/10/2014 Covid-19 Vaccine (4 - 2023-2 5 season) 2024 07/24/2021, 12/03/2020, 11/05/2020 Influenza Vaccine (Season Ended) 2025 06/07/2020, 08/02/2019, 07/28/2018, Additional history exists DTaP/Tdap/Td Vaccine (2 - Td or Tdap) 09/01/2032 09/01/2022, 07/18/2001 Pneumococcal vaccine 65+ Completed 09/04/2015, 08/04 Procedures Procedure Name Priority Date/Time Associated Diagnosis Comments DEVICE CHECK - IN OFFICE Routine 01/09/2025 8:46 AM CDT Cardiac pacemaker in situ Second degree AV block, Mobitz type I CARDIOLOGY DOCUMENT SCAN Routine 01/03/2025 4:48 PM CDT CARDIOLOGY DOCUMENT SCAN Routine 01/02/2025 4:39 PM CDT SCAN - RADIOLOGY/IMAGING 01/02/2025 CARDIOLOGY DOCUMENT SCAN Routine 01/01/2025 4:15 PM CDT CARDIOLOGY DOCUMENT SCAN Routine 12/31/2024 4:09 PM CDT CARDIOLOGY DOCUMENT SCAN Routine 12/28/2024 3:21 PM CDT CARDIOLOGY DOCUMENT SCAN Routine 12/27/2024 3:12 PM CDT CARDIOLOGY DOCUMENT SCAN 12/27/2024 from Last 3 Months Results * DEVICE CHECK - IN OFFICE (01/09/2025 8:46 AM CDT) Anatomical Region Laterality Modality Other Narrative 01/11/2025 8:26 AM CDT [employer] Amvia Edge Dual Pacemaker. Dx; Second Degree HB, Syncope. DOI 01/02/2025-Gabe. [employer] remote monitoring. Supervising MD: Gabe Office DDD CLS Pacemaker evaluation demonstrated appropriate device function. Left pectoral incision well approximated with mild edema and without signs of infection noted. Battery function: 100%, 9.0 years remaining battery life to SHARONDA. Appropriate lead measurements noted. Presenting rhythm- A sensed/V sensed V paced Underlying rhythm- NSR AP- 56%, ROVING MARKER- 96% No Atrial high rate episodes noted. No Ventricular high rate episodes noted. Medications; Eliquis 5 mg, ASA 81 mg, losartan 50 mg, Toprol-XL 25 mg No programming changes made to device settings. See scanned report. Office device f/u 02/13/25 Biotronik remote f/u 05/22/25 Gregory Max, RN us Saroj Bernal MD CV CARDIAC SERVICES PROC EDURES Final Result * Cardiology Document Scan (01/03/2025 4:48 PM CDT) Anatomical Region Laterality Modality Other us Jaden Hassan MD [facility] CARDIAC SERVICES PRO CEDURES Final Result * Cardiology Document Scan (01/02/2025 4:39 PM CDT) Anatomical Region Laterality Modality Other us Saroj Bernal MD CV CARDIAC SERVICES PROC EDURES Final Result * SCAN - RADIOLOGY/IMAGING (01/02/2025) Anatomical Region Laterality Modality Other us Saroj Bernal MD Final Re sult * Cardiology Document Scan (01/01/2025 4:15 PM CDT) Anatomical Region Laterality Modality Other us Mohan Miguel MD CV CARDIAC SERVICES PROCEDURES F inal Result * Cardiology Document Scan (12/31/2024 4:09 PM CDT) Anatomical Region Laterality Modality Other us Efren Martinez MD CV CARDIAC SERVICES PROCE DURES Final Result * Cardiology Document Scan (12/28/2024 3:21 PM CDT) Anatomical Region Laterality Modality Other Mohan Miguel MD CV CARDIAC SERVICES PROCEDURES F inal Result * Cardiology Document Scan (12/27/2024 3:12 PM CDT) Anatomical Region Laterality Modality Other Jaden Hassan MD CV CARDIAC SERVICES PRO CEDURES Final Result * Cardiology Document Scan (12/27/2024) Anatomical Region Laterality Modality Other Jaden Hassan MD CV CARDIAC SERVICES PRO CEDURES Final Result from Last 3 Months Insurance MEDICARE MEDICARE [facility] MEDICARE SUPPLEMENT Care Teams Certified Social Workers In Health Care Relationship Specialty Start Date End Date Saroj Cunningham MD PCP - General Family Medicine 02/11/23
--- OUTSIDE RECORDS SUMMARY | 2025-01-11 12:36 | XMS_ITS | Clinical Summary ---
Author Organization [facility] Address [address] [place] [address] Care Team Providers Care Heel Trimmer Name Role Phone Saroj Cunningham MD Primary Care Provider [phone] Allergies Active Allergy Reactions Criticality Noted Date [...] disease 01/26/2022 Coronary artery disease invo lving [place] coronary artery of [place] heart without angina pectoris 08/12/2021 Hx of [...] 07/08/2020 01/26/2022 Atrial fibrillation, unspeci fied type ([facility]) 07/08/2020 08/22/2020 Need for zoster vaccine 05/22/202006/04 HTN (hypertension) 05/08/2020 0 Other acute kidney failure 05/08/2020 0 05/22/2020 Non-recurrent acute suppurat harry otitis media of right ear 05/08/2020 05/22/2020 Dislocation of ulnohumeral joint 06/21/2012 07/30/2020 Other fracture of unspecifie d lower leg, initial encounter for open fracture type I or II 06/21/2012 07/30/2020 Atrial fibrillation ([facility]) 01/26/2022 Immunizations Name Administration Dates Next Due Fluzone High Dose - >Age 65 (Prefilled Syringe) 07/29/2022,08/22/2021,08/02/2019,2017,07/28/2017,06/04/2017,07/07/2016,1 11/05/2014,07/04/2014 Influenza Adult (Generic) 06/07/2020 PFIZER COVID-19 (ORIGINAL FORMULATION, PURPLE CAP) mRNA, LNP-S, PF, 30 MCG/0.3 ML DOSE 07/24/2021 Pneumococcal (Pneumovax 23) 08/17/2014 Pneumococcal (Prevnar 13) 09/04/2015 Td 07/18/2001 Tdap (Generic) 09/01/2022 Zoster (Zostavax) 22360 Unt/0.65Ml 10/10/2014 Family History Medical History Relation [...] Sex Assigned at Male 11/13/2024 12:28 PM EXECUTIVE ACCOUNT MANAGER Legal Sex Male 4:21 PM CDT Gender Identity Not on file Sexual Orientation Not on file Last Filed Vital Signs Vital Sign Reading Time Taken Comments Blood Pressure 105/63 05/15/2024 8:51 AM CDT Pulse 64 05/15/2024 8:51 AM CDT Temperature 36.6 C (97.8 F) 11/12/2023 8:04 AM EXECUTIVE ACCOUNT MANAGER Respiratory Rate 22 07/29/2022 9:16 AM CDT [...] - 1-dose 75+ series) 2015 COVID-19 Vaccine (2023-2 5 season) 2024 07/24/2021, 12/03/2020, 11/05/2020 PHQ-2 (Physician [place]) 10/04/2024 11/12/2023 DTaP, Tdap and Td Vaccines ( 2 - Td or Tdap) 09/01/2032 09/01/2022, 07/18/2001 Pneumococcal Vaccine: 65+ Years Completed 09/04/2015, 08/17/2014 Meningococcal B Vaccine Aged Out No l onger eligible based on patient's age to complete this topic Meningococcal Vaccine Aged Out No marilu arlene eligible based on patient's age to complete this topic RSV Immunizations Under 20 Months Aged Out No longer eligible b ased on patient's age to complete this topic Insurance MEDICARE [facility] Care Teams Heel Trimmer Relationship Specialty Start Date End Date Saroj Cunningham MD [employer] [address] [address] PCP - General FAMILY PRACTICE 06/30/23
--- OUTSIDE RECORDS SUMMARY | 2025-01-11 12:36 | XMS_ITS | Referral Summary ---
Author Organization [place] [address] [address] [facility] [address] [place] [address] Care Team Providers Care Websphere Commerce Architect Name Role Phone Saroj Cunningham MD Primary Care Provider [phone] Encounters Date Type Department Care Team Description 01/11/2025 9:00 AM CDT Office Visit [facility] Medical [facility] Cardiology [address] [place] [address] [address] [place] [address] Namrata Jordan NP Third degree AV block (HCC) (Primary Dx); Cardiac pacemaker in situ; Paroxysmal atrial fibrillation (HCC); Chronic anticoagulation; PVD (peripheral vascular disease) 01/09/2025 9:00 AM CDT Ancillary Procedure [facility] Cardiology [address] [place] [address] [address] [place] [address] H/O syncope (Primary Dx); Cardiac pacemaker in situ; Second degree AV block, Mobitz type I 01/08/2025 Orders Only [facility] Cardiology [address] [place] [address] [address] [place] [address] Efren Martinez MD 01/02/2025 Orders Only [facility] Health Information Management [address] [place] [address] Saroj Bernal MD 01/02/2025 Orders Only [facility] Cardiology [address] [facility] [address] [place] [phone] Saroj Bernal MD Cardiac pacemaker in situ (Primary Dx); Second degree AV block, Mobitz type I 01/02/2025 Orders Only [facility] Cardiology [address] [place] [address] [place] [phone] Jaden Hassan MD 12/28/2024 2:30 PM CDT Ancillary Procedure [facility] Cardiology [address] [place] [address] [place] [phone] NSTEMI (non-ST elevated myocardial infarction) (HCC) 12/27/2024 Orders Only [facility] Health Information Management [address] [place] [address] Jaden Hassan MD 11/30/2024 Telephone [facility] Cardiology [address] [place] [address] [place] [phone] Saroj Bernal MD pacemaker implantation 11/27/2024 Telephone [place] [address] [place] [phone] Saroj Bernal MD Med Refill 10/16/2024 9:30 AM CONDUIT CLEANER Office Visit [facility] Cardiology [address] [place] [phone] Saroj Bernal MD History of coronary artery stent placement (Primary Dx); Coronary artery disease involving [place] coronary artery of [place] heart without angina pectoris; Second degree AV block, Mobitz type I; Paroxysmal atrial fibrillation (HCC) from Last 3 Months Allergies Active Allergy [...] Deficiency Prevention Take 1 tablet by mouth barrel burner before breakfast Active pantoprazole DR (PROTONIX) 20 [...] I 11/18/2023 Coronary artery disease invo lving [place] coronary artery of [place] heart without angina pectoris 08/12/2021 History of coronary artery stent placement 08/12 Social History Tobacco Use Types Packs/Day Years Used Date Smoking Tobacco: Never Smokeless Tobacco: Never Tobacco Cessation:Counseling Given: Not Answered Sex and Gender Information Value Date Recorded Sex Assigned at Not on file Legal Sex Male 3:21 AM CONDUIT CLEANER Gender Identity Not on file Sexual Orientation [...] 01/11/2025 9:02 AM CDT Plan of Treatment Not on file Procedures [...] Modality Other Narrative 01/11/2025 8:26 AM CDT cheerapproniHaload Amvia Edge Dual Pacemaker. Dx; Second Degree HB, Syncope. DOI 01/02/2025-Gabe. [employer] remote monitoring. Supervising MD: Gabe Office DDD CLS Pacemaker evaluation demonstrated appropriate device function. Left pectoral incision well approximated with mild edema and without signs of infection noted. Battery function: 100%, 9.0 years remaining battery life to SHARONDA. Appropriate lead measurements noted. Presenting rhythm- A sensed/V sensed V paced Underlying rhythm- NSR AP- 56%, DEMOGRAPHER- 96% No Atrial high rate episodes noted. No Ventricular high rate episodes noted. Medications; Eliquis 5 mg, ASA 81 mg, losartan 50 mg, Toprol-XL 25 mg No programming changes made to device settings. See scanned report. Office device f/u 02/13/25 Biotronik remote f/u 05/22/25 Gregory Max RN Saroj Bernal MD CV CARDIAC SERVICES PROC EDURES Final Result * Cardiology Document Scan (01/03/2025 4:48 PM CDT) Anatomical Region Laterality Modality Other Jaden Hassan MD CV CARDIAC SERVICES PRO CEDURES Final Result * Cardiology Document Scan (01/02/2025 4:39 PM CDT) Anatomical Region Laterality Modality Other Saroj Bernal MD CV CARDIAC SERVICES PROC EDURES Final Result * SCAN - RADIOLOGY/IMAGING (01/02/2025) Anatomical Region Laterality Modality Other Result [facility] Saroj Bernla MD Final Re sult * Cardiology Document Scan (01/01/2025 4:15 PM CDT) Anatomical Region Laterality Modality Other Result [facility] Mohan Miguel MD CV CARDIAC SERVICES PROCEDURES F inal Result * Cardiology Document Scan (12/31/2024 4:09 PM CDT) Anatomical Region Laterality Modality Other Efren Martinez MD CV CARDIAC SERVICES PROCE [...] Scan (12/27/2024) Anatomical Region Laterality Modality Other [facility] Guanako Hassan MD CV CARDIAC SERVICES PRO CEDURES Final Result from Last 3 Months Insurance MEDICARE MEDICARE [facility] MEDICARE SUPPLEMENT Care Teams Websphere Commerce Architect Relationship Specialty Start Date End Date Saroj Cunningham MD PCP - General Family Medicine 02/11/23
--- OUTSIDE RECORDS SUMMARY | 2025-01-11 12:36 | XMS_ITS | Clinical Summary ---
Author Organization [facility] [employer] Address [address] [place] [address] Care Team Providers Care Campaign Consultant Name Role Phone Rafi Montes MD Primary Care Provider [phone] Source Comments [facility] [employer],non-owned Affiliates and Associated Physician Practices is amultiple site organization consisting of ambulatory clinics and hospital sitesin [place], [place], [place] and [place]. This disclosure is being madepursuant to the Care Everywhere program and may not contain all information available regarding this patient. Last updated 18.[facility] [employer] Allergies Active Allergy Reactions Criticality Noted Date [...] Comments Blood Pressure 183/87 09/02/2022 3:00 PM MARINE INSURANCE CLAIM EXAMINER Pulse 58 09/02/2022 4:00 PM MARINE INSURANCE CLAIM EXAMINER Temperature 37.1 C (98.8 F) 09/02/2022 8:00 AM MARINE INSURANCE CLAIM EXAMINER Respiratory Rate 16 09/02/2022 4:00 PM MARINE INSURANCE CLAIM EXAMINER Oxygen Saturation 95% 09/02/2022 4:00 PM MARINE INSURANCE CLAIM EXAMINER Inhaled Oxygen Concentration - - Weight 93 kg (205 lb) 09/01/2022 4:44 PM MARINE INSURANCE CLAIM EXAMINER Height 177.8 cm (5' 10 ) 09/01/2022 4:44 PM MARINE INSURANCE CLAIM EXAMINER Body Mass Index 29.41 09/01/2022 4:44 PM MARINE INSURANCE CLAIM EXAMINER Plan of Treatment Health Maintenance Due Date Last Done Comments MEDICARE AWV 12 MONTHS 1940 PNEUMOCOCCAL VACCINE 50+ (1 of 1 - PCV) 1990 ZOSTER VACCINE (1 of 2) 1990 Respiratory Syncytial Virus (RSV) Vaccine Pt: or over 60 yrs (1 - 1-dose 75+ series) 2015 COVID-19 VACCINE ( season) 2024 07/24/2021, 12/03/2020, 11/05/2020 DEPRESSION SCREENING 10/04/2024 INFLUENZA VACCINE (Season Ended) 2025 07/29/2022, 08/22/2021, 06/07/2020, Additional history exists DTAP/TDAP/TD VACCINES (2 - Td or Tdap) [...] 7:41 PM 09/02/2022 5:36 PM Care Teams Campaign Consultant Relationship Specialty Start Date End Date Rafi Montes MD [address] [place] [phone] PCP - General 08/31/12
--- OUTSIDE RECORDS SUMMARY | 2025-01-11 12:36 | XMS_ITS | Encounter Summary ---
Author Organization [facility] Healthcare Address [address] [place] [address] Care Team Providers Care Aviculturist Name Role Phone Saroj Cunningham MD Primary Care Provider [phone] Reason for Visit * Reason Comments Hospital Follow Up Encounter Details Date Type Department Care Team (Late st Contact Info) Description 01/11/2025 9:00 AM CDT Office Visit [facility] Medical Group Cardiology [address] [facility] [address] [place] [address] Namrata Jordan NP [address] [facility] [address] [place] [address] Third degree AV block (HCC) (Primary Dx); Cardiac pacemaker in situ; Paroxysmal atrial fibrillation (HCC); Chronic anticoagulation; PVD (peripheral vascular disease) Social History Tobacco Use Types Packs/Day Years Used Date Smoking Tobacco: Never Smokeless Tobacco: Never Tobacco Cessation:Counseling Given: Not Answered Sex and Gender Information Value Date Recorded Sex Assigned at Not on file 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 documented in this encounter Progress Notes * Namrata Jordan NP - 01/11/2025 9:00 AM CDT Images from the original note were not included. [facility] Medical Group Cardiology [address] [place] [address] Date of Visit: 01/11/2025 Patient ID: Enmanuel Vila 1940 Chief Complaint Patient presents with Hospital Follow Up Enmanuel Vila is a 84 y.o. male who is an established patient of Dr. Bernal with a history of CAD and atrial fibrillation coming to the office for follow-up after pacemaker implantation. History of Present Illness: Enmanuel Vila is a 84 y.o. male who presents for follow up of coronary artery disease. This is a patient who presented [facility] in April of 2021 with some chest pain. His ECG demonstrated sinus rhythm, first-degree AV block and bifascicular block. His troponin gamal significantly and catheterization was recommended. He was found to have high-grade disease in the LAD that was treated with 2 relatively long overlapping drug-eluting stents with a good anatomical result. He has hypertensionand prediabetes as his general medical problems. He saw the nurse practitioner in follow-up a monthafter that intervention and was doing well at that time. The patient subsequently he presented [facility] in September of 2023 with some chest pain and a slow heart rate at home. He was found to have Mobitz type 1 second-degree AV block and was taken off of metoprolol treatment. A subsequent Holter monitor was done in October of 2023 which demonstrates ongoing type 1 second-degree AV block.The longest pause seen was 3 seconds. The study also demonstrated evidence of paroxysmal atrial fibr illation with an AF burden of about 20%. This is a new diagnosis. He was started on Xarelto at thattime. 01/11/2025 hospital follow-up visit with [employer] WORKER: He was hospitalized at [facility] on 12/27/2024 for a syncopal episode. A 30 day MCT was placed and the patient was discharged. The MCT alerted to attend to12nd pause. He was readmitted and found to have third-degree AVB with sinus pauses. He proceeded tohave a dual-chamber pacemaker implanted by Dr. Bernal on 01/02/2025. He was also evaluated for a possibility of cellulitis in the right lower leg. He returns today for follow-up accompanied by hiswife. He had an office check of the device by our device nurse 2 days ago. He is concerned about the cellulitis in the right leg and is awaiting consultation with the vascular surgeon. Medical History: Past Medical History: Diagnosis Date Bladder infection Cataract Chronic kidney disease Enlarged prostate Heart attack (HCC) Hyperlipidemia Hypertension Past Surgical History: Procedure Laterality Date BACK SURGERY CHOLECYSTECTOMY 2018 CORONARY ANGIOPLASTY Social History Tobacco Use Smoking Status Never Smokeless Tobacco Never Social History Tobacco Use Smoking status: Never Smokeless tobacco: Never Substance and Sexual Activity Drug use: Not Currently Sexual activity: None Alcohol Use: Not At Risk (09/02/2022) Received from [employer] [employer] [facility] Frequency of Alcohol Consumption: Never Average Number of Drinks: Patient does not drink Frequency of Binge Drinking: Never Family History Problem Relation Age of Onset Diabetes Mother Heart attack Mother Heart disease Father Review of Systems Constitutional: Negative for malaise/fatigue, weight gain and weight loss. Cardiovascular: Negative for chest pain, dyspnea on exertion, leg swelling, near-syncope, orthopnea, palpitations, paroxysmal nocturnal dyspnea and syncope. Respiratory: Negative for cough, shortness of breath and sleep disturbances due to breathing. Hematologic/Lymphatic: Negative for bleeding problem. Does not bruise/bleed easily. Vital Signs: BP 120/64 (BP Location: Right arm, Patient Position: Sitting) Pulse 62 Ht 177.8 cm (5' 10 ) Wt 99.3 kg (219 lb) SpO2 96% BMI 31.42 kg/m?? Physical Exam Constitutional: General: He is not in acute distress. Appearance: He is well-developed. HENT: Head: Normocephalic and atraumatic. Eyes: General: No scleral icterus. Conjunctiva/sclera: Conjunctivae normal. Neck: Vascular: No JVD. Trachea: No tracheal deviation. Cardiovascular: Rate and Rhythm: Normal rate and regular rhythm. Heart sounds: Normal heart sounds. No murmur heard. Comments: Left chest pacemaker incision is healing, no erythema or drainage, mild edema. Pulmonary: Effort: Pulmonary effort is normal. No respiratory distress. Breath sounds: Normal breath sounds. Musculoskeletal: Right lower leg: Edema (mild RLE edema with mild erythema) present. Left lower leg: No edema. Skin: General: Skin is warm and dry. Neurological: Mental Status: He is alert and oriented to person, place, and time. Psychiatric: Mood and Affect: Mood normal. Behavior: Behavior normal. Allergies Allergen Reactions Povidone-Iodine Rash Thimerosal Rash Current Outpatient Medications: aspirin 81 mg chewable tablet, Take 1 tablet (81 mg total) by mouth daily, Disp: , Rfl: losartan (COZAAR) 50 mg tablet, Take 1 tablet (50 mg total) by mouth daily, Disp: 90 tablet, Rfl: 3 multivitamin tablet, Take 1 tablet by mouth academic support director before breakfast, Disp: , Rfl: rosuvastatin (CRESTOR) 10 mg tablet, Take 1 tablet (10 mg total) by mouth daily, Disp: 90 tablet, Rfl: 3 apixaban (ELIQUIS) 5 mg tablet, Take 1 tablet (5 mg total) by mouth 2 (two) times a day (Patient not taking: Reported on 01/11/2025), Disp: 180 tablet, Rfl: 1 No results found for: POTASSIUM , BUNSER , CREATININE , EGFR , CHOL , TRIG , LDL , LDLCALC , HDL No results found for: WBC , HGB , HCT , MCV , PLT No results found for this or any previous visit (from the past 4 hours). No results found for: POCCHOL , POCHDL , POCTRIG , POCLDL , POCNONHDL , POCCHLPL Assessment: Diagnoses and all orders for this visit: Third degree AV block (HCC) (Primary) Cardiac pacemaker in situ Paroxysmal atrial fibrillation (HCC) Chronic anticoagulation PVD (peripheral vascular disease) Plan/Recommendations: He is s/p pacemaker implantation for intermittent third-degree AV block. A device has subsequently been checked and is functioning normally. The incision site is healing as expected. Continue follow-up with the device Clinic. He may now restart Eliquis for stroke risk reduction due to his history of paroxysmal AFib. He is concerned about ongoing cellulitis in the right lower extremity. He has an upcoming appointment with vascular surgery. I explained to him that he is at higher risk of infection complications with a new implanted device. I suggested that he monitor his body temperature with a thermometer dailyat home. He plans to reach out to his PCP on whether or not he should go back on antibiotics while waiting for the vascular surgery consult. Keep a previously scheduled follow-up visit with Dr. Bernal in April. We will adjust this follow-up if indicated based on his clinical course. 01/11/2025 DIDIER Rodriguez- Nurse Practitioner with [facility] This note is dictated and transcribed using [employer] Direct Software. Tree Climber variancesmay occur. Despite proofreading, typographical errors may occur. documented in this encounter Plan of Treatment Not on file documented as of this encounter Visit Diagnoses Diagnosis Third degree AV block (HCC)- Primary Atrioventricular block, complete Cardiac pacemaker in situ Paroxysmal atrial fibrillation (HCC) Atrial fibrillation Chronic anticoagulation Encounter for long-term (current) use of anticoagulants PVD (peripheral vascular disease) Unspecified peripheral vascular disease documented in this encounter Discontinued Medications Medication Sig Discontinue Reason Start Date End Da te cephalexin (KEFLEX) 500 mg capsule Take 1 capsule (500 mg total) by mouth daily Therapy completed 09/12/2023 01/11/2025 HYDROcodone-acetaminoph en (NORCO) 7.5-325 mg per tablet Indications: Chronic Pain 1 tablet daily as needed for pain Therapy completed 08/26/2020 01/11/2025 imiquimod (ALDARA) 5 % cream Apply 1 packet topically nightly Therapy completed 07/05/2023 01/11/2025 metoprolol XL (TOPROL-XL) 25 mg extended release tablet Take 2 tablets (50 mg total) by mouth daily Therapy completed 08/30/2023 01/11/[address] (PROTONIX) 20 mg EC tablet Take 1 tablet (20 mg total) by mouth daily Therapy completed 04/28/2021 01/11/2025 documented as of this encounter Historical Medications * This list may reflect changes made after this encounter. multivitamin tabletIndication s:Vitamin Deficiency Prevention Take 1 tablet by mouth academic support director before breakfast added in this encounter Care Teams Aviculturist Relationship Specialty Start Date End Date Saroj Cunningham MD PCP - General Family Medicine 02/11/23 documented as of this encounter
--- OUTSIDE RECORDS SUMMARY | 2025-01-11 12:36 | XMS_ITS | Encounter Summary ---
Author Organization [facility] Healthcare Address [address] [place] [address] Care Team Providers Care Calculation Clerk Name Role Phone Saroj Cunningham MD Primary Care Provider [phone] Encounter Details Date Type Department Care Team (Late st Contact Info) Description 01/08/2025 Orders Only [facility] Medical Group Cardiology [address] [place] [address] Efren Martinez MD [address] [address] Social History Tobacco Use Types Packs/Day Years Used Date Smoking Tobacco: Never Smokeless Tobacco: Never Sex and Gender Information Value Date Recorded Sex Assigned at Not on file 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 Gender Identity Not on file Sexual Orientation Not on file documented as of this encounter Plan of Treatment Not on file documented as of this encounter Procedures Procedure Name Priority Date/Time Associated Diagnosis Comments CARDIOLOGY DOCUMENT SCAN Routine 01/03/2025 4:48 PM CDT CARDIOLOGY DOCUMENT SCAN Routine 01/02/2025 4:39 PM CDT CARDIOLOGY DOCUMENT SCAN Routine 01/01/2025 4:15 PM CDT CARDIOLOGY DOCUMENT SCAN Routine 12/31/2024 4:09 PM CDT documented in this encounter Results * Cardiology Document Scan (01/03/2025 4:48 PM CDT) Anatomical Region Laterality Modality Other [facility] Guanako Hassan MD CV CARDIAC SERVICES PRO CEDURES Final Result * Cardiology Document Scan (01/02/2025 4:39 PM CDT) Anatomical Region Laterality Modality Other us Saroj Bernal MD CV CARDIAC SERVICES PROC EDURES Final Result * Cardiology Document Scan (01/01/2025 4:15 PM CDT) Anatomical Region Laterality Modality Other us Mohan Miguel MD CV CARDIAC SERVICES PROCEDURES F inal Result * Cardiology Document Scan (12/31/2024 4:09 PM CDT) Anatomical Region Laterality Modality Other us Efren Martinez MD CV CARDIAC SERVICES PROCE DURES Final Result documented in this encounter Visit Diagnoses Not on filedocumented in this encounter Care Teams Calculation Clerk Relationship Specialty Start Date End Date Saroj Cunningham MD PCP - General Family Medicine 02/11/23 documented as of this encounter
--- OUTSIDE RECORDS SUMMARY | 2025-01-11 12:36 | XMS_ITS | Clinical Summary ---
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
[2025-01-11 12:48] LABS: Alanine Aminotransferase 28 U/L (6-50); Albumin Level 3.7 g/dL (3.5-5.1); Alkaline Phosphatase 64 U/L (38-126); Anion Gap 6 mmol/L (4-12); Aspartate Amino Transferase 26 U/L (17-59); Bilirubin,Total 0.8 mg/dL (0.2-1.3); Blood Urea Nitrogen 22 mg/dL (9-20); Calcium 9.4 mg/dL (8.4-10.2); Carbon Dioxide 31 mmol/L (22-30); Chloride 103 mmol/L (98-107); Estimated CRCL calculation 54 ml/min; Estimated Glomerular Filt Rate > 60; Glucose 98 mg/dL (65-110); Potassium 4.3 mmol/L (3.4-5.0); Sodium 140 mmol/L (137-145)
[2025-01-11 12:49] LABS: Lactic Acid Reflex 1.3 mmol/L (0.7-2.0)
[2025-01-11 13:16] LABS: Add Urine Microscopic? NO; Appearance Urine Clear (Clear); Bilirubin Urine Negative (Negative); Blood Urine Negative (Negative); Color Urine Yellow (Yellow); Glucose Urine UA Negative (Negative); Ketones Urine Negative (Negative); Leukocyte Esterase Ur Negative LEU/UL (Negative); Nitrate Urine Negative (Negative); Protein Urine Negative (Negative); Specific Grav Ur 1.005 (1.001-1.035); Urobilinogen Urine 0.2 mg/dL (<2.0); pH Urine 7.5 (5.0-9.0)
--- NOTE | 2025-01-11 13:49 | ED.GENADULT ---
HPI - General Adult General Chief complaint: Extremity Problem,Nontraumatic Stated complaint: LLE cellulitis Time Seen by Provider: 01/11/25 11:41 History of Present Illness HPI narrative: This is an 84-year-old male with history of her extremity cellulitis presenting for right lower extremity cellulitis. Patient states over last several days his right lower extremity has become red swollen and tender. He says this has happened many times in the past and usually resolves with antibiotics. He says it only resolved with IV antibiotics and cephalexin is been unsuccessful in the past. Patient denies fevers chills nausea diarrhea chest pain difficulty breathing abdominal pain or urinary symptoms. Review of the EMR and discussion with primary care physician shows that there was somight just peripheral vascular disease but is unclear at this time. Patient has f/u with vascular surgery on 01/24. Patient recently had a pacemaker placed in his primary care physician was concerned that if this is cellulitis it could see the pacemaker with infection. Related Data Home Medications ?Medication ?Instructions ?Recorded ?Confirmed ?Last Taken ?Type losartan 50 mg tablet 50 mg PO DAILY 09/09/22 12/31/24 12/30/24 History aspirin 81 mg chewable tablet 81 mg PO DAILY 12/05/22 12/31/24 12/31/24 History rosuvastatin 10 mg tablet 10 mg PO DAILY 07/19/23 12/31/24 12/30/24 History multivitamin 1 tablet PO DAILY 08/21/23 12/31/24 12/30/24 History apixaban 5 mg tablet (Eliquis) 5 mg PO HS 12/23/23 12/31/24 12/30/24 History Allergies Allergy/AdvReac Type Severity Reaction Status Date / Time adhesive AdvReac Mild Itching Verified 01/11/25 11:41 pantoprazole AdvReac Mild itching Verified 01/11/25 11:41 [facility] Past Medical History Medical History Chronic anticoagulation Prediabetes not a recent problem and his hemoglobin A1c was 5.6% in 08/2024 Paroxysmal atrial fibrillation Benign prostatic hyperplasia with nocturia Kidney stones Obstructive sleep apnea on CPAP Coronary artery disease Essential (primary) hypertension Mixed hyperlipidemia 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 Gastroesophageal reflux disease Hard of hearing 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 Subarachnoid hemorrhage following injury with brief loss of consciousness but without open intracranial wound Dyshidrotic eczema Surgical History Surgical History History of inguinal hernia repair History of bilateral cataract extraction History of arthroscopy of right shoulder History of orthopedic surgery right ankle, elbow, forearm History of cholecystectomy History of coronary artery stent placement drug-eluting stent to the LAD x2 History of appendectomy History of back surgery History of carpal tunnel surgery Family History Family History Mother Family history of cardiovascular disease Family history of diabetes mellitus in first degree relative Diabetes mellitus Father Family history of heart disease in male family member before age 55 Cerebrovascular accident Other Family history of malignant neoplasm Hypertension Social History Social History Social History: Surrogate medical decision maker: Ellie Vila, spouse ([phone]). Code status: Full code. Smoking status: Never smoker Second hand tobacco smoke exposure: Yes Alcohol intake: never Substance use: never Substance use type: does not use Do You Feel Safe in your Home?: Yes Lack of Transportation: No Lack of Food: Never True Current Housing: I Have Housing Concerned About Future Housing: No Difficulty Paying Gas/Electric Bills: No Difficulty Paying for Meds: No Currently Unemployed: No Education: Trade/Vocational Certificate Difficulty w/ Childcare or Family Care: No Living arrangements: with family Additional living arrangements comments: Lives with spouse in [place]. Occupation/Education: retired Spiritual care concerns: No Exam Narrative: APPEARANCE: No apparent distress. Head: atraumatic. EYES: EOMI, NOSE: Atraumatic NECK: Trachea midline RESPIRATORY: No increased rate of breathing CARDIOVASCULAR: RRR, ABDOMINAL: Non-distended MUSCULOSKELETAl: No obvious deformities NEURO: Alert. Moving 4/4 extremities SKIN:: Warmth, erythema, and discoloration and pitting edema right lower extremity. PSYCHIATRIC: Normal affect Course Vital Signs Vital signs: Vital Signs Temperature 97.7 F 01/11/25 11:26 Pulse Rate 81 01/11/25 11:26 Respiratory Rate 14 01/11/25 11:26 Blood Pressure 159/81 H 01/11/25 11:26 Pulse Oximetry 99 01/11/25 11:26 Oxygen Delivery Room Air 01/11/25 11:26 Temperature 97.7 F 01/11/25 11:26 Pulse Rate 72 01/11/25 13:01 Respiratory Rate 14 01/11/25 13:01 Blood Pressure 151/75 H 01/11/25 13:01 Pulse Oximetry 12 L 01/11/25 13:01 Oxygen Delivery Room Air 01/11/25 11:26 Medical Decision Making MDM Narrative Medical decision making narrative: -Course: A 84-year-old male presenting with swelling, warmth and pain the right lower extremity pain. It is unclear if this is truly cellulitis vs PVD. I discussed with the primary care physician who says the patient has been put antibiotics multiple times for this with some improvement, however it always recurs. He is concerned that if this is cellulitis that he could see the blood and possibly infected the patient's new pacemaker. I discussed this with patient and the patient is adamant that he has cellulitis and needs IV antibiotics. Patient will be admitted to the hospital for further managment. -DDX includes but is not limited to: Cellulitis versus peripheral vascular disease 1st peripheral edema versus DVT Vital Signs Vital Signs: Vital Signs Temperature 97.7 F 01/11/25 11:26 Pulse Rate 81 01/11/25 11:26 Respiratory Rate 14 01/11/25 11:26 Blood Pressure 159/81 H 01/11/25 11:26 Pulse Oximetry 99 01/11/25 11:26 Oxygen Delivery Room Air 01/11/25 11:26 Temperature 97.7 F 01/11/25 11:26 Pulse Rate 72 01/11/25 13:01 Respiratory Rate 14 01/11/25 13:01 Blood Pressure 151/75 H 01/11/25 13:01 Pulse Oximetry 12 L 01/11/25 13:01 Oxygen Delivery Room Air 01/11/25 11:26 Lab Data 01/11/25 12:06 01/11/25 12:06 Labs: Lab Results 01/11/25 01/11/25 Range/Units 12:06 12:51 WBC 7.0 (4.5-10.0) K/mm3 RBC 4.65 (4.6-6.20) M/mm3 Hgb 13.9 L (14.0-18.0) g/dL Hct 43.6 (42.0-52.0) % MCV 93.8 (80-100) fl MCH 29.9 (26-34) pg MCHC 31.9 L (32-36) g/dl RDW 13.4 (11.5-14.5) % Plt Count 221 (150-375) k/mm3 MPV 9.6 (7.4-10.4) fl Immature Gran % (Auto) 0.3 (0-0.5) % Neut % (Auto) 62.0 (45.5-73.1) % Lymph % (Auto) 18.8 (18.3-44.2) % [place] % (Auto) 14.9 H (2.6-8.5) % Eos % (Auto) 3.3 (0-4.4) % Baso % (Auto) 0.7 (0.2-1.2) % Lymph # (Auto) 1.31 (0.9-3.2) K/mm3 [place] # (Auto) 1.0 H (0.1-0.6) K/mm3 Eos # (Auto) 0.2 (0-0.3) K/mm3 Baso # (Auto) 0.1 (0.0-0.1) K/mm3 Abs Immat Gran (auto) 0.02 (0.00-0.031) K/mm3 Absolute Neuts (auto) 4.3 (1.3-6.7) K/mm3 Absolute Nucleated RBC 0.000 (0.0-0.012) K/mm3 Nucleated RBC % 0.0 (0.0-0.2) % Sodium 140 (137-145) mmol/L Potassium 4.3 (3.4-5.0) mmol/L Chloride 103 (98-107) mmol/L Carbon Dioxide 31 H (22-30) mmol/L Anion Gap 6 (4-12) mmol/L BUN 22 H (9-20) mg/dL Creatinine 0.98 (0.7-1.3) mg/dL Estim Creat Clear Calc 54 ml/min Estimated GFR > 60 (59 - ) Glucose 98 (65-110) mg/dL Lactic Acid 1.3 (0.7-2.0) mmol/L Calcium 9.4 (8.4-10.2) mg/dL Total Bilirubin 0.8 (0.2-1.3) mg/dL AST 26 (17-59) U/L ALT 28 (6-50) U/L Alkaline Phosphatase 64 (38-126) U/L Total Protein 7.0 (6.3-8.2) g/dL Albumin 3.7 (3.5-5.1) g/dL Urine Color Yellow (Yellow) Urine Appearance Clear (Clear) Urine pH 7.5 (5.0-9.0) Ur Specific [place] 1.005 (1.001-1.035) Urine Protein Negative (Negative) mg/dL Urine Glucose (UA) Negative (Negative) mg/dL Urine Ketones Negative (Negative) mg/dL Ur Blood (Man) Negative (Negative) Urine Nitrate Negative (Negative) Urine Bilirubin Negative (Negative) Urine Urobilinogen 0.2 (<2.0) mg/dL Leukocyte Esterase Rfl Negative (Negative) CRISTOPHER/UL Discharge Plan Discharge Clinical Impression: Cellulitis Patient Disposition: Still a Patient Condition: Stable Patient Language: Belarusian Prescriptions: No Action aspirin 81 mg Tablet,Chewable 81 mg PO DAILY rosuvastatin 10 mg tablet 10 mg PO DAILY losartan 50 mg tablet 50 mg PO DAILY Eliquis 5 mg tablet 5 mg PO HS mupirocin 2 % ointment 1 applic topical BID Qty: 50 2RF ketoconazole 2 % cream 1 applic topical BID Qty: 60 1RF multivitamin Tablet 1 tablet PO DAILY (DME) CPAP See Rx Instructions .Route .MEDSUPPLY Qty: 1 0RF Rx Instructions: medium ResMed AirTouch F20 full face mask and heated humidity with pressure of 11 cm H2) Follow-up/Referrals: Saroj Cunningham MD [Primary Care Provider] -
[2025-01-11] MEDS: VANCOMYCIN 1,250 MG/NS 250 ML 1,250 MG/250 ML BAG 166.67 MG IVPB ×2 (14:34→16:21)
--- NOTE | 2025-01-11 17:54 | P.HP_ITS ---
H&P: HPI History of Present Illness Date/Time: 01/11/25 17:54 Chief Complaint: Redness to the RLE Narrative: 84 y/o M with PMH of prediabetic, paroxysmal AFib, CHAGO on CPAP, CAD, HTN, HLD, recurrent RLE cellulitis, GERD, mi, subarachnoid hemorrhage r/t injury, and dyshidrotic eczema presents here with recurrent redness and tenderness to his right lower extremity. The patient presents here from home via EMS on 01/11 for further evaluation of recurrent redness and tenderness to his right lower extremity. No associated fever, chills, body aches. Reports new onset diarrhea starting this afternoon. No associated nausea or vomiting. He has a history of recurrent cellulitis to this extremity. He has been treated for this 3 times. During his most recent admission from 12/31/2024 to 01/03/2025, cellulitis of the RLE was ruled out. Redness and tenderness felt to be more in favor of peripheral vascular disease. However, per granddaughter who is an RN and saw the RLE reports that the appearance improved with the antibiotics (red/hot -> reduced swelling, persistent purple tinge). He has since been referred to a vascular surgeon and has an appointment to establish care on 01/29. He reports a history of fracture with internal fixation to his right ankle in 2011, reports his initial episode of cellulitis was 6 months after surgery when he developed staph. Patient difficult historian. Initial VS at presentation: 97.7? F, HR 81, R 14, 159/81, and 99% on RA. ED workup showed: No leukocytosis, hemoglobin 13.9, creatinine 0.98 and GFR >60, UA unremarkable. US of the RLE showed no DVT. Right ankle XR showed chronic postoperative changes at the right ankle with solid osseous fusion across the distal fibula and tibia, no acute osseous abnormality, likely Review of Systems Review of Systems: All systems reviewed & are unremarkable except as noted in HPI and below [facility] Past Medical History Medical History (Updated 01/11/25 @ 20:51 by Ashley Dominguez APRN) Non-ST elevation ND (NSTEMI) Paroxysmal atrial fibrillation Coronary artery disease Chronic anticoagulation Prediabetes A1C was 5.6% in 08/2024 Benign prostatic hyperplasia with nocturia Kidney stones Obstructive sleep apnea on CPAP Essential (primary) hypertension Mixed hyperlipidemia 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 Gastroesophageal reflux disease Hard of hearing 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 Subarachnoid hemorrhage following injury with brief loss of consciousness but without open intracranial wound Dyshidrotic eczema Surgical History Surgical History History of inguinal hernia repair History of bilateral cataract extraction History of arthroscopy of right shoulder History of orthopedic surgery right ankle, elbow, forearm History of cholecystectomy History of coronary artery stent placement drug-eluting stent to the LAD x2 History of appendectomy History of back surgery History of carpal tunnel surgery Family History Family History Mother Family history of cardiovascular disease Family history of diabetes mellitus in first degree relative Diabetes mellitus Father Family history of heart disease in male family member before age 55 Cerebrovascular accident Other Family history of malignant neoplasm Hypertension Social History Social History Social History: Surrogate medical decision maker: Ellie Julito, spouse ([phone]). Code status: Full code. Smoking status: Never smoker Alcohol intake: never Substance use: never Substance use type: does not use Do You Feel Safe in your Home?: Yes Lack of Transportation: No Lack of Food: Never True Current Housing: I Have Housing Concerned About Future Housing: No Difficulty Paying Gas/Electric Bills: No Difficulty Paying for Meds: No Currently Unemployed: No Education: Trade/Vocational Certificate Difficulty w/ Childcare or Family Care: No Living arrangements: with family Additional living arrangements comments: Lives with spouse in [place]. Occupation/Education: retired Spiritual care concerns: No Meds Home Medications and Allergies Home Medications ?Medication ?Instructions ?Recorded ?Confirmed ?Type losartan 50 mg tablet 50 mg PO DAILY 09/09/22 01/11/25 History aspirin 81 mg chewable tablet 81 mg PO DAILY 12/05/22 01/11/25 History rosuvastatin 10 mg tablet 10 mg PO DAILY 07/19/23 01/11/25 History multivitamin 1 tablet PO DAILY 08/21/23 01/11/25 History CPAP #1 ea 09/20/23 01/11/25 Rx apixaban 5 mg tablet (Eliquis) 5 mg PO Q12H 12/23/23 01/11/25 History Allergies Allergy/AdvReac Type Severity Reaction Status Date / Time adhesive AdvReac Mild Itching Verified 01/11/25 11:41 pantoprazole AdvReac Mild itching Verified 01/11/25 11:41 Vital Signs Vital Signs - 24 hr 01/11/25 11:26 01/11/25 11:40 01/11/25 12:05 Temperature 97.7 F Pulse Rate 81 77 72 Respiratory Rate 14 20 Blood Pressure 159/81 H 159/81 H Pulse Oximetry 99 100 Oxygen Delivery Room Air 01/11/25 13:01 01/11/25 15:46 01/11/25 16:01 Temperature Pulse Rate 72 77 74 Respiratory Rate 14 20 16 Blood Pressure 151/75 H 157/83 H 173/81 H Pulse Oximetry 12 L 95 98 Oxygen Delivery 01/11/25 17:33 Temperature Pulse Rate 75 Respiratory Rate 18 Blood Pressure 141/54 H Pulse Oximetry 98 Oxygen Delivery Exam Const: General: comfortable and no acute distress Other: , male, nontoxic appearance HENMT: Face/Nose/Sinus: Normal nares present Mouth: Yes moist mucous membranes Other: +T[place]A Eyes: General: appearance normal, both eyes and all related structures Sclera: sclerae normal Pupils: Equal, round and reactive pupils present EOM: EOMs intact bilaterally Resp: Effort & Inspection: normal respiratory effort Auscultation: clear to auscultation bilaterally Cardio: Rate: regular rate Rhythm: regular rhythm Other: S1-S2 present without murmur, rub, ectopy GI: Other: Abdomen rounded, soft, nontender. Skin: Other: + erythema and heat to the right lower e xtremity, concentrated more so at the ankle. 2+ pitting edema to BLE, right worse than left. DP pulse is 2 +in the LLE, trace in the RLE. Neuro: Speech: normal speech Motor exam (neuro): 5/5 motor strength present throughout Sensory Exam: normal sensation Other: A/Ox3 Extrem: General: normal exam except as noted (see skin) Psych: Mental Status: mental status grossly normal Affect: normal affect Other: Fair insight and judgment. H&P: Results Labs Labs: Short CBC 01/11/25 Range/Units 12:06 WBC 7.0 (4.5-10.0) K/mm3 Hgb 13.9 L (14.0-18.0) g/dL Hct 43.6 (42.0-52.0) % Plt Count 221 (150-375) k/mm3 BMP 01/11/25 12:06 Sodium 140 Potassium 4.3 Chloride 103 Carbon Dioxide 31 H BUN 22 H Creatinine 0.98 Glucose 98 Calcium 9.4 Liver Function 01/11/25 Range/Units 12:06 Total Bilirubin 0.8 (0.2-1.3) mg/dL AST 26 (17-59) U/L ALT 28 (6-50) U/L Alkaline Phosphatase 64 (38-126) U/L Albumin 3.7 (3.5-5.1) g/dL Urine 01/11/25 Range/Units 12:51 Urine Color Yellow (Yellow) Urine Appearance Clear (Clear) Urine pH 7.5 (5.0-9.0) Ur Specific [place] 1.005 (1.001-1.035) Urine Protein Negative (Negative) mg/dL Urine Glucose (UA) Negative (Negative) mg/dL Assessment and Plan Assessment and plan (1) Cellulitis of right lower extremity: Code(s): L03.115 - Cellulitis of right lower limb Status: Suspected Assessment and Plan: Suspected recurrent cellulitis of the right lower extremity. Recent partial antibiotic course at the end of December/early January with some improvement in symptoms but the course was discontinued after erythema was contributed to venous insufficiency. He was referred to vascular. Saw his washing machine operator today who referred him back to his PCP due to concern for a higher risk for infection complications with the new implanted device (recent pacemaker placement). Patient contacted his PCP who recommended he seek care at the ER for antibiotics while awaiting his vascular surgery consult. Patient started on vancomycin on 01/11. US of RLE negative for DVT. No open wounds for culture at present. Blood cultures pending. Trend WBC. (2) Hypertension: Qualifiers: Hypertension type: primary hypertension Qualified Code(s): I10 - Essential (primary) hypertension Code(s): I10 - Essential (primary) hypertension Status: Acute Assessment and Plan: Chronic, currently 183/97. Continue home losartan 50 mg daily. Monitor. (3) Obstructive sleep apnea on CPAP: Code(s): G47.33 - Obstructive sleep apnea (adult) (pediatric) Status: Acute Assessment and Plan: Continue home CPAP. Plan Now reporting new onset diarrhea starting today. Given recent antibiotic course and hospitalization, will check C diff. Diet: Heart healthy GI Prophylaxis: Not currently indicated DVT Prophylaxis: Eliquis Lines: Peripheral Code Status: Full code Quality VTE Prophylaxis VTE prophylaxis: pharmacologic ordered Hospitalist [facility] Advance Care Plan I have confirmed that the patient's Advanced Care Plan is present, code status is documented, or surrogate decision maker is listed in patient medical record.: Yes Medication Reconciliation I have utilized all available resources to obtain, update and review the patients current medications (includes all prescriptions, OTC, herbals, cannabis, and nutritional supplements).: Yes
[2025-01-11] MEDS: APIXABAN 5 MG TABLET PO (20:32)
[2025-01-11] MEDS: ACETAMINOPHEN 325 MG TABLET 650 MG PO (22:36)
[2025-01-12 05:12] VITALS: BP 144/72; PULSE 78; RESP 20; TEMP 36.6; O2SAT 98
[2025-01-12 05:37] LABS: Hematocrit 42.7 % (42.0-52.0); Hemoglobin 13.5 g/dL (14.0-18.0); Mean Corpuscular HGB Conc 31.6 g/dl (32-36); Mean Corpuscular Hemoglobin 30.1 pg (26-34); Mean Corpuscular Volume 95.1 fl (80-100); Mean Platelet Volume 9.9 fl (7.4-10.4); Platelet Count Result 231 k/mm3 (150-375); Red Blood Count 4.49 M/mm3 (4.6-6.20); Red Cell Distribution Width 13.3 % (11.5-14.5); White Blood Count 6.4 K/mm3 (4.5-10.0)
[2025-01-12 05:49] LABS: Anion Gap 8 mmol/L (4-12); Blood Urea Nitrogen 18 mg/dL (9-20); Calcium 8.6 mg/dL (8.4-10.2); Carbon Dioxide 25 mmol/L (22-30); Chloride 107 mmol/L (98-107); Estimated CRCL calculation 54 ml/min; Estimated Glomerular Filt Rate > 60; Glucose 89 mg/dL (65-110); Potassium 4.2 mmol/L (3.4-5.0); Sodium 140 mmol/L (137-145)
--- NOTE | 2025-01-12 07:06 | PCRCNOTE ---
2030: Patient seen to inquire about his home CPAP. He states that he has a home machine, does not have it with him but will try to get it to the hospital for use this stay. He also declines the use of a hospital machine, due to the headgear giving him a bad headache.
--- NOTE | 2025-01-12 08:28 | P.PNIM_ITS ---
Progress Note: A&P Assessment and Plan (1) Cellulitis of right lower extremity: Code(s): L03.115 - Cellulitis of right lower limb Status: Suspected Assessment and Plan: * Patient was started on Vancomycin and then switched to Linezolid po BID x7 days. * Patient is afebrile, WBC WNL, no signs of infection * Blood cultures pending, Last set of blood cultures from 12/27/24 were negative * Septic arthritis was ruled out on 01/01/25 with culture of the synovial fluid which was negative. * Will ESR, CRP, uric acid, YO, RF * AYDEE ordered * Venous doppler study negative * Ankle x-ray shown chronic postoperative changes at the right ankle with solid osseous fusion across the distal tibia and fibula, severe osteoarthritis * CT of the left lower extremity was negative for fracture, fluid collection, shown degenerative osseous disease (2) Hypertension: Qualifiers: Hypertension type: primary hypertension Qualified Code(s): I10 - Essential (primary) hypertension Code(s): I10 - Essential (primary) hypertension Status: Acute Assessment and Plan: * Patient's blood pressure ranging 144/72 to 183/97 * Continue losartan (3) Obstructive sleep apnea on CPAP: Code(s): G47.33 - Obstructive sleep apnea (adult) (pediatric) Status: Acute Assessment and Plan: * Continue home CPAP. Time Spent With Patient Time with patient: 25 - 35 minutes Subjective Date/time seen: 01/12/25 08:28 Interval history: Interval history: Patient is back after having increased swelling to his right lower extremity. Treating as a cellulitis however likely PVD. Patient has appointment with Vascular doctor in a few weeks. Considering his recent pacemaker placement Vancomycin was initiated. Subjective: Patient reports increased swelling, redness, and pain in right ankle. Labs and imaging reviewed. Review of Systems Review of Systems: All systems reviewed & are unremarkable except as noted in HPI and below Exam Narrative: General: In no acute distress, well nourished Head: atraumatic, no encephalopathy Eyes: PERRLA, sclera clear ENT: moist mucous membranes, nasal passages clear Neck: supple, no JVD, no adenopathy, trachea midline Cardiac: Normal S1 and S2. No murmur, gallops or friction rubs, peripheral pulses intact. Respiratory: Lungs clear to auscultation, no adventitious lung sounds, currently on room air Gastrointestinal: soft, non-distended, non-tender, normoactive bowel sounds. : voiding without difficulty. Extremities: moves all extremities well, right ankle edema Skin:right lower extremity showing redness and swelling near ankle, redness to back of calf Neuro: Alert and oriented x4, cranial nerves intact, no neuro deficits. Psych: normal mood, normal affect, interactive Objective Data Vital Signs Vital Signs: Vital Signs - 24 hr 01/11/25 11:26 01/11/25 11:40 01/11/25 12:05 Temperature 97.7 F Pulse Rate 81 77 72 Respiratory Rate 14 20 Blood Pressure 159/81 H 159/81 H Pulse Oximetry 99 100 Oxygen Delivery Room Air 01/11/25 13:01 01/11/25 15:46 01/11/25 16:01 Temperature Pulse Rate 72 77 74 Respiratory Rate 14 20 16 Blood Pressure 151/75 H 157/83 H 173/81 H Pulse Oximetry 12 L 95 98 Oxygen Delivery 01/11/25 17:33 01/11/25 18:12 01/11/25 19:23 Temperature 97.8 F Pulse Rate 75 85 Respiratory Rate 18 20 Blood Pressure 141/54 H 183/97 H Pulse Oximetry 98 96 Oxygen Delivery Room Air 01/11/25 20:00 01/12/25 05:12 Temperature 97.8 F Pulse Rate 78 Respiratory Rate 20 Blood Pressure 144/72 H Pulse Oximetry 98 Oxygen Delivery Room Air Intake/Output Intake/Output: Intake & Output 01/09/25 01/10/25 01/11/25 01/12/25 23:59 23:59 23:59 23:59 Intake Total 3500 240 Output Total 600 Balance 2900 240 Meds/Results Medications: Active Medications Generic Name Dose Route Start Last Admin Trade Name Freq PRN Reason Stop Dose Admin Acetaminophen 650 mg 01/11/25 21:01 01/11/25 22:36 Acetaminophen 325 Mg Tablet PO 650 mg Q6H PRN Administration Mild Pain (1-3) or Fever Apixaban 5 mg 01/11/25 19:50 01/11/25 20:32 Apixaban 5 Mg Tablet PO 5 mg Q12HR ANDREA Administration Aspirin 81 mg 01/12/25 09:00 Aspirin 81 Mg Chewable Tablet PO DAILY ANDREA Vancomycin HCl 1,500 mg in 500 mls @ 250 mls/hr 01/12/25 14:00 Vancomycin 1,500 Mg/Ns 500 Ml IVPB Q24H [facility] Losartan Potassium 50 mg 01/12/25 09:00 Losartan Potassium 50 Mg Tablet PO DAILY [facility] Multivitamins Therapeutic 1 tablet 01/12/25 09:00 Multivitamins Therapeutic Tab (*Bkc) PO DAILY [facility] Ondansetron HCl 4 mg 01/11/25 21:01 Ondansetron Inj 4 Mg/2 Ml Vial IV PUSH Q6H PRN Nausea And Vomiting Rosuvastatin Calcium 10 mg 01/12/25 09:00 Rosuvastatin 10 Mg Tablet PO DAILY [facility] Radiology Results: ITS Impressions Venous Doppler Study 01/11/25 12:25 IMPRESSION: 1. No deep venous thrombosis in the right lower limb. Ankle X-Ray 01/11/25 13:10 IMPRESSION: 1. Chronic postoperative changes at the right ankle with solid osseous fusion across the distal tibia and fibula. No acute osseous abnormality. 2. 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 Labs Labs: Laboratory Results - last 24 hr 01/11/25 01/11/25 01/12/25 12:06 12:51 05:28 WBC 7.0 6.4 RBC 4.65 4.49 L Hgb 13.9 L 13.5 L Hct 43.6 42.7 MCV 93.8 95.1 MCH 29.9 30.1 MCHC 31.9 L 31.6 L RDW 13.4 13.3 Plt Count 221 231 MPV 9.6 9.9 Immature Gran % (Auto) 0.3 Neut % (Auto) 62.0 Lymph % (Auto) 18.8 [place] % (Auto) 14.9 H Eos % (Auto) 3.3 Baso % (Auto) 0.7 Lymph # (Auto) 1.31 [place] # (Auto) 1.0 H Eos # (Auto) 0.2 Baso # (Auto) 0.1 Abs Immat Gran (auto) 0.02 Absolute Neuts (auto) 4.3 Absolute Nucleated RBC 0.000 Nucleated RBC % 0.0 Sodium 140 140 Potassium 4.3 4.2 Chloride 103 107 Carbon Dioxide 31 H 25 Anion Gap 6 8 BUN 22 H 18 Creatinine 0.98 0.97 Estim Creat Clear Calc 54 54 Estimated GFR > 60 > 60 Glucose 98 89 Lactic Acid 1.3 Calcium 9.4 8.6 Total Bilirubin 0.8 AST 26 ALT 28 Alkaline Phosphatase 64 Total Protein 7.0 Albumin 3.7 Urine Color Yellow Urine Appearance Clear Urine pH 7.5 Ur Specific [place] 1.005 Urine Protein Negative Urine Glucose (UA) Negative Urine Ketones Negative Ur Blood (Man) Negative Urine Nitrate Negative Urine Bilirubin Negative Urine Urobilinogen 0.2 Leukocyte Esterase Rfl Negative Quality VTE Prophylaxis VTE prophylaxis: pharmacologic ordered
[2025-01-12 08:30] VITALS: BP 135/75; PULSE 74; RESP 20; TEMP 36.4; O2SAT 98
[2025-01-12] MEDS: LOSARTAN POTASSIUM 50 MG TABLET PO (09:21)
[2025-01-12] MEDS: ASPIRIN 81 MG CHEWABLE TABLET PO (09:21)
[2025-01-12] MEDS: ROSUVASTATIN 10 MG TABLET PO (09:21)
[2025-01-12] MEDS: MULTIVITAMINS THERAPEUTIC TAB (*BKC) 1 TABLET PO (09:21)
[2025-01-12] MEDS: APIXABAN 5 MG TABLET PO ×2 (09:21→20:35)
[2025-01-12 11:58] VITALS: O2SAT 97
[2025-01-12] MEDS: VANCOMYCIN 1,500 MG/NS 500 ML 1,500 MG/500 ML BAG 250 MG IVPB (13:26)
[2025-01-12 14:00] VITALS: BP 135/66; PULSE 70; RESP 16; TEMP 36.4; O2SAT 94
[2025-01-12 16:54] LABS: CRP 1.8 mg/dL (<1.0); Rheumatoid Factor < 12.0 IU/ML (<12)
[2025-01-12 17:22] LABS: Erythrocyte Sedimentation Rate 60 mm/hr (0-20)
[2025-01-12] MEDS: ACETAMINOPHEN 325 MG TABLET 650 MG PO (18:47)
[2025-01-12 19:52] VITALS: BP 157/86; PULSE 87; RESP 18; TEMP 36.8; O2SAT 98
[2025-01-12] MEDS: LINEZOLID 600 MG TABLET PO (20:35)
[2025-01-12 21:15] VITALS: O2SAT 98
[2025-01-13] MEDS: ACETAMINOPHEN 325 MG TABLET 650 MG PO ×2 (02:46→08:16)
[2025-01-13 04:54] VITALS: BP 139/79; PULSE 69; RESP 18; TEMP 36.6; O2SAT 97
[2025-01-13 06:38] LABS: Basophils Absolute Auto 0.1 K/mm3 (0.0-0.1); Basophils Percent Auto 1.4 % (0.2-1.2); Eosinophils Absolute Auto 0.4 K/mm3 (0-0.3); Eosinophils Percent Auto 6.1 % (0-4.4); Hemoglobin 12.1 g/dL (14.0-18.0); Immature Granulocyte Absolute 0.02 K/mm3 (0.00-0.031); Immature Granulocyte Percent A 0.3 % (0-0.5); Lymphocytes Absolute Auto 1.41 K/mm3 (0.9-3.2); Lymphocytes Percent Auto 23.9 % (18.3-44.2); Mean Corpuscular HGB Conc 31.8 g/dl (32-36); Mean Corpuscular Hemoglobin 30.2 pg (26-34); Mean Corpuscular Volume 94.8 fl (80-100); Mean Platelet Volume 10.1 fl (7.4-10.4); Monocytes Absolute Auto 0.8 K/mm3 (0.1-0.6); Monocytes Percent Auto 13.8 % (2.6-8.5); Neutrophils Absolute Auto 3.2 K/mm3 (1.3-6.7); Neutrophils Percent Auto 54.5 % (45.5-73.1); Platelet Count Result 216 k/mm3 (150-375); Red Blood Count 4.01 M/mm3 (4.6-6.20); Red Cell Distribution Width 13.2 % (11.5-14.5); White Blood Count 5.9 K/mm3 (4.5-10.0)
[2025-01-13 07:23] LABS: Alanine Aminotransferase 22 U/L (6-50); Albumin Level 3.1 g/dL (3.5-5.1); Alkaline Phosphatase 59 U/L (38-126); Anion Gap 4 mmol/L (4-12); Aspartate Amino Transferase 22 U/L (17-59); Bilirubin,Total 1.1 mg/dL (0.2-1.3); Blood Urea Nitrogen 22 mg/dL (9-20); CRP 1.4 mg/dL (<1.0); Calcium 8.7 mg/dL (8.4-10.2); Carbon Dioxide 27 mmol/L (22-30); Chloride 107 mmol/L (98-107); Estimated CRCL calculation 54 ml/min; Estimated Glomerular Filt Rate > 60; Glucose 88 mg/dL (65-110); Potassium 4.1 mmol/L (3.4-5.0); Sodium 138 mmol/L (137-145)
[2025-01-13 08:02] LABS: Erythrocyte Sedimentation Rate 34 mm/hr (0-20)
[2025-01-13] MEDS: ROSUVASTATIN 10 MG TABLET PO (08:15)
[2025-01-13] MEDS: ASPIRIN 81 MG CHEWABLE TABLET PO (08:16)
[2025-01-13] MEDS: LOSARTAN POTASSIUM 50 MG TABLET PO (08:16)
[2025-01-13] MEDS: APIXABAN 5 MG TABLET PO (08:16)
[2025-01-13] MEDS: MULTIVITAMINS THERAPEUTIC TAB (*BKC) 1 TABLET PO (08:16)
[2025-01-13] MEDS: LINEZOLID 600 MG TABLET PO (08:22)
--- NOTE | 2025-01-13 08:46 | P.PNIM_ITS ---
Progress Note: A&P Assessment and Plan (1) Cellulitis of right lower extremity: Code(s): L03.115 - Cellulitis of right lower limb Status: Suspected Assessment and Plan: * Patient was started on Vancomycin and then switched to Linezolid po BID x7 days. * Patient is afebrile, WBC WNL, no signs of infection * Blood cultures pending, Last set of blood cultures from 12/27/24 were negative * Septic arthritis was ruled out on 01/01/25 with culture of the synovial fluid which was negative. * Will ESR, CRP, uric acid, YO, RF * AYDEE ordered * Venous doppler study negative * Ankle x-ray shown chronic postoperative changes at the right ankle with solid osseous fusion across the distal tibia and fibula, severe osteoarthritis * CT of the left lower extremity was negative for fracture, fluid collection, shown degenerative osseous disease on 01/03/202501/13 * YO pending * Uric acid was normal at 4.0 * ESR was 60> 34 * CRP was 1.8> 1.4 * Continue linezolid * AYDEE showing moderate stenosis in the right lower extremity with an AYDEE of 0.69, claudication * White blood cell count 5.9, patient is afebrile * Blood cultures still showing no growth to date on preliminary read * Spoke with Dr. Calixto * Patient refuses to return to [facility] for further workup of his chronic ankle pain/?cellulitis (2) PVD (peripheral vascular disease) with claudication: Code(s): I73.9 - Peripheral vascular disease, unspecified Status: Acute Assessment and Plan: * AYDEE 0.69 in right leg * Will start Cilostazol 100mg BID * Patient has appointment with Vascular surgery at [facility] on 01/24/25 (3) Hypertension: Qualifiers: Hypertension type: primary hypertension Qualified Code(s): I10 - Essential (primary) hypertension Code(s): I10 - Essential (primary) hypertension Status: Acute Assessment and Plan: * Patient's blood pressure ranging 144/72 to 183/97 * Continue losartan 01/13 * No change to current treatment plan (4) Obstructive sleep apnea on CPAP: Code(s): G47.33 - Obstructive sleep apnea (adult) (pediatric) Status: Acute Assessment and Plan: * Continue home CPAP. 01/13 * No change to current treatment plan Time Spent With Patient Time with patient: Greater than 35 minutes Subjective Date/time seen: 01/13/25 08:46 Interval history: Interval history: Patient is back after having increased swelling to his right lower extremity. Treating as a cellulitis however likely PVD. Patient has appointment with Vascular doctor in a few weeks. Considering his recent pacemaker placement Vancomycin was initiated and is now transitioned to Linezolid per ID pharmacist recommendations. Subjective: Patient reports increased swelling, redness, and pain in right ankle. Labs and imaging reviewed. Review of Systems Review of Systems: All systems reviewed & are unremarkable except as noted in HPI and below Exam Narrative: General: In no acute distress, well nourished Cardiac: Normal S1 and S2. No murmur, gallops or friction rubs, peripheral pulses intact. Respiratory: Lungs clear to auscultation, no adventitious lung sounds, currently on room air Gastrointestinal: soft, non-distended, non-tender, normoactive bowel sounds. : voiding without difficulty. Extremities: moves all extremities well, right ankle edema Skin:right lower extremity showing redness and swelling near ankle, redness to back of calf Neuro: Alert and oriented x4 Objective Data Vital Signs Vital Signs: Vital Signs - 24 hr 01/12/25 09:29 01/12/25 11:58 01/12/25 14:00 Temperature 97.6 F Pulse Rate 70 Respiratory Rate 16 Blood Pressure 135/66 Pulse Oximetry 97 94 Oxygen Delivery Room Air Room Air 01/12/25 19:52 01/12/25 20:35 01/12/25 21:15 Temperature 98.3 F Pulse Rate 87 Respiratory Rate 18 Blood Pressure 157/86 H Pulse Oximetry 98 98 Oxygen Delivery Room Air Room Air 01/13/25 04:54 Temperature 97.9 F Pulse Rate 69 Respiratory Rate 18 Blood Pressure 139/79 Pulse Oximetry 97 Oxygen Delivery Intake/Output Intake/Output: Intake & Output 01/10/25 01/11/25 01/12/25 01/13/25 23:59 23:59 23:59 23:59 Intake Total 3500 1810 250 Output Total 600 Balance 2900 1810 250 Meds/Results Medications: Active Medications Generic Name Dose Route Start Last Admin Trade Name Freq PRN Reason Stop Dose Admin Acetaminophen 650 mg 01/11/25 21:01 01/13/25 08:16 Acetaminophen 325 Mg Tablet PO 650 mg Q6H PRN Administration Mild Pain (1-3) or Fever Apixaban 5 mg 01/11/25 19:50 01/13/25 08:16 Apixaban 5 Mg Tablet PO 5 mg Q12HR ANDREA Administration Aspirin 81 mg 01/12/25 09:00 01/13/25 08:16 Aspirin 81 Mg Chewable Tablet PO 81 mg DAILY ANDREA Administration Linezolid 600 mg 01/12/25 21:00 01/13/25 08:22 Linezolid 600 Mg Tablet PO 01/18/25 23:59 600 mg Q12HR ANDREA Administration Losartan Potassium 50 mg 01/12/25 09:00 01/13/25 08:16 Losartan Potassium 50 Mg Tablet PO 50 mg DAILY ANDREA Administration Multivitamins Therapeutic 1 tablet 01/12/25 09:00 01/13/25 08:16 Multivitamins Therapeutic Tab (*Bkc) PO 1 tablet DAILY ANDREA Administration Ondansetron HCl 4 mg 01/11/25 21:01 Ondansetron Inj 4 Mg/2 Ml Vial IV PUSH Q6H PRN Nausea And Vomiting Rosuvastatin Calcium 10 mg 01/12/25 09:00 01/13/25 08:15 Rosuvastatin 10 Mg Tablet PO 10 mg DAILY ANDREA Administration Radiology Results: ITS Impressions Venous Doppler Study 01/11/25 12:25 IMPRESSION: 1. No deep venous thrombosis in the right lower limb. Ankle X-Ray 01/11/25 13:10 IMPRESSION: 1. Chronic postoperative changes at the right ankle with solid osseous fusion across the distal tibia and fibula. No acute osseous abnormality. 2. 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 Ankle Brachial Index 01/12/25 18:52 IMPRESSION: Moderate stenosis in the right side. Labs Labs: Laboratory Results - last 24 hr 01/12/25 01/12/25 01/12/25 05:26 05:26 16:56 WBC RBC Hgb Hct MCV MCH MCHC RDW Plt Count MPV Immature Gran % (Auto) Neut % (Auto) Lymph % (Auto) [place] % (Auto) Eos % (Auto) Baso % (Auto) Lymph # (Auto) [place] # (Auto) Eos # (Auto) Baso # (Auto) Abs Immat Gran (auto) Absolute Neuts (auto) Absolute Nucleated RBC Nucleated RBC % ESR 60 H Sodium Potassium Chloride Carbon Dioxide Anion Gap BUN Creatinine Estim Creat Clear Calc Estimated GFR Glucose Uric Acid 4.0 Calcium Total Bilirubin AST ALT Alkaline Phosphatase C-Reactive Protein 1.8 H Cancelled Total Protein Albumin Rheumatoid Factor < 12.0 01/13/25 01/13/25 06:16 06:55 WBC 5.9 RBC 4.01 L Hgb 12.1 L Hct 38.0 L MCV 94.8 MCH 30.2 MCHC 31.8 L RDW 13.2 Plt Count 216 MPV 10.1 Immature Gran % (Auto) 0.3 Neut % (Auto) 54.5 Lymph % (Auto) 23.9 [place] % (Auto) 13.8 H Eos % (Auto) 6.1 H Baso % (Auto) 1.4 H Lymph # (Auto) 1.41 [place] # (Auto) 0.8 H Eos # (Auto) 0.4 H Baso # (Auto) 0.1 Abs Immat Gran (auto) 0.02 Absolute Neuts (auto) 3.2 Absolute Nucleated RBC 0.000 Nucleated RBC % 0.0 ESR 34 H Sodium 138 Potassium 4.1 Chloride 107 Carbon Dioxide 27 Anion Gap 4 BUN 22 H Creatinine 0.97 Estim Creat Clear Calc 54 Estimated GFR > 60 Glucose 88 Uric Acid Calcium 8.7 Total Bilirubin 1.1 AST 22 ALT 22 Alkaline Phosphatase 59 C-Reactive Protein 1.4 H Total Protein 6.0 L Albumin 3.1 L Rheumatoid Factor Imaging Radiologist's impression: ULTRASOUND ANKLE BRACHIAL INDEX Ordering provider: Shelley Arteaga APRN History: . swelling and pain to right lower extremity . Comparison: None. FINDINGS: Right brachial systolic blood pressure: 139 mmHg Left brachial systolic blood pressure: 125 mmHg Right ankle systolic blood pressure: 96 mmHg Left ankle systolic blood pressure: 164 mmHg Right ankle/arm index (AYDEE): 0.69 Left ankle/arm index (AYDEE): 1.18 Note regarding AYDEE: --Normal= 1.0 or slightly greater. --Claudication (moderate stenosis or occlusive state)= 0.6 to 0.9. --Rest pain (severe occlusive states)= 0.5 or less. IMPRESSION: Moderate stenosis in the right side. Reviewed, dictated and finalized at location A. Quality VTE Prophylaxis VTE prophylaxis: pharmacologic ordered
[2025-01-13] MEDS: cilostazoL 100 MG TABLET PO (10:25)
--- NOTE | 2025-01-13 12:50 | P.DS_ITS ---
DS: Admitting Diagnosis Discharge Date 01/13/25 Admitting Diagnosis Cellulitis of the right lower extremity hypertension [facility] DS: Discharge Diagnosis Discharge Diagnosis (1) Cellulitis of right lower extremity: Code(s): L03.115 - Cellulitis of right lower limb Status: Suspected Assessment and Plan: * Patient was started on Vancomycin and then switched to Linezolid po BID x7 days. * Patient is afebrile, WBC WNL, no signs of infection * Blood cultures pending, Last set of blood cultures from 12/27/24 were negative * Septic arthritis was ruled out on 01/01/25 with culture of the synovial fluid which was negative. * Will ESR, CRP, uric acid, YO, RF * AYDEE ordered * Venous doppler study negative * Ankle x-ray shown chronic postoperative changes at the right ankle with solid osseous fusion across the distal tibia and fibula, severe osteoarthritis * CT of the left lower extremity was negative for fracture, fluid collection, shown degenerative osseous disease on 01/03/202501/13 * YO pending * Uric acid was normal at 4.0 * ESR was 60> 34 * CRP was 1.8> 1.4 * Continue linezolid * AYDEE showing moderate stenosis in the right lower extremity with an AYDEE of 0.69, claudication * White blood cell count 5.9, patient is afebrile * Blood cultures still showing no growth to date on preliminary read * Spoke with Dr. Calixto who feels that this is likely PVD and that he would delay any surgical intervention until evaluated by Vascular surgery. They do not feel that this is infection. * Patient refuses to return to [facility] for further workup of his chronic ankle pain/?cellulitis (2) PVD (peripheral vascular disease) with claudication: Code(s): I73.9 - Peripheral vascular disease, unspecified Status: Acute Assessment and Plan: * AYDEE 0.69 in right leg * Will start Cilostazol 100mg BID * Patient has appointment with Vascular surgery at [facility] on 01/24/25 (3) Hypertension: Qualifiers: Hypertension type: primary hypertension Qualified Code(s): I10 - Essential (primary) hypertension Code(s): I10 - Essential (primary) hypertension Status: Acute Assessment and Plan: * Patient's blood pressure ranging 144/72 to 183/97 * Continue losartan 01/13 * No change to current treatment plan (4) Obstructive sleep apnea on CPAP: Code(s): G47.33 - Obstructive sleep apnea (adult) (pediatric) Status: Acute Assessment and Plan: * Continue home CPAP. 01/13 * No change to current treatment plan DS: Summary Hospital Course Reason for hospitalization: Cellulitis of the right lower extremity hypertension [facility] Hospital Course: Patient is back after having increased swelling to his right lower extremity. Treating as a cellulitis however likely PVD. Patient has appointment with Vascular doctor in a few weeks. Considering his recent pacemaker placement Vancomycin was initiated and is now transitioned to Linezolid per ID pharmacist recommendations. Final diagnosis: Peripheral vascular disease Status at Discharge Cognitive/behavioral status at discharge: Alert and oriented x3 Functional status at discharge: independent ambulation Overall status at discharge: patient is progressing back to baseline Time Spent with Patient Time attestation: Total time spent providing and/or coordinating discharge services: Time spent: Greater than 30 minutes Exam Narrative: General: In no acute distress, well nourished Cardiac: Normal S1 and S2. No murmur, gallops or friction rubs, peripheral pulses intact. Respiratory: Lungs clear to auscultation, no adventitious lung sounds, currently on room air Gastrointestinal: soft, non-distended, non-tender, normoactive bowel sounds. : voiding without difficulty. Extremities: moves all extremities well, right ankle edema Skin:right lower extremity without erythema today, PVD changes to lower [place] and ankle, mild swelling Neuro: Alert and oriented x4 DS: Data Data Completed and Pending Completed studies during hospitalization: AYDEE Ankle x-ray venous doppler Pending studies at discharge: Blood cultures Labs on day of discharge: Labs from last 24 hours 01/13/25 01/13/25 01/12/25 06:55 06:16 16:56 WBC 5.9 RBC 4.01 L Hgb 12.1 L Hct 38.0 L MCV 94.8 MCH 30.2 MCHC 31.8 L RDW 13.2 Plt Count 216 MPV 10.1 Immature Gran % (Auto) 0.3 Neut % (Auto) 54.5 Lymph % (Auto) 23.9 [place] % (Auto) 13.8 H Eos % (Auto) 6.1 H Baso % (Auto) 1.4 H Lymph # (Auto) 1.41 [place] # (Auto) 0.8 H Eos # (Auto) 0.4 H Baso # (Auto) 0.1 Abs Immat Gran (auto) 0.02 Absolute Neuts (auto) 3.2 Absolute Nucleated RBC 0.000 Nucleated RBC % 0.0 ESR 34 H 60 H Sodium 138 Potassium 4.1 Chloride 107 Carbon Dioxide 27 Anion Gap 4 BUN 22 H Creatinine 0.97 Estim Creat Clear Calc 54 Estimated GFR > 60 Glucose 88 Uric Acid Calcium 8.7 Total Bilirubin 1.1 AST 22 ALT 22 Alkaline Phosphatase 59 C-Reactive Protein 1.4 H Total Protein 6.0 L Albumin 3.1 L Rheumatoid Factor YO Screen Pending 01/12/25 01/12/25 05:26 05:26 WBC RBC Hgb Hct MCV MCH MCHC RDW Plt Count MPV Immature Gran % (Auto) Neut % (Auto) Lymph % (Auto) [place] % (Auto) Eos % (Auto) Baso % (Auto) Lymph # (Auto) [place] # (Auto) Eos # (Auto) Baso # (Auto) Abs Immat Gran (auto) Absolute Neuts (auto) Absolute Nucleated RBC Nucleated RBC % ESR Sodium Potassium Chloride Carbon Dioxide Anion Gap BUN Creatinine Estim Creat Clear Calc Estimated GFR Glucose Uric Acid 4.0 Calcium Total Bilirubin AST ALT Alkaline Phosphatase C-Reactive Protein Cancelled 1.8 H Total Protein Albumin Rheumatoid Factor < 12.0 YO Screen Preliminary micro results at discharge 01/11/25 12:06 Blood Culture - Preliminary Blood 01/11/25 13:11 Blood Culture - Preliminary Blood Procedures/Treatments: none Discharge Plan Discharge Attending physician on discharge: Diego Rodarte Discharging Clinician: Shelley Arteaga Anticipated Discharge Date/Time: 01/13/25 12:40 Patient Disposition: Home Activity: as tolerated Diet: as tolerated and heart healthy Discharge Instructions: * You had an ankle brachial index test that shown moderate stenosis (narrowing) on the right side with claudication * Ankle x-ray shown 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 * You had a CT scan last admission that did not show a fracture or fluid collection, shown degenerative osteoarthritis * You had a venous doppler study x2 in the past 3 weeks that did not show a deep vein thrombosis. * Blood cultures last admission were negative on final read. Blood cultures this admission are showing no growth to date on preliminary read. * You had an aspiration of your synovial joint fluid of the right ankle on 01/01/2025 which was negative for any infectious process on final read of culture. * Your white blood cell count has been within normal limits, 5.9 today. You have not had a fever. * Your blood work did show an elevated ESR 60 and CRP of 1.8 which are inflammatory markers in the blood. This tells us there is some inflammation going on but these levels are mildly increased. We did check for inflammatory diseases such as Rheumatoid arthritis however your Rheumatoid factor was normal. We also checked you for Gout and your uric acid was normal as well. There is an YO pending however this is highly unlikely as this is to test for Lupus. * I also spoke with Dr. Concepcion who is an bi specialist here at [place] about your workup and he agrees that this is not a cellulitis and is likely more peripheral vascular disease. Considering the peripheral vascular disease he stated that you would not be a good candidate for surgical intervention like hardware removal considering you could experience delayed wound healing. He wants you to be seen by Vascular. * We are placing you on Sulfamethoxazole/Trimethoprim which is an antibiotic as precautionary since you had your cardiac pacemaker placement recently. Finish this medication as prescribed even if you are feeling better. * Keep your appointment with the vascular surgeon on the of this month. * Call medical records here at [facility] on Wednesday and get your medical records for the past 3 weeks. Have them include any imaging and take this all with you to your Vascular appointment. * Follow up with your primary and TAKE THIS PAPERWORK WITH YOU TO YOUR APPOINTMENT.That way they can see the extensive workup that we did here at [facility] in regards to your right lower extremity. * You were also started on Pletal 100 mg twice a day. Continue taking this medication. Let the vascular doctor know that you were started on this medication for your claudication. Patient Instructions: Antibiotic Form, Sulfamethoxazole/Trimethoprim (By mouth), Peripheral Vascular Disease (DC) Patient Language: Citizen Of [place] Stand Alone Forms: General Discharge Information Follow-up/Referrals: Saroj Cunningham MD [Primary Care Provider] - 1 Week Discharge Medications: New cilostazol 100 mg Tablet 100 mg PO BIDAC Qty: 60 0RF sulfamethoxazole-trimethoprim 800-160 mg Tablet 1 tab PO Q12HR Qty: 13 0RF Continued aspirin 81 mg Tablet,Chewable 81 mg PO DAILY rosuvastatin 10 mg tablet 10 mg PO DAILY losartan 50 mg tablet 50 mg PO DAILY Eliquis 5 mg tablet 5 mg PO Q12H multivitamin Tablet 1 tablet PO DAILY (DME) CPAP See Rx Instructions .Route .MEDSUPPLY Qty: 1 0RF Rx Instructions: medium ResMed AirTouch F20 full face mask and heated humidity with pressure of 11 cm H2) Date of admission: 01/11/25 14:53 Primary Care Provider: Saroj Cunningham Admitting Provider: Ibrahima Mcmullen Attending physician on admission: Shelley Arteaga Condition: Improved Quality VTE Prophylaxis VTE prophylaxis: pharmacologic ordered Hospitalist MIPS Heart Failure (Exclusion) Patient has history of Heart Transplant or Left Ventricular Assistive Device?: No IF YES, STOP HERE Heart Failure (Qualifier) Patient has current or prior documentation of LVEF less than or equal to 40%, or mod/servere depressed LVSF?: No IF NO, STOP HERE
== END 2025-01-13 13:35 | disposition home or self-care (01) | DRG 300 ==
LOC: ANHED 14:53 → ANH3MEDSUR 16:35 → ANH2MED 17:14
PROVIDERS: Student in an Organized Health Care Education/Training Program; Admitting Provider Internal Medicine; Emergency Provider Emergency Medicine; PCP Family Medicine; Visit Provider Nurse Practitioner Acute Care
DX: I73.9 Peripheral vascular disease, unspecified (principal); L03.115 Cellulitis of right lower limb; I10 Essential (primary) hypertension; G47.33 Obstructive sleep apnea (adult) (pediatric); I48.0 Paroxysmal atrial fibrillation; N40.1 Benign prostatic hyperplasia with lower urinary tract symptoms; R35.1 Nocturia; R73.03 Prediabetes; I25.10 Atherosclerotic heart disease of native coronary artery without angina pectoris; E78.2 Mixed hyperlipidemia; K21.9 Gastro-esophageal reflux disease without esophagitis; L30.1 Dyshidrosis [pompholyx]; Z79.01 Long term (current) use of anticoagulants; I25.2 Old myocardial infarction; Z98.42 Cataract extraction status, left eye; Z98.41 Cataract extraction status, right eye; Z90.49 Acquired absence of other specified parts of digestive tract; Z95.5 Presence of coronary angioplasty implant and graft
CPT/HCPCS: 36415; 73610; 80048; 80053; 81003; 83605; 84550; 85025; 85027; 85652; 86038; 86039; 86140; 86430; 87040; 93005; 93922; 93971; 96361; 96365; 96366; 99285; A9270; J3370; J7030

== ENCOUNTER 2025-02-01 09:47 | Emergency (ER) | payer MEDICARE, SELFPAY ==
--- NOTE | 2025-02-01 09:56 | ED_ITS ---
HPI - Ear Problem General Chief complaint: Ear Stated complaint: Ear Cleaning Time Seen by Provider: 02/01/25 10:08 Source: patient, RN notes reviewed and old records reviewed Mode of arrival: ambulatory Limitations: no limitations History of Present Illness HPI Narrative: 84-year-old male presents to have his ears cleaned out. Was seen by depositing machine operator 1 week ago. Was told that his right ear needed to be cleaned out. Does wear hearing aids Related Data Home Medications ?Medication ?Instructions ?Recorded ?Confirmed ?Last Taken ?Type losartan 50 mg tablet 50 mg PO DAILY 09/09/22 01/11/25 12/30/24 History aspirin 81 mg chewable tablet 81 mg PO DAILY 12/05/22 01/11/25 01/11/25 History rosuvastatin 10 mg tablet 10 mg PO DAILY 07/19/23 01/11/25 12/30/24 History multivitamin 1 tablet PO DAILY 08/21/23 01/11/25 12/30/24 History apixaban 5 mg tablet (Eliquis) 5 mg PO Q12H 12/23/23 01/11/25 12/30/24 History Allergies Allergy/AdvReac Type Severity Reaction Status Date / Time lisinopril Allergy Unknown Unknown Verified 02/01/25 10:01 adhesive AdvReac Mild Itching Verified 02/01/25 10:01 pantoprazole AdvReac Mild itching Verified 02/01/25 10:01 Review of Systems Review of Systems: All systems reviewed & are unremarkable except as noted in HPI and below Constitutional: Constitutional: Reports no additional constitutional complaints ENT: Reports as per HPI Cardiovascular: Cardiovascular: Reports no additional cardiovascular complaints, Denies chest pain and Denies dyspnea Respiratory: Respiratory: Reports no additional respiratory complaints, Denies chest congestion, Denies cough and Denies dyspnea Musculoskeletal: Musculoskeletal: Reports no additional musculoskeletal complaints Integumentary/Breasts: Skin/Breast: Reports system reviewed and no additional complaints, except as docu [facility] Past Medical History Medical History (Updated 02/01/25 @ 10:21 by Sasha Hill APRN) PVD (peripheral vascular disease) with claudication Non-ST elevation [place] (NSTEMI) Paroxysmal atrial fibrillation Coronary artery disease Chronic anticoagulation Prediabetes A1C was 5.6% in 08/2024 Benign prostatic hyperplasia with nocturia Kidney stones Obstructive sleep apnea on CPAP Essential (primary) hypertension Mixed hyperlipidemia 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 Gastroesophageal reflux disease Hard of hearing 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 Subarachnoid hemorrhage following injury with brief loss of consciousness but without open intracranial wound Dyshidrotic eczema Surgical History Surgical History History of inguinal hernia repair History of bilateral cataract extraction History of arthroscopy of right shoulder History of orthopedic surgery right ankle, elbow, forearm History of cholecystectomy History of coronary artery stent placement drug-eluting stent to the LAD x2 History of appendectomy History of back surgery History of carpal tunnel surgery Family History Family History Mother Family history of cardiovascular disease Family history of diabetes mellitus in first degree relative Diabetes mellitus Father Family history of heart disease in male family member before age 55 Cerebrovascular accident Other Family history of malignant neoplasm Hypertension Social History Social History Social History: Surrogate medical decision maker: Ellie Vila, spouse ([phone]). Code status: Full code. Smoking status: Never smoker Alcohol intake: never Substance use: never Substance use type: does not use Do You Feel Safe in your Home?: Yes Lack of Transportation: No Lack of Food: Never True Current Housing: I Have Housing Concerned About Future Housing: No Difficulty Paying Gas/Electric Bills: No Difficulty Paying for Meds: No Currently Unemployed: No Education: Trade/Vocational Certificate Difficulty w/ Childcare or Family Care: No Living arrangements: with family Additional living arrangements comments: Lives with spouse in [place]. Occupation/Education: retired Spiritual care concerns: No Comments At the time of my signature, I reviewed and agree with the nursing past medical, surgical, social, and family history. There is no relevant family history pertinent to the patient complaint. Exam Const: General: cooperative, comfortable, no acute distress, well developed, alert, ill appearing chronically; not acutely and well nourished Nutritional Appearance: well nourished Orientation/consciousness: patient oriented x3 Limitations: no limitations HENMT: Head: normal to inspection Ears: external ears normal, TM normal on the left, EAC's normal (On left), Abnormal EAC present cerumen impaction on the right and hearing grossly impaired Eyes: General: appearance normal, both eyes and all related structures Alignment and Position: alignment normal Neck: Neck: normal visual inspection, full ROM, no lymphadenopathy and no meningeal signs Chest: Chest palpation & inspection: normal inspection of the chest Resp: Effort & Inspection: normal respiratory effort and able to speak in complete sentences Cardio: Rate: regular rate Skin: General skin exam: normal color and no rashes or lesions noted Neuro: General: patient oriented x3, moves all extremities and no meningeal signs Cognition (Neuro): normal cognition Speech: normal speech Extrem: General: normal to inspection, full ROM and capillary refill normal Psych: Appearance: grossly normal and well kempt Mental Status: mental status grossly normal Speech and movement: Normal speech and movement present and Clear speech present Affect: normal affect Attitude: cooperative Course Course Level of Care: Express Care Visit Vital Signs Vital signs: Vital Signs Temperature 97.9 F 02/01/25 09:58 Pulse Rate 80 02/01/25 09:58 Respiratory Rate 16 02/01/25 09:58 Blood Pressure 145/66 H 02/01/25 09:58 Pulse Oximetry 100 02/01/25 09:58 Temperature 97.9 F 02/01/25 09:58 Pulse Rate 80 02/01/25 09:58 Respiratory Rate 16 02/01/25 09:58 Blood Pressure 145/66 H 02/01/25 09:58 Pulse Oximetry 100 02/01/25 09:58 Oxygen Delivery Room Air 02/01/25 10:00 Reviewed Procedures Ear Wax Removal Right Ear: Ear Wax Removal Date: 02/01/25 Ear Wax Removal Time: 10:05 Cerumenolytic Used: other (Peroxide water) Results: Re-examined: some cerumen remains TM Examination: TM(s) intact, normal appearance Ear Canal Exam: atraumatic Patient Tolerated Procedure: well Complications: no problems Technique: ear canal irrigated and ear canal curetted Medical Decision Making MDM Narrative Medical decision making narrative: Patient presents with . Patient sitting in exam room. Nontoxic in appearance. Patient presents after seeing his depositing machine operator last week to have his ears on the right side cleaned out. Significant wax noted. Able to clean most of the wax out still a small amount remains up against the TM. Unable to reach with irrigation or curette. Instructed to continue using earwax remover or Debrox Patient appropriate for outpatient treatment with close follow-up Discharge instructions reviewed with patient, as well as provided in writing per nursing staff. The instructions also include specific and strict return/GO TO THE ER as well as f/u information. All questions have been answered, and the patient deny any further questions with discharge and discharge plan. Some parts of this dictation were generated by voice recognition software and may contain typographical and/or grammatical inaccuracies. Differential Diagnosis Differential Diagnosis: Foreign body in ear, cerumen impaction Medical Records Medical records reviewed: Yes I reviewed the external patient's medical records. Vital Signs Vital Signs: Vital Signs Temperature 97.9 F 02/01/25 09:58 Pulse Rate 80 02/01/25 09:58 Respiratory Rate 16 02/01/25 09:58 Blood Pressure 145/66 H 02/01/25 09:58 Pulse Oximetry 100 02/01/25 09:58 Temperature 97.9 F 02/01/25 09:58 Pulse Rate 80 02/01/25 09:58 Respiratory Rate 16 02/01/25 09:58 Blood Pressure 145/66 H 02/01/25 09:58 Pulse Oximetry 100 02/01/25 09:58 Oxygen Delivery Room Air 02/01/25 10:00 Reviewed Lab Data Lab results reviewed: Yes I reviewed the patient's lab results. Labs: Reviewed Critical Care Time Critical Care Time Critical Care Time: No Discharge Plan Discharge Clinical Impression: Impacted cerumen of right ear Patient Disposition: Home Condition: Stable Instructions: Antibiotic Form, How to Use Ear Drops (ED) Additional Instructions: You had Cerumen (EAR wax impaction). Do not use Q-tips or put anything in the ear. This can damage the ear. Instead , use Debrox or ear wax remover. Place 5 drops in ear after a hot shower and place a warm compress over the ear for 20 minutes. alternate doing this every 3-4 days. It will break up the wax gently. Do not use too much pressure. Once you have all of the cerumen out of your ears, you may do preventative treatment to prevent this from happening again. Use 5 drops once weekly after a hot shower. Patient Language: Belarusian Prescriptions: No Action aspirin 81 mg Tablet,Chewable 81 mg PO DAILY rosuvastatin 10 mg tablet 10 mg PO DAILY losartan 50 mg tablet 50 mg PO DAILY Eliquis 5 mg tablet 5 mg PO Q12H multivitamin Tablet 1 tablet PO DAILY cilostazol 100 mg Tablet 100 mg PO BIDAC Qty: 60 0RF sulfamethoxazole-trimethoprim 800-160 mg Tablet 1 tab PO Q12HR Qty: 13 0RF (DME) CPAP See Rx Instructions .Route .MEDSUPPLY Qty: 1 0RF Rx Instructions: medium ResMed AirTouch F20 full face mask and heated humidity with pressure of 11 cm H2) ondansetron HCl 4 mg tablet 4 mg PO Q12H Qty: 60 0RF Follow-up/Referrals: PHYSICIAN,MANAGER [employer] [Primary Care Provider] - Time of Disposition: 10:21
[2025-02-01 09:58] VITALS: BP 145/66; PULSE 80; RESP 16; TEMP 36.6; O2SAT 100
--- NOTE | 2025-02-01 10:24 | PC.NURSE ---
RT EAR WAS IRRIGATED WITH SIGNIFICANT AMOUNT OF DEBRIS REMOVED PER [facility] NURSE. PT TOLERATED WELL.
== END 2025-02-01 10:24 | disposition home or self-care (01) ==
PROVIDERS: Emergency Provider Nurse Practitioner
DX: H61.21 Impacted cerumen, right ear (principal); I73.9 Peripheral vascular disease, unspecified; I25.2 Old myocardial infarction; I48.0 Paroxysmal atrial fibrillation; R73.03 Prediabetes; N40.0 Benign prostatic hyperplasia without lower urinary tract symptoms; G47.33 Obstructive sleep apnea (adult) (pediatric); I10 Essential (primary) hypertension; E78.2 Mixed hyperlipidemia; K21.9 Gastro-esophageal reflux disease without esophagitis; Z98.42 Cataract extraction status, left eye; Z98.41 Cataract extraction status, right eye; Z95.5 Presence of coronary angioplasty implant and graft; Z79.82 Long term (current) use of aspirin; Z79.01 Long term (current) use of anticoagulants
CPT/HCPCS: 69210; 99212; A9270; G0463